=== PATIENT | male | born 1960 ===

== ENCOUNTER 2020-02-20 18:53 | Inpatient (IN) | payer OTHER, SELFPAY ==
[2020-02-20] MEDS ORDERED: AZITHROMYCIN 500 MG in SODIUM CHLORIDE 0.9% 250ML 250 ML IV ONE (19:04)
[2020-02-20] MEDS ORDERED: SODIUM CHLORIDE 0.9% 1000 ML IV SOLN IV ONE (19:06)
--- NOTE | 2020-02-20 19:07 | Emergency Department Report ---
ED Shortness of Breath HPI - General Chief Complaint: Dyspnea/Respdistress Stated Complaint: MARJORIE/RESP Time Seen by Provider: 02/20/20 19:01 Source: patient, EMS Mode of arrival: Stretcher Limitations: No Limitations - History of Present Illness Initial Comments: Patient is a 59-year-old male presents emergency room with complaints of shortness of breath, cough and difficulty breathing. Patient states he was diagnosed with Covid 4 days ago. Patient states that his symptoms started 1 week ago. Patient states his symptoms are worsening. Patient states he is having fever, chills, fatigue, shortness of breath and cough. Patient states cough is dry. Patient dates shortness of breath better with rest and worse with exertion. Patient brought in by EMS. Report received from EMS. EMS states the patient was 50% on room air and was placed on a nonrebreather and his current oxygen saturation is 88%. MD Complaint: shortness of breath, cough -: Sudden Severity: severe Consistency: constant Improves With: rest Worsens With: exertion Known History Of: other (COVID-19) Context: recent URI Associated Symptoms: fever, cough Treatments Prior to Arrival: oxygen - Related Data Home Oxygen Therapy: No Home Medications Medication Instructions Recorded Confirmed Last Taken No Known Home Medications [No 02/20/20 02/20/20 Unknown Reported Home Medications] Allergies Allergy/AdvReac Type Severity Reaction Status Date / Time No Known Allergies Allergy Unverified 02/20/20 19:38 ED Review of Systems ROS: Stated complaint: MARJORIE/RESP Other details as noted in HPI Constitutional: chills, fever, malaise Eyes: denies: eye pain, eye discharge, vision change ENT: denies: ear pain, throat pain Respiratory: cough, shortness of breath. denies: wheezing Cardiovascular: denies: chest pain, palpitations Endocrine: no symptoms reported Gastrointestinal: denies: abdominal pain, nausea, diarrhea Genitourinary: denies: urgency, dysuria Musculoskeletal: denies: back pain, joint swelling, arthralgia Skin: denies: rash, lesions Neurological: denies: headache, weakness, paresthesias Psychiatric: denies: anxiety, depression Hematological/Lymphatic: denies: easy bleeding, easy bruising ED Past Medical Hx - Past Medical History Previous Medical History?: Yes Hx Hypertension: Yes - Surgical History Past Surgical History?: No - Family History Family history: no significant - Social History Smoking Status: Never Smoker Substance Use Type: None - Medications Home Medications: Home Medications Medication Instructions Recorded Confirmed Last Taken Type No Known Home Medications [No 02/20/20 02/20/20 Unknown History Reported Home Medications] ED Physical Exam - General General appearance: alert, in distress - Head Head exam: Present: atraumatic, normocephalic - Eye Eye exam: Present: normal appearance - ENT ENT exam: Present: mucous membranes moist - Neck Neck exam: Present: normal inspection - Respiratory Respiratory exam: Present: respiratory distress, decreased breath sounds - Cardiovascular Cardiovascular Exam: Present: regular rate, normal rhythm. Absent: systolic murmur, diastolic murmur, rubs, gallop - GI/Abdominal GI/Abdominal exam: Present: soft, normal bowel sounds - Rectal Rectal exam: Present: deferred - Extremities Exam Extremities exam: Present: normal inspection - Back Exam Back exam: Present: normal inspection - Neurological Exam Neurological exam: Present: alert, oriented X3 - Psychiatric Psychiatric exam: Present: normal affect, normal mood - Skin Skin exam: Present: warm, dry, intact, normal color. Absent: rash ED Course Vital Signs 02/20/20 02/20/20 02/20/20 19:15 19:20 19:30 Temperature 97.6 F Pulse Rate 107 H Respiratory 28 H Rate Blood Pressure 124/78 122/74 Blood Pressure [Right] O2 Sat by Pulse 72 L 90 78 L Oximetry 02/20/20 02/20/20 02/20/20 19:45 20:00 20:30 Temperature Pulse Rate 107 H Respiratory 36 H Rate Blood Pressure 122/74 126/84 122/81 Blood Pressure [Right] O2 Sat by Pulse 93 93 94 Oximetry 02/20/20 02/20/20 02/20/20 21:00 21:30 22:00 Temperature Pulse Rate Respiratory Rate Blood Pressure 120/91 129/92 129/87 Blood Pressure [Right] O2 Sat by Pulse 96 95 80 L Oximetry 02/20/20 02/20/20 02/20/20 22:11 22:30 22:45 Temperature Pulse Rate 108 H 112 H Respiratory 33 H 21 Rate Blood Pressure 129/87 Blood Pressure 109/82 149/116 [Right] O2 Sat by Pulse 87 86 91 Oximetry 02/20/20 02/20/20 02/20/20 23:00 23:15 23:30 Temperature Pulse Rate 124 H 133 H 147 H Respiratory 25 H 32 H 26 H Rate Blood Pressure Blood Pressure 161/113 179/116 192/111 [Right] O2 Sat by Pulse 95 90 66 L Oximetry 02/20/20 02/21/20 02/21/20 23:45 00:34 00:35 Temperature Pulse Rate 145 H 120 H 117 H Respiratory 34 H 40 H 37 H Rate Blood Pressure 112/76 Blood Pressure 212/124 [Right] O2 Sat by Pulse 79 L 77 L 77 L Oximetry 02/21/20 02/21/20 02/21/20 00:40 00:45 00:50 Temperature Pulse Rate 110 H 111 H 105 H Respiratory 39 H 26 H 41 H Rate Blood Pressure 77/49 73/55 76/47 Blood Pressure [Right] O2 Sat by Pulse 80 L 79 L 77 L Oximetry 02/21/20 02/21/20 02/21/20 00:55 01:00 01:05 Temperature Pulse Rate 106 H 106 H 108 H Respiratory 42 H 41 H 41 H Rate Blood Pressure 75/48 65/41 79/46 Blood Pressure [Right] O2 Sat by Pulse 72 L 78 L 80 L Oximetry 02/21/20 02/21/20 02/21/20 01:10 01:16 01:20 Temperature Pulse Rate 107 H 116 H 116 H Respiratory 42 H 38 H 33 H Rate Blood Pressure 79/46 69/45 139/71 Blood Pressure [Right] O2 Sat by Pulse 82 L 71 L 70 L Oximetry 02/21/20 02/21/20 02/21/20 01:26 01:30 01:36 Temperature Pulse Rate 110 H 107 H 114 H Respiratory 44 H 41 H 19 Rate Blood Pressure 98/77 87/58 118/85 Blood Pressure [Right] O2 Sat by Pulse 75 L 80 L 72 L Oximetry - Reevaluation(s) Reevaluation #1: Initial evaluation done. Patient will have a Covid protocol and sepsis protocol. Patient will be placed on BiPAP. 02/20/20 19:07 Reevaluation #2: Patient states she is feeling better. Patient's oxygen is better. Patient's heart rate is better. Patient is currently on BiPAP. 02/20/20 20:10 Reevaluation #3: I discussed all results with patient. I discussed plan of care with patient. Patient agrees with plan of care and admission. Patient to be admitted to the hospitalist service. 02/20/20 20:47 Reevaluation #4: As the hospitalist went to see the patient, the patient desatted and the hospitalist asked the patient to be admitted. The patient agrees to intubation. Patient will be moved to room 1 and we will move to intubate the patient. See procedure note. 02/20/20 21:58 Reevaluation #5: Patient intubated without difficulty. Hospitalist updated with status. Patient will have a second chest x-ray to confirm ET tube placement. 02/20/20 22:30 Patient had a repeat chest x-ray and a repeat chest x-ray shows the ET tube was in the right mainstem. Patient is to have been repositioned 5 cm back and we will do a repeat chest x-ray. A pressure and the patient will require a central line. A central line will be placed. 02/21/20 01:12 Her chest x-ray shows good position of the ET tube. Patient will have a central line placed now. 02/21/20 01:34 Central line placed without difficulty. See procedure note. 02/21/20 02:15 - Consultations Consultation #1: Hospitalist consulted for admission. Hospitalist to admit patient. 02/20/20 20:47 Hospitalist updated with intubation status. 02/20/20 22:46 Hospitalist updated with underlying status. 02/21/20 02:26 - Central Line Placement Right Femoral Consent Obtained: emergent situation Time Out Performed: Yes Patient Placed on Monitor/Pulse Ox: Yes MD Prep: mask, gown, gloves Central Line Prep: Chlorhexidine scrub, sterile drapes applied Local Anesthesia Used: Lidocaine 1% Amount of Anesthesia Used (mls): 5 Ultrasound Used for Placement: Yes Central Line Lumen Inserted: triple Bloods Obtained for Lab: Yes Central Line Position: good blood return, all ports aspirated, flus, sutured in place with 2-0 Dressing Applied: Tegaderm Patient Tolerated Procedure: well, no complications Complications: none Additional Comments: Right femoral central line placed without complications. Seldinger technique used. Minimal blood loss noted. - Intubation Time Out Performed: Yes Sedative: Etomidate Paralytic: Rocuronium Laryngoscope: fiberoptic video scope Size: 3 Assist Device Used: fiberoptic device ET Tube Size: 7.5 Tube Secured Depth (cm): 24 Tube Secured Location: teeth Tube Placement Confirmation: visualized tube passing t, equal breath sounds bilat, no breath sounds over epi, confirmation by capnometr Patient Tolerated Procedure: well, no complications Intubation Complications: none ED Medical Decision Making - Lab Data Result diagrams: 02/20/20 19:21 02/20/20 19:21 - EKG Data -: EKG Interpreted by Me EKG shows normal: sinus rhythm, axis, intervals, QRS complexes, ST-T waves Rate: tachycardia - Radiology Data Radiology results: report reviewed, image reviewed interpreted by me: First chest x-ray: Bilateral pneumonia, no pneumothorax, no foreign body, no osseous findings. Second chest x-ray: No change in acute findings except the ET tube is in the right mainstem. Third chest x-ray after the tube was repositioned: ET tube in satisfactory pos ition. CHEST 1 VIEW INDICATION / CLINICAL INFORMATION: Dyspnea. COMPARISON: None available. FINDINGS: SUPPORT DEVICES: None. HEART / MEDIASTINUM: No significant abnormality. LUNGS / PLEURA: Diffuse bilateral airspace disease No pneumothorax. ADDITIONAL FINDINGS: No significant additional findings. IMPRESSION: Diffuse bilateral airspace disease ABDOMEN 1 VIEW INDICATION / CLINICAL INFORMATION: OG tube placement confirmation. COMPARISON: Chest radiograph one day prior FINDINGS: TUBES / LINES: Interval placement of an enteric tube with tip terminating in the gastric body and side hole distal to the gastroesophageal junction. BOWEL GAS PATTERN: No significant abnormality. FREE AIR / EXTRALUMINAL GAS: None seen. ADDITIONAL FINDINGS: Refer to separately dictated chest radiograph. IMPRESSION: 1. Appropriately positioned enteric tube. - Medical Decision Making Patient is a 59-year-old male that presents emergency room with complaints of shortness of breath and cough. Patient was diagnosed with Covid. Patient dates his symptoms been going on for a week. Patient states his symptoms worsening. Patient brought in by EMS. EMS states that the patient was 50% on room air and was placed on a nonrebreather and went up to 88%. Patient was placed on BiPAP after initial evaluation. Patient had labs done which were consistent with elevated Covid markers and hyponatremia. Patient's WBCs were also elevated.. Patient's chest x-ray shows bilateral pneumonia. After initial evaluation, the patient was given IV fluids and broad-spectrum antibiotics. Patient also given Decadron. Patient did well on BiPAP for the duration of his ER stay however after the patient was admitted to the hospitalist service, the patient became hypoxic and increased work to breathe. Patient was then intubated. See procedure note for intubation. Patient's oxygen saturation and work to breathe improved with intubation. Patient admitted to the hospitalist service for further evaluation treatment. Patient initially admitted to [facility] however the admission was changed to the ICU because of the intubation and respiratory failure. After patient was admitted and intubation, the patient became hypotensive. Patient was placed on Levophed and given fluids. Patient then required a central line. A central line was placed. Hospitalist updated with status. - Differential Diagnosis Covid, pneumonia, hypoxia, respiratory failure, shortness of breath Critical Care Time: Yes Critical care time in (mins) excluding proc time.: 80 Critical care attestation.: If time is entered above; I have spent that time in minutes in the direct care o f this critically ill patient, excluding procedure time. Critical Care Time: 80 MINUTES ED Disposition Clinical Impression: COVID-19, Hyponatremia, Septic shock Respiratory failure Qualifiers: Chronicity: acute Respiratory failure complication: hypoxia Qualified Code(s): J96.01 - Acute respiratory failure with hypoxia Pneumonia Qualifiers: Pneumonia type: due to unspecified organism Laterality: bilateral Lung location: unspecified part of lung Qualified Code(s): J18.9 - Pneumonia, unspecified organism Sepsis Qualifiers: Sepsis type: sepsis due to unspecified organism Sepsis acute organ dysfunction status: with acute organ dysfunction Severe sepsis acute organ dysfunction type: acute respiratory failure Acute respiratory failure type: with hypoxia Severe sepsis shock status: with septic shock Qualified Code(s): A41.9 - Sepsis, unspecified organism Hypotension Qualifiers: Hypotension type: unspecified hypotension type Qualified Code(s): I95.9 - Hypotension, unspecified Disposition: -09 OP ADMIT IP TO THIS HOSP Is pt being admited?: Yes Does the pt Need Aspirin: No Condition: Critical Time of Disposition: 22:39
[2020-02-20] MEDS ORDERED: cefTRIAXone/NS 2 GM/100 ML 2 GM/100 ML BAG IV ONE ×2 (19:40→19:41)
[2020-02-20 19:50] LABS: Hematocrit 44.2 % (35.5-45.6); Hemoglobin 15.1 gm/dl (11.8-15.2); Mean Corpuscular HGB Conc 34 % (32-34); Mean Corpuscular Volume 95 fl (84-94); Platelet Count 338 K/mm3 (140-440); Red Blood Count 4.67 M/mm3 (3.65-5.03); Red Cell Distribution Width 13.9 % (13.2-15.2)
[2020-02-20 20:07] LABS: Alanine Aminotransferase 148 units/L (7-56); Albumin 2.8 g/dL (3.9-5); BUN/Creatinine Ratio 26; Blood Urea Nitrogen 21 mg/dL (9-20); C-Reactive Protein 32.4 mg/dL (0.00-1.30); Calcium 8.9 mg/dL (8.4-10.2); Hemolysis Index 9
--- NOTE | 2020-02-20 20:21 | XRay Report ---
CHEST 1 VIEW INDICATION / CLINICAL INFORMATION: Dyspnea. COMPARISON: None available. FINDINGS: SUPPORT DEVICES: None. HEART / MEDIASTINUM: No significant abnormality. LUNGS / PLEURA: Diffuse bilateral airspace disease No pneumothorax. ADDITIONAL FINDINGS: No significant additional findings. IMPRESSION: Diffuse bilateral airspace disease Signer Name: Elver Luna MD FACR Signed: 02/20/2020 8:16 PM Workstation Name: [id number]
[2020-02-20 21:34] LABS: Total Cells Counted 100
[2020-02-20 21:35] LABS: Basophils % (Manual) 0 % (0.0-1.8)
[2020-02-20 21:37] LABS: Band Neutrophils # (Manual) 0.7 K/mm3; Eosinophils % (Manual) 0 % (0.0-4.3)
[2020-02-20 21:38] LABS: Platelet Estimate Consistent w Auto
[2020-02-20] MEDS ORDERED: MINERAL OIL/PETROLATUM, WHITE OPHTH OINT 3.5 GM OU PRN (22:04)
[2020-02-20] MEDS ORDERED: fentaNYL 100 MCG/2 ML INJ IV PRN (22:04)
[2020-02-20] MEDS: ETOMIDATE 20 MG/10 ML INJ IV ONE ×2 (22:14→22:25)
[2020-02-20] MEDS: ROCURONIUM 50 MG/5 ML INJ IV ONE ×2 (22:17→22:26)
[2020-02-20] MEDS: fentaNYL DRIP Premix 2,000 MCG/100 ML BAG IV SCH (22:33)
[2020-02-20] MEDS: PROPOFOL 500 MG/50 ML VIAL IV SCH (23:44)
[2020-02-21 00:09] LABS: Bilirubin,Urine NEG (Negative); Blood,Urine NEG (Negative); Color,Urine Amber (Yellow); Mucus,Urine 3+ /HPF; Urobilinogen,Urine < 2.0 mg/dL (<2.0)
[2020-02-21 00:11] LABS: Protein,Urine >500 mg/dL (Negative)
[2020-02-21] MEDS ORDERED: ONDANSETRON 4 MG/2 ML INJ IV PRN (00:28)
[2020-02-21] MEDS ORDERED: MORPHINE 2 MG/1 ML INJ IV PRN (00:28)
--- NOTE | 2020-02-21 00:37 | History and Physical Report ---
History of Present Illness Date of examination: 02/20/20 Date of admission: 02/20/20 21:32 Chief complaint: Shortness of Breath Fever Cough History of present illness: 59-year-old male with known history of hypertension presenting to the emergency room via EMS today complaining of cough, shortness of breath and difficulty breathing. Symptoms have been ongoing for about a week. He was diagnosed with COVID-19 about 4 days ago. He has been having a fever, chills generalized fatigue and dry cough over the past few days. Symptoms seems to be getting worse. He gets more short of breath on minimal exertion. Patient is initial oxygen saturation on room air was about 50% when seen by EMS and he was placed on nonrebreather with improvement of oxygen saturation to about 88%. Patient was subsequently placed on BiPAP upon arrival in the emergency room. Work-up in the emergency room today reveals bilateral pneumonia. During the course of his stay in the emergency room patient's condition continued to deteriorate and was subsequently intubated in the ER. Patient admitted with pneumonia possibly secondary to COVID-19 and will be admitted into the intensive care unit. Past History Past Medical History: hypertension Past Surgical History: No surgical history Social history: no significant social history Family history: no significant family history Medications and Allergies Allergies Allergy/AdvReac Type Severity Reaction Status Date / Time No Known Allergies Allergy Unverified 02/20/20 19:38 Home Medications Medication Instructions Recorded Confirmed Last Taken Type No Known Home Medications [No 02/20/20 02/20/20 Unknown History Reported Home Medications] Active Meds: Active Medications Acetaminophen (Tylenol) 650 mg PO Q4H PRN PRN Reason: Pain MILD(1-3)/Fever >100.5/HERNANDEZ Fentanyl (Sublimaze) 50 mcg IV Q10MIN PRN PRN Reason: ANALGESIA Hydrophilic Ointment (Vaseline Lip Therapy) 1 applic TP Q2HR PRN PRN Reason: Dry Lips Fentanyl Citrate (Fentanyl Drip Premix) 2,000 mcg in 100 mls @ 3.856 mls/hr IV TITR DILIP; Protocol Last Titration: 02/20/20 23:44 Dose: 0 mcg/kg/hr, 0 mls/hr Documented by: Propofol (Propofol) 500 mg in 50 mls @ 2.313 mls/hr IV TITR DILIP; Protocol Last Titration: 12/10/20 00:10 Dose: 30 mcg/kg/min, 13.88 mls/hr Documented by: Ceftriaxone Sodium (Rocephin/Ns 2 Gm/100 Ml) 2 gm in 100 mls @ 200 mls/hr IV Q24HR DILIP; Protocol Azithromycin 500 mg/ Sodium (Chloride) 250 mls @ 250 mls/hr IV Q24HR DILIP; Protocol Morphine Sulfate (Morphine) 2 mg IV Q4H PRN PRN Reason: Pain, Moderate (4-6) Multi-Ingred Cream/Lotion/Oil/Oint (Artificial Tears Ophth Oint) 1 applic OU Q4HR PRN PRN Reason: Dry Eye(s) Ondansetron HCl (Zofran) 4 mg IV Q8H PRN PRN Reason: Nausea And Vomiting Sodium Chloride (Sodium Chloride Flush Syringe 10 Ml) 10 ml IV BID DILIP Sodium Chloride (Sodium Chloride Flush Syringe 10 Ml) 10 ml IV PRN PRN PRN Reason: LINE FLUSH Review of Systems Constitutional: fever, chills Ears, nose, mouth and throat: no nasal congestion, no sore throat Cardiovascular: no chest pain, no palpitations Respiratory: cough, shortness of breath Gastrointestinal: no abdominal pain, no nausea, no vomiting, no diarrhea Genitourinary Male: no dysuria, no hematuria, no nocturia Musculoskeletal: no neck pain, no low back pain Integumentary: no rash, no pruritis Neurological: no headaches, no confusion Psychiatric: no anxiety, no depression Exam - Constitutional Vitals: Temp Pulse Resp BP Pulse Ox 97.6 F 145 H 34 H 212/124 79 L 02/20/20 19:20 02/20/20 23:45 02/20/20 23:45 02/20/20 23:45 02/20/20 23:45 General appearance: Present: mild distress, well-nourished - EENT Eyes: Present: PERRL, EOM intact. Absent: scleral icterus ENT: hearing intact, clear oral mucosa, dentition normal - Neck Neck: Present: supple, normal ROM - Respiratory Respiratory effort: labored, accessory muscle use Respiratory: bilateral: rales - Cardiovascular Rhythm: regular Heart Sounds: Present: S1 & S2. Absent: gallop, systolic murmur, diastolic murmur, rub - Extremities Extremities: no ischemia, pulses intact, pulses symmetrical, No edema, Full ROM Peripheral Pulses: within normal limits - Abdominal General gastrointestinal: Present: soft, non-tender, non-distended, normal bowel sounds. Absent: mass - Integumentary Integumentary: Present: clear, warm, dry. Absent: rash - Musculoskeletal Musculoskeletal: strength equal bilaterally - Psychiatric Psychiatric: appropriate mood/affect, intact judgment & insight, memory intact, cooperative - Neurologic Neurologic: CNII-XII intact, no focal deficits, moves all extremities Results - Labs CBC & Chem 7: 02/20/20 19:21 02/20/20 19:21 Labs: Abnormal lab results 02/20/20 02/20/20 02/20/20 Range/Units 19:21 19:21 19:21 WBC 14.7 H (4.5-11.0) K/mm3 MCV 95 H (84-94) fl Seg Neuts % (Manual) 86.0 H (40.0-70.0) % Lymphocytes % (Manual) 5.0 L (13.4-35.0) % Nucleated RBC % 1.0 H (0.0-0.9) % Seg Neutrophils # Man 12.6 H (1.8-7.7) K/mm3 Lymphocytes # (Manual) 0.7 L (1.2-5.4) K/mm3 D-Dimer > 72084 H (0-234) ng/mlDDU ABG pH (7.320-7.450) POC ABG pCO2 (32.0-48.0) mmHg POC ABG pO2 (83-108) mmHg ABG Sodium (136.0-145.0) mmol/L ABG Glucose (65-95) mg/dL Sodium 129 L (137-145) mmol/L Chloride 95.8 L (98-107) mmol/L Carbon Dioxide 21 L (22-30) mmol/L BUN 21 H (9-20) mg/dL Glucose 167 H (75-100) mg/dL Ferritin (30.0-300.0) ng/mL AST 93 H (5-40) units/L ALT 148 H (7-56) units/L Alkaline Phosphatase 138 H (35-129) units/L Lactate Dehydrogenase (91-180) units/L C-Reactive Protein (0.00-1.30) mg/dL Albumin 2.8 L (3.9-5) g/dL Arterial Blood Glucose (65-95) mg/dL Urine WBC (Auto) (0.0-6.0) /HPF 02/20/20 02/20/20 02/20/20 Range/Units 19:21 19:21 23:00 WBC (4.5-11.0) K/mm3 MCV (84-94) fl Seg Neuts % (Manual) (40.0-70.0) % Lymphocytes % (Manual) (13.4-35.0) % Nucleated RBC % (0.0-0.9) % Seg Neutrophils # Man (1.8-7.7) K/mm3 Lymphocytes # (Manual) (1.2-5.4) K/mm3 D-Dimer (0-234) ng/mlDDU ABG pH (7.320-7.450) POC ABG pCO2 (32.0-48.0) mmHg POC ABG pO2 (83-108) mmHg ABG Sodium (136.0-145.0) mmol/L ABG Glucose (65-95) mg/dL Sodium (137-145) mmol/L Chloride (98-107) mmol/L Carbon Dioxide (22-30) mmol/L BUN (9-20) mg/dL Glucose 165 H (75-100) mg/dL Ferritin 1263.0 H (30.0-300.0) ng/mL AST (5-40) units/L ALT (7-56) units/L Alkaline Phosphatase (35-129) units/L Lactate Dehydrogenase 858 H (91-180) units/L C-Reactive Protein 32.40 H (0.00-1.30) mg/dL Albumin (3.9-5) g/dL Arterial Blood Glucose (65-95) mg/dL Urine WBC (Auto) 9.0 H (0.0-6.0) /HPF 02/20/20 Range/Units 23:37 WBC (4.5-11.0) K/mm3 MCV (84-94) fl Seg Neuts % (Manual) (40.0-70.0) % Lymphocytes % (Manual) (13.4-35.0) % Nucleated RBC % (0.0-0.9) % Seg Neutrophils # Man (1.8-7.7) K/mm3 Lymphocytes # (Manual) (1.2-5.4) K/mm3 D-Dimer (0-234) ng/mlDDU ABG pH 7.192 L (7.320-7.450) POC ABG pCO2 51.3 H (32.0-48.0) mmHg POC ABG pO2 61.1 L (83-108) mmHg ABG Sodium 133.6 L (136.0-145.0) mmol/L ABG Glucose 166 H (65-95) mg/dL Sodium (137-145) mmol/L Chloride (98-107) mmol/L Carbon Dioxide (22-30) mmol/L BUN (9-20) mg/dL Glucose (75-100) mg/dL Ferritin (30.0-300.0) ng/mL AST (5-40) units/L ALT (7-56) units/L Alkaline Phosphatase (35-129) units/L Lactate Dehydrogenase (91-180) units/L C-Reactive Protein (0.00-1.30) mg/dL Albumin (3.9-5) g/dL Arterial Blood Glucose 166 H (65-95) mg/dL Urine WBC (Auto) (0.0-6.0) /HPF Assessment and Plan - Patient Problems (1) Pneumonia Current Visit: Yes Status: Acute Qualifiers: Pneumonia type: due to unspecified organism Laterality: bilateral Lung location: unspecified part of lung Qualified Code(s): J18.9 - Pneumonia, unspecified organism Plan to address problem: Patient placed on empiric IV antibiotics. Will await culture results. (2) COVID-19 Current Visit: Yes Status: Acute Plan to address problem: Patient placed on isolation precautions. We will place consult to infectious disease for evaluation and recommendation. (3) Hyponatremia Current Visit: Yes Status: Acute Plan to address problem: We will monitor chemistry. Patient has received some IV fluid in the emergency room. (4) Respiratory failure Current Visit: Yes Status: Acute Qualifiers: Chronicity: acute Respiratory failure complication: hypoxia Qualified C ode(s): J96.01 - Acute respiratory failure with hypoxia Plan to address problem: Possibly secondary to the pneumonia with COVID-19. Patient has been intubated and sedated. We will place consult to equine intern for evaluation and recommendation. (5) DVT prophylaxis Current Visit: Yes Status: Acute Plan to address problem: Patient placed on subcutaneous heparin. (6) Full code status Current Visit: Yes Status: Acute
[2020-02-21] MEDS ORDERED: NORepinephrine/NS 4 MG-250 ML 4 MG/250 ML BAG IV ONE (00:59)
[2020-02-21] MEDS: NORepinephrine/NS 4 MG-250 ML 4 MG/250 ML BAG IV SCH ×8 (01:00→17:51)
--- NOTE | 2020-02-21 01:08 | XRay Report ---
ABDOMEN 1 VIEW INDICATION / CLINICAL INFORMATION: OG tube placement confirmation. COMPARISON: Chest radiograph one day prior FINDINGS: TUBES / LINES: Interval placement of an enteric tube with tip terminating in the gastric body and madie e hole distal to the gastroesophageal junction. BOWEL GAS PATTERN: No significant abnormality. FREE AIR / EXTRALUMINAL GAS: None seen. ADDITIONAL FINDINGS: Refer to separately dictated chest radiograph. IMPRESSION: 1. Appropriately positioned enteric tube. Signer Name: Adrianne Espinoza MD Signed: 02/21/2020 1:04 AM Workstation Name: [id number]
--- NOTE | 2020-02-21 01:12 | XRay Report ---
CHEST 1 VIEW INDICATION / CLINICAL INFORMATION: ETT placement. COMPARISON: Chest radiograph one day prior FINDINGS: SUPPORT DEVICES: Interval placement of an endotracheal tube with tip terminating in the right mainste m bronchus. Interval placement of enteric tube coursing beneath the diaphragm with the tip not visual ized. HEART / MEDIASTINUM: Stable. LUNGS / PLEURA: Redemonstration of extensive bilateral airspace opacities which appear slightly worse andra compared with prior examination. No pneumothorax. ADDITIONAL FINDINGS: No significant additional findings. IMPRESSION: 1. Interval placement of an endotracheal tube with tip terminating in the right mainstem bronchus, re commend retraction by approximately 5 to 6 cm. The above finding was discussed with Dr. Davison at 12:07 AM central time on 02/21/2020. Signer Name: Adrianne Espinoza MD Signed: 02/21/2020 1:07 AM Workstation Name: [id number]
[2020-02-21] MEDS: PROPOFOL 500 MG/50 ML VIAL IV SCH ×5 (01:30→19:52)
[2020-02-21] MEDS ORDERED: NORepinephrine/NS 4 MG-250 ML 4 MG/250 ML BAG IV SCH (02:00)
--- NOTE | 2020-02-21 02:03 | XRay Report ---
CHEST 1 VIEW INDICATION / CLINICAL INFORMATION: ETT placement. COMPARISON: Chest radiograph earlier same day FINDINGS: SUPPORT DEVICES: The endotracheal tube is now appropriately positioned, with tip terminating approxim ately 4.5 cm above the level of the serena. Stable position of enteric tube. HEART / MEDIASTINUM: Stable. LUNGS / PLEURA: Extensive bilateral airspace opacities are not significantly changed. No pneumothorax . ADDITIONAL FINDINGS: No significant additional findings. IMPRESSION: 1. The endotracheal tube is now appropriately positioned. Otherwise no significant change. Signer Name: Adrianne Espinoza MD Signed: 02/21/2020 1:58 AM Workstation Name: [id number]
[2020-02-21] MEDS ORDERED: SODIUM CHLORIDE 0.9% 1000 ML 1,000 ML ONE (02:10)
[2020-02-21] MEDS ORDERED: SODIUM CHLORIDE 0.9% 1000 ML 1,000 ML IV ONE (02:27)
--- NOTE | 2020-02-21 07:34 | Consultation ---
History of Present Illness - Reason for Consult Consult date: 02/21/20 COVID intubated Requesting physician: PAKO WELLER - History of Present Illness 59 years old male with history of hypertension admitted on 02/20/2020 due to a week history of dry cough, fever, generalized malaise, shortness of breath. Patient was diagnosed with COVID-19 4 days before admission. EMS found O2 sats down to 50% on room air. Patient was placed on nonrebreather. On arrival, initial temperature 97.6, HR 107, RR 28, O2 sat 72%, BP 124/78. Initial WBC 14.7. D-dimer 10,000. Ferritin 1263. AST 93. ALT 148. CRP 32. Urinalysis negative. Blood cultures 02/20/2020 pending. Chest x-ray shows diffuse bilateral airspace disease. Patient was intubated in the emergency room. Review of Systems: Deferred to ED with transmission of COVID-19 Past History Past Medical History: hypertension Past Surgical History: No surgical history Social history: no significant social history Family history: no significant family history Medications and Allergies Allergies Allergy/AdvReac Type Severity Reaction Status Date / Time No Known Allergies Allergy Unverified 02/20/20 19:38 Home Medications Medication Instructions Recorded Confirmed Last Taken Type No Known Home Medications [No 02/20/20 02/20/20 Unknown History Reported Home Medications] Active Meds: Active Medications Acetaminophen (Tylenol) 650 mg PO Q4H PRN PRN Reason: Pain MILD(1-3)/Fever >100.5/HERNANDEZ Dexamethasone (Dexamethasone 4 Mg/Ml Vial) 6 mg IV Q12HR DILIP Stop: 02/26/20 09:59 Fentanyl (Sublimaze) 50 mcg IV Q10MIN PRN PRN Reason: ANALGESIA Hydrophilic Ointment (Vaseline Lip Therapy) 1 applic TP Q2HR PRN PRN Reason: Dry Lips Fentanyl Citrate (Fentanyl Drip Premix) 2,000 mcg in 100 mls @ 3.856 mls/hr IV TITR DILIP; Protocol Last Titration: 02/20/20 23:44 Dose: 0 mcg/kg/hr, 0 mls/hr Documented by: Propofol (Propofol) 500 mg in 50 mls @ 2.313 mls/hr IV TITR DILIP; Protocol Last Admin: 02/21/20 07:05 Dose: 30 mcg/kg/min, 13.88 mls/hr Documented by: Ceftriaxone Sodium (Rocephin/Ns 2 Gm/100 Ml) 2 gm in 100 mls @ 200 mls/hr IV Q24HR DILIP; Protocol Azithromycin 500 mg/ Sodium (Chloride) 250 mls @ 250 mls/hr IV Q24HR DILIP; Protocol Norepinephrine (Levophed Drip 4 Mg/Ns 250 Ml) 4 mg in 250 mls @ 7.5 mls/hr IV TITR DILIP; Protocol Last Admin: 02/21/20 07:11 Dose: 14 mcg/min, 52.5 mls/hr Documented by: REMDESIVIR 200 mg/ Sodium (Chloride) 250 mls @ 500 mls/hr IV ONCE ONE Stop: 02/21/20 08:02 REMDESIVIR 100 mg/ Sodium (Chloride) 250 mls @ 500 mls/hr IV Q24HR@2100 DILIP Stop: 02/25/20 21:29 Morphine Sulfate (Morphine) 2 mg IV Q4H PRN PRN Reason: Pain, Moderate (4-6) Multi-Ingred Cream/Lotion/Oil/Oint (Artificial Tears Ophth Oint) 1 applic OU Q4HR PRN PRN Reason: Dry Eye(s) Ondansetron HCl (Zofran) 4 mg IV Q8H PRN PRN Reason: Nausea And Vomiting Sodium Chloride (Sodium Chloride Flush Syringe 10 Ml) 10 ml IV BID DILIP Sodium Chloride (Sodium Chloride Flush Syringe 10 Ml) 10 ml IV PRN PRN PRN Reason: LINE FLUSH Sodium Chloride (Sodium Chloride 0.9% 50 Ml Ivpb) 50 ml IV Q24HR@2100 DILIP Stop: 02/25/20 21:01 Physical Examination - Physical Exam Narrative exam: Physical Exam: reviewed ED and hospitalist notes, deferred to limit transmission of COVID-19 - Constitutional Vitals: Vital Signs Temp Pulse Resp BP Pulse Ox 97.6 F 99 H 46 H 121/71 95 02/20/20 19:20 02/21/20 07:16 02/21/20 07:16 02/21/20 07:16 02/21/20 07:16 Temperature -Last 24 Hours Temperature 97.6 F Results - Labs CBC & Chem 7: 02/20/20 19:21 02/20/20 19:21 Labs: Abnormal lab results 12/12/0102/20/20 02/20/20 Range/Units 19:21 19:21 19:21 WBC 14.7 H (4.5-11.0) K/mm3 MCV 95 H (84-94) fl Seg Neuts % (Manual) 86.0 H (40.0-70.0) % Lymphocytes % (Manual) 5.0 L (13.4-35.0) % Nucleated RBC % 1.0 H (0.0-0.9) % Seg Neutrophils # Man 12.6 H (1.8-7.7) K/mm3 Lymphocytes # (Manual) 0.7 L (1.2-5.4) K/mm3 D-Dimer > 08177 H (0-234) ng/mlDDU ABG pH (7.320-7.450) POC ABG pCO2 (32.0-48.0) mmHg POC ABG pO2 (83-108) mmHg ABG Sodium (136.0-145.0) mmol/L ABG Glucose (65-95) mg/dL Sodium 129 L (137-145) mmol/L Chloride 95.8 L (98-107) mmol/L Carbon Dioxide 21 L (22-30) mmol/L BUN 21 H (9-20) mg/dL Glucose 167 H (75-100) mg/dL Ferritin (30.0-300.0) ng/mL AST 93 H (5-40) units/L ALT 148 H (7-56) units/L Alkaline Phosphatase 138 H (35-129) units/L Lactate Dehydrogenase (91-180) units/L C-Reactive Protein (0.00-1.30) mg/dL Albumin 2.8 L (3.9-5) g/dL Arterial Blood Glucose (65-95) mg/dL Urine WBC (Auto) (0.0-6.0) /HPF 02/20/20 02/20/20 02/20/20 Range/Units 19:21 19:21 23:00 WBC (4.5-11.0) K/mm3 MCV (84-94) fl Seg Neuts % (Manual) (40.0-70.0) % Lymphocytes % (Manual) (13.4-35.0) % Nucleated RBC % (0.0-0.9) % Seg Neutrophils # Man (1.8-7.7) K/mm3 Lymphocytes # (Manual) (1.2-5.4) K/mm3 D-Dimer (0-234) ng/mlDDU ABG pH (7.320-7.450) POC ABG pCO2 (32.0-48.0) mmHg POC ABG pO2 (83-108) mmHg ABG Sodium (136.0-145.0) mmol/L ABG Glucose (65-95) mg/dL Sodium (137-145) mmol/L Chloride (98-107) mmol/L Carbon Dioxide (22-30) mmol/L BUN (9-20) mg/dL Glucose 165 H (75-100) mg/dL Ferritin 1263.0 H (30.0-300.0) ng/mL AST (5-40) units/L ALT (7-56) units/L Alkaline Phosphatase (35-129) units/L Lactate Dehydrogenase 858 H (91-180) units/L C-Reactive Protein 32.40 H (0.00-1.30) mg/dL Albumin (3.9-5) g/dL Arterial Blood Glucose (65-95) mg/dL Urine WBC (Auto) 9.0 H (0.0-6.0) /HPF 02/20/20 Range/Units 23:37 WBC (4.5-11.0) K/mm3 MCV (84-94) fl Seg Neuts % (Manual) (40.0-70.0) % Lymphocytes % (Manual) (13.4-35.0) % Nucleated RBC % (0.0-0.9) % Seg Neutrophils # Man (1.8-7.7) K/mm3 Lymphocytes # (Manual) (1.2-5.4) K/mm3 D-Dimer (0-234) ng/mlDDU ABG pH 7.192 L (7.320-7.450) POC ABG pCO2 51.3 H (32.0-48.0) mmHg POC ABG pO2 61.1 L (83-108) mmHg ABG Sodium 133.6 L (136.0-145.0) mmol/L ABG Glucose 166 H (65-95) mg/dL Sodium (137-145) mmol/L Chloride (98-107) mmol/L Carbon Dioxide (22-30) mmol/L BUN (9-20) mg/dL Glucose (75-100) mg/dL Ferritin (30.0-300.0) ng/mL AST (5-40) units/L ALT (7-56) units/L Alkaline Phosphatase (35-129) units/L Lactate Dehydrogenase (91-180) units/L C-Reactive Protein (0.00-1.30) mg/dL Albumin (3.9-5) g/dL Arterial Blood Glucose 166 H (65-95) mg/dL Urine WBC (Auto) (0.0-6.0) /HPF Assessment and Plan Cultures: Blood culture 02/20/2020 pending SARS CoV2 PCR positive as an outpatient Assessment: #Severe sepsis with septic shock: Present on admission with severe hypoxia, leukocytosis, elevated LFTs likely due to bilateral pneumonia. #Critical COVID pneumonia: Patient intubated. Very elevated inflammatory markers, ferritin 1263, CRP 32, D-dimer> 10,000. Suspect pulmonary embolism. #Acute hypoxemic respiratory failure: Patient intubated currently failure to 100%, PEEP 16. #Elevated LFTs: from COVID #Very elevated D-dimer: She rule out DVT/PE Recommendations: -Start Dexamethasone 6 mg IV/PO BID for 10 days -Start Remdesivir total 5 days -Monitor inflammatory markers - ferritin, Ddimer, CRP, LDH -Monitor liver function test on Remdesivir -Continue anticoagulation per System Protocol -consider full dose anticoagulation -Prone positioning as possible -Obtain SARS CoV-2 IgG to determine if patient is a candidate for COVID convalescent plasma -Follow-up blood cultures -Obtain respiratory culture -Obtain procalcitonin -Start cefepime and vancomycin for now -Obtain MRSA culture High risk mortality All laboratory, cultures and imaging were reviewed. Will follow Venita Tran MD Infectious Diseases [employer] [facility] M [phone] O [phone]
[2020-02-21] MEDS: CEFEPIME/NS 2 GM/100 ML 2 GM/100 ML BAG IV SCH ×3 (08:20→22:45)
--- NOTE | 2020-02-21 08:46 | Progress Note ---
Assessment and Plan Assessment and plan: 59-year-old male with known history of hypertension presenting to the emergency room via EMS today complaining of cough, shortness of breath and difficulty breathing. Symptoms have been ongoing for about a week. He was diagnosed with COVID-19 about 4 days ago. He has been having a fever, chills generalized fatigue and dry cough over the past few days. Symptoms seems to be getting worse. He gets more short of breath on minimal exertion. Patient is initial oxygen saturation on room air was about 50% when seen by EMS and he was placed on nonrebreather with improvement of oxygen saturation to about 88%. Patient was subsequently placed on BiPAP upon arrival in the emergency room. Work-up in the emergency room today reveals bilateral pneumonia. During the course of his stay in the emergency room patient's condition continued to deteriorate and was subsequently intubated in the ER. Patient admitted with pneumonia possibly secondary to COVID-19 and will be admitted into the intensive care unit. Severe sepsis, Acute Hypoxic Respiratory failure secondary to covid 19 pneumonia Pneumonia secondary to COVID19 Hyponatremia Transaminitis with elevated LFT, likely due to COVID 19 Plan Patient placed on empiric IV antibiotics. Will await culture results. Started on Dexamethasone and Remdesivir Continue isolation precautions. We will place consult to infectious disease for evaluation and recommendation. We will monitor chemistry. Patient has received some IV fluid in the emergency room. Possibly secondary to the pneumonia with COVID-19. Patient has been intubated and sedated. We will place consult to cra officer for evaluation and recommendation. Prognosis is Guarded DVT/GI PROPHY History Interval history: Patient seen and examined, agitated as propofol had ran out, and was desturating, new med placed and patient stabilized, saturation back up to 95% b ut still on full ventilatory support. Hospitalist Physical - Physical exam Narrative exam: General appearance: Present: mild distress, well-nourished, SLIGHT agitated earlier but now stablized. - EENT Eyes: Present: PERRL, EOM intact. Absent: scleral icterus ENT: hearing intact, clear oral mucosa, dentition normal - Neck Neck: Present: supple, normal ROM - Respiratory Respiratory effort: On full ventilatory support. labored, accessory muscle use Respiratory: bilateral: rales - Cardiovascular Rhythm: regular Heart Sounds: Present: S1 & S2. Absent: gallop, systolic murmur, diastolic murmur, rub - Extremities Extremities: no ischemia, pulses intact, pulses symmetrical, No edema, Full ROM Peripheral Pulses: within normal limits - Abdominal General gastrointestinal: Present: soft, non-tender, non-distended, normal bowel sounds. Absent: mass - Integumentary Integumentary: Present: clear, warm, dry. Absent: rash - Musculoskeletal Musculoskeletal: strength equal bilaterally - Psychiatric Psychiatric: appropriate mood/affect, intact judgment & insight, memory intact, cooperative - Neurologic Neurologic: CNII-XII intact, no focal deficits, moves all extremities - Constitutional Vitals: Temp Pulse Resp BP Pulse Ox 97.6 F 96 H 46 H 117/74 98 02/20/20 19:20 02/21/20 08:15 02/21/20 08:15 02/21/20 08:15 02/21/20 08:15 General appearance: Present: mild distress, well-nourished Results - Labs CBC & Chem 7: 02/20/20 19:21 02/20/20 19:21 Labs: Laboratory Last Values WBC 14.7 K/mm3 (4.5-11.0) H 02/20/20 19: RBC 4.67 M/mm3 (3.65-5.03) 02/20/20 19:21 Hgb 15.1 gm/dl (11.8-15.2) 02/20/20 19:21 Hct 44.2 % (35.5-45.6) 02/20/20 19:21 MCV 95 fl (84-94) H 02/20/20 19:21 MCH 32 pg (28-32) 02/20/20 19: MCHC 34 % (32-34) 02/20/20 19:21 RDW 13.9 % (13.2-15.2) 02/20/20 19: Plt Count 338 K/mm3 (140-440) 02/20/20 19: Add Manual Diff Complete 02/20/20 19: Total Counted 100 02/20/20 19: Seg Neutrophils % Banking Services Clerk 02/20/20 19:21 Seg Neuts % (Manual) 86.0 % (40.0-70.0) H 02/20/20 19: Band Neutrophils % 5.0 % 02/20/20 19:21 Lymphocytes % (Manual) 5.0 % (13.4-35.0) L 02/20/20 19:21 Reactive Lymphs % (Man) 0 % 02/20/20 19:21 Monocytes % (Manual) 2.0 % (0.0-7.3) 02/20/20 19:21 Eosinophils % (Manual) 0 % (0.0-4.3) 02/20/20 19:21 Basophils % (Manual) 0 % (0.0-1.8) 02/20/20 19:21 Metamyelocytes % 2.0 % 02/20/20 19:21 Myelocytes % 0 % 02/20/20 19:21 Promyelocytes % 0 % 02/20/20 19:21 Blast Cells % 0 % 02/20/20 19:21 Nucleated RBC % 1.0 % (0.0-0.9) H 02/20/20 19:21 Seg Neutrophils # Man 12.6 K/mm3 (1.8-7.7) H 02/20/20 19:21 Band Neutrophils # 0.7 K/mm3 02/20/20 19:21 Lymphocytes # (Manual) 0.7 K/mm3 (1.2-5.4) L 02/20/20 19:21 Abs React Lymphs (Man) 0.0 K/mm3 02/20/20 19:21 Monocytes # (Manual) 0.3 K/mm3 (0.0-0.8) 02/20/20 19:21 Eosinophils # (Manual) 0.0 K/mm3 (0.0-0.4) 02/20/20 19:21 Basophils # (Manual) 0.0 K/mm3 (0.0-0.1) 02/20/20 19:21 Metamyelocytes # 0.3 K/mm3 02/20/20 19:21 Myelocytes # 0.0 K/mm3 02/20/20 19:21 Promyelocytes # 0.0 K/mm3 02/20/20 19:21 Blast Cells # 0.0 K/mm3 02/20/20 19:21 WBC Morphology Not Reportable 02/20/20 19:21 Hypersegmented Neuts Not Reportable 02/20/20 19:21 Hyposegmented Neuts Not Reportable 02/20/20 19:21 Hypogranular Neuts Not Reportable 02/20/20 19:21 Smudge Cells Not Reportable 02/20/20 19:21 Toxic Granulation Not Reportable 02/20/20 19:21 Toxic Vacuolation Not Reportable 02/20/20 19:21 Dohle Bodies Not Reportable 02/20/20 19:21 Pelger-Huet Anomaly Not Reportable 02/20/20 19:21 Noah Rods Not Reportable 02/20/20 19:21 Platelet Estimate Consistent w auto 02/20/20 19:21 Clumped Platelets Not Reportable 02/20/20 19:21 Plt Clumps, EDTA Not Reportable 02/20/20 19:21 Large Platelets Not Reportable 02/20/20 19:21 Giant Platelets Not Reportable 02/20/20 19:21 Platelet Satelliting Not Reportable 02/20/20 19:21 Plt Morphology Comment Not Reportable 02/20/20 19:21 RBC Morphology Not Reportable 02/20/20 19:21 Dimorphic RBCs Not Reportable 02/20/20 19:21 Polychromasia Rare 02/20/20 19:21 Hypochromasia Not Reportable 02/20/20 19:21 Poikilocytosis Not Reportable 02/20/20 19:21 Anisocytosis Not Reportable 02/20/20 19:21 Microcytosis Not Reportable 02/20/20 19:21 Macrocytosis Not Reportable 02/20/20 19:21 Spherocytes Not Reportable 02/20/20 19:21 Pappenheimer Bodies Not Reportable 02/20/20 19:21 Sickle Cells Not Reportable 02/20/20 19:21 Target Cells Not Reportable 02/20/20 19:21 Tear Drop Cells Not Reportable 02/20/20 19:21 Ovalocytes Not Reportable 02/20/20 19:21 Helmet Cells Not Reportable 02/20/20 19:21 [place] Bodies Not Reportable 02/20/20 19:21 [place] Rings Not Reportable 02/20/20 19:21 [place] Cells Not Reportable 02/20/20 19:21 Bite Cells Not Reportable 02/20/20 19:21 Crenated Cell Not Reportable 02/20/20 19:21 Elliptocytes Not Reportable 02/20/20 19:21 Acanthocytes (Spur) Not Reportable 02/20/20 19:21 Rouleaux Not Reportable 02/20/20 19:21 Hemoglobin C Crystals Not Reportable 02/20/20 19:21 Schistocytes Not Reportable 02/20/20 19:21 Malaria parasites Not Reportable 02/20/20 19:21 Allan Bodies Not Reportable 02/20/20 19:21 Hem Pathologist Commnt No 02/20/20 19:21 D-Dimer > 23249 ng/mlDDU (0-234) H 02/20/20 19:21 ABG pH 7.192 (7.320-7.450) L 02/20/20 23:37 POC ABG pCO2 51.3 mmHg (32.0-48.0) H 02/20/20 23:37 POC ABG pO2 61.1 mmHg (83-108) L 02/20/20 23:37 POC ABG HCO3 19.2 02/20/20 23:37 POC ABG Base Excess -9.2 02/20/20 23:37 ABG Hemoglobin 15 (12.0-17.5) 02/20/20 23:37 ABG Sodium 133.6 mmol/L (136.0-145.0) L 02/20/20 23:37 ABG Potassium 3.8 mmol/L (3.40-4.50) 02/20/20 23:37 ABG Chloride 104.0 mmol/L (98-107) 02/20/20 23:37 ABG Glucose 166 mg/dL (65-95) H 02/20/20 23:37 FiO2 100 02/20/20 23:37 Sodium 129 mmol/L (137-145) L 02/20/20 19:21 Potassium 3.7 mmol/L (3.6-5.0) 02/20/20 19:21 Chloride 95.8 mmol/L (98-107) L 02/20/20 19:21 Carbon Dioxide 21 mmol/L (22-30) L 02/20/20 19:21 Anion Gap 16 mmol/L 02/20/20 19:21 BUN 21 mg/dL (9-20) H 02/20/20 19:21 Creatinine 0.8 mg/dL (0.8-1.3) 02/20/20 19:21 Estimated GFR > 60 ml/min 02/20/20 19:21 BUN/Creatinine Ratio 26 % 02/20/20 19:21 Glucose 165 mg/dL (75-100) H 02/20/20 19:21 Glucose 167 mg/dL (75-100) H 02/20/20 19:21 Lactic Acid 1.90 mmol/L (0.7-2.0) 02/20/20 20:39 Calcium 8.9 mg/dL (8.4-10.2) 02/20/20 19:21 Ferritin 1263.0 ng/mL (30.0-300.0) H 02/20/20 19:21 Total Bilirubin 0.50 mg/dL (0.1-1.2) 02/20/20 19:21 AST 93 units/L (5-40) H 02/20/20 19:21 ALT 148 units/L (7-56) H 02/20/20 19:21 Alkaline Phosphatase 138 units/L (35-129) H 02/20/20 19:21 Lactate Dehydrogenase 858 units/L (91-180) H 02/20/20 19:21 C-Reactive Protein 32.40 mg/dL (0.00-1.30) H 02/20/20 19:21 Total Protein 7.1 g/dL (6.3-8.2) 02/20/20 19:21 Albumin 2.8 g/dL (3.9-5) L 02/20/20 19:21 Albumin/Globulin Ratio 0.7 % 02/20/20 19:21 Arterial Blood Glucose 166 mg/dL (65-95) H 02/20/20 23:37 Arterial Blood Ionized Calcium 4.6 mg/dL (4.6-5.3) 02/20/20 23:37 Urine Color [place] (Yellow) 02/20/20 23:00 Urine Turbidity Clear (Clear) 02/20/20 23:00 Urine pH 5.0 (5.0-7.0) 02/20/20 23:00 Ur Specific [place] 1.030 (1.003-1.030) 02/20/20 23:00 Urine Protein >500 mg/dL (Negative) 02/20/20 23:00 Urine Glucose (UA) Neg mg/dL (Negative) 02/20/20 23:00 Urine Ketones 20 mg/dL (Negative) 02/20/20 23:00 Urine Blood Neg (Negative) 02/20/20 23:00 Urine Nitrite Neg (Negative) 02/20/20 23:00 Urine Bilirubin Neg (Negative) 02/20/20 23:00 Urine Urobilinogen < 2.0 mg/dL (<2.0) 02/20/20 23:00 Ur Leukocyte Esterase Neg (Negative) 02/20/20 23:00 Urine WBC (Auto) 9.0 /HPF (0.0-6.0) H 02/20/20 23:00 Urine RBC (Auto) 7.0 /HPF (0.0-6.0) 02/20/20 23:00 U Epithel Cells (Auto) < 1.0 /HPF (0-13.0) 02/20/20 23:00 Urine Mucus 3+ /HPF 02/20/20 23:00 Microbiology: Microbiology 02/20/20 19:34 Peripheral/Venous Blood Culture - Preliminary Culture in Progress 02/20/20 19:21 Peripheral/Venous Blood Culture - Preliminary Culture in Progress [place]borne/IV: IV Catheter Type [Right CVL Femoral] IV Catheter Type [Left INT / Saline Lock Antecubital] Active Medications - Current Medications Current Medications: Generic Name Dose Route Start Last Admin Trade Name Freq PRN Reason Stop Dose Admin Acetaminophen 650 mg 02/21/20 00:28 Tylenol PO Q4H PRN Pain MILD(1-3)/Fever >100.5/HERNANDEZ Dexamethasone 6 mg 02/21/20 10:00 Dexamethasone 4 Mg/Ml Vial IV 02/26/20 09:59 Q12HR IDLIP Fentanyl 50 mcg 02/20/20 22:04 Sublimaze IV Q10MIN PRN ANALGESIA Hydrophilic Ointment 1 applic 02/20/20 22:04 Vaseline Lip Therapy TP Q2HR PRN Dry Lips Fentanyl Citrate 2,000 mcg in 100 mls @ 3.856 mls/hr 02/20/20 23:00 02/20/20 23:44 Fentanyl Drip Premix IV 0 mcg/kg/hr TITR DILIP 0 mls/hr Titration Protocol 1 MCG/KG/HR Propofol 500 mg in 50 mls @ 2.313 mls/hr 02/20/20 23:45 02/21/20 07:05 Propofol IV 30 mcg/kg/min TITR DILIP 13.88 mls/hr Administration Protocol 5 MCG/KG/MIN Norepinephrine 4 mg in 250 mls @ 7.5 mls/hr 02/21/20 01:29 02/21/20 07:11 Levophed Drip 4 Mg/Ns 250 Ml IV 14 mcg/min TITR DILIP 52.5 mls/hr Administration Protocol 2 MCG/MIN REMDESIVIR 200 mg/ Sodium 250 mls @ 500 mls/hr 02/21/20 09:00 Chloride IV 02/21/20 09:29 ONCE ONE REMDESIVIR 100 mg/ Sodium 250 mls @ 500 mls/hr 02/22/20 21:00 Chloride IV 02/25/20 21:29 Q24HR@2100 [facility] Cefepime HCl 2 gm in 100 mls @ 200 mls/hr 02/21/20 08:00 02/21/20 08:20 Cefepime/Ns 2 Gm/100 Ml IV 200 mls/hr Q8HR [facility] Administration Protocol Vancomycin HCl 1,500 mg/ 530 mls @ 333.333 mls/hr 02/21/20 09:00 Sodium Chloride IV 02/21/20 10:35 ONCE ONE Vancomycin HCl 1,250 mg/ 275 mls @ 166.667 mls/hr 02/21/20 22:00 Sodium Chloride IV Q12HR [facility] Morphine Sulfate 2 mg 02/21/20 00:28 Morphine IV Q4H PRN Pain, Moderate (4-6) Multi-Ingred Cream/Lotion/Oil/Oint 1 applic 02/20/20 22:04 Artificial Tears Ophth Oint OU Q4HR PRN Dry Eye(s) Ondansetron HCl 4 mg 02/21/20 00:28 Zofran IV Q8H PRN Nausea And Vomiting Sodium Chloride 10 ml 02/21/20 10:00 Sodium Chloride Flush Syringe 10 Ml IV BID DILIP Sodium Chloride 10 ml 02/21/20 00:28 Sodium Chloride Flush Syringe 10 Ml IV PRN PRN LINE FLUSH Sodium Chloride 50 ml 02/21/20 09:00 Sodium Chloride 0.9% 50 Ml Ivpb IV 02/25/20 21:59 Q24HR@2100 [facility]
[2020-02-21] MEDS ORDERED: REMDESIVIR 100 MG VIAL IV ONE (09:00)
[2020-02-21] MEDS ORDERED: REMDESIVIR 200 MG in SODIUM CHLORIDE 0.9% 250ML 250 ML IV ONE (09:00)
[2020-02-21] MEDS ORDERED: VANCOMYCIN 1,500 MG in SODIUM CHLORIDE 0.9% 500 ML 500 ML IV ONE (09:00)
[2020-02-21] MEDS ORDERED: VANCOMYCIN PHARMACY TO DOSE IV SCH (09:00)
[2020-02-21 09:41] LABS: ABG Base Excess -9.6 mmol/L (-2.0-3.0); ABG HCO3 16.5 mmol/L (20.0-26.0); ABG Methemoglobin 0.3 % (0.0-1.5); ABG Oxygen Saturation 87.8 % (95.0-99.0); ABG PCO2 36.9 mm Hg; ABG PH 7.268 pH Units (7.350-7.450)
[2020-02-21] MEDS: SODIUM CHLORIDE 0.9% 50 ML IVPB IV SCH (09:55)
[2020-02-21] MEDS: dexAMETHasone 4 MG/ML VIAL IV SCH ×2 (09:56→22:44)
[2020-02-21] MEDS ORDERED: cefTRIAXone/NS 2 GM/100 ML 2 GM/100 ML BAG IV SCH (10:00)
[2020-02-21] MEDS ORDERED: AZITHROMYCIN 500 MG in SODIUM CHLORIDE 0.9% 250ML 250 ML IV SCH (10:00)
[2020-02-21] MEDS: LIP THERAPY VASELINE TP PRN ×2 (12:00→16:00)
[2020-02-21] MEDS: fentaNYL DRIP Premix 2,000 MCG/100 ML BAG IV SCH ×4 (12:12→16:37)
[2020-02-21 13:06] LABS: ABG Base Excess -11.2 mmol/L (-2.0-3.0); ABG HCO3 14.9 mmol/L (20.0-26.0); ABG Methemoglobin 0.5 % (0.0-1.5); ABG Oxygen Saturation 96.7 % (95.0-99.0); ABG PCO2 34.6 mm Hg; ABG PH 7.252 pH Units (7.350-7.450); ABG PO2 97.7 mm Hg (80.0-90.0)
--- NOTE | 2020-02-21 17:20 | Consultation ---
History of Present Illness Consult date: 02/21/20 Requesting physician: JACOB CHUNG History of present illness: HISTORY per ED physician documentation- patient was orally intubated and sedated at the time of my evaluation Patient is a 59-year-old male presents emergency room with complaints of shortness of breath, cough and difficulty breathing. Patient states he was diagnosed with Covid 4 days ago. Patient states that his symptoms started 1 week ago. Patient states his symptoms are worsening. Patient states he is having fever, chills, fatigue, shortness of breath and cough. Patient states cough is dry. Patient dates shortness of breath better with rest and worse with exertion. Patient brought in by EMS. Report received from EMS. EMS states the patient was 50% on room air and was placed on a nonrebreather and his current oxygen saturation is 88%. MD Complaint: shortness of breath, cough -: Sudden Severity: severe Consistency: constant Improves With: rest Worsens With: exertion Known History Of: other (COVID-19) Context: recent URI Associated Symptoms: fever, cough Treatments Prior to Arrival: oxygen Patient was orally intubated and sedated- PEEP of 16, FIO2 100% I have been consulted for critical care management. Patient seen and examined. Vitals, labs, medications, chart and imaging reviewed. On arrival, initial temperature 97.6, HR 107, RR 28, O2 sat 72%, BP 124/78. Initial WBC 14.7. D-dimer 10,000. Ferritin 1263. AST 93. ALT 148. CRP 32. Urinalysis negative. Blood cultures 02/20/2020 pending. Chest x-ray shows diffuse bilateral airspace disease. Sedated. Past History Past Medical History: hypertension Past Surgical History: No surgical history Social history: no significant social history Family history: no significant family history Medications and Allergies Allergies Allergy/AdvReac Type Severity Reaction Status Date / Time No Known Allergies Allergy Unverified 02/21/20 12:35 Home Medications Medication Instructions Recorded Confirmed Last Taken Type No Known Home Medications [No 02/20/20 02/20/20 Unknown History Reported Home Medications] Active Meds: Active Medications Acetaminophen (Tylenol) 650 mg PO Q4H PRN PRN Reason: Pain MILD(1-3)/Fever >100.5/HERNANDEZ Dexamethasone (Dexamethasone 4 Mg/Ml Vial) 6 mg IV Q12HR DILIP Stop: 03/01/20 22:01 Last Admin: 02/21/20 09:56 Dose: 6 mg Documented by: Fentanyl (Sublimaze) 50 mcg IV Q10MIN PRN PRN Reason: ANALGESIA Hydrophilic Ointment (Vaseline Lip Therapy) 1 applic TP Q2HR PRN PRN Reason: Dry Lips Last Admin: 02/21/20 16:00 Dose: 1 applic Documented by: Fentanyl Citrate (Fentanyl Drip Premix) 2,000 mcg in 100 mls @ 3.856 mls/hr IV TITR DILIP; Protocol Last Admin: 02/21/20 16:37 Dose: 3 mcg/kg/hr, 11.567 mls/hr Documented by: Propofol (Propofol) 500 mg in 50 mls @ 2.313 mls/hr IV TITR DILIP; Protocol Last Admin: 02/21/20 11:04 Dose: 30 mcg/kg/min, 13.88 mls/hr Documented by: Norepinephrine (Levophed Drip 4 Mg/Ns 250 Ml) 4 mg in 250 mls @ 7.5 mls/hr IV TITR DILIP; Protocol Last Admin: 02/21/20 17:08 Dose: 10 mcg/min, 37.5 mls/hr Documented by: REMDESIVIR 100 mg/ Sodium (Chloride) 250 mls @ 500 mls/hr IV Q24HR@2100 DILIP Stop: 02/25/20 21:29 Cefepime HCl (Cefepime/Ns 2 Gm/100 Ml) 2 gm in 100 mls @ 200 mls/hr IV Q8HR DILIP; Protocol Last Admin: 02/21/20 14:13 Dose: 200 mls/hr Documented by: Vancomycin HCl 1,250 mg/ (Sodium Chloride) 275 mls @ 166.667 mls/hr IV Q12HR DILIP Morphine Sulfate (Morphine) 2 mg IV Q4H PRN PRN Reason: Pain, Moderate (4-6) Multi-Ingred Cream/Lotion/Oil/Oint (Artificial Tears Ophth Oint) 1 applic OU Q4HR PRN PRN Reason: Dry Eye(s) Ondansetron HCl (Zofran) 4 mg IV Q8H PRN PRN Reason: Nausea And Vomiting Sodium Chloride (Sodium Chloride Flush Syringe 10 Ml) 10 ml IV BID [facility] Last Admin: 02/21/20 09:56 Dose: 10 ml Documented by: Sodium Chloride (Sodium Chloride Flush Syringe 10 Ml) 10 ml IV PRN PRN PRN Reason: LINE FLUSH Sodium Chloride (Sodium Chloride 0.9% 50 Ml Ivpb) 50 ml IV Q24HR@2100 DIILP Stop: 02/25/20 21:59 Last Admin: 02/21/20 09:55 Dose: 50 ml Documented by: Review of Systems ROS unobtainable: due to endotracheal tube, due to mental status Physical Examination Vital signs: Vital Signs Pulse Ox 90 02/20/20 19:15 General appearance: appears uncomfortable, other (mild respiraotry distress, orally intubated to MVS) Eyes: non-icteric ENT: oropharynx moist, other (ETT at 23cm at the lip) Neck: supple, no lymphadenopathy, no JVD Effort: mildly labored Ascultation: Bilateral: diminished breath sounds, rhonchi Cardiovascular: regular rate and rhythm, other (S1,S2) Gastrointestinal: normoactive bowel sounds, soft, non-tender, non-distended Integumentary: normal Extremities: no cyanosis, no edema, pink and warm, no ischemia or petechiae unable to assess (sedated) other (unable to assess) Results - Laboratory Findings CBC and BMP: 02/22/20 07:40 02/22/20 11:23 ABG ABG pH 7.252 pH Units (7.350-7.450) L 02/21/20 12:54 POC ABG pCO2 51.3 mmHg (32.0-48.0) H 02/20/20 23:37 ABG pCO2 34.6 mm Hg 02/21/20 12:54 POC ABG pO2 61.1 mmHg (83-108) L 02/20/20 23:37 ABG pO2 97.7 mm Hg (80.0-90.0) H 02/21/20 12:54 POC ABG HCO3 19.2 02/20/20 23:37 ABG O2 Saturation 96.7 % (95.0-99.0) 02/21/20 12:54 PT/INR, D-dimer D-Dimer > 25119 ng/mlDDU (0-234) H 02/20/20 19:21 Abnormal lab findings: Abnormal Labs 02/20/20 02/20/20 02/20/20 19:21 19:21 19:21 WBC 14.7 H MCV 95 H Seg Neuts % (Manual) 86.0 H Lymphocytes % (Manual) 5.0 L Nucleated RBC % 1.0 H Seg Neutrophils # Man 12.6 H Lymphocytes # (Manual) 0.7 L D-Dimer > 87158 H ABG pH POC ABG pCO2 POC ABG pO2 ABG pO2 ABG HCO3 ABG O2 Saturation ABG Base Excess ABG Hemoglobin ABG Sodium ABG Glucose Oxyhemoglobin Sodium 129 L Chloride 95.8 L Carbon Dioxide 21 L BUN 21 H Glucose 167 H Ferritin AST 93 H ALT 148 H Alkaline Phosphatase 138 H Lactate Dehydrogenase C-Reactive Protein Albumin 2.8 L Arterial Blood Glucose Urine WBC (Auto) Coronavirus (PCR) 02/20/20 02/20/20 02/20/20 19:21 19:21 23:00 WBC MCV Seg Neuts % (Manual) Lymphocytes % (Manual) Nucleated RBC % Seg Neutrophils # Man Lymphocytes # (Manual) D-Dimer ABG pH POC ABG pCO2 POC ABG pO2 ABG pO2 ABG HCO3 ABG O2 Saturation ABG Base Excess ABG Hemoglobin ABG Sodium ABG Glucose Oxyhemoglobin Sodium Chloride Carbon Dioxide BUN Glucose 165 H Ferritin 1263.0 H AST ALT Alkaline Phosphatase Lactate Dehydrogenase 858 H C-Reactive Protein 32.40 H Albumin Arterial Blood Glucose Urine WBC (Auto) 9.0 H Coronavirus (PCR) 02/20/20 02/21/20 02/21/20 23:37 04:09 08:59 WBC MCV Seg Neuts % (Manual) Lymphocytes % (Manual) Nucleated RBC % Seg Neutrophils # Man Lymphocytes # (Manual) D-Dimer ABG pH 7.192 L 7.268 L POC ABG pCO2 51.3 H POC ABG pO2 61.1 L ABG pO2 62.0 L ABG HCO3 16.5 L ABG O2 Saturation 87.8 L ABG Base Excess -9.6 L ABG Hemoglobin 13.7 L ABG Sodium 133.6 L ABG Glucose 166 H Oxyhemoglobin 86.7 L Sodium Chloride Carbon Dioxide BUN Glucose Ferritin AST ALT Alkaline Phosphatase Lactate Dehydrogenase C-Reactive Protein Albumin Arterial Blood Glucose 166 H Urine WBC (Auto) Coronavirus (PCR) Positive A 02/21/20 12:54 WBC MCV Seg Neuts % (Manual) Lymphocytes % (Manual) Nucleated RBC % Seg Neutrophils # Man Lymphocytes # (Manual) D-Dimer ABG pH 7.252 L POC ABG pCO2 POC ABG pO2 ABG pO2 97.7 H ABG HCO3 14.9 L ABG O2 Saturation ABG Base Excess -11.2 L ABG Hemoglobin ABG Sodium ABG Glucose Oxyhemoglobin Sodium Chloride Carbon Dioxide BUN Glucose Ferritin AST ALT Alkaline Phosphatase Lactate Dehydrogenase C-Reactive Protein Albumin Arterial Blood Glucose Urine WBC (Auto) Coronavirus (PCR) - Diagnostic Findings Chest x-ray: image reviewed (Bilateral alveolar infiltrates) Assessment and Plan Acute hypoxemic respiratory failure due to COVID-19 Severe COVID infection-Critical COVID Severe Sepsis Bilateral pneumonia Elevated Transaminases - VAP bundle addressed, aspiration precautions HOB >40 -Wean supplemental oxygen for O2 sats>90% - Continue lung protective strategies, permissive hypercapnic acceptable. -Pa/FIO2 ratio acceptable at this time - continue bronchodilators with pulmonary hygiene per RT -Daily assessment for readiness to wean - accuchecks with glycemic control per SSI (While critically ill target blood glucose of 140-180 mg/dL; avoid hypoglycemia) - sedation prn for target RASS -1 to -2 -Enteral nutritional support, RD consult for tube feeding - Prone positioning as tolerated and indicated - Monitor liver function test , avoid hepatotoxic agents - Avoid nephrotoxins, renally dose all medications, conservative fluid management - Avoid benzodiazepines, reduce the possibility of delirium - prn analgesia per CPOT score - Maintenance of sleep-wake cycle, avoid delirium - aspiration precautions -Stress ulcer prophylaxis - PT/OT/ROM exercises - continue mobility protocols for pressure ulcer prevention -CXR, ABG as clinically indicated -CBC, BMP as clinically indicated -Supportive transfusions to keep HgB >7g/dL - Monitor hemodynamics closely - continue other care per attending / other consultants COVID SPECIFIC INTERVENTIONS -Remdesivir -Dexamethasone -Monitor inflammatory markers per facility protocol - ferritin, Ddimer, CRP, LDH Inflammatory markers, ferritin 1263, CRP 32, D-dimer> 10,000 -VTE prophylaxis-therapeutic anticoagulation per System Protocol based on d- dimer -Continue contact and airborne isolation CONDITION: CRITICAL PROGNOSIS: GUARDED CODE STATUS: FULL CODE The high probability of a clinically significant, sudden or life-threatening deterioration of the [respiratory, cardiovascular & neurologic] system(s) required my full and direct attention, intervention and personal management. The aggregate critical care time was [35] minutes without overlap. Time includes spent on; [x] Data Review and interpretation [x] Patient assessment and monitoring of vital signs [x] Documentation [x] Medication orders and management
[2020-02-21] MEDS ORDERED: VANCOMYCIN 1,250 MG in SODIUM CHLORIDE 0.9% 250ML 250 ML IV SCH (22:00)
[2020-02-22] MEDS: PROPOFOL 500 MG/50 ML VIAL IV SCH ×5 (00:07→22:13)
[2020-02-22] MEDS: fentaNYL DRIP Premix 2,000 MCG/100 ML BAG IV SCH ×2 (05:17→16:34)
[2020-02-22] MEDS: CEFEPIME/NS 2 GM/100 ML 2 GM/100 ML BAG IV SCH ×3 (05:31→22:08)
--- NOTE | 2020-02-22 06:58 | XRay Report ---
CHEST 1 VIEW INDICATION / CLINICAL INFORMATION: follow up respiratory failure. COMPARISON: Chest radiograph one day prior FINDINGS: SUPPORT DEVICES: Stable position of endotracheal and enteric tubes. HEART / MEDIASTINUM: Stable. LUNGS / PLEURA: Mild to moderate bilateral airspace opacities, improved from prior examination. No pl eural effusion. No pneumothorax. ADDITIONAL FINDINGS: No significant additional findings. IMPRESSION: 1. Improving bilateral airspace opacities. Signer Name: Adrianne Espinoza MD Signed: 02/22/2020 6:54 AM Workstation Name: [id number]
[2020-02-22 07:56] LABS: Hematocrit 38.2 % (35.5-45.6); Hemoglobin 12.5 gm/dl (11.8-15.2); Mean Corpuscular HGB Conc 33 % (32-34); Mean Corpuscular Volume 96 fl (84-94); Platelet Count 174 K/mm3 (140-440); Red Blood Count 3.99 M/mm3 (3.65-5.03); Red Cell Distribution Width 14.7 % (13.2-15.2)
[2020-02-22 08:06] LABS: INR 1.59 (0.87-1.13)
[2020-02-22 08:09] LABS: Albumin 2.4 g/dL (3.9-5); Bilirubin,Direct 0.3 mg/dL (0-0.2); Calcium 7.9 mg/dL (8.4-10.2)
[2020-02-22 08:52] LABS: Band Neutrophils # (Manual) 0.6 K/mm3; Total Cells Counted 100
[2020-02-22 08:53] LABS: Anisocytosis 1+; Platelet Estimate Consistent w Auto; Toxic Granulation 2+
--- NOTE | 2020-02-22 09:17 | Progress Note ---
Assessment and Plan Assessment and plan: 59-year-old male with known history of hypertension presenting to the emergency room via EMS today complaining of cough, shortness of breath and difficulty breathing. Symptoms have been ongoing for about a week. He was diagnosed with COVID-19 about 4 days ago. He has been having a fever, chills generalized fatigue and dry cough over the past few days. Symptoms seems to be getting worse. He gets more short of breath on minimal exertion. Patient is initial oxygen saturation on room air was about 50% when seen by EMS and he was placed on nonrebreather with improvement of oxygen saturation to about 88%. Patient was subsequently placed on BiPAP upon arrival in the emergency room. Work-up in the emergency room today reveals bilateral pneumonia. During the course of his stay in the emergency room patient's condition continued to deteriorate and was subsequently intubated in the ER. Patient admitted with pneumonia possibly secondary to COVID-19 and will be admitted into the intensive care unit. Severe sepsis, Acute Hypoxic Respiratory failure secondary to covid 19 pneumonia Pneumonia secondary to COVID19 Hyponatremia DVT per venous Doppler Metabolic acidosis Transaminitis with elevated LFT, likely due to COVID 19 Plan Patient placed on empiric IV antibiotics. Will await culture results. Started on Dexamethasone and Remdesivir Started on full dose anticoagulation Continue isolation precautions. We will place consult to infectious disease for evaluation and recommendation. We will monitor chemistry. Patient has received some IV fluid in the emergency room. Possibly secondary to the pneumonia with COVID-19. Patient has been intubated and sedated. We will place consult to lathe machinist for evaluation and recommendation. Prognosis is Guarded DVT/GI PROPHY The high probability of a clinically significant, sudden or life threatening deterioration of the [pulmonary] system(s) required my full and direct attention, intervention and personal management. The aggregate critical care time was [35 minutes] minutes. This time is in addition to time spent performing reported procedures but includes the following: [x] Data Review and interpretation [x] Patient assessment and monitoring of vital signs [x] Documentation [x] Medication orders and management History Interval history: Patient seen and examined, remains on full ventilatory support Hospitalist Physical - Physical exam Narrative exam: General appearance: Present: No distress on full ventilatory support - EENT Eyes: Present: PERRL, EOM intact. Absent: scleral icterus ENT: hearing intact, clear oral mucosa, dentition normal - Neck Neck: Present: supple, normal ROM - Respiratory Respiratory effort: On full ventilatory support. labored, accessory muscle use Respiratory: bilateral: rales - Cardiovascular Rhythm: regular Heart Sounds: Present: S1 & S2. Absent: gallop, systolic murmur, diastolic murmur, rub - Extremities Extremities: no ischemia, pulses intact, pulses symmetrical, No edema, Full ROM Peripheral Pulses: within normal limits - Abdominal General gastrointestinal: Present: soft, non-tender, non-distended, normal bowel sounds. Absent: mass - Integumentary Integumentary: Present: clear, warm, dry. Absent: rash - Musculoskeletal Musculoskeletal: strength equal bilaterally - Psychiatric Psychiatric: appropriate mood/affect, intact judgment & insight, memory intact, cooperative - Neurologic Neurologic: CNII-XII intact, no focal deficits, moves all extremities - Constitutional Vitals: Temp Pulse Resp BP Pulse Ox 99.8 F H 89 31 H 110/80 95 02/22/20 03:53 02/22/20 07:15 02/22/20 07:15 02/22/20 07:15 02/22/20 07:15 General appearance: Present: mild distress, well-nourished Results - Labs CBC & Chem 7: 02/22/20 07:40 02/22/20 11:23 Labs: Laboratory Last Values WBC 15.5 K/mm3 (4.5-11.0) H 02/22/20 07:40 RBC 3.99 M/mm3 (3.65-5.03) 02/22/20 07:40 Hgb 12.5 gm/dl (11.8-15.2) 02/22/20 07:40 Hct 38.2 % (35.5-45.6) D 02/22/20 07:40 MCV 96 fl (84-94) H 02/22/20 07:40 MCH 31 pg (28-32) 02/22/20 07:40 MCHC 33 % (32-34) 02/22/20 07:40 RDW 14.7 % (13.2-15.2) 02/22/20 07:40 Plt Count 174 K/mm3 (140-440) 02/22/20 07:40 Add Manual Diff Complete 02/22/20 07:40 Total Counted 100 02/22/20 07:40 Seg Neutrophils % Call Center Receptionist 02/22/20 07:40 Seg Neuts % (Manual) 94.0 % (40.0-70.0) H 02/22/20 07:40 Band Neutrophils % 4.0 % 02/22/20 07:40 Lymphocytes % (Manual) 5.0 % (13.4-35.0) L 02/20/20 19:21 Reactive Lymphs % (Man) 0 % 02/20/20 19:21 Monocytes % (Manual) 1.0 % (0.0-7.3) 02/22/20 07:40 Eosinophils % (Manual) 0 % (0.0-4.3) 02/20/20 19:21 Basophils % (Manual) 0 % (0.0-1.8) 02/20/20 19:21 Metamyelocytes % 1.0 % 02/22/20 07:40 Myelocytes % 0 % 02/20/20 19:21 Promyelocytes % 0 % 02/20/20 19:21 Blast Cells % 0 % 02/20/20 19:21 Nucleated RBC % Not Reportable 02/22/20 07:40 Seg Neutrophils # Man 14.6 K/mm3 (1.8-7.7) H 02/22/20 07:40 Band Neutrophils # 0.6 K/mm3 02/22/20 07:40 Lymphocytes # (Manual) 0.0 K/mm3 (1.2-5.4) L 02/22/20 07:40 Abs React Lymphs (Man) 0.0 K/mm3 02/22/20 07:40 Monocytes # (Manual) 0.2 K/mm3 (0.0-0.8) 02/22/20 07:40 Eosinophils # (Manual) 0.0 K/mm3 (0.0-0.4) 02/22/20 07:40 Basophils # (Manual) 0.0 K/mm3 (0.0-0.1) 02/22/20 07:40 Metamyelocytes # 0.2 K/mm3 02/22/20 07:40 Myelocytes # 0.0 K/mm3 02/22/20 07:40 Promyelocytes # 0.0 K/mm3 02/22/20 07:40 Blast Cells # 0.0 K/mm3 02/22/20 07:40 WBC Morphology Not Reportable 02/22/20 07:40 Hypersegmented Neuts Not Reportable 02/22/20 07:40 Hyposegmented Neuts Not Reportable 02/22/20 07:40 Hypogranular Neuts Not Reportable 02/22/20 07:40 Smudge Cells Not Reportable 02/22/20 07:40 Toxic Granulation 2+ 02/22/20 07:40 Toxic Vacuolation Not Reportable 02/22/20 07:40 Dohle Bodies Not Reportable 02/22/20 07:40 Pelger-Huet Anomaly Not Reportable 02/22/20 07:40 Noah Rods Not Reportable 02/22/20 07:40 Platelet Estimate Consistent w auto 02/22/20 07:40 Clumped Platelets Not Reportable 02/22/20 07:40 Plt Clumps, EDTA Not Reportable 02/22/20 07:40 Large Platelets Not Reportable 02/22/20 07:40 Giant Platelets Not Reportable 02/22/20 07:40 Platelet Satelliting Not Reportable 02/22/20 07:40 Plt Morphology Comment Not Reportable 02/22/20 07:40 RBC Morphology Not Reportable 02/22/20 07:40 Dimorphic RBCs Not Reportable 02/22/20 07:40 Polychromasia Not Reportable 02/22/20 07:40 Hypochromasia Not Reportable 02/22/20 07:40 Poikilocytosis Not Reportable 02/22/20 07:40 Anisocytosis 1+ 02/22/20 07:40 Microcytosis Not Reportable 02/22/20 07:40 Macrocytosis Not Reportable 02/22/20 07:40 Spherocytes Not Reportable 02/22/20 07:40 Pappenheimer Bodies Not Reportable 02/22/20 07:40 Sickle Cells Not Reportable 02/22/20 07:40 Target Cells Not Reportable 02/22/20 07:40 Tear Drop Cells Not Reportable 02/22/20 07:40 Ovalocytes Not Reportable 02/22/20 07:40 Helmet Cells Not Reportable 02/22/20 07:40 [place] Bodies Not Reportable 02/22/20 07:40 [place] Rings Not Reportable 02/22/20 07:40 [place] Cells Not Reportable 02/22/20 07:40 Bite Cells Not Reportable 02/22/20 07:40 Crenated Cell Not Reportable 02/22/20 07:40 Elliptocytes Not Reportable 02/22/20 07:40 Acanthocytes (Spur) Not Reportable 02/22/20 07:40 Rouleaux Not Reportable 02/22/20 07:40 Hemoglobin C Crystals Not Reportable 02/22/20 07:40 Schistocytes Not Reportable 02/22/20 07:40 Malaria parasites Not Reportable 02/22/20 07:40 [place] Bodies Not Reportable 02/22/20 07:40 Hem Pathologist Commnt No 02/22/20 07:40 PT 18.8 Sec. (12.2-14.9) H 02/22/20 07:40 INR 1.59 (0.87-1.13) H 02/22/20 07:40 D-Dimer > 92779 ng/mlDDU (0-234) H 02/20/20 19:21 ABG pH 7.280 (7.320-7.450) L 02/22/20 03:09 POC ABG pCO2 37.5 mmHg (32.0-48.0) 02/22/20 03:09 ABG pCO2 34.6 mm Hg 02/21/20 12:54 POC ABG pO2 81.3 mmHg (83-108) L 02/22/20 03:09 ABG pO2 97.7 mm Hg (80.0-90.0) H 02/21/20 12:54 POC ABG HCO3 17.2 02/22/20 03:09 ABG HCO3 14.9 mmol/L (20.0-26.0) L 02/21/20 12:54 ABG O2 Saturation 96.7 % (95.0-99.0) 02/21/20 12:54 ABG O2 Content 19.2 (0.0-44) 02/21/20 12:54 POC ABG Base Excess -8.8 02/22/20 03:09 ABG Base Excess -11.2 mmol/L (-2.0-3.0) L 02/21/20 12:54 ABG Hemoglobin 14.0 (12.0-17.5) 02/22/20 03:09 ABG Carboxyhemoglobin 1.0 % (0.0-5.0) 02/21/20 12:54 ABG Methemoglobin 0.5 % (0.0-1.5) 02/21/20 12:54 ABG Sodium 139.1 mmol/L (136.0-145.0) 02/22/20 03:09 ABG Potassium 4.8 mmol/L (3.40-4.50) H 02/22/20 03:09 ABG Chloride 113.0 mmol/L (98-107) H 02/22/20 03:09 ABG Glucose 209 mg/dL (65-95) H 02/22/20 03:09 Oxyhemoglobin 95.2 % (95.0-99.0) 02/21/20 12:54 FiO2 85 02/22/20 03:09 Sodium 141 mmol/L (137-145) D 02/22/20 07:40 Potassium 5.2 mmol/L (3.6-5.0) H D 02/22/20 07:40 Chloride 111.4 mmol/L (98-107) H 02/22/20 07:40 Carbon Dioxide 22 mmol/L (22-30) 02/22/20 07:40 Anion Gap 13 mmol/L 02/22/20 07:40 BUN 35 mg/dL (9-20) H 02/22/20 07:40 Creatinine 1.3 mg/dL (0.8-1.3) D 02/22/20 07:40 Estimated GFR 57 ml/min 02/22/20 07:40 BUN/Creatinine Ratio 27 % 02/22/20 07:40 Glucose 234 mg/dL (75-100) H 02/22/20 07:40 Lactic Acid 1.90 mmol/L (0.7-2.0) 02/20/20 20:39 Calcium 7.9 mg/dL (8.4-10.2) L 02/22/20 07:40 Ferritin 1263.0 ng/mL (30.0-300.0) H 02/20/20 19:21 Total Bilirubin 0.50 mg/dL (0.1-1.2) 02/22/20 07:40 Direct Bilirubin 0.3 mg/dL (0-0.2) H 02/22/20 07:40 Indirect Bilirubin 0.2 mg/dL 02/22/20 07:40 AST 127 units/L (5-40) H 02/22/20 07:40 ALT 261 units/L (7-56) H 02/22/20 07:40 Alkaline Phosphatase 211 units/L (35-129) H 02/22/20 07:40 Lactate Dehydrogenase 858 units/L (91-180) H 02/20/20 19:21 C-Reactive Protein 32.40 mg/dL (0.00-1.30) H 02/20/20 19:21 Total Protein 6.3 g/dL (6.3-8.2) 02/22/20 07:40 Albumin 2.4 g/dL (3.9-5) L 02/22/20 07:40 Albumin/Globulin Ratio 0.6 % 02/22/20 07:40 Procalcitonin 0.71 ng/mL (<0.15) 02/20/20 19:21 Arterial Blood Glucose 209 mg/dL (65-95) H 02/22/20 03:09 Arterial Blood Ionized Calcium 4.7 mg/dL (4.6-5.3) 02/22/20 03:09 Urine Color [place] (Yellow) 02/20/20 23:00 Urine Turbidity Clear (Clear) 02/20/20 23:00 Urine pH 5.0 (5.0-7.0) 02/20/20 23:00 Ur Specific [place] 1.030 (1.003-1.030) 02/20/20 23:00 Urine Protein >500 mg/dL (Negative) 02/20/20 23:00 Urine Glucose (UA) Neg mg/dL (Negative) 02/20/20 23:00 Urine Ketones 20 mg/dL (Negative) 02/20/20 23:00 Urine Blood Neg (Negative) 02/20/20 23:00 Urine Nitrite Neg (Negative) 02/20/20 23:00 Urine Bilirubin Neg (Negative) 02/20/20 23:00 Urine Urobilinogen < 2.0 mg/dL (<2.0) 02/20/20 23:00 Ur Leukocyte Esterase Neg (Negative) 02/20/20 23:00 Urine WBC (Auto) 9.0 /HPF (0.0-6.0) H 02/20/20 23:00 Urine RBC (Auto) 7.0 /HPF (0.0-6.0) 02/20/20 23:00 U Epithel Cells (Auto) < 1.0 /HPF (0-13.0) 02/20/20 23:00 Urine Mucus 3+ /HPF 02/20/20 23:00 Coronavirus (PCR) Positive (Negative) A 02/21/20 08:59 Microbiology: Microbiology 02/20/20 19:34 Peripheral/Venous Blood Culture - Preliminary NO GROWTH AFTER 24 HOURS 02/20/20 19:21 Peripheral/Venous Blood Culture - Preliminary NO GROWTH AFTER 24 HOURS 02/21/20 Unknown Tracheal Aspirate Sputum Culture - Preliminary [place]/IV: Voiding Method Indwelling Catheter IV Catheter Type [Right CVL Femoral] IV Catheter Type [Left Peripheral IV Antecubital] Active Medications - Current Medications Current Medications: Generic Name Dose Route Start Last Admin Trade Name Freq PRN Reason Stop Dose Admin Acetaminophen 650 mg 02/21/20 00:28 Tylenol PO Q4H PRN Pain MILD(1-3)/Fever >100.5/HERNANDEZ Dexamethasone 6 mg 02/21/20 10:00 02/21/20 22:44 Dexamethasone 4 Mg/Ml Vial IV 03/01/20 22:01 6 mg Q12HR DILIP Administration Enoxaparin Sodium 80 mg 02/22/20 10:00 Enoxaparin 80 Mg/0.8 Ml Inj SUB-Q Q12HR DILIP Famotidine 20 mg 02/22/20 10:00 Famotidine 20 Mg/2 Ml Inj IV BID [facility] Fentanyl 50 mcg 02/20/20 22:04 Sublimaze IV Q10MIN PRN ANALGESIA Hydrophilic Ointment 1 applic 02/20/20 22:04 02/21/20 16:00 Vaseline Lip Therapy TP 1 applic Q2HR PRN Administration Dry Lips Fentanyl Citrate 2,000 mcg in 100 mls @ 3.856 mls/hr 02/20/20 23:00 02/22/20 05:17 Fentanyl Drip Premix IV 2 mcg/kg/hr TITR DILIP 7.711 mls/hr Administration Protocol 1 MCG/KG/HR Propofol 500 mg in 50 mls @ 2.313 mls/hr 02/20/20 23:45 02/22/20 05:17 Propofol IV 20 mcg/kg/min TITR DILIP 9.253 mls/hr Administration Protocol 5 MCG/KG/MIN Norepinephrine 4 mg in 250 mls @ 7.5 mls/hr 02/21/20 01:29 02/22/20 05:39 Levophed Drip 4 Mg/Ns 250 Ml IV 2 mcg/min TITR DILIP 7.5 mls/hr Titration Protocol 2 MCG/MIN REMDESIVIR 100 mg/ Sodium 250 mls @ 500 mls/hr 02/22/20 21:00 Chloride IV 02/25/20 21:29 Q24HR@2100 DILIP Cefepime HCl 2 gm in 100 mls @ 200 mls/hr 02/21/20 08:00 02/22/20 05:31 Cefepime/Ns 2 Gm/100 Ml IV 200 mls/hr Q8HR DILIP Administration Protocol Vancomycin HCl 1,250 mg/ 275 mls @ 166.667 mls/hr 02/22/20 00:00 02/22/20 00:16 Sodium Chloride IV Not Given Q12H DILIP Morphine Sulfate 2 mg 02/21/20 00:28 Morphine IV Q4H PRN Pain, Moderate (4-6) Multi-Ingred Cream/Lotion/Oil/Oint 1 applic 02/20/20 22:04 Artificial Tears Ophth Oint OU Q4HR PRN Dry Eye(s) Ondansetron HCl 4 mg 02/21/20 00:28 Zofran IV Q8H PRN Nausea And Vomiting Sodium Chloride 10 ml 02/21/20 10:00 02/21/20 23:29 Sodium Chloride Flush Syringe 10 Ml IV 10 ml BID DILIP Administration Sodium Chloride 10 ml 02/21/20 00:28 Sodium Chloride Flush Syringe 10 Ml IV PRN PRN LINE FLUSH Sodium Chloride 50 ml 02/21/20 09:00 02/21/20 09:55 Sodium Chloride 0.9% 50 Ml Ivpb IV 02/25/20 21:59 50 ml Q24HR@2100 DILIP Administration
[2020-02-22] MEDS: dexAMETHasone 4 MG/ML VIAL IV SCH ×2 (09:34→22:05)
[2020-02-22] MEDS: FAMOTIDINE 20 MG/2 ML INJ IV SCH ×2 (09:35→22:06)
[2020-02-22] MEDS: ENOXAPARIN 80 MG/0.8 ML INJ SUB-Q SCH ×2 (09:35→22:06)
[2020-02-22] MEDS ORDERED: LACTATED RINGERS 1,000 ML IV SCH (11:00)
--- NOTE | 2020-02-22 11:47 | Progress Note ---
Assessment and Plan Cultures: Blood culture 02/20/2020 pending SARS CoV2 PCR positive as an outpatient SARS-CoV-2 PCR positive Urine culture negative Tracheal aspirate pending Assessment: 59 years old male with history of hypertension admitted on 02/20/2020 due to a week history of dry cough, fever, generalized malaise, shortness of breath. Patient was diagnosed with COVID-19 4 days before admission: #Severe sepsis with septic shock: Present on admission with severe hypoxia, leukocytosis, elevated LFTs likely due to bilateral pneumonia. Procalcitonin 0.7. #Critical COVID pneumonia: Patient intubated. Very elevated inflammatory markers, ferritin 1263, CRP 32, D-dimer> 10,000. Suspect pulmonary embolism. Elevated procalcitonin likely 8 bacterial component. #Acute hypoxemic respiratory failure: Remains intubated FiO2 75, PEEP 18 #Elevated LFTs: from COVID #Very elevated D-dimer: She rule out DVT/PE Recommendations: -Needs to rule out PE and DVT, please order CTA when is stable, I am ordering venous ultrasound today -Continue dexamethasone 6 mg IV/PO BID for 5 days then 6 mg daily for 5 days - day 2 of 10 -Continue remdesivir total 5 days -day 2 of 5 -Monitor inflammatory markers - ferritin, Ddimer, CRP, LDH -Monitor liver function test on Remdesivir -Continue anticoagulation per System Protocol -consider full dose anticoagulation -Prone positioning as possible -Obtain SARS CoV-2 IgG to determine if patient is a candidate for COVID convalescent plasma -Follow-up blood cultures and respiratory culture -Continue cefepime day 2 of 5 -Stop vancomycin -creatinine going up -Obtain MRSA culture -pending Dr. Cisse covering the weekend High risk mortality All laboratory, cultures and imaging were reviewed. Will follow Venita Tran MD Infectious Diseases [place] [facility] ([facility] M [phone] O [phone] Subjective Date of service: 02/22/20 Principal diagnosis: COVID-19 Interval history: Remains intubated, sedated, no fever, no pressors Objective - Exam Narrative Exam: Physical Exam: reviewed ED and hospitalist notes, deferred to limit transmission of COVID-19 - Constitutional Vitals: Vital Signs Temp Pulse Resp BP Pulse Ox 99.8 F H 122 H 31 H 89/72 94 02/22/20 03:53 02/22/20 09:20 02/22/20 07:15 02/22/20 09:20 02/22/20 09:20 Temperature -Last 24 Hours Temperature 99.8 F Temperature 99.2 F Temperature 98.1 F Temperature 98.2 F - Labs CBC & Chem 7: 02/22/20 07:40 02/22/20 07:40 Labs: Abnormal lab results 02/21/20 02/21/20 02/22/20 Range/Units 08:59 12:54 03:09 WBC (4.5-11.0) K/mm3 MCV (84-94) fl Seg Neuts % (Manual) (40.0-70.0) % Seg Neutrophils # Man (1.8-7.7) K/mm3 Lymphocytes # (Manual) (1.2-5.4) K/mm3 PT (12.2-14.9) Sec. INR (0.87-1.13) ABG pH 7.252 L 7.280 L (7.350-7.450) pH Units POC ABG pO2 81.3 L (83-108) mmHg ABG pO2 97.7 H (80.0-90.0) mm Hg ABG HCO3 14.9 L (20.0-26.0) mmol/L ABG Base Excess -11.2 L (-2.0-3.0) mmol/L ABG Potassium 4.8 H (3.40-4.50) mmol/L ABG Chloride 113.0 H (98-107) mmol/L ABG Glucose 209 H (65-95) mg/dL Potassium (3.6-5.0) mmol/L Chloride (98-107) mmol/L BUN (9-20) mg/dL Glucose (75-100) mg/dL Calcium (8.4-10.2) mg/dL Direct Bilirubin (0-0.2) mg/dL AST (5-40) units/L ALT (7-56) units/L Alkaline Phosphatase (35-129) units/L Albumin (3.9-5) g/dL Arterial Blood Glucose 209 H (65-95) mg/dL Coronavirus (PCR) Positive A (Negative) 02/22/20 02/22/20 02/22/20 Range/Units 07:40 07:40 07:40 WBC 15.5 H (4.5-11.0) K/mm3 MCV 96 H (84-94) fl Seg Neuts % (Manual) 94.0 H (40.0-70.0) % Seg Neutrophils # Man 14.6 H (1.8-7.7) K/mm3 Lymphocytes # (Manual) 0.0 L (1.2-5.4) K/mm3 PT 18.8 H (12.2-14.9) Sec. INR 1.59 H (0.87-1.13) ABG pH (7.350-7.450) pH Units POC ABG pO2 (83-108) mmHg ABG pO2 (80.0-90.0) mm Hg ABG HCO3 (20.0-26.0) mmol/L ABG Base Excess (-2.0-3.0) mmol/L ABG Potassium (3.40-4.50) mmol/L ABG Chloride (98-107) mmol/L ABG Glucose (65-95) mg/dL Potassium 5.2 H D (3.6-5.0) mmol/L Chloride 111.4 H (98-107) mmol/L BUN 35 H (9-20) mg/dL Glucose 234 H (75-100) mg/dL Calcium 7.9 L (8.4-10.2) mg/dL Direct Bilirubin 0.3 H (0-0.2) mg/dL AST 127 H (5-40) units/L ALT 261 H (7-56) units/L Alkaline Phosphatase 211 H (35-129) units/L Albumin 2.4 L (3.9-5) g/dL Arterial Blood Glucose (65-95) mg/dL Coronavirus (PCR) (Negative)
[2020-02-22 12:07] LABS: BUN/Creatinine Ratio 33; Blood Urea Nitrogen 36 mg/dL (9-20); Hemolysis Index 25
--- NOTE | 2020-02-22 13:02 | Progress Note ---
Assessment and Plan Acute hypoxemic respiratory failure due to COVID-19 Severe COVID infection-Critical COVID Severe Sepsis Bilateral pneumonia Elevated Transaminases Lower extremity DVT Elevated creatinine and patient remains on Norepinephrine at 2mcg Give 1L bolus of LR, chcekc BMP at 6pm Wean vasopressors for MAP>65 Wean supplemental oxygen for O2 sats>90% Daily ABG Accuchecks with glycemic control per SSI (While critically ill target blood glucose of 140-180 mg/dL; avoid hypoglycemia)-adjust insulin therapy - VAP bundle addressed, aspiration precautions HOB >40 - Continue lung protective strategies, permissive hypercapnic acceptable. -Pa/FIO2 ratio acceptable at this time - continue bronchodilators with pulmonary hygiene per RT -Daily assessment for readiness to wean - sedation prn for target RASS -1 to -2 -Enteral nutritional support, RD consult for tube feeding - Prone positioning as tolerated and indicated - Monitor liver function test , avoid hepatotoxic agents - Avoid nephrotoxins, renally dose all medications, conservative fluid management - Avoid benzodiazepines, reduce the possibility of delirium - prn analgesia per CPOT score - Maintenance of sleep-wake cycle, avoid delirium -Stress ulcer prophylaxis - PT/OT/ROM exercises - continue mobility protocols for pressure ulcer prevention -CXR, ABG daily for 3 days -CBC, BMP in am -Supportive transfusions to keep HgB >7g/dL -Monitor hemodynamics closely -Broad sectrum antibtioics, Vanc and Cefepime per ID -continue other care per attending / other consultants COVID SPECIFIC INTERVENTIONS -Remdesivir 2/5 -Dexamethasone 6mg -Monitor inflammatory markers per facility protocol - ferritin, Ddimer, CRP, Inflammatory markers, ferritin 1263, CRP 32, D-dimer> 10,000 -VTE prophylaxis-therapeutic anticoagulation per system Protocol based on d- dimer and positive lower extremity DVT -Continue contact and airborne isolation CONDITION: CRITICAL PROGNOSIS: GUARDED CODE STATUS: FULL CODE The high probability of a clinically significant, sudden or life-threatening deterioration of the [respiratory, cardiovascular & neurologic] system(s) required my full and direct attention, intervention and personal management. The aggregate critical care time was [35] minutes without overlap. Time includes spent on; [x] Data Review and interpretation [x] Patient assessment and monitoring of vital signs [x] Documentation [x] Medication orders and management Subjective Date of service: 02/22/20 Principal diagnosis: COVID-19 Interval history: Follow up for :Acute hypoxemic respiratory failure due to COVID-19; Severe COVID infection-Critical COVID; Severe Sepsis; Bilateral pneumonia Elevated Transaminases Seen and examined. Vitals, labs, medications, chart reviewed. remains on full vent support. Nursing and respiratory staff consulted -PRVC 30/500/+18/75% 7.28/38/81/17 Remains sedated. Afebrile, on Propofol and Fentanyl, Norepinephrine at 2mcg Objective - Exam Narrative Exam: General appearance: Present: No distress on full ventilatory support ETT at 23cm at the lip, No asynchrony - EENT Eyes: Present: PERRL, EOM intact. Absent: scleral icterus ENT: hearing intact, clear oral mucosa, dentition normal - Neck Neck: Present: supple, normal ROM - Respiratory Respiratory effort: On full ventilatory support. labored, accessory muscle use Respiratory: bilateral:rhonchi - Cardiovascular Rhythm: regular Heart Sounds: Present: S1 & S2. Absent: gallop, systolic murmur, diastolic murmur, rub - Extremities Extremities: no ischemia, pulses intact, pulses symmetrical, No edema, Full ROM Peripheral Pulses: within normal limits - Abdominal General gastrointestinal: Present: soft, non-tender, non-distended, normal bowel sounds. Absent: mass - Integumentary Integumentary: Present: clear, warm, dry. Absent: rash - Musculoskeletal Musculoskeletal: sedated unable to evaluate - Psychiatric Psychiatric: Sedated unable to evaluate - Neurologic Neurologic: Sedated Vital Signs - 12hr 02/22/20 02/22/20 02/22/20 01:10 01:20 01:30 Temperature Pulse Rate 91 H 91 H 89 Respiratory 30 H 30 H 30 H Rate Blood Pressure 122/74 118/80 111/78 O2 Sat by Pulse 95 92 96 Oximetry 02/22/20 02/22/20 02/22/20 01:41 01:51 02:00 Temperature Pulse Rate 89 88 90 Respiratory 30 H 30 H 30 H Rate Blood Pressure 118/80 117/77 113/82 O2 Sat by Pulse 95 96 96 Oximetry 02/22/20 02/22/20 02/22/20 02:11 02:21 02:30 Temperature Pulse Rate 92 H 89 90 Respiratory 30 H 30 H 30 H Rate Blood Pressure 113/82 122/79 119/78 O2 Sat by Pulse 96 95 97 Oximetry 02/22/20 02/22/2002/21/20 02:41 02:51 03:00 Temperature Pulse Rate 88 89 88 Respiratory 30 H 28 H 30 H Rate Blood Pressure 119/78 122/84 116/79 O2 Sat by Pulse 97 96 96 Oximetry 02/22/20 02/22/20 02/22/20 03:09 03:11 03:21 Temperature Pulse Rate 88 89 88 Respiratory 30 H 30 H Rate Blood Pressure 111/78 116/79 121/79 O2 Sat by Pulse 96 95 95 Oximetry 02/22/20 02/22/20 02/22/20 03:30 03:41 03:51 Temperature Pulse Rate 89 88 85 Respiratory 30 H 30 H 30 H Rate Blood Pressure 116/76 116/76 117/80 O2 Sat by Pulse 94 95 95 Oximetry 02/22/20 02/22/20 02/22/20 03:53 03:55 04:00 Temperature 99.8 F H Pulse Rate 85 Respiratory 30 H 30 H Rate Blood Pressure 117/82 O2 Sat by Pulse 95 94 Oximetry 02/22/20 02/22/20 02/22/20 04:11 04:21 04:30 Temperature Pulse Rate 87 83 84 Respiratory 30 H 30 H 28 H Rate Blood Pressure 117/82 128/77 121/83 O2 Sat by Pulse 95 94 95 Oximetry 02/22/20 02/22/20 02/22/20 04:41 04:51 05:00 Temperature Pulse Rate 85 86 83 Respiratory 34 H 30 H 29 H Rate Blood Pressure 121/83 127/77 126/85 O2 Sat by Pulse 95 95 94 Oximetry 02/22/20 02/22/20 02/22/20 05:11 05:21 05:30 Temperature Pulse Rate 117 H 94 H 95 H Respiratory 35 H 30 H 28 H Rate Blood Pressure 126/85 122/83 117/78 O2 Sat by Pulse 87 92 93 Oximetry 02/22/20 02/22/20 02/22/20 05:41 05:51 06:00 Temperature Pulse Rate 93 H 95 H 92 H Respiratory 30 H 30 H 29 H Rate Blood Pressure 117/78 112/75 111/78 O2 Sat by Pulse 94 93 94 Oximetry 02/22/20 02/22/20 02/22/20 06:11 06:30 06:45 Temperature Pulse Rate 95 H 96 H 89 Respiratory 30 H 30 H 29 H Rate Blood Pressure 111/78 113/79 114/77 O2 Sat by Pulse 94 93 94 Oximetry 02/22/20 02/22/20 02/22/20 07:00 07:15 09:20 Temperature Pulse Rate 89 89 122 H Respiratory 26 H 31 H Rate Blood Pressure 117/80 110/80 89/72 O2 Sat by Pulse 94 95 94 Oximetry 02/22/20 11:55 Temperature Pulse Rate 89 Respiratory Rate Blood Pressure 138/87 O2 Sat by Pulse 93 Oximetry CBC and BMP: 02/22/20 07:40 02/22/20 11:23 ABG, PT/INR, D-dimer: ABG ABG pH 7.280 (7.320-7.450) L 02/22/20 03:09 POC ABG pCO2 37.5 mmHg (32.0-48.0) 02/22/20 03:09 ABG pCO2 34.6 mm Hg 02/21/20 12:54 POC ABG pO2 81.3 mmHg (83-108) L 02/22/20 03:09 ABG pO2 97.7 mm Hg (80.0-90.0) H 02/21/20 12:54 POC ABG HCO3 17.2 02/22/20 03:09 ABG O2 Saturation 96.7 % (95.0-99.0) 02/21/20 12:54 PT/INR, D-dimer PT 18.8 Sec. (12.2-14.9) H 02/22/20 07:40 INR 1.59 (0.87-1.13) H 02/22/20 07:40 D-Dimer > 51344 ng/mlDDU (0-234) H 02/20/20 19:21 Abnormal lab findings: Abnormal Labs 02/20/20 02/20/20 02/20/20 19:21 19:21 19:21 WBC 14.7 H MCV 95 H Seg Neuts % (Manual) 86.0 H Lymphocytes % (Manual) 5.0 L Nucleated RBC % 1.0 H Seg Neutrophils # Man 12.6 H Lymphocytes # (Manual) 0.7 L PT INR D-Dimer > 49804 H ABG pH POC ABG pCO2 POC ABG pO2 ABG pO2 ABG HCO3 ABG O2 Saturation ABG Base Excess ABG Hemoglobin ABG Sodium ABG Potassium ABG Chloride ABG Glucose Oxyhemoglobin Sodium 129 L Potassium Chloride 95.8 L Carbon Dioxide 21 L BUN 21 H Glucose 167 H POC Glucose Calcium Ferritin Direct Bilirubin AST 93 H ALT 148 H Alkaline Phosphatase 138 H Lactate Dehydrogenase C-Reactive Protein Albumin 2.8 L Arterial Blood Glucose Urine WBC (Auto) Coronavirus (PCR) 02/20/20 02/20/20 02/20/20 19:21 19:21 23:00 WBC MCV Seg Neuts % (Manual) Lymphocytes % (Manual) Nucleated RBC % Seg Neutrophils # Man Lymphocytes # (Manual) PT INR D-Dimer ABG pH POC ABG pCO2 POC ABG pO2 ABG pO2 ABG HCO3 ABG O2 Saturation ABG Base Excess ABG Hemoglobin ABG Sodium ABG Potassium ABG Chloride ABG Glucose Oxyhemoglobin Sodium Potassium Chloride Carbon Dioxide BUN Glucose 165 H POC Glucose Calcium Ferritin 1263.0 H Direct Bilirubin AST ALT Alkaline Phosphatase Lactate Dehydrogenase 858 H C-Reactive Protein 32.40 H Albumin Arterial Blood Glucose Urine WBC (Auto) 9.0 H Coronavirus (PCR) 02/20/20 02/21/20 02/21/20 23:37 04:09 08:59 WBC MCV Seg Neuts % (Manual) Lymphocytes % (Manual) Nucleated RBC % Seg Neutrophils # Man Lymphocytes # (Manual) PT INR D-Dimer ABG pH 7.192 L 7.268 L POC ABG pCO2 51.3 H POC ABG pO2 61.1 L ABG pO2 62.0 L ABG HCO3 16.5 L ABG O2 Saturation 87.8 L ABG Base Excess -9.6 L ABG Hemoglobin 13.7 L ABG Sodium 133.6 L ABG Potassium ABG Chloride ABG Glucose 166 H Oxyhemoglobin 86.7 L Sodium Potassium Chloride Carbon Dioxide BUN Glucose POC Glucose Calcium Ferritin Direct Bilirubin AST ALT Alkaline Phosphatase Lactate Dehydrogenase C-Reactive Protein Albumin Arterial Blood Glucose 166 H Urine WBC (Auto) Coronavirus (PCR) Positive A 02/21/20 02/22/20 02/22/20 12:54 03:09 07:40 WBC 15.5 H MCV 96 H Seg Neuts % (Manual) 94.0 H Lymphocytes % (Manual) Nucleated RBC % Seg Neutrophils # Man 14.6 H Lymphocytes # (Manual) 0.0 L PT INR D-Dimer ABG pH 7.252 L 7.280 L POC ABG pCO2 POC ABG pO2 81.3 L ABG pO2 97.7 H ABG HCO3 14.9 L ABG O2 Saturation ABG Base Excess -11.2 L ABG Hemoglobin ABG Sodium ABG Potassium 4.8 H ABG Chloride 113.0 H ABG Glucose 209 H Oxyhemoglobin Sodium Potassium Chloride Carbon Dioxide BUN Glucose POC Glucose Calcium Ferritin Direct Bilirubin AST ALT Alkaline Phosphatase Lactate Dehydrogenase C-Reactive Protein Albumin Arterial Blood Glucose 209 H Urine WBC (Auto) Coronavirus (PCR) 02/22/20 02/22/20 02/22/20 07:40 07:40 11:23 WBC MCV Seg Neuts % (Manual) Lymphocytes % (Manual) Nucleated RBC % Seg Neutrophils # Man Lymphocytes # (Manual) PT 18.8 H INR 1.59 H D-Dimer ABG pH POC ABG pCO2 POC ABG pO2 ABG pO2 ABG HCO3 ABG O2 Saturation ABG Base Excess ABG Hemoglobin ABG Sodium ABG Potassium ABG Chloride ABG Glucose Oxyhemoglobin Sodium Potassium 5.2 H D Chloride 111.4 H 113.7 H Carbon Dioxide 18 L BUN 35 H 36 H Glucose 234 H 240 H POC Glucose Calcium 7.9 L 8.0 L Ferritin Direct Bilirubin 0.3 H AST 127 H ALT 261 H Alkaline Phosphatase 211 H Lactate Dehydrogenase C-Reactive Protein Albumin 2.4 L Arterial Blood Glucose Urine WBC (Auto) Coronavirus (PCR) 02/22/20 12:53 WBC MCV Seg Neuts % (Manual) Lymphocytes % (Manual) Nucleated RBC % Seg Neutrophils # Man Lymphocytes # (Manual) PT INR D-Dimer ABG pH POC ABG pCO2 POC ABG pO2 ABG pO2 ABG HCO3 ABG O2 Saturation ABG Base Excess ABG Hemoglobin ABG Sodium ABG Potassium ABG Chloride ABG Glucose Oxyhemoglobin Sodium Potassium Chloride Carbon Dioxide BUN Glucose POC Glucose 220 H Calcium Ferritin Direct Bilirubin AST ALT Alkaline Phosphatase Lactate Dehydrogenase C-Reactive Protein Albumin Arterial Blood Glucose Urine WBC (Auto) Coronavirus (PCR)
[2020-02-22] MEDS ORDERED: SODIUM BICARBONATE 325 MG TAB FEEDTUBE PRN (16:08)
[2020-02-22] MEDS ORDERED: SIMPLE SYRUP 15 ML FEEDTUBE PRN ×2 (16:08)
[2020-02-22] MEDS ORDERED: LIPASE 10,500/PROTEASE 25,000/AMYLASE 43,750 (UNITS) DR CAP FEEDTUBE PRN (16:08)
[2020-02-22 18:47] LABS: ABG Base Excess -5.3 mmol/L (-2.0-3.0); ABG HCO3 20.6 mmol/L (20.0-26.0); ABG Methemoglobin 0.6 % (0.0-1.5); ABG Oxygen Saturation 93.7 % (95.0-99.0); ABG PCO2 41.8 mm Hg; ABG PH 7.311 pH Units (7.350-7.450); ABG PO2 70.7 mm Hg (80.0-90.0)
--- NOTE | 2020-02-22 19:14 | Vascular Lab Report ---
VL venous duplex LE BILAT INDICATION / CLINICAL INFORMATION: Rule out DVT. COMPARISON: None available. FINDINGS: Occlusive deep vein thrombosis is demonstrated in the posterior tibial vein of the left calf. Left de ep venous system above the knee is normal. No evidence of deep vein thrombosis in the right leg. IMPRESSION: 1. Deep vein thrombosis involving the left popliteal vein. Signer Name: Steven Raya MD Signed: 02/22/2020 7:09 PM Workstation Name: [id number]
[2020-02-22] MEDS ORDERED: VANCOMYCIN 1,250 MG in SODIUM CHLORIDE 0.9% 250ML 250 ML IV SCH ×2 (22:00)
[2020-02-22] MEDS: REMDESIVIR 100 MG in SODIUM CHLORIDE 0.9% 250ML 250 ML IV SCH (22:07)
[2020-02-23] MEDS: fentaNYL DRIP Premix 2,000 MCG/100 ML BAG IV SCH ×2 (04:58→18:25)
[2020-02-23] MEDS: PROPOFOL 500 MG/50 ML VIAL IV SCH ×3 (04:58→17:05)
[2020-02-23] MEDS: CEFEPIME/NS 2 GM/100 ML 2 GM/100 ML BAG IV SCH ×3 (05:02→22:15)
[2020-02-23] MEDS: SODIUM CHLORIDE 0.9% 50 ML IVPB IV SCH ×2 (07:54→23:38)
[2020-02-23] MEDS ORDERED: DEXTROSE 50% IN WATER (25GM) 50 ML SYRINGE IV PRN (08:41)
--- NOTE | 2020-02-23 08:44 | Progress Note ---
Assessment and Plan Assessment and plan: 59-year-old male with known history of hypertension presenting to the emergency room via EMS today complaining of cough, shortness of breath and difficulty breathing. Symptoms have been ongoing for about a week. He was diagnosed with COVID-19 about 4 days ago. He has been having a fever, chills generalized fatigue and dry cough over the past few days. Symptoms seems to be getting worse. He gets more short of breath on minimal exertion. Patient is initial oxygen saturation on room air was about 50% when seen by EMS and he was placed on nonrebreather with improvement of oxygen saturation to about 88%. Patient was subsequently placed on BiPAP upon arrival in the emergency room. Work-up in the emergency room today reveals bilateral pneumonia. During the course of his stay in the emergency room patient's condition continued to deteriorate and was subsequently intubated in the ER. Patient admitted with pneumonia possibly secondary to COVID-19 and will be admitted into the intensive care unit. 02/22: Remains on full ventilatory support, Start Insulin secondary to elevated Blood glucose, Check Hgb A1c. Wean pressors as tolerated. Will attempt to reach family. Rule out PE when stable although note patient is already on full dose Lovenox due to noted lower ext DVT. Continue dexamethasone and Remdesivir, Prone if possible. Good urine output noted, Monitor LFTs Severe sepsis with septic shock Acute Hypoxic Respiratory failure secondary to covid 19 pneumonia Pneumonia secondary to COVID19 Hyponatremia Steroid Induced Hyperglycemia Lower DVT per venous Doppler Metabolic acidosis Transaminitis with elevated LFT, likely due to COVID 19 Plan Patient placed on empiric IV antibiotics. Will await culture results. Started on Dexamethasone and Remdesivir Started on full dose anticoagulation Continue isolation precautions. We will place consult to infectious disease for evaluation and recommendation. We will monitor chemistry. Patient has received some IV fluid in the emergency room. Possibly secondary to the pneumonia with COVID-19. Patient has been intubated and sedated. We will place consult to cellophane bath mixer for evaluation and recommendation. Prognosis is Guarded DVT/GI PROPHY The high probability of a clinically significant, sudden or life threatening deterioration of the [pulmonary] system(s) required my full and direct attention, intervention and personal management. The aggregate critical care time was [35] minutes. This time is in addition to time spent performing reported procedures but includes the following: [x] Data Review and interpretation [x] Patient assessment and monitoring of vital signs [x] Documentation [x] Medication orders and management History Interval history: Patient seen and examined, remains on full ventilatory support, Awakes and follows some commands, Hospitalist Physical - Physical exam Narrative exam: General appearance: Present: No distress on full ventilatory support - EENT Eyes: Present: PERRL, EOM intact. Absent: scleral icterus ENT: hearing intact, clear oral mucosa, dentition normal - Neck Neck: Present: supple, normal ROM - Respiratory Respiratory effort: On full ventilatory support. Respiratory: bilateral: rales - Cardiovascular Rhythm: regular Heart Sounds: Present: S1 & S2. Absent: gallop, systolic murmur, diastolic murmur, rub - Extremities Extremities: no ischemia, pulses intact, pulses symmetrical, No edema, Full ROM Peripheral Pulses: within normal limits - Abdominal General gastrointestinal: Present: soft, non-tender, non-distended, normal bowel sounds. Absent: mass - Integumentary Integumentary: Present: clear, warm, dry. Absent: rash - Musculoskeletal Musculoskeletal: strength equal bilaterally - Psychiatric Psychiatric: appropriate mood/affect, intact judgment & insight, memory intact, cooperative - Neurologic Neurologic: CNII-XII intact, no focal deficits, moves all extremities - Constitutional Vitals: Temp Pulse Resp BP Pulse Ox 97.8 F 68 30 H 103/66 100 02/23/20 03:38 02/23/20 08:33 02/23/20 07:45 02/23/20 08:33 02/23/20 08:33 General appearance: Present: mild distress, well-nourished Results - Labs CBC & Chem 7: 02/22/20 07:40 02/22/20 11:23 Labs: Laboratory Last Values WBC 15.5 K/mm3 (4.5-11.0) H 02/22/20 07:40 RBC 3.99 M/mm3 (3.65-5.03) 02/22/20 07:40 Hgb 12.5 gm/dl (11.8-15.2) 02/22/20 07:40 Hct 38.2 % (35.5-45.6) D 02/22/20 07:40 MCV 96 fl (84-94) H 02/22/20 07:40 MCH 31 pg (28-32) 02/22/20 07:40 MCHC 33 % (32-34) 02/22/20 07:40 RDW 14.7 % (13.2-15.2) 02/22/20 07:40 Plt Count 174 K/mm3 (140-440) 02/22/20 07:40 Add Manual Diff Complete 02/22/20 07:40 Total Counted 100 02/22/20 07:40 Seg Neutrophils % Information Systems Audit Manager 02/22/20 07:40 Seg Neuts % (Manual) 94.0 % (40.0-70.0) H 02/22/20 07:40 Band Neutrophils % 4.0 % 02/22/20 07:40 Lymphocytes % (Manual) 5.0 % (13.4-35.0) L 02/20/20 19:21 Reactive Lymphs % (Man) 0 % 02/20/20 19:21 Monocytes % (Manual) 1.0 % (0.0-7.3) 02/22/20 07:40 Eosinophils % (Manual) 0 % (0.0-4.3) 02/20/20 19:21 Basophils % (Manual) 0 % (0.0-1.8) 02/20/20 19:21 Metamyelocytes % 1.0 % 02/22/20 07:40 Myelocytes % 0 % 02/20/20 19:21 Promyelocytes % 0 % 02/20/20 19:21 Blast Cells % 0 % 02/20/20 19:21 Nucleated RBC % Not Reportable 02/22/20 07:40 Seg Neutrophils # Man 14.6 K/mm3 (1.8-7.7) H 02/22/20 07:40 Band Neutrophils # 0.6 K/mm3 02/22/20 07:40 Lymphocytes # (Manual) 0.0 K/mm3 (1.2-5.4) L 02/22/20 07:40 Abs React Lymphs (Man) 0.0 K/mm3 02/22/20 07:40 Monocytes # (Manual) 0.2 K/mm3 (0.0-0.8) 02/22/20 07:40 Eosinophils # (Manual) 0.0 K/mm3 (0.0-0.4) 02/22/20 07:40 Basophils # (Manual) 0.0 K/mm3 (0.0-0.1) 02/22/20 07:40 Metamyelocytes # 0.2 K/mm3 02/22/20 07:40 Myelocytes # 0.0 K/mm3 02/22/20 07:40 Promyelocytes # 0.0 K/mm3 02/22/20 07:40 Blast Cells # 0.0 K/mm3 02/22/20 07:40 WBC Morphology Not Reportable 02/22/20 07:40 Hypersegmented Neuts Not Reportable 02/22/20 07:40 Hyposegmented Neuts Not Reportable 02/22/20 07:40 Hypogranular Neuts Not Reportable 02/22/20 07:40 Smudge Cells Not Reportable 02/22/20 07:40 Toxic Granulation 2+ 02/22/20 07:40 Toxic Vacuolation Not Reportable 02/22/20 07:40 Dohle Bodies Not Reportable 02/22/20 07:40 Pelger-Huet Anomaly Not Reportable 02/22/20 07:40 Noah Rods Not Reportable 02/22/20 07:40 Platelet Estimate Consistent w auto 02/22/20 07:40 Clumped Platelets Not Reportable 02/22/20 07:40 Plt Clumps, EDTA Not Reportable 02/22/20 07:40 Large Platelets Not Reportable 02/22/20 07:40 Giant Platelets Not Reportable 02/22/20 07:40 Platelet Satelliting Not Reportable 02/22/20 07:40 Plt Morphology Comment Not Reportable 02/22/20 07:40 RBC Morphology Not Reportable 02/22/20 07:40 Dimorphic RBCs Not Reportable 02/22/20 07:40 Polychromasia Not Reportable 02/22/20 07:40 Hypochromasia Not Reportable 02/22/20 07:40 Poikilocytosis Not Reportable 02/22/20 07:40 Anisocytosis 1+ 02/22/20 07:40 Microcytosis Not Reportable 02/22/20 07:40 Macrocytosis Not Reportable 02/22/20 07:40 Spherocytes Not Reportable 02/22/20 07:40 Pappenheimer Bodies Not Reportable 02/22/20 07:40 Sickle Cells Not Reportable 02/22/20 07:40 Target Cells Not Reportable 02/22/20 07:40 Tear Drop Cells Not Reportable 02/22/20 07:40 Ovalocytes Not Reportable 02/22/20 07:40 Helmet Cells Not Reportable 02/22/20 07:40 [place] Bodies Not Reportable 02/22/20 07:40 [place] Rings Not Reportable 02/22/20 07:40 Maryam Cells Not Reportable 02/22/20 07:40 Bite Cells Not Reportable 02/22/20 07:40 Crenated Cell Not Reportable 02/22/20 07:40 Elliptocytes Not Reportable 02/22/20 07:40 Acanthocytes (Spur) Not Reportable 02/22/20 07:40 Rouleaux Not Reportable 02/22/20 07:40 Hemoglobin C Crystals Not Reportable 02/22/20 07:40 Schistocytes Not Reportable 02/22/20 07:40 Malaria parasites Not Reportable 02/22/20 07:40 Allan Bodies Not Reportable 02/22/20 07:40 Hem Pathologist Commnt No 02/22/20 07:40 PT 18.8 Sec. (12.2-14.9) H 02/22/20 07:40 INR 1.59 (0.87-1.13) H 02/22/20 07:40 D-Dimer > 55400 ng/mlDDU (0-234) H 02/20/20 19:21 ABG pH 7.318 (7.320-7.450) L 02/23/20 05:29 POC ABG pCO2 40.8 mmHg (32.0-48.0) 02/23/20 05:29 ABG pCO2 41.8 mm Hg 02/22/20 18:25 POC ABG pO2 86.8 mmHg (83-108) 02/23/20 05:29 ABG pO2 70.7 mm Hg (80.0-90.0) L 02/22/20 18:25 POC ABG HCO3 20.5 02/23/20 05:29 ABG HCO3 20.6 mmol/L (20.0-26.0) 02/22/20 18:25 ABG O2 Saturation 93.7 % (95.0-99.0) L 02/22/20 18:25 ABG O2 Content 17.8 (0.0-44) 02/22/20 18:25 POC ABG Base Excess -5.3 02/23/20 05:29 ABG Base Excess -5.3 mmol/L (-2.0-3.0) L 02/22/20 18:25 ABG Hemoglobin 12.9 (12.0-17.5) 02/23/20 05:29 ABG Carboxyhemoglobin 0.9 % (0.0-5.0) 02/22/20 18:25 ABG Methemoglobin 0.6 % (0.0-1.5) 02/22/20 18:25 ABG Sodium 142.4 mmol/L (136.0-145.0) 02/23/20 05:29 ABG Potassium 5.1 mmol/L (3.40-4.50) H 02/23/20 05:29 ABG Chloride 114.0 mmol/L (98-107) H 02/23/20 05:29 ABG Glucose 306 mg/dL (65-95) H 02/23/20 05:29 Oxyhemoglobin 92.3 % (95.0-99.0) L 02/22/20 18:25 FiO2 75 02/23/20 05:29 Sodium 142 mmol/L (137-145) 02/22/20 11:23 Potassium 5.0 mmol/L (3.6-5.0) 02/22/20 11:23 Chloride 113.7 mmol/L (98-107) H 02/22/20 11:23 Carbon Dioxide 18 mmol/L (22-30) L 02/22/20 11:23 Anion Gap 15 mmol/L 02/22/20 11:23 BUN 36 mg/dL (9-20) H 02/22/20 11:23 Creatinine 1.1 mg/dL (0.8-1.3) 02/22/20 11:23 Estimated GFR > 60 ml/min 02/22/20 11:23 BUN/Creatinine Ratio 33 % 02/22/20 11:23 Glucose 240 mg/dL (75-100) H 02/22/20 11:23 POC Glucose 264 mg/dL (70-105) H 02/23/20 05:32 Lactic Acid 1.90 mmol/L (0.7-2.0) 02/20/20 20:39 Calcium 8.0 mg/dL (8.4-10.2) L 02/22/20 11:23 Ferritin 1263.0 ng/mL (30.0-300.0) H 02/20/20 19:21 Total Bilirubin 0.50 mg/dL (0.1-1.2) 02/22/20 07:40 Direct Bilirubin 0.3 mg/dL (0-0.2) H 02/22/20 07:40 Indirect Bilirubin 0.2 mg/dL 02/22/20 07:40 AST 127 units/L (5-40) H 02/22/20 07:40 ALT 261 units/L (7-56) H 02/22/20 07:40 Alkaline Phosphatase 211 units/L (35-129) H 02/22/20 07:40 Lactate Dehydrogenase 858 units/L (91-180) H 02/20/20 19:21 C-Reactive Protein 32.40 mg/dL (0.00-1.30) H 02/20/20 19:21 Total Protein 6.3 g/dL (6.3-8.2) 02/22/20 07:40 Albumin 2.4 g/dL (3.9-5) L 02/22/20 07:40 Albumin/Globulin Ratio 0.6 % 02/22/20 07:40 Procalcitonin 0.71 ng/mL (<0.15) 02/20/20 19:21 Arterial Blood Glucose 306 mg/dL (65-95) H 02/23/20 05:29 Arterial Blood Ionized Calcium 4.8 mg/dL (4.6-5.3) 02/23/20 05:29 Urine Color [place]isha (Yellow) 02/20/20 23:00 Urine Turbidity Clear (Clear) 02/20/20 23:00 Urine pH 5.0 (5.0-7.0) 02/20/20 23:00 Ur Specific Bells 1.030 (1.003-1.030) 02/20/20 23:00 Urine Protein >500 mg/dL (Negative) 02/20/20 23:00 Urine Glucose (UA) Neg mg/dL (Negative) 02/20/20 23:00 Urine Ketones 20 mg/dL (Negative) 02/20/20 23:00 Urine Blood Neg (Negative) 02/20/20 23:00 Urine Nitrite Neg (Negative) 02/20/20 23:00 Urine Bilirubin Neg (Negative) 02/20/20 23:00 Urine Urobilinogen < 2.0 mg/dL (<2.0) 02/20/20 23:00 Ur Leukocyte Esterase Neg (Negative) 02/20/20 23:00 Urine WBC (Auto) 9.0 /HPF (0.0-6.0) H 02/20/20 23:00 Urine RBC (Auto) 7.0 /HPF (0.0-6.0) 02/20/20 23:00 U Epithel Cells (Auto) < 1.0 /HPF (0-13.0) 02/20/20 23:00 Urine Mucus 3+ /HPF 02/20/20 23:00 Coronavirus (PCR) Positive (Negative) A 02/21/20 08:59 Microbiology: Microbiology 02/20/20 19:34 Peripheral/Venous Blood Culture - Preliminary NO GROWTH AFTER 48 HOURS 02/20/20 19:21 Peripheral/Venous Blood Culture - Preliminary NO GROWTH AFTER 48 HOURS 02/21/20 17:21 Nares - Left MRSA Culture - Preliminary 02/21/20 Unknown Tracheal Aspirate Sputum Culture - Preliminary 02/20/20 23:00 Urine,Clean Catch Urine Culture - Preliminary NO GROWTH AFTER 24 HOURS Osborne/IV: Voiding Method Indwelling Catheter IV Catheter Type [Right Triple Lumen Cath Femoral] IV Catheter Type [Left Peripheral IV Antecubital] Active Medications - Current Medications Current Medications: Generic Name Dose Route Start Last Admin Trade Name Freq PRN Reason Stop Dose Admin Acetaminophen 650 mg 02/21/20 00:28 Tylenol PO Q4H PRN Pain MILD(1-3)/Fever >100.5/HERNANDEZ Lipase/Protease/Amylase 1 each 02/22/20 16:08 Lipase 10,500/Protease 25,000/Amylase 43,750 (Units) Dr [place] FEEDTUBE PRN PRN For Clogged Feeding Tube Dexamethasone 6 mg 02/21/20 10:00 02/22/20 22:05 Dexamethasone 4 Mg/Ml Vial IV 03/01/20 22:01 6 mg Q12HR DILIP Administration Dextrose 50 ml 02/23/20 08:41 Dextrose 50% In Water (25gm) 50 Ml Syringe IV Q30MIN PRN Hypoglycemia Protocol Enoxaparin Sodium 80 mg 02/22/20 10:00 02/22/20 22:06 Enoxaparin 80 Mg/0.8 Ml Inj SUB-Q 80 mg Q12HR DILIP Administration Famotidine 20 mg 02/22/20 10:00 02/22/20 22:06 Famotidine 20 Mg/2 Ml Inj IV 20 mg BID DILIP Administration Fentanyl 50 mcg 02/20/20 22:04 Sublimaze IV Q10MIN PRN ANALGESIA Hydrophilic Ointment 1 applic 02/20/20 22:04 02/21/20 16:00 Vaseline Lip Therapy TP 1 applic Q2HR PRN Administration Dry Lips Fentanyl Citrate 2,000 mcg in 100 mls @ 3.856 mls/hr 02/20/20 23:00 02/23/20 04:58 Fentanyl Drip Premix IV 2 mcg/kg/hr TITR DILIP 7.711 mls/hr Administration Protocol 1 MCG/KG/HR Propofol 500 mg in 50 mls @ 2.313 mls/hr 02/20/20 23:45 02/23/20 04:58 Propofol IV 15 mcg/kg/min TITR DILIP 6.94 mls/hr Administration Protocol 5 MCG/KG/MIN Norepinephrine 4 mg in 250 mls @ 7.5 mls/hr 02/21/20 01:29 02/22/20 11:30 Levophed Drip 4 Mg/Ns 250 Ml IV Infused TITR DILIP Titration Protocol 2 MCG/MIN REMDESIVIR 100 mg/ Sodium 250 mls @ 500 mls/hr 02/22/20 21:00 02/22/20 22:07 Chloride IV 02/25/20 21:29 500 mls/hr Q24HR@2100 DILIP Administration Cefepime HCl 2 gm in 100 mls @ 200 mls/hr 02/21/20 08:00 02/23/20 05:02 Cefepime/Ns 2 Gm/100 Ml IV 02/25/20 22:29 200 mls/hr Q8HR DILIP Administration Protocol Insulin Human Lispro 0 unit 02/23/20 09:00 Insulin Lispro 100 Unit/Ml Vial 3 Ml SUB-Q Q6H [facility] Protocol Morphine Sulfate 2 mg 02/21/20 00:28 Morphine IV Q4H PRN Pain, Moderate (4-6) Multi-Ingred Cream/Lotion/Oil/Oint 1 applic 02/20/20 22:04 Artificial Tears Ophth Oint OU Q4HR PRN Dry Eye(s) Ondansetron HCl 4 mg 02/21/20 00:28 Zofran IV Q8H PRN Nausea And Vomiting Simple Syrup 15 ml 02/22/20 16:08 Simple Syrup 15 Ml FEEDTUBE PRN PRN Hypoglycemia Simple Syrup 30 ml 02/22/20 16:08 Simple Syrup 15 Ml FEEDTUBE PRN PRN Hypoglycemia Sodium Bicarbonate 325 mg 02/22/20 16:08 Sodium Bicarbonate 325 Mg Tab FEEDTUBE PRN PRN For Clogged Feeding Tube Sodium Chloride 10 ml 02/21/20 10:00 02/22/20 22:07 Sodium Chloride Flush Syringe 10 Ml IV 10 ml BID DILIP Administration Sodium Chloride 10 ml 02/21/20 00:28 Sodium Chloride Flush Syringe 10 Ml IV PRN PRN LINE FLUSH Sodium Chloride 50 ml 02/21/20 09:00 02/23/20 07:54 Sodium Chloride 0.9% 50 Ml Ivpb IV 02/25/20 21:59 Not Given Q24HR@2100 [facility] Nutrition/Malnutrition Assess - Dietary Evaluation Nutrition/Malnutrition Findings: Nutrition Notes Start: 02/22/20 15:59 Freq: Status: Active Protocol: Document 02/22/20 15:59 (Rec: 02/22/20 16:08 [id number]) Nutrition Notes Need for Assessment generated from: MD Order Initial or Follow up Assessment Current Diagnosis Sepsis,Hypertension Other Pertinent Diagnosis COVID(+), Pneumonia, Acute Respiratory Failure Current Diet NPO Labs/Tests K 5.0 (5.2 this AM) BUN 36 BG 240 Pertinent Medications Levophed Decadron Propofol at 9.253 ml/hr (244 kcal) Height 5 ft 4 in Weight 77.11 kg [place] Body Weight (kg) 59.09 BMI 29.2 Weight Status Overweight Subjective/Other Information MD consult for TF. Pt on vent. Due to high K, will give Nepro - follow for renal function. Burn Absent Trauma Absent Current % PO Negligible Minimum of two criteria No physical signs of malnutrition #1 Nutrition Diagnosis Inadequate oral intake Etiology acute respiratory failure As Evidenced by Signs and Symptoms pt on vent and unable to consume PO Is patient on ventilator? Yes Is Patient Ambulatory and/or Out of Bed No [facility] 4561.260 Calculation Used for Recommendations [facility] Additional Notes Pro: 92-154 g (1.2-2 g/kg) Fluid: 1 ml/kcal Nutrition Intervention Change Diet Order: TF Nutrition Support: Nepro 1.8 at 45 ml/hr Flush 200 ml q4h Kcal 1,944 Protein (gm) 87 Fluid (mL) 785 Goal #1 Start/tolerate TF Goal #2 Meet at least 80% of protein and energy needs via TF Anticipated Discharge Needs: Unable to determine at this time Follow-Up By: 02/26/20 Additional Comments FU for TF start/tolerance, renal labs
[2020-02-23 09:06] LABS: Hematocrit 36.5 % (35.5-45.6); Hemoglobin 12.2 gm/dl (11.8-15.2); Mean Corpuscular HGB Conc 34 % (32-34); Mean Corpuscular Volume 97 fl (84-94); Platelet Count 165 K/mm3 (140-440); Red Blood Count 3.76 M/mm3 (3.65-5.03); Red Cell Distribution Width 15.1 % (13.2-15.2)
--- NOTE | 2020-02-23 09:16 | XRay Report ---
CHEST 1 VIEW 02/23/2020 8:08 AM INDICATION / CLINICAL INFORMATION: follow up respiratory failure. COMPARISON: 02/22/20 FINDINGS: SUPPORT DEVICES: Unchanged. HEART / MEDIASTINUM: Stable. LUNGS / PLEURA: Bilateral pulmonary opacities appear stable. No pneumothorax. ADDITIONAL FINDINGS: No significant additional findings. IMPRESSION: 1. No significant change. Signer Name: Dimas Gorman MD Signed: 02/23/2020 9:11 AM Workstation Name: [id number]
[2020-02-23 09:23] LABS: Alanine Aminotransferase 197 units/L (7-56); Albumin 2.3 g/dL (3.9-5); BUN/Creatinine Ratio 36; Blood Urea Nitrogen 47 mg/dL (9-20); Calcium 8.1 mg/dL (8.4-10.2); Hemolysis Index 24
[2020-02-23 09:26] LABS: Bilirubin,Direct < 0.2 mg/dL (0-0.2)
--- NOTE | 2020-02-23 10:19 | Progress Note ---
Assessment and Plan Acute hypoxemic respiratory failure due to COVID-19 Severe COVID infection-Critical COVID Severe Sepsis Bilateral pneumonia Elevated Transaminases Lower extremity DVT - continue full MVS and hyperventilate in short term while allowing permissive hypercapnia - wean vasopressor support for MAP>65 - daily SAT and SBT assessment as tolerated - Prone positioning as tolerated and indicated - permissive hypercapnia - continue to wean supplemental oxygen for target O2 sat's > 90% acutely - VAP bundle addressed - continue lung protective strategies - continue bronchodilators with pulmonary hygiene per RT - wean per pulmonary driven protocols otherwise - continue accuchecks with glycemic control per SSI (While critically ill target blood glucose of 140-180 mg/dL; avoid hypoglycemia) - sedation prn for target RASS 0 to -1 - avoid nephrotoxins, renally dose all medications - continue to avoid benzodiazepine's, reduce the possibility of delirium - Broad spectrum antibiotics (Cefepime); de-escalate per ID recommendations - prn analgesia per CPOT score - Maintenance of sleep-wake cycle, avoid delirium - continue enteral nutritional support at goal rate as tolerated - G.I. & VTE prophylaxis - PT/OT/ROM exercises - continue mobility protocols for pressure ulcer prophylaxis - Monitor hemodynamics closely - continue other care per attending / other consultants COVID SPECIFIC INTERVENTIONS - Remdesivir 3/5 - Dexamethasone 6mg IV daily - Monitor inflammatory markers per facility protocol - ferritin, Ddimer, CRP, Inflammatory markers, ferritin 1263, CRP 32, D-dimer> 10,000 - VTE prophylaxis-therapeutic anticoagulation per system Protocol based on d- dimer and positive lower extremity DVT - Continue contact and airborne isolation - discharge planning ongoing concurrently .... Re-evaluate in am & prn CONDITION: CRITICAL PROGNOSIS: GUARDED CODE STATUS: FULL CODE The high probability of a clinically significant, sudden or life-threatening deterioration of the [respiratory, cardiovascular & neurologic] system(s) required my full and direct attention, intervention and personal management. The aggregate critical care time was [36] minutes without overlap. Time includes spent on; [x] Data Review and interpretation [x] Patient assessment and monitoring of vital signs [x] Documentation [x] Medication orders and management Subjective Date of service: 02/23/20 Principal diagnosis: COVID-19 Interval history: Patient is seen today for: Seen and examined at bedside; 24hour events reviewed; nursing and respiratory care staff consulted; no adverse overnight events reported to me; resting peacefully in bed; Objective Vital Signs - 12hr 02/22/20 02/22/20 02/22/20 22:30 22:45 22:55 Temperature Pulse Rate 76 74 75 Pulse Rate [ Right Posterior Tibial] Respiratory 30 H 30 H 30 H Rate Blood Pressure 104/71 99/67 99/67 O2 Sat by Pulse Oximetry 02/22/20 02/22/20 02/22/20 23:00 23:15 23:30 Temperature Pulse Rate 76 73 74 Pulse Rate [ Right Posterior Tibial] Respiratory 30 H 30 H 30 H Rate Blood Pressure 101/69 99/66 105/72 O2 Sat by Pulse Oximetry 02/22/20 02/23/20 02/23/20 23:45 00:00 00:15 Temperature 98.8 F Pulse Rate 69 72 73 Pulse Rate [ 73 Right Posterior Tibial] Respiratory 28 H 30 H 30 H Rate Blood Pressure 101/62 101/66 101/69 O2 Sat by Pulse 100 Oximetry 02/23/20 02/23/20 02/23/20 00:19 00:30 00:45 Temperature Pulse Rate 74 73 73 Pulse Rate [ Right Posterior Tibial] Respiratory 30 H 30 H Rate Blood Pressure 101/69 105/68 101/69 O2 Sat by Pulse 92 98 Oximetry 02/23/20 02/23/20 02/23/20 01:00 01:15 01:30 Temperature Pulse Rate 72 72 71 Pulse Rate [ Right Posterior Tibial] Respiratory 30 H 30 H 30 H Rate Blood Pressure 101/68 98/65 99/68 O2 Sat by Pulse 99 99 99 Oximetry 02/23/20 02/23/20 02/23/20 01:45 02:00 02:15 Temperature Pulse Rate 72 72 70 Pulse Rate [ Right Posterior Tibial] Respiratory 30 H 30 H 30 H Rate Blood Pressure 102/70 102/67 103/68 O2 Sat by Pulse 100 99 99 Oximetry 02/23/20 02/23/20 02/23/20 02:30 02:45 03:02 Temperature Pulse Rate 71 74 73 Pulse Rate [ Right Posterior Tibial] Respiratory 30 H 30 H 30 H Rate Blood Pressure 100/66 100/65 O2 Sat by Pulse 99 99 99 Oximetry 02/23/20 02/23/20 02/23/20 03:15 03:30 03:38 Temperature 97.8 F Pulse Rate 70 72 Pulse Rate [ Right Posterior Tibial] Respiratory 30 H 30 H Rate Blood Pressure 100/67 102/67 O2 Sat by Pulse 99 100 Oximetry 02/23/20 02/23/20 02/23/20 03:45 04:00 04:15 Temperature Pulse Rate 72 74 71 Pulse Rate [ 74 Right Posterior Tibial] Respiratory 30 H 30 H 30 H Rate Blood Pressure 105/71 98/68 102/65 O2 Sat by Pulse 99 100 99 Oximetry 02/23/20 02/23/20 02/23/20 04:30 04:45 05:00 Temperature Pulse Rate 70 71 72 Pulse Rate [ Right Posterior Tibial] Respiratory 30 H 30 H 30 H Rate Blood Pressure 97/66 100/71 106/70 O2 Sat by Pulse 100 100 100 Oximetry 02/23/20 02/23/20 02/23/20 05:13 05:15 05:30 Temperature Pulse Rate 70 70 68 Pulse Rate [ Right Posterior Tibial] Respiratory 30 H 30 H Rate Blood Pressure 100/69 100/69 99/65 O2 Sat by Pulse 100 100 100 Oximetry 02/23/20 02/23/20 02/23/20 05:45 06:00 06:15 Temperature Pulse Rate 70 70 73 Pulse Rate [ Right Posterior Tibial] Respiratory 30 H 30 H 30 H Rate Blood Pressure 103/66 100/67 106/70 O2 Sat by Pulse 100 100 100 Oximetry 02/23/20 02/23/20 02/23/20 06:30 06:45 07:00 Temperature Pulse Rate 73 70 70 Pulse Rate [ Right Posterior Tibial] Respiratory 30 H 30 H 30 H Rate Blood Pressure 101/64 103/67 107/71 O2 Sat by Pulse 100 100 99 Oximetry 02/23/20 02/23/20 02/23/20 07:15 07:30 07:45 Temperature Pulse Rate 69 69 69 Pulse Rate [ Right Posterior Tibial] Respiratory 30 H 30 H 30 H Rate Blood Pressure 109/74 105/71 103/71 O2 Sat by Pulse 100 100 100 Oximetry 02/23/20 08:33 Temperature Pulse Rate 68 Pulse Rate [ Right Posterior Tibial] Respiratory Rate Blood Pressure 103/66 O2 Sat by Pulse 100 Oximetry Constitutional: appears uncomfortable, other (mild respiraotry distress, orally intubated to MVS) Eyes: non-icteric ENT: oropharynx moist, other (ETT at 23cm at the lip) Neck: supple, no lymphadenopathy, no JVD Effort: mildly labored Ascultation: Bilateral: diminished breath sounds, rhonchi Cardiovascular: regular rate and rhythm, other (S1,S2) Gastrointestinal: normoactive bowel sounds, soft, non-tender, non-distended Integumentary: normal Extremities: no cyanosis, no edema, pink and warm, no ischemia or petechiae Neurologic: unable to assess (sedated) Psychiatric: other (unable to assess) CBC and BMP: 02/23/20 04:00 02/23/20 05:00 ABG, PT/INR, D-dimer: ABG ABG pH 7.318 (7.320-7.450) L 02/23/20 05:29 POC ABG pCO2 40.8 mmHg (32.0-48.0) 02/23/20 05:29 ABG pCO2 41.8 mm Hg 02/22/20 18:25 POC ABG pO2 86.8 mmHg (83-108) 02/23/20 05:29 ABG pO2 70.7 mm Hg (80.0-90.0) L 02/22/20 18:25 POC ABG HCO3 20.5 02/23/20 05:29 ABG O2 Saturation 93.7 % (95.0-99.0) L 02/22/20 18:25 PT/INR, D-dimer PT 18.8 Sec. (12.2-14.9) H 02/22/20 07:40 INR 1.59 (0.87-1.13) H 02/22/20 07:40 D-Dimer > 34371 ng/mlDDU (0-234) H 02/20/20 19:21 Abnormal lab findings: Abnormal Labs 02/20/20 02/20/20 02/20/20 19:21 19:21 19:21 WBC 14.7 H MCV 95 H MCH Seg Neuts % (Manual) 86.0 H Lymphocytes % (Manual) 5.0 L Nucleated RBC % 1.0 H Seg Neutrophils # Man 12.6 H Lymphocytes # (Manual) 0.7 L PT INR D-Dimer > 82449 H ABG pH POC ABG pCO2 POC ABG pO2 ABG pO2 ABG HCO3 ABG O2 Saturation ABG Base Excess ABG Hemoglobin ABG Sodium ABG Potassium ABG Chloride ABG Glucose Oxyhemoglobin Sodium 129 L Potassium Chloride 95.8 L Carbon Dioxide 21 L BUN 21 H Glucose 167 H POC Glucose Calcium Ferritin Direct Bilirubin AST 93 H ALT 148 H Alkaline Phosphatase 138 H Lactate Dehydrogenase C-Reactive Protein Total Protein Albumin 2.8 L Arterial Blood Glucose Urine WBC (Auto) Coronavirus (PCR) 02/20/20 02/20/20 02/20/20 19:21 19:21 23:00 WBC MCV MCH Seg Neuts % (Manual) Lymphocytes % (Manual) Nucleated RBC % Seg Neutrophils # Man Lymphocytes # (Manual) PT INR D-Dimer ABG pH POC ABG pCO2 POC ABG pO2 ABG pO2 ABG HCO3 ABG O2 Saturation ABG Base Excess ABG Hemoglobin ABG Sodium ABG Potassium ABG Chloride ABG Glucose Oxyhemoglobin Sodium Potassium Chloride Carbon Dioxide BUN Glucose 165 H POC Glucose Calcium Ferritin 1263.0 H Direct Bilirubin AST ALT Alkaline Phosphatase Lactate Dehydrogenase 858 H C-Reactive Protein 32.40 H Total Protein Albumin Arterial Blood Glucose Urine WBC (Auto) 9.0 H Coronavirus (PCR) 02/20/20 02/21/20 02/21/20 23:37 04:09 08:59 WBC MCV MCH Seg Neuts % (Manual) Lymphocytes % (Manual) Nucleated RBC % Seg Neutrophils # Man Lymphocytes # (Manual) PT INR D-Dimer ABG pH 7.192 L 7.268 L POC ABG pCO2 51.3 H POC ABG pO2 61.1 L ABG pO2 62.0 L ABG HCO3 16.5 L ABG O2 Saturation 87.8 L ABG Base Excess -9.6 L ABG Hemoglobin 13.7 L ABG Sodium 133.6 L ABG Potassium ABG Chloride ABG Glucose 166 H Oxyhemoglobin 86.7 L Sodium Potassium Chloride Carbon Dioxide BUN Glucose POC Glucose Calcium Ferritin Direct Bilirubin AST ALT Alkaline Phosphatase Lactate Dehydrogenase C-Reactive Protein Total Protein Albumin Arterial Blood Glucose 166 H Urine WBC (Auto) Coronavirus (PCR) Positive A 02/21/20 02/22/20 02/22/20 12:54 03:09 07:40 WBC 15.5 H MCV 96 H MCH Seg Neuts % (Manual) 94.0 H Lymphocytes % (Manual) Nucleated RBC % Seg Neutrophils # Man 14.6 H Lymphocytes # (Manual) 0.0 L PT INR D-Dimer ABG pH 7.252 L 7.280 L POC ABG pCO2 POC ABG pO2 81.3 L ABG pO2 97.7 H ABG HCO3 14.9 L ABG O2 Saturation ABG Base Excess -11.2 L ABG Hemoglobin ABG Sodium ABG Potassium 4.8 H ABG Chloride 113.0 H ABG Glucose 209 H Oxyhemoglobin Sodium Potassium Chloride Carbon Dioxide BUN Glucose POC Glucose Calcium Ferritin Direct Bilirubin AST ALT Alkaline Phosphatase Lactate Dehydrogenase C-Reactive Protein Total Protein Albumin Arterial Blood Glucose 209 H Urine WBC (Auto) Coronavirus (PCR) 02/22/20 02/22/20 02/22/20 07:40 07:40 11:23 WBC MCV MCH Seg Neuts % (Manual) Lymphocytes % (Manual) Nucleated RBC % Seg Neutrophils # Man Lymphocytes # (Manual) PT 18.8 H INR 1.59 H D-Dimer ABG pH POC ABG pCO2 POC ABG pO2 ABG pO2 ABG HCO3 ABG O2 Saturation ABG Base Excess ABG Hemoglobin ABG Sodium ABG Potassium ABG Chloride ABG Glucose Oxyhemoglobin Sodium Potassium 5.2 H D Chloride 111.4 H 113.7 H Carbon Dioxide 18 L BUN 35 H 36 H Glucose 234 H 240 H POC Glucose Calcium 7.9 L 8.0 L Ferritin Direct Bilirubin 0.3 H AST 127 H ALT 261 H Alkaline Phosphatase 211 H Lactate Dehydrogenase C-Reactive Protein Total Protein Albumin 2.4 L Arterial Blood Glucose Urine WBC (Auto) Coronavirus (PCR) 02/22/20 02/22/20 02/22/20 12:53 18:25 23:14 WBC MCV MCH Seg Neuts % (Manual) Lymphocytes % (Manual) Nucleated RBC % Seg Neutrophils # Man Lymphocytes # (Manual) PT INR D-Dimer ABG pH 7.311 L POC ABG pCO2 POC ABG pO2 ABG pO2 70.7 L ABG HCO3 ABG O2 Saturation 93.7 L ABG Base Excess -5.3 L ABG Hemoglobin 13.7 L ABG Sodium ABG Potassium ABG Chloride ABG Glucose Oxyhemoglobin 92.3 L Sodium Potassium Chloride Carbon Dioxide BUN Glucose POC Glucose 220 H 229 H Calcium Ferritin Direct Bilirubin AST ALT Alkaline Phosphatase Lactate Dehydrogenase C-Reactive Protein Total Protein Albumin Arterial Blood Glucose Urine WBC (Auto) Coronavirus (PCR) 02/23/20 02/23/20 02/23/20 04:00 05:00 05:29 WBC 15.3 H MCV 97 H MCH 33 H Seg Neuts % (Manual) Lymphocytes % (Manual) Nucleated RBC % Seg Neutrophils # Man Lymphocytes # (Manual) PT INR D-Dimer ABG pH 7.318 L POC ABG pCO2 POC ABG pO2 ABG pO2 ABG HCO3 ABG O2 Saturation ABG Base Excess ABG Hemoglobin ABG Sodium ABG Potassium 5.1 H ABG Chloride 114.0 H ABG Glucose 306 H Oxyhemoglobin Sodium Potassium 5.4 H Chloride 114.3 H Carbon Dioxide BUN 47 H Glucose 323 H POC Glucose Calcium 8.1 L Ferritin Direct Bilirubin AST 61 H ALT 197 H Alkaline Phosphatase Lactate Dehydrogenase C-Reactive Protein Total Protein 6.0 L Albumin 2.3 L Arterial Blood Glucose 306 H Urine WBC (Auto) Coronavirus (PCR) 02/23/20 05:32 WBC MCV MCH Seg Neuts % (Manual) Lymphocytes % (Manual) Nucleated RBC % Seg Neutrophils # Man Lymphocytes # (Manual) PT INR D-Dimer ABG pH POC ABG pCO2 POC ABG pO2 ABG pO2 ABG HCO3 ABG O2 Saturation ABG Base Excess ABG Hemoglobin ABG Sodium ABG Potassium ABG Chloride ABG Glucose Oxyhemoglobin Sodium Potassium Chloride Carbon Dioxide BUN Glucose POC Glucose 264 H Calcium Ferritin Direct Bilirubin AST ALT Alkaline Phosphatase Lactate Dehydrogenase C-Reactive Protein Total Protein Albumin Arterial Blood Glucose Urine WBC (Auto) Coronavirus (PCR)
[2020-02-23] MEDS: dexAMETHasone 4 MG/ML VIAL IV SCH ×2 (10:37→22:13)
[2020-02-23] MEDS: ENOXAPARIN 80 MG/0.8 ML INJ SUB-Q SCH ×2 (10:37→22:13)
[2020-02-23] MEDS: FAMOTIDINE 20 MG TAB PO SCH ×2 (10:37→22:16)
[2020-02-23] MEDS: INSULIN LISPRO 100 UNIT/ML VIAL 3 mL SUB-Q SCH ×3 (12:10→18:26)
[2020-02-23] MEDS: REMDESIVIR 100 MG in SODIUM CHLORIDE 0.9% 250ML 250 ML IV SCH (22:14)
--- NOTE | 2020-02-24 03:54 | XRay Report ---
CHEST 1 VIEW, 02/24/2020 2:20 AM CLINICAL INFORMATION/INDICATION: Respiratory failure COMPARISON: Chest radiograph, 02/23/2020 at 8:14 AM FINDINGS: SUPPORT DEVICES: Endotracheal tube and esophagogastric tube remain in stable position. HEART: The cardiac silhouette is normal in size. LUNGS/PLEURA: Faint bilateral pulmonary opacities have not significantly changed. No pneumothorax is identified. ADDITIONAL FINDINGS: No additional acute findings. IMPRESSION: 1. Stable bilateral pulmonary opacities. Signer Name: Yeni Tomlinson MD Signed: 02/24/2020 3:49 AM Workstation Name: [id number]
[2020-02-24 04:08] LABS: ABG Base Excess -1.5 mmol/L (-2.0-3.0); ABG HCO3 23.9 mmol/L (20.0-26.0); ABG Methemoglobin 0.7 % (0.0-1.5); ABG Oxygen Saturation 96.7 % (95.0-99.0); ABG PH 7.362 pH Units (7.350-7.450); ABG PO2 90.6 mm Hg (80.0-90.0)
[2020-02-24] MEDS: PROPOFOL 500 MG/50 ML VIAL IV SCH ×2 (04:54→21:50)
[2020-02-24] MEDS: INSULIN LISPRO 100 UNIT/ML VIAL 3 mL SUB-Q SCH ×4 (04:56→18:06)
[2020-02-24] MEDS: CEFEPIME/NS 2 GM/100 ML 2 GM/100 ML BAG IV SCH ×3 (06:35→21:47)
[2020-02-24] MEDS: fentaNYL DRIP Premix 2,000 MCG/100 ML BAG IV SCH ×2 (06:44→21:50)
[2020-02-24 07:31] LABS: BUN/Creatinine Ratio TNR; Blood Urea Nitrogen TNR mg/dL (9-20)
[2020-02-24 07:32] LABS: Alanine Aminotransferase TNR units/L (7-56); Bilirubin,Direct TNR mg/dL (0-0.2); Calcium TNR mg/dL (8.4-10.2)
[2020-02-24 07:33] LABS: Albumin TNR g/dL (3.9-5); Hemolysis Index TNR
[2020-02-24] MEDS: ACETAMINOPHEN 325 MG TAB PO PRN ×2 (08:24→21:48)
[2020-02-24] MEDS: FAMOTIDINE 20 MG TAB PO SCH ×2 (09:43→21:48)
[2020-02-24] MEDS: ENOXAPARIN 80 MG/0.8 ML INJ SUB-Q SCH ×2 (09:43→21:47)
[2020-02-24] MEDS: dexAMETHasone 4 MG/ML VIAL IV SCH ×2 (09:43→21:47)
--- NOTE | 2020-02-24 10:26 | Progress Note ---
Assessment and Plan Assessment and plan: 59-year-old male with known history of hypertension presenting to the emergency room via EMS today complaining of cough, shortness of breath and difficulty breathing. Symptoms have been ongoing for about a week. He was diagnosed with COVID-19 about 4 days ago. He has been having a fever, chills generalized fatigue and dry cough over the past few days. Symptoms seems to be getting worse. He gets more short of breath on minimal exertion. Patient is initial oxygen saturation on room air was about 50% when seen by EMS and he was placed on nonrebreather with improvement of oxygen saturation to about 88%. Patient was subsequently placed on BiPAP upon arrival in the emergency room. Work-up in the emergency room today reveals bilateral pneumonia. During the course of his stay in the emergency room patient's condition continued to deteriorate and was subsequently intubated in the ER. Patient admitted with pneumonia possibly secondary to COVID-19 and will be admitted into the intensive care unit. 02/22: Remains on full ventilatory support, Start Insulin secondary to elevated Blood glucose, Check Hgb A1c. Wean pressors as tolerated. Will attempt to reach family. Rule out PE when stable although note patient is already on full dose Lovenox due to noted lower ext DVT. Continue dexamethasone and Remdesivir, Prone if possible. Good urine output noted, Monitor LFTs 02/23: Repeat chest x-ray. Unsure why patient is still running fevers this could be secondary to viral pneumonia versus superimposed bacterial pneumonia. Will check cultures check lactic acid antibiotics per ID. Wean from vent as tolerated. Prone if possible. Monitor electrolytes and H&H. Severe sepsis with septic shock Acute Hypoxic Respiratory failure secondary to covid 19 pneumonia Pneumonia secondary to COVID19 Hyponatremia Steroid Induced Hyperglycemia Lower DVT per venous Doppler Metabolic acidosis Transaminitis with elevated LFT, likely due to COVID 19 Plan Patient placed on empiric IV antibiotics. Will await culture results. Started on Dexamethasone and Remdesivir Started on full dose anticoagulation Continue isolation precautions. We will place consult to infectious disease for evaluation and recommendation. We will monitor chemistry. Patient has received some IV fluid in the emergency room. Possibly secondary to the pneumonia with COVID-19. Patient has been intubated and sedated. We will place consult to swing frame grinder operator for evaluation and recommendation. Prognosis is Guarded DVT/GI PROPHY The high probability of a clinically significant, sudden or life threatening deterioration of the [pulmonary] system(s) required my full and direct attention, intervention and personal management. The aggregate critical care time was [35] minutes. This time is in addition to time spent performing reported procedures but includes the following: [x] Data Review and interpretation [x] Patient assessment and monitoring of vital signs [x] Documentation [x] Medication orders and management History Interval history: Patient seen and examined, remains on full ventilatory support, Awakes and follows some commands per nursing staff. Patient also had a T-max of 101 this morning., Hospitalist Physical - Physical exam Narrative exam: General appearance: Present: No distress on full ventilatory support - EENT Eyes: Present: PERRL, EOM intact. Absent: scleral icterus ENT: hearing intact, clear oral mucosa, dentition normal - Neck Neck: Present: supple, normal ROM - Respiratory Respiratory effort: On full ventilatory support. Respiratory: bilateral: rales - Cardiovascular Rhythm: regular Heart Sounds: Present: S1 & S2. Absent: gallop, systolic murmur, diastolic murmur, rub - Extremities Extremities: no ischemia, pulses intact, pulses symmetrical, No edema, Full ROM Peripheral Pulses: within normal limits - Abdominal General gastrointestinal: Present: soft, non-tender, non-distended, normal bowel sounds. Absent: mass - Integumentary Integumentary: Present: clear, warm, dry. Absent: rash - Musculoskeletal Musculoskeletal: strength equal bilaterally - Psychiatric Psychiatric: appropriate mood/affect, intact judgment & insight, memory intact, cooperative - Neurologic Neurologic: CNII-XII intact, no focal deficits, moves all extremities - Constitutional Vitals: Temp Pulse Resp BP Pulse Ox 101.3 F H 104 H 30 H 141/91 100 02/24/20 08:00 02/24/20 08:55 02/24/20 08:45 02/24/20 08:55 02/24/20 08:55 General appearance: Present: mild distress, well-nourished Results - Labs CBC & Chem 7: 02/23/20 04:00 02/24/20 05:00 Labs: Laboratory Last Values WBC 15.3 K/mm3 (4.5-11.0) H 02/23/20 04:00 RBC 3.76 M/mm3 (3.65-5.03) 02/23/20 04:00 Hgb 12.2 gm/dl (11.8-15.2) 02/23/20 04:00 Hct 36.5 % (35.5-45.6) 02/23/20 04:00 MCV 97 fl (84-94) H 02/23/20 04:00 MCH 33 pg (28-32) H 02/23/20 04:00 MCHC 34 % (32-34) 02/23/20 04:00 RDW 15.1 % (13.2-15.2) 02/23/20 04:00 Plt Count 165 K/mm3 (140-440) 02/23/20 04:00 Add Manual Diff Complete 02/22/20 07:40 Total Counted 100 02/22/20 07:40 Seg Neutrophils % Medical Claims Manager 02/22/20 07:40 Seg Neuts % (Manual) 94.0 % (40.0-70.0) H 02/22/20 07:40 Band Neutrophils % 4.0 % 02/22/20 07:40 Lymphocytes % (Manual) 5.0 % (13.4-35.0) L 02/20/20 19:21 Reactive Lymphs % (Man) 0 % 02/20/20 19:21 Monocytes % (Manual) 1.0 % (0.0-7.3) 02/22/20 07:40 Eosinophils % (Manual) 0 % (0.0-4.3) 02/20/20 19:21 Basophils % (Manual) 0 % (0.0-1.8) 02/20/20 19:21 Metamyelocytes % 1.0 % 02/22/20 07:40 Myelocytes % 0 % 02/20/20 19:21 Promyelocytes % 0 % 02/20/20 19:21 Blast Cells % 0 % 02/20/20 19:21 Nucleated RBC % Not Reportable 02/22/20 07:40 Seg Neutrophils # Man 14.6 K/mm3 (1.8-7.7) H 02/22/20 07:40 Band Neutrophils # 0.6 K/mm3 02/22/20 07:40 Lymphocytes # (Manual) 0.0 K/mm3 (1.2-5.4) L 02/22/20 07:40 Abs React Lymphs (Man) 0.0 K/mm3 02/22/20 07:40 Monocytes # (Manual) 0.2 K/mm3 (0.0-0.8) 02/22/20 07:40 Eosinophils # (Manual) 0.0 K/mm3 (0.0-0.4) 02/22/20 07:40 Basophils # (Manual) 0.0 K/mm3 (0.0-0.1) 02/22/20 07:40 Metamyelocytes # 0.2 K/mm3 02/22/20 07:40 Myelocytes # 0.0 K/mm3 02/22/20 07:40 Promyelocytes # 0.0 K/mm3 02/22/20 07:40 Blast Cells # 0.0 K/mm3 02/22/20 07:40 WBC Morphology Not Reportable 02/22/20 07:40 Hypersegmented Neuts Not Reportable 02/22/20 07:40 Hyposegmented Neuts Not Reportable 02/22/20 07:40 Hypogranular Neuts Not Reportable 02/22/20 07:40 Smudge Cells Not Reportable 02/22/20 07:40 Toxic Granulation 2+ 02/22/20 07:40 Toxic Vacuolation Not Reportable 02/22/20 07:40 Dohle Bodies Not Reportable 02/22/20 07:40 Pelger-Huet Anomaly Not Reportable 02/22/20 07:40 Noah Rods Not Reportable 02/22/20 07:40 Platelet Estimate Consistent w auto 02/22/20 07:40 Clumped Platelets Not Reportable 02/22/20 07:40 Plt Clumps, EDTA Not Reportable 02/22/20 07:40 Large Platelets Not Reportable 02/22/20 07:40 Giant Platelets Not Reportable 02/22/20 07:40 Platelet Satelliting Not Reportable 02/22/20 07:40 Plt Morphology Comment Not Reportable 02/22/20 07:40 RBC Morphology Not Reportable 02/22/20 07:40 Dimorphic RBCs Not Reportable 02/22/20 07:40 Polychromasia Not Reportable 02/22/20 07:40 Hypochromasia Not Reportable 02/22/20 07:40 Poikilocytosis Not Reportable 02/22/20 07:40 Anisocytosis 1+ 02/22/20 07:40 Microcytosis Not Reportable 02/22/20 07:40 Macrocytosis Not Reportable 02/22/20 07:40 Spherocytes Not Reportable 02/22/20 07:40 Pappenheimer Bodies Not Reportable 02/22/20 07:40 Sickle Cells Not Reportable 02/22/20 07:40 Target Cells Not Reportable 02/22/20 07:40 Tear Drop Cells Not Reportable 02/22/20 07:40 Ovalocytes Not Reportable 02/22/20 07:40 Helmet Cells Not Reportable 02/22/20 07:40 [place] Bodies Not Reportable 02/22/20 07:40 [place] Rings Not Reportable 02/22/20 07:40 [place] Cells Not Reportable 02/22/20 07:40 Bite Cells Not Reportable 02/22/20 07:40 Crenated Cell Not Reportable 02/22/20 07:40 Elliptocytes Not Reportable 02/22/20 07:40 Acanthocytes (Spur) Not Reportable 02/22/20 07:40 Rouleaux Not Reportable 02/22/20 07:40 Hemoglobin C Crystals Not Reportable 02/22/20 07:40 Schistocytes Not Reportable 02/22/20 07:40 Malaria parasites Not Reportable 02/22/20 07:40 Allan Bodies Not Reportable 02/22/20 07:40 Hem Pathologist Commnt No 02/22/20 07:40 PT 18.8 Sec. (12.2-14.9) H 02/22/20 07:40 INR 1.59 (0.87-1.13) H 02/22/20 07:40 D-Dimer > 79527 ng/mlDDU (0-234) H 02/20/20 19:21 ABG pH 7.362 pH Units (7.350-7.450) 02/24/20 03:50 POC ABG pCO2 40.8 mmHg (32.0-48.0) 02/23/20 05:29 ABG pCO2 43.0 mm Hg 02/24/20 03:50 POC ABG pO2 86.8 mmHg (83-108) 02/23/20 05:29 ABG pO2 90.6 mm Hg (80.0-90.0) H 02/24/20 03:50 POC ABG HCO3 20.5 02/23/20 05:29 ABG HCO3 23.9 mmol/L (20.0-26.0) 02/24/20 03:50 ABG O2 Saturation 96.7 % (95.0-99.0) 02/24/20 03:50 ABG O2 Content 17.1 (0.0-44) 02/24/20 03:50 POC ABG Base Excess -5.3 02/23/20 05:29 ABG Base Excess -1.5 mmol/L (-2.0-3.0) 02/24/20 03:50 ABG Hemoglobin 12.7 gm/dl (14.0-18.0) L 02/24/20 03:50 ABG Carboxyhemoglobin 0.8 % (0.0-5.0) 02/24/20 03:50 ABG Methemoglobin 0.7 % (0.0-1.5) 02/24/20 03:50 ABG Sodium 142.4 mmol/L (136.0-145.0) 02/23/20 05:29 ABG Potassium 5.1 mmol/L (3.40-4.50) H 02/23/20 05:29 ABG Chloride 114.0 mmol/L (98-107) H 02/23/20 05:29 ABG Glucose 306 mg/dL (65-95) H 02/23/20 05:29 Oxyhemoglobin 95.3 % (95.0-99.0) 02/24/20 03:50 FiO2 70 % 02/24/20 03:50 Sodium TNR 02/24/20 05:00 Potassium TNR 02/24/20 05:00 Chloride TNR 02/24/20 05:00 Carbon Dioxide TNR 02/24/20 05:00 Anion Gap TNR 02/24/20 05:00 BUN TNR 02/24/20 05:00 Creatinine TNR 02/24/20 05:00 Estimated GFR TNR 02/24/20 05:00 BUN/Creatinine Ratio TNR 02/24/20 05:00 Glucose TNR 02/24/20 05:00 POC Glucose 313 mg/dL (70-105) H 02/24/20 06:10 Lactic Acid 1.90 mmol/L (0.7-2.0) 02/20/20 20:39 Calcium TNR 02/24/20 05:00 Ferritin 1263.0 ng/mL (30.0-300.0) H 02/20/20 19:21 Total Bilirubin TNR 02/24/20 05:00 Direct Bilirubin TNR 02/24/20 05:00 Indirect Bilirubin TNR 02/24/20 05:00 AST TNR 02/24/20 05:00 ALT TNR 02/24/20 05:00 Alkaline Phosphatase TNR 02/24/20 05:00 Lactate Dehydrogenase 858 units/L (91-180) H 02/20/20 19:21 C-Reactive Protein 32.40 mg/dL (0.00-1.30) H 02/20/20 19:21 Total Protein TNR 02/24/20 05:00 Albumin TNR 02/24/20 05:00 Albumin/Globulin Ratio TNR 02/24/20 05:00 Procalcitonin 0.71 ng/mL (<0.15) 02/20/20 19:21 Arterial Blood Glucose 306 mg/dL (65-95) H 02/23/20 05:29 Arterial Blood Ionized Calcium 4.8 mg/dL (4.6-5.3) 02/23/20 05:29 Urine Color [place] (Yellow) 02/20/20 23:00 Urine Turbidity Clear (Clear) 02/20/20 23:00 Urine pH 5.0 (5.0-7.0) 02/20/20 23:00 Ur Specific [place] 1.030 (1.003-1.030) 02/20/20 23:00 Urine Protein >500 mg/dL (Negative) 02/20/20 23:00 Urine Glucose (UA) Neg mg/dL (Negative) 02/20/20 23:00 Urine Ketones 20 mg/dL (Negative) 02/20/20 23:00 Urine Blood Neg (Negative) 02/20/20 23:00 Urine Nitrite Neg (Negative) 02/20/20 23:00 Urine Bilirubin Neg (Negative) 02/20/20 23:00 Urine Urobilinogen < 2.0 mg/dL (<2.0) 02/20/20 23:00 Ur Leukocyte Esterase Neg (Negative) 02/20/20 23:00 Urine WBC (Auto) 9.0 /HPF (0.0-6.0) H 02/20/20 23:00 Urine RBC (Auto) 7.0 /HPF (0.0-6.0) 12/09/20 23:00 U Epithel Cells (Auto) < 1.0 /HPF (0-13.0) 02/20/20 23:00 Urine Mucus 3+ /HPF 02/20/20 23:00 Coronavirus (PCR) Positive (Negative) A 02/21/20 08:59 Microbiology: Microbiology 02/20/20 19:34 Peripheral/Venous Blood Culture - Preliminary NO GROWTH AFTER 72 HOURS 02/20/20 19:21 Peripheral/Venous Blood Culture - Preliminary NO GROWTH AFTER 72 HOURS 02/22/20 18:39 Tracheal Aspirate Sputum Culture - Preliminary 02/21/20 Unknown Tracheal Aspirate Sputum Culture - Final 02/21/20 17:21 Nares - Left MRSA Culture - Final 02/20/20 23:00 Urine,Clean Catch Urine Culture - Final NO GROWTH AFTER 48 HOURS [place]/IV: Voiding Method Indwelling Catheter IV Catheter Type [Right INT / Saline Lock Forearm] IV Catheter Type [Left Forearm INT / Saline Lock ] IV Catheter Type [Right Triple Lumen Cath Femoral] IV Catheter Type [Left Peripheral IV Antecubital] Active Medications - Current Medications Current Medications: Generic Name Dose Route Start Last Admin Trade Name Freq PRN Reason Stop Dose Admin Acetaminophen 650 mg 02/21/20 00:28 02/24/20 08:24 Tylenol PO 650 mg Q4H PRN Administration Pain MILD(1-3)/Fever >100.5/HERNANDEZ Lipase/Protease/Amylase 1 each 02/22/20 16:08 Lipase 10,500/Protease 25,000/Amylase 43,750 (Units) Cap FEEDTUBE PRN PRN For Clogged Feeding Tube Dexamethasone 6 mg 02/21/20 10:00 02/24/20 09:43 Dexamethasone 4 Mg/Ml Vial IV 03/01/20 22:01 6 mg Q12HR DILIP Administration Dextrose 50 ml 02/23/20 08:41 Dextrose 50% In Water (25gm) 50 Ml Syringe IV Q30MIN PRN Hypoglycemia Protocol Enoxaparin Sodium 80 mg 02/22/20 10:00 02/24/20 09:43 Enoxaparin 80 Mg/0.8 Ml Inj SUB-Q 80 mg Q12HR DILIP Administration Famotidine 20 mg 02/23/20 10:00 02/24/20 09:43 Famotidine 20 Mg Tab PO 20 mg BID DILIP Administration Fentanyl 50 mcg 02/20/20 22:04 Sublimaze IV Q10MIN PRN ANALGESIA Hydrophilic Ointment 1 applic 02/20/20 22:04 02/21/20 16:00 Vaseline Lip Therapy TP 1 applic Q2HR PRN Administration Dry Lips Fentanyl Citrate 2,000 mcg in 100 mls @ 3.856 mls/hr 02/20/20 23:00 02/24/20 06:44 Fentanyl Drip Premix IV 2 mcg/kg/hr TITR DILIP 7.711 mls/hr Administration Protocol 1 MCG/KG/HR Propofol 500 mg in 50 mls @ 2.313 mls/hr 02/20/20 23:45 02/24/20 08:36 Propofol IV 0 mcg/kg/min TITR DILIP 0 mls/hr Titration Protocol 5 MCG/KG/MIN Norepinephrine 4 mg in 250 mls @ 7.5 mls/hr 02/21/20 01:29 02/22/20 11:30 Levophed Drip 4 Mg/Ns 250 Ml IV Infused TITR DILIP Titration Protocol 2 MCG/MIN REMDESIVIR 100 mg/ Sodium 250 mls @ 500 mls/hr 02/22/20 21:00 02/23/20 22:14 Chloride IV 02/25/20 21:29 500 mls/hr Q24HR@2100 DILIP Administration Cefepime HCl 2 gm in 100 mls @ 200 mls/hr 02/21/20 08:00 02/24/20 06:35 Cefepime/Ns 2 Gm/100 Ml IV 02/25/20 22:29 200 mls/hr Q8HR [facility] Administration Protocol Insulin Glargine 20 units 02/24/20 22:00 Insulin Glargine 100 Units/Ml SUB-Q QHS [facility] Insulin Human Lispro 0 unit 02/23/20 09:00 02/24/20 06:40 Insulin Lispro 100 Unit/Ml Vial 3 Ml SUB-Q 8 unit Q6HR [facility] Administration Protocol Insulin Human Regular 15 unit 02/24/20 11:00 Insulin Regular, Human 100 Unit/Ml 3ml Vial SUB-Q 02/24/20 11:01 ONCE ONE Morphine Sulfate 2 mg 02/21/20 00:28 Morphine IV Q4H PRN Pain, Moderate (4-6) Multi-Ingred Cream/Lotion/Oil/Oint 1 applic 02/20/20 22:04 Artificial Tears Ophth Oint OU Q4HR PRN Dry Eye(s) Ondansetron HCl 4 mg 02/21/20 00:28 Zofran IV Q8H PRN Nausea And Vomiting Simple Syrup 15 ml 02/22/20 16:08 Simple Syrup 15 Ml FEEDTUBE PRN PRN Hypoglycemia Simple Syrup 30 ml 02/22/20 16:08 Simple Syrup 15 Ml FEEDTUBE PRN PRN Hypoglycemia Sodium Bicarbonate 325 mg 02/22/20 16:08 Sodium Bicarbonate 325 Mg Tab FEEDTUBE PRN PRN For Clogged Feeding Tube Sodium Chloride 10 ml 02/21/20 10:00 02/24/20 09:44 Sodium Chloride Flush Syringe 10 Ml IV 10 ml BID DILIP Administration Sodium Chloride 10 ml 02/21/20 00:28 Sodium Chloride Flush Syringe 10 Ml IV PRN PRN LINE FLUSH Sodium Chloride 50 ml 02/21/20 09:00 02/23/20 23:38 Sodium Chloride 0.9% 50 Ml Ivpb IV 02/25/20 21:59 50 ml Q24HR@2100 DILIP Administration Nutrition/Malnutrition Assess - Dietary Evaluation Nutrition/Malnutrition Findings: Nutrition Notes Start: 02/22/20 15:59 Freq: Status: Active Protocol: Document 02/22/20 15:59 (Rec: 02/22/20 16:08 [id number]) Nutrition Notes Need for Assessment generated from: MD Order Initial or Follow up Assessment Current Diagnosis Sepsis,Hypertension Other Pertinent Diagnosis COVID(+), Pneumonia, Acute Respiratory Failure Current Diet NPO Labs/Tests K 5.0 (5.2 this AM) BUN 36 BG 240 Pertinent Medications Levophed Decadron Propofol at 9.253 ml/hr (244 kcal) Height 5 ft 4 in Weight 77.11 kg Jones Body Weight (kg) 59.09 BMI 29.2 Weight Status Overweight Subjective/Other Information MD consult for TF. Pt on vent. Due to high K, will give Nepro - follow for renal function. Burn Absent Trauma Absent Current % PO Negligible Minimum of two criteria No physical signs of malnutrition #1 Nutrition Diagnosis Inadequate oral intake Etiology acute respiratory failure As Evidenced by Signs and Symptoms pt on vent and unable to consume PO Is patient on ventilator? Yes Is Patient Ambulatory and/or Out of Bed No REE-([facility]-confined to bed) [phone] Calculation Used for Recommendations Ken Masters Additional Notes Pro: 92-154 g (1.2-2 g/kg) Fluid: 1 ml/kcal Nutrition Intervention Change Diet Order: TF Nutrition Support: Nepro 1.8 at 45 ml/hr Flush 200 ml q4h Kcal 1,944 Protein (gm) 87 Fluid (mL) 785 Goal #1 Start/tolerate TF Goal #2 Meet at least 80% of protein and energy needs via TF Anticipated Discharge Needs: Unable to determine at this time Follow-Up By: 02/26/20 Additional Comments FU for TF start/tolerance, renal labs
[2020-02-24] MEDS ORDERED: INSULIN REGULAR, HUMAN 100 UNIT/ML 3ML VIAL SUB-Q ONE (11:00)
--- NOTE | 2020-02-24 13:15 | Progress Note ---
Assessment and Plan Acute hypoxemic respiratory failure due to COVID-19 Severe COVID infection-Critical COVID Severe Sepsis Bilateral pneumonia Elevated Transaminases Lower extremity DVT - kayexalate for hyperkalemia - no new issues otherwise, continue care as below; - continue full MVS and hyperventilate in short term while allowing permissive hypercapnia - wean vasopressor support for MAP>65 - daily SAT and SBT assessment as tolerated - Prone positioning as tolerated and indicated - permissive hypercapnia - continue to wean supplemental oxygen for target O2 sat's > 90% acutely - VAP bundle addressed - continue lung protective strategies - continue bronchodilators with pulmonary hygiene per RT - wean per pulmonary driven protocols otherwise - continue accuchecks with glycemic control per SSI (While critically ill target blood glucose of 140-180 mg/dL; avoid hypoglycemia) - sedation prn for target RASS 0 to -1 - avoid nephrotoxins, renally dose all medications - continue to avoid benzodiazepine's, reduce the possibility of delirium - Broad spectrum antibiotics (Cefepime); de-escalate per ID recommendations - prn analgesia per CPOT score - Maintenance of sleep-wake cycle, avoid delirium - continue enteral nutritional support at goal rate as tolerated - G.I. & VTE prophylaxis - PT/OT/ROM exercises - continue mobility protocols for pressure ulcer prophylaxis - Monitor hemodynamics closely - continue other care per attending / other consultants COVID SPECIFIC INTERVENTIONS - Remdesivir 3/5 - Dexamethasone 6mg IV daily - Monitor inflammatory markers per facility protocol - ferritin, Ddimer, CRP, Inflammatory markers, ferritin 1263, CRP 32, D-dimer> 10,000 - VTE prophylaxis-therapeutic anticoagulation per system Protocol based on d- dimer and positive lower extremity DVT - Continue contact and airborne isolation - discharge planning ongoing concurrently .... Re-evaluate in am & prn CONDITION: CRITICAL PROGNOSIS: GUARDED CODE STATUS: FULL CODE The high probability of a clinically significant, sudden or life-threatening deterioration of the [respiratory, cardiovascular & neurologic] system(s) required my full and direct attention, intervention and personal management. The aggregate critical care time was [32] minutes without overlap. Time includes spent on; [x] Data Review and interpretation [x] Patient assessment and monitoring of vital signs [x] Documentation [x] Medication orders and management Subjective Date of service: 02/24/20 Principal diagnosis: Ac hypoxemic resp failure; Severe COVID infection; Severe Sepsis; PNA; DVT Interval history: Patient is seen today for: Acute hypoxemic respiratory failure; Severe COVID infection; Severe Sepsis; Bilateral pneumonia; Elevated Transaminases; Lower extremity DVT Seen and examined at bedside; 24hour events reviewed; nursing and respiratory care staff consulted; no adverse overnight events reported to me; resting peacefully in bed; remains on MVS; AMS is persistent; oxygenation slowly improving; no new issues otherwise Objective Vital Signs - 12hr 02/24/20 02/24/20 02/24/20 01:15 01:30 01:45 Temperature Pulse Rate 89 91 H 91 H Pulse Rate [ From Monitor] Respiratory 30 H 29 H 28 H Rate Blood Pressure 130/76 130/80 140/80 O2 Sat by Pulse 100 100 100 Oximetry 02/24/20 02/24/20 02/24/20 02:00 02:15 02:30 Temperature Pulse Rate 93 H 93 H 94 H Pulse Rate [ From Monitor] Respiratory 30 H 30 H 30 H Rate Blood Pressure 139/78 134/76 131/80 O2 Sat by Pulse 100 100 100 Oximetry 02/24/20 02/24/20 02/24/20 02:45 03:00 03:15 Temperature Pulse Rate 96 H 98 H 94 H Pulse Rate [ From Monitor] Respiratory 30 H 30 H 30 H Rate Blood Pressure 136/79 139/78 137/82 O2 Sat by Pulse 100 100 100 Oximetry 02/24/20 02/24/20 02/24/20 03:30 03:45 04:00 Temperature 99.1 F Pulse Rate 96 H 94 H 94 H Pulse Rate [ 95 H From Monitor] Respiratory 23 30 H 30 H Rate Blood Pressure 137/78 138/83 133/79 O2 Sat by Pulse 100 100 100 Oximetry 02/24/20 02/24/20 02/24/20 04:08 04:15 04:30 Temperature Pulse Rate 94 H 98 H 95 H Pulse Rate [ From Monitor] Respiratory 30 H 30 H Rate Blood Pressure 133/76 141/84 140/81 O2 Sat by Pulse 100 100 100 Oximetry 02/24/20 02/24/20 02/24/20 04:45 05:00 05:15 Temperature Pulse Rate 95 H 96 H 96 H Pulse Rate [ From Monitor] Respiratory 30 H 30 H 30 H Rate Blood Pressure 128/79 135/78 142/82 O2 Sat by Pulse 100 100 100 Oximetry 02/24/20 02/24/2020 05:30 05:45 06:00 Temperature Pulse Rate 98 H 100 H 99 H Pulse Rate [ From Monitor] Respiratory 30 H 30 H 30 H Rate Blood Pressure 142/80 137/80 137/82 O2 Sat by Pulse 100 100 100 Oximetry 02/24/20 02/24/20 02/24/20 06:15 06:30 06:45 Temperature Pulse Rate 99 H 97 H 98 H Pulse Rate [ From Monitor] Respiratory 30 H 30 H 30 H Rate Blood Pressure 135/83 138/79 135/82 O2 Sat by Pulse 100 100 100 Oximetry 02/24/20 02/24/20 02/24/20 07:00 07:15 07:30 Temperature Pulse Rate 96 H 100 H 96 H Pulse Rate [ From Monitor] Respiratory 30 H 30 H 30 H Rate Blood Pressure 146/87 145/82 145/83 O2 Sat by Pulse 100 100 100 Oximetry 02/24/20 02/24/20 02/24/20 07:45 08:00 08:15 Temperature 101.3 F H Pulse Rate 98 H 99 H 104 H Pulse Rate [ 101 H From Monitor] Respiratory 30 H 30 H 28 H Rate Blood Pressure 141/85 149/86 152/85 O2 Sat by Pulse 100 100 100 Oximetry 02/24/20 02/24/20 02/24/20 08:30 08:45 08:55 Temperature Pulse Rate 102 H 103 H 104 H Pulse Rate [ From Monitor] Respiratory 28 H 30 H Rate Blood Pressure 135/82 146/84 141/91 O2 Sat by Pulse 100 100 100 Oximetry 02/24/20 02/24/20 02/24/20 09:00 09:16 09:30 Temperature Pulse Rate 105 H 125 H 116 H Pulse Rate [ From Monitor] Respiratory 29 H 24 22 Rate Blood Pressure 141/91 177/110 148/91 O2 Sat by Pulse 100 100 99 Oximetry 02/24/20 02/24/20 02/24/20 09:45 10:00 10:15 Temperature Pulse Rate 110 H 110 H 110 H Pulse Rate [ From Monitor] Respiratory 27 H 29 H 29 H Rate Blood Pressure 149/88 130/77 138/81 O2 Sat by Pulse 99 99 100 Oximetry 02/24/20 02/24/20 02/24/20 10:30 10:45 11:00 Temperature Pulse Rate 106 H 107 H 107 H Pulse Rate [ From Monitor] Respiratory 30 H 30 H 30 H Rate Blood Pressure 136/81 144/85 138/87 O2 Sat by Pulse 100 100 100 Oximetry 02/24/20 02/24/20 02/24/20 11:15 11:30 11:46 Temperature Pulse Rate 100 H 102 H 107 H Pulse Rate [ From Monitor] Respiratory 31 H 30 H 29 H Rate Blood Pressure 129/78 137/80 164/92 O2 Sat by Pulse 99 99 100 Oximetry 02/24/20 02/24/20 02/24/20 11:50 12:00 12:15 Temperature 100.5 F H Pulse Rate 100 H 139 H 108 H Pulse Rate [ 139 H From Monitor] Respiratory 21 24 Rate Blood Pressure 164/92 164/93 183/93 O2 Sat by Pulse 100 100 100 Oximetry 02/24/20 02/24/20 02/24/20 12:30 12:45 13:00 Temperature Pulse Rate 104 H 104 H 103 H Pulse Rate [ From Monitor] Respiratory 30 H 30 H 30 H Rate Blood Pressure 142/91 145/90 141/91 O2 Sat by Pulse 100 100 100 Oximetry Constitutional: appears uncomfortable, other (mild respiraotry distress, orally intubated to MVS) Eyes: non-icteric ENT: oropharynx moist, other (ETT at 23cm at the lip) Neck: supple, no lymphadenopathy, no JVD Effort: mildly labored Ascultation: Bilateral: diminished breath sounds, rhonchi Cardiovascular: regular rate and rhythm, other (S1,S2) Gastrointestinal: normoactive bowel sounds, soft, non-tender, non-distended Integumentary: normal Extremities: no cyanosis, no edema, pink and warm, no ischemia or petechiae Neurologic: unable to assess (sedated) Psychiatric: other (unable to assess) CBC and BMP: 02/23/20 04:00 02/25/20 04:42 ABG, PT/INR, D-dimer: ABG ABG pH 7.362 pH Units (7.350-7.450) 02/24/20 03:50 POC ABG pCO2 40.8 mmHg (32.0-48.0) 02/23/20 05:29 ABG pCO2 43.0 mm Hg 02/24/20 03:50 POC ABG pO2 86.8 mmHg (83-108) 02/23/20 05:29 ABG pO2 90.6 mm Hg (80.0-90.0) H 02/24/20 03:50 POC ABG HCO3 20.5 02/23/20 05:29 ABG O2 Saturation 96.7 % (95.0-99.0) 02/24/20 03:50 PT/INR, D-dimer PT 18.8 Sec. (12.2-14.9) H 02/22/20 07:40 INR 1.59 (0.87-1.13) H 02/22/20 07:40 D-Dimer > 28170 ng/mlDDU (0-234) H 02/20/20 19:21 Abnormal lab findings: Abnormal Labs 02/20/20 02/20/20 02/20/20 19:21 19:21 19:21 WBC 14.7 H MCV 95 H MCH Seg Neuts % (Manual) 86.0 H Lymphocytes % (Manual) 5.0 L Nucleated RBC % 1.0 H Seg Neutrophils # Man 12.6 H Lymphocytes # (Manual) 0.7 L PT INR D-Dimer > 47083 H ABG pH POC ABG pCO2 POC ABG pO2 ABG pO2 ABG HCO3 ABG O2 Saturation ABG Base Excess ABG Hemoglobin ABG Sodium ABG Potassium ABG Chloride ABG Glucose Oxyhemoglobin Sodium 129 L Potassium Chloride 95.8 L Carbon Dioxide 21 L BUN 21 H Glucose 167 H POC Glucose Calcium Ferritin Direct Bilirubin AST 93 H ALT 148 H Alkaline Phosphatase 138 H Lactate Dehydrogenase C-Reactive Protein Total Protein Albumin 2.8 L Arterial Blood Glucose Urine WBC (Auto) Coronavirus (PCR) 02/20/20 02/20/20 02/20/20 19:21 19:21 23:00 WBC MCV MCH Seg Neuts % (Manual) Lymphocytes % (Manual) Nucleated RBC % Seg Neutrophils # Man Lymphocytes # (Manual) PT INR D-Dimer ABG pH POC ABG pCO2 POC ABG pO2 ABG pO2 ABG HCO3 ABG O2 Saturation ABG Base Excess ABG Hemoglobin ABG Sodium ABG Potassium ABG Chloride ABG Glucose Oxyhemoglobin Sodium Potassium Chloride Carbon Dioxide BUN Glucose 165 H POC Glucose Calcium Ferritin 1263.0 H Direct Bilirubin AST ALT Alkaline Phosphatase Lactate Dehydrogenase 858 H C-Reactive Protein 32.40 H Total Protein Albumin Arterial Blood Glucose Urine WBC (Auto) 9.0 H Coronavirus (PCR) 02/20/20 02/21/20 02/21/20 23:37 04:09 08:59 WBC MCV MCH Seg Neuts % (Manual) Lymphocytes % (Manual) Nucleated RBC % Seg Neutrophils # Man Lymphocytes # (Manual) PT INR D-Dimer ABG pH 7.192 L 7.268 L POC ABG pCO2 51.3 H POC ABG pO2 61.1 L ABG pO2 62.0 L ABG HCO3 16.5 L ABG O2 Saturation 87.8 L ABG Base Excess -9.6 L ABG Hemoglobin 13.7 L ABG Sodium 133.6 L ABG Potassium ABG Chloride ABG Glucose 166 H Oxyhemoglobin 86.7 L Sodium Potassium Chloride Carbon Dioxide BUN Glucose POC Glucose Calcium Ferritin Direct Bilirubin AST ALT Alkaline Phosphatase Lactate Dehydrogenase C-Reactive Protein Total Protein Albumin Arterial Blood Glucose 166 H Urine WBC (Auto) Coronavirus (PCR) Positive A 02/21/20 02/22/20 02/22/20 12:54 03:09 07:40 WBC 15.5 H MCV 96 H MCH Seg Neuts % (Manual) 94.0 H Lymphocytes % (Manual) Nucleated RBC % Seg Neutrophils # Man 14.6 H Lymphocytes # (Manual) 0.0 L PT INR D-Dimer ABG pH 7.252 L 7.280 L POC ABG pCO2 POC ABG pO2 81.3 L ABG pO2 97.7 H ABG HCO3 14.9 L ABG O2 Saturation ABG Base Excess -11.2 L ABG Hemoglobin ABG Sodium ABG Potassium 4.8 H ABG Chloride 113.0 H ABG Glucose 209 H Oxyhemoglobin Sodium Potassium Chloride Carbon Dioxide BUN Glucose POC Glucose Calcium Ferritin Direct Bilirubin AST ALT Alkaline Phosphatase Lactate Dehydrogenase C-Reactive Protein Total Protein Albumin Arterial Blood Glucose 209 H Urine WBC (Auto) Coronavirus (PCR) 02/22/20 02/22/20 02/22/20 07:40 07:40 11:23 WBC MCV MCH Seg Neuts % (Manual) Lymphocytes % (Manual) Nucleated RBC % Seg Neutrophils # Man Lymphocytes # (Manual) PT 18.8 H INR 1.59 H D-Dimer ABG pH POC ABG pCO2 POC ABG pO2 ABG pO2 ABG HCO3 ABG O2 Saturation ABG Base Excess ABG Hemoglobin ABG Sodium ABG Potassium ABG Chloride ABG Glucose Oxyhemoglobin Sodium Potassium 5.2 H D Chloride 111.4 H 113.7 H Carbon Dioxide 18 L BUN 35 H 36 H Glucose 234 H 240 H POC Glucose Calcium 7.9 L 8.0 L Ferritin Direct Bilirubin 0.3 H AST 127 H ALT 261 H Alkaline Phosphatase 211 H Lactate Dehydrogenase C-Reactive Protein Total Protein Albumin 2.4 L Arterial Blood Glucose Urine WBC (Auto) Coronavirus (PCR) 02/22/20 02/22/20 02/22/20 12:53 18:25 23:14 WBC MCV MCH Seg Neuts % (Manual) Lymphocytes % (Manual) Nucleated RBC % Seg Neutrophils # Man Lymphocytes # (Manual) PT INR D-Dimer ABG pH 7.311 L POC ABG pCO2 POC ABG pO2 ABG pO2 70.7 L ABG HCO3 ABG O2 Saturation 93.7 L ABG Base Excess -5.3 L ABG Hemoglobin 13.7 L ABG Sodium ABG Potassium ABG Chloride ABG Glucose Oxyhemoglobin 92.3 L Sodium Potassium Chloride Carbon Dioxide BUN Glucose POC Glucose 220 H 229 H Calcium Ferritin Direct Bilirubin AST ALT Alkaline Phosphatase Lactate Dehydrogenase C-Reactive Protein Total Protein Albumin Arterial Blood Glucose Urine WBC (Auto) Coronavirus (PCR) 02/23/20 02/23/20 02/23/20 04:00 05:00 05:29 WBC 15.3 H MCV 97 H MCH 33 H Seg Neuts % (Manual) Lymphocytes % (Manual) Nucleated RBC % Seg Neutrophils # Man Lymphocytes # (Manual) PT INR D-Dimer ABG pH 7.318 L POC ABG pCO2 POC ABG pO2 ABG pO2 ABG HCO3 ABG O2 Saturation ABG Base Excess ABG Hemoglobin ABG Sodium ABG Potassium 5.1 H ABG Chloride 114.0 H ABG Glucose 306 H Oxyhemoglobin Sodium Potassium 5.4 H Chloride 114.3 H Carbon Dioxide BUN 47 H Glucose 323 H POC Glucose Calcium 8.1 L Ferritin Direct Bilirubin AST 61 H ALT 197 H Alkaline Phosphatase Lactate Dehydrogenase C-Reactive Protein Total Protein 6.0 L Albumin 2.3 L Arterial Blood Glucose 306 H Urine WBC (Auto) Coronavirus (PCR) 02/23/20 02/23/20 02/23/20 05:32 11:57 18:09 WBC MCV MCH Seg Neuts % (Manual) Lymphocytes % (Manual) Nucleated RBC % Seg Neutrophils # Man Lymphocytes # (Manual) PT INR D-Dimer ABG pH POC ABG pCO2 POC ABG pO2 ABG pO2 ABG HCO3 ABG O2 Saturation ABG Base Excess ABG Hemoglobin ABG Sodium ABG Potassium ABG Chloride ABG Glucose Oxyhemoglobin Sodium Potassium Chloride Carbon Dioxide BUN Glucose POC Glucose 264 H 283 H 338 H Calcium Ferritin Direct Bilirubin AST ALT Alkaline Phosphatase Lactate Dehydrogenase C-Reactive Protein Total Protein Albumin Arterial Blood Glucose Urine WBC (Auto) Coronavirus (PCR) 02/23/20 02/24/20 02/24/20 23:13 03:50 06:10 WBC MCV MCH Seg Neuts % (Manual) Lymphocytes % (Manual) Nucleated RBC % Seg Neutrophils # Man Lymphocytes # (Manual) PT INR D-Dimer ABG pH POC ABG pCO2 POC ABG pO2 ABG pO2 90.6 H ABG HCO3 ABG O2 Saturation ABG Base Excess ABG Hemoglobin 12.7 L ABG Sodium ABG Potassium ABG Chloride ABG Glucose Oxyhemoglobin Sodium Potassium Chloride Carbon Dioxide BUN Glucose POC Glucose 300 H 313 H Calcium Ferritin Direct Bilirubin AST ALT Alkaline Phosphatase Lactate Dehydrogenase C-Reactive Protein Total Protein Albumin Arterial Blood Glucose Urine WBC (Auto) Coronavirus (PCR) 02/24/20 11:52 WBC MCV MCH Seg Neuts % (Manual) Lymphocytes % (Manual) Nucleated RBC % Seg Neutrophils # Man Lymphocytes # (Manual) PT INR D-Dimer ABG pH POC ABG pCO2 POC ABG pO2 ABG pO2 ABG HCO3 ABG O2 Saturation ABG Base Excess ABG Hemoglobin ABG Sodium ABG Potassium ABG Chloride ABG Glucose Oxyhemoglobin Sodium Potassium Chloride Carbon Dioxide BUN Glucose POC Glucose 290 H Calcium Ferritin Direct Bilirubin AST ALT Alkaline Phosphatase Lactate Dehydrogenase C-Reactive Protein Total Protein Albumin Arterial Blood Glucose Urine WBC (Auto) Coronavirus (PCR) Chest x-ray: image reviewed (stabl;e faint bilateral infiltrates) Allied health notes reviewed: nursing
[2020-02-24 14:35] LABS: BUN/Creatinine Ratio 45; Blood Urea Nitrogen 50 mg/dL (9-20); Calcium 8.8 mg/dL (8.4-10.2); Hemolysis Index 131
[2020-02-24 14:36] LABS: Albumin 2.4 g/dL (3.9-5)
[2020-02-24 14:38] LABS: Bilirubin,Direct < 0.2 mg/dL (0-0.2)
[2020-02-24 14:47] LABS: Alanine Aminotransferase 205 units/L (7-56)
[2020-02-24] MEDS ORDERED: SODIUM POLYSTYRENE 15 GM/60 ML ORAL LIQD PR ONE (15:45)
--- NOTE | 2020-02-24 16:58 | Progress Note ---
Assessment and Plan Cultures: Blood culture 02/20/2020 pending SARS CoV2 PCR positive as an outpatient SARS-CoV-2 PCR positive Urine culture negative Tracheal aspirate pending MRSA culture negative. Assessment: 59 years old male with history of hypertension admitted on 02/20/2020 due to a week history of dry cough, fever, generalized malaise, shortness of breath. Patient was diagnosed with COVID-19 4 days before admission: #Severe sepsis with septic shock: Present on admission with severe hypoxia, leukocytosis, elevated LFTs likely due to bilateral pneumonia. Procalcitonin 0.7. #Critical COVID pneumonia: Patient intubated. Very elevated inflammatory markers, ferritin 1263, CRP 32, D-dimer> 10,000. Suspect pulmonary embolism. Elevated procalcitonin likely 8 bacterial component. #Acute hypoxemic respiratory failure: Remains intubated FiO2 75, PEEP 18 #Elevated LFTs: from COVID #DVT: L popliteal veins #RASHEED: stable. Recommendations: -Needs to rule out PE please order CTA when is stable -Continue dexamethasone 6 mg IV/PO BID for 5 days then 6 mg daily for 5 days - day 4 of 10 -Continue remdesivir total 5 days -day 4 of 5 -Monitor inflammatory markers - ferritin, Ddimer, CRP, LDH -Monitor liver function test on Remdesivir -Continue anticoagulation per System Protocol -consider full dose anticoagulation -Prone positioning as possible -Obtain SARS CoV-2 IgG to determine if patient is a candidate for COVID convalescent plasma - pending -Follow-up blood cultures and respiratory culture -Continue cefepime day 4 of 5 -Anticoagulation for DVT per primary. Dr. Lay returning tomorrow. High risk mortality All laboratory, cultures and imaging were reviewed. Will follow Basia Cisse MD Infectious Diseases [facility] O [phone] Subjective Date of service: 02/24/20 Principal diagnosis: Ac hypoxemic resp failure; Severe COVID infection; Severe Sepsis; PNA; DVT Interval history: Febrile to 101.3, remains intubated and ventilated. Objective - Exam Narrative Exam: Deferred due to PPE conservation strategy and to limit risk of exposure. - Constitutional Vitals: Vital Signs Temp Pulse Resp BP Pulse Ox 100.5 F H 107 H 22 143/93 97 02/24/20 12:00 02/24/20 15:45 02/24/20 15:45 02/24/20 15:45 02/24/20 15:45 Temperature -Last 24 Hours Temperature 100.5 F Temperature 101.3 F Temperature 99.1 F Temperature 98.9 F Temperature 98.8 F - Labs CBC & Chem 7: 02/23/20 04:00 02/24/20 13:11 Labs: Abnormal lab results 02/23/20 02/23/20 02/24/20 Range/Units 18:09 23:13 03:50 ABG pO2 90.6 H (80.0-90.0) mm Hg ABG Hemoglobin 12.7 L (14.0-18.0) gm/dl Sodium (137-145) mmol/L Potassium (3.6-5.0) mmol/L Chloride (98-107) mmol/L BUN (9-20) mg/dL Glucose (75-100) mg/dL POC Glucose 338 H 300 H (70-105) mg/dL Lactic Acid (0.7-2.0) mmol/L AST (5-40) units/L ALT (7-56) units/L Albumin (3.9-5) g/dL 02/24/20 02/24/20 02/24/20 Range/Units 06:10 11:52 13:11 ABG pO2 (80.0-90.0) mm Hg ABG Hemoglobin (14.0-18.0) gm/dl Sodium 147 H (137-145) mmol/L Potassium 5.6 H (3.6-5.0) mmol/L Chloride 113.2 H (98-107) mmol/L BUN 50 H (9-20) mg/dL Glucose 342 H (75-100) mg/dL POC Glucose 313 H 290 H (70-105) mg/dL Lactic Acid (0.7-2.0) mmol/L AST (5-40) units/L ALT (7-56) units/L Albumin (3.9-5) g/dL 02/24/20 02/24/20 Range/Units 13:11 13:11 ABG pO2 (80.0-90.0) mm Hg ABG Hemoglobin (14.0-18.0) gm/dl Sodium (137-145) mmol/L Potassium (3.6-5.0) mmol/L Chloride (98-107) mmol/L BUN (9-20) mg/dL Glucose (75-100) mg/dL POC Glucose (70-105) mg/dL Lactic Acid 2.40 H* (0.7-2.0) mmol/L AST 150 H (5-40) units/L ALT 205 H (7-56) units/L Albumin 2.4 L (3.9-5) g/dL
[2020-02-24] MEDS: REMDESIVIR 100 MG in SODIUM CHLORIDE 0.9% 250ML 250 ML IV SCH (21:46)
[2020-02-24] MEDS: SODIUM CHLORIDE 0.9% 50 ML IVPB IV SCH (21:47)
[2020-02-24] MEDS ORDERED: INSULIN GLARGINE 100 UNITS/ML SUB-Q SCH (22:00)
[2020-02-25] MEDS: INSULIN LISPRO 100 UNIT/ML VIAL 3 mL SUB-Q SCH ×4 (00:10→18:40)
[2020-02-25] MEDS: PROPOFOL 500 MG/50 ML VIAL IV SCH ×3 (03:30→23:04)
[2020-02-25 04:54] LABS: ABG Base Excess 2.3 mmol/L (-2.0-3.0); ABG HCO3 26.7 mmol/L (20.0-26.0); ABG Methemoglobin 0.5 % (0.0-1.5); ABG Oxygen Saturation 95.9 % (95.0-99.0); ABG PCO2 40.4 mm Hg; ABG PH 7.437 pH Units (7.350-7.450); ABG PO2 77.9 mm Hg (80.0-90.0)
--- NOTE | 2020-02-25 05:05 | XRay Report ---
CHEST 1 VIEW, 02/25/2020 2:32 AM CLINICAL INFORMATION/INDICATION: Respiratory failure COMPARISON: Chest radiograph, 02/24/2020 at 2:52 AM FINDINGS: SUPPORT DEVICES: The endotracheal tube and esophagogastric tube project in stable position. HEART: The cardiac silhouette is normal in size. LUNGS/PLEURA: Faint bilateral pulmonary opacities are stable. No pneumothorax is identified. ADDITIONAL FINDINGS: No additional acute findings. IMPRESSION: 1. Stable faint bilateral pulmonary opacities. Signer Name: Yeni Tomlinson MD Signed: 02/25/2020 5:00 AM Workstation Name: [id number]
[2020-02-25] MEDS: CEFEPIME/NS 2 GM/100 ML 2 GM/100 ML BAG IV SCH ×3 (05:30→21:50)
[2020-02-25 06:16] LABS: Alanine Aminotransferase 174 units/L (7-56); Albumin 2.2 g/dL (3.9-5); BUN/Creatinine Ratio 45; Bilirubin,Direct 0.3 mg/dL (0-0.2); Blood Urea Nitrogen 45 mg/dL (9-20); Calcium 8.6 mg/dL (8.4-10.2); Hemolysis Index 18
--- NOTE | 2020-02-25 07:14 | Progress Note ---
Assessment and Plan Cultures: Blood culture 02/20/2020 pending SARS CoV2 PCR positive as an outpatient SARS-CoV-2 PCR positive Urine culture negative Tracheal aspirate pending Assessment: 59 years old male with history of hypertension admitted on 02/20/2020 due to a week history of dry cough, fever, generalized malaise, shortness of breath. Patient was diagnosed with COVID-19 4 days before admission: #Severe sepsis with septic shock: new fever -worsening leukocytosis/elevated lactate today. likely due to bilateral pneumonia. Procalcitonin 0.7. #Critical COVID pneumonia: Patient intubated. Very elevated inflammatory markers, ferritin 1263, CRP 32, D-dimer> 10,000. Suspect pulmonary embolism. Elevated procalcitonin likely 8 bacterial component. #Acute hypoxemic respiratory failure: Remains intubated FiO2 75, PEEP 18 #Elevated LFTs: from COVID #Very elevated D-dimer: left leg DVT Recommendations: -Repeat blood cx, resp cx, procal, covid markers today -Continue full dose steroids - on lovenox for DVT -Continue dexamethasone 6 mg IV/PO BID for 5 days then 6 mg daily for 5 days - day 5 of 10 -Continue remdesivir total 5 days -day 5 of 5 -Monitor inflammatory markers - ferritin, Ddimer, CRP, LDH-ordered today -Monitor liver function test on Remdesivir -Continue anticoagulation per System Protocol -consider full dose anticoagulation -Prone positioning as possible -Obtain SARS CoV-2 IgG to determine if patient is a candidate for COVID con valescent plasma-pending/reordered -Continue cefepime day 5 of 5 -Obtain MRSA culture -pending High risk mortality D/w nursing staff All laboratory, cultures and imaging were reviewed. Will follow Venita Tran MD Infectious Diseases Guest Services Representative [facility] M [phone] O [phone] Subjective Date of service: 02/25/20 Principal diagnosis: Ac hypoxemic resp failure; Severe COVID infection; Severe Sepsis; PNA; DVT Interval history: Remains intubated, new fever 101, no pressors Objective - Exam Narrative Exam: Physical Exam: reviewed ED and hospitalist notes, deferred to limit transmission of COVID-19 - Constitutional Vitals: Vital Signs Temp Pulse Resp BP Pulse Ox 99.9 F H 78 28 H 118/78 100 02/25/20 03:59 02/25/20 06:00 02/25/20 06:00 02/25/20 06:00 02/25/20 06:00 Temperature -Last 24 Hours Temperature 99.9 F Temperature 100.3 F Temperature 100.3 F Temperature 100.7 F Temperature 99.8 F Temperature 100.5 F Temperature 101.3 F - Labs CBC & Chem 7: 02/23/20 04:00 02/25/20 04:42 Labs: Abnormal lab results 02/24/20 02/24/20 02/24/20 Range/Units 11:52 13:11 13:11 ABG pO2 (80.0-90.0) mm Hg ABG HCO3 (20.0-26.0) mmol/L ABG Hemoglobin (14.0-18.0) gm/dl Oxyhemoglobin (95.0-99.0) % Sodium 147 H (137-145) mmol/L Potassium 5.6 H (3.6-5.0) mmol/L Chloride 113.2 H (98-107) mmol/L BUN 50 H (9-20) mg/dL Glucose 342 H (75-100) mg/dL POC Glucose 290 H (70-105) mg/dL Lactic Acid (0.7-2.0) mmol/L Direct Bilirubin (0-0.2) mg/dL AST 150 H (5-40) units/L ALT 205 H (7-56) units/L Total Protein (6.3-8.2) g/dL Albumin 2.4 L (3.9-5) g/dL 02/24/20 02/24/20 02/25/20 Range/Units 13:11 17:46 00:25 ABG pO2 (80.0-90.0) mm Hg ABG HCO3 (20.0-26.0) mmol/L ABG Hemoglobin (14.0-18.0) gm/dl Oxyhemoglobin (95.0-99.0) % Sodium (137-145) mmol/L Potassium (3.6-5.0) mmol/L Chloride (98-107) mmol/L BUN (9-20) mg/dL Glucose (75-100) mg/dL POC Glucose 310 H 300 H (70-105) mg/dL Lactic Acid 2.40 H* (0.7-2.0) mmol/L Direct Bilirubin (0-0.2) mg/dL AST (5-40) units/L ALT (7-56) units/L Total Protein (6.3-8.2) g/dL Albumin (3.9-5) g/dL 02/25/20 02/25/20 02/25/20 Range/Units 04:00 04:42 04:42 ABG pO2 77.9 L (80.0-90.0) mm Hg ABG HCO3 26.7 H (20.0-26.0) mmol/L ABG Hemoglobin 12.4 L (14.0-18.0) gm/dl Oxyhemoglobin 94.5 L (95.0-99.0) % Sodium 149 H (137-145) mmol/L Potassium (3.6-5.0) mmol/L Chloride 113.2 H (98-107) mmol/L BUN 45 H (9-20) mg/dL Glucose 416 H (75-100) mg/dL POC Glucose (70-105) mg/dL Lactic Acid 2.20 H* (0.7-2.0) mmol/L Direct Bilirubin 0.3 H (0-0.2) mg/dL AST 60 H (5-40) units/L ALT 174 H (7-56) units/L Total Protein 5.7 L (6.3-8.2) g/dL Albumin 2.2 L (3.9-5) g/dL 02/25/20 Range/Units 05:24 ABG pO2 (80.0-90.0) mm Hg ABG HCO3 (20.0-26.0) mmol/L ABG Hemoglobin (14.0-18.0) gm/dl Oxyhemoglobin (95.0-99.0) % Sodium (137-145) mmol/L Potassium (3.6-5.0) mmol/L Chloride (98-107) mmol/L BUN (9-20) mg/dL Glucose (75-100) mg/dL POC Glucose 378 H (70-105) mg/dL Lactic Acid (0.7-2.0) mmol/L Direct Bilirubin (0-0.2) mg/dL AST (5-40) units/L ALT (7-56) units/L Total Protein (6.3-8.2) g/dL Albumin (3.9-5) g/dL
--- NOTE | 2020-02-25 08:05 | Progress Note ---
Assessment and Plan Assessment and plan: 59-year-old male with known history of hypertension presenting to the emergency room via EMS today complaining of cough, shortness of breath and difficulty breathing. Symptoms have been ongoing for about a week. He was diagnosed with COVID-19 about 4 days ago. He has been having a fever, chills generalized fatigue and dry cough over the past few days. Symptoms seems to be getting worse. He gets more short of breath on minimal exertion. Patient is initial oxygen saturation on room air was about 50% when seen by EMS and he was placed on nonrebreather with improvement of oxygen saturation to about 88%. Patient was subsequently placed on BiPAP upon arrival in the emergency room. Work-up in the emergency room today reveals bilateral pneumonia. During the course of his stay in the emergency room patient's condition continued to deteriorate and was subsequently intubated in the ER. Patient admitted with pneumonia possibly secondary to COVID-19 and will be admitted into the intensive care unit. 02/22: Remains on full ventilatory support, Start Insulin secondary to elevated Blood glucose, Check Hgb A1c. Wean pressors as tolerated. Will attempt to reach family. Rule out PE when stable although note patient is already on full dose Lovenox due to noted lower ext DVT. Continue dexamethasone and Remdesivir, Prone if possible. Good urine output noted, Monitor LFTs 02/23: Repeat chest x-ray. Unsure why patient is still running fevers this could be secondary to viral pneumonia versus superimposed bacterial pneumonia. Will check cultures check lactic acid antibiotics per ID. Wean from vent as tolerated. Prone if possible. Monitor electrolytes and H&H. 02/24: Patient clinically improving although reamins on full ventilatory support. No new fever today. Continue to wean from vent as tolerated Severe sepsis with septic shock Acute Hypoxic Respiratory failure secondary to covid 19 pneumonia Pneumonia secondary to COVID19 Hyponatremia Steroid Induced Hyperglycemia Lower DVT per venous Doppler Metabolic acidosis Transaminitis with elevated LFT, likely due to COVID 19 Plan Patient placed on empiric IV antibiotics. Will await culture results. Started on Dexamethasone and Remdesivir Started on full dose anticoagulation Continue isolation precautions. We will place consult to infectious disease for evaluation and recommendation. We will monitor chemistry. Patient has received some IV fluid in the emergency room. Possibly secondary to the pneumonia with COVID-19. Patient has been intubated and sedated. We will place consult to enamel cracker for evaluation and recommendation. Prognosis is Guarded DVT/GI PROPHY The high probability of a clinically significant, sudden or life threatening deterioration of the [pulmonary] system(s) required my full and direct a ttention, intervention and personal management. The aggregate critical care time was [35] minutes. This time is in addition to time spent performing reported procedures but includes the following: [x] Data Review and interpretation [x] Patient assessment and monitoring of vital signs [x] Documentation [x] Medication orders and management History Interval history: Patient seen and examined, remains on full ventilatory support, Awakes and follows some commands per nursing staff. Hospitalist Physical - Physical exam Narrative exam: General appearance: Present: No distress on full ventilatory support - EENT Eyes: Present: PERRL, EOM intact. Absent: scleral icterus ENT: hearing intact, clear oral mucosa, dentition normal - Neck Neck: Present: supple, normal ROM - Respiratory Respiratory effort: On full ventilatory support. Respiratory: bilateral: rales - Cardiovascular Rhythm: regular Heart Sounds: Present: S1 & S2. Absent: gallop, systolic murmur, diastolic murmur, rub - Extremities Extremities: no ischemia, pulses intact, pulses symmetrical, No edema, Full ROM Peripheral Pulses: within normal limits - Abdominal General gastrointestinal: Present: soft, non-tender, non-distended, normal bowel sounds. Absent: mass - Integumentary Integumentary: Present: clear, warm, dry. Absent: rash - Musculoskeletal Musculoskeletal: strength equal bilaterally - Psychiatric Psychiatric: appropriate mood/affect, intact judgment & insight, memory intact, cooperative - Neurologic Neurologic: CNII-XII intact, no focal deficits, moves all extremities - Constitutional Vitals: Temp Pulse Resp BP Pulse Ox 99.9 F H 76 30 H 121/81 100 02/25/20 03:59 02/25/20 08:00 02/25/20 08:00 02/25/20 08:00 02/25/20 08:00 General appearance: Present: mild distress, well-nourished Results - Labs CBC & Chem 7: 02/23/20 04:00 02/25/20 04:42 Labs: Laboratory Last Values WBC 15.3 K/mm3 (4.5-11.0) H 02/23/20 04:00 RBC 3.76 M/mm3 (3.65-5.03) 02/23/20 04:00 Hgb 12.2 gm/dl (11.8-15.2) 02/23/20 04:00 Hct 36.5 % (35.5-45.6) 02/23/20 04:00 MCV 97 fl (84-94) H 02/23/20 04:00 MCH 33 pg (28-32) H 02/23/20 04:00 MCHC 34 % (32-34) 02/23/20 04:00 RDW 15.1 % (13.2-15.2) 02/23/20 04:00 Plt Count 165 K/mm3 (140-440) 02/23/20 04:00 Add Manual Diff Complete 02/22/20 07:40 Total Counted 100 02/22/20 07:40 Seg Neutrophils % Stain Maker 02/22/20 07:40 Seg Neuts % (Manual) 94.0 % (40.0-70.0) H 02/22/20 07:40 Band Neutrophils % 4.0 % 02/22/20 07:40 Lymphocytes % (Manual) 5.0 % (13.4-35.0) L 02/20/20 19:21 Reactive Lymphs % (Man) 0 % 02/20/20 19:21 Monocytes % (Manual) 1.0 % (0.0-7.3) 02/22/20 07:40 Eosinophils % (Manual) 0 % (0.0-4.3) 02/20/20 19:21 Basophils % (Manual) 0 % (0.0-1.8) 02/20/20 19:21 Metamyelocytes % 1.0 % 02/22/20 07:40 Myelocytes % 0 % 02/20/20 19:21 Promyelocytes % 0 % 02/20/20 19:21 Blast Cells % 0 % 02/20/20 19:21 Nucleated RBC % Not Reportable 02/22/20 07:40 Seg Neutrophils # Man 14.6 K/mm3 (1.8-7.7) H 02/22/20 07:40 Band Neutrophils # 0.6 K/mm3 02/22/20 07:40 Lymphocytes # (Manual) 0.0 K/mm3 (1.2-5.4) L 02/22/20 07:40 Abs React Lymphs (Man) 0.0 K/mm3 02/22/20 07:40 Monocytes # (Manual) 0.2 K/mm3 (0.0-0.8) 02/22/20 07:40 Eosinophils # (Manual) 0.0 K/mm3 (0.0-0.4) 02/22/20 07:40 Basophils # (Manual) 0.0 K/mm3 (0.0-0.1) 02/22/20 07:40 Metamyelocytes # 0.2 K/mm3 02/22/20 07:40 Myelocytes # 0.0 K/mm3 02/22/20 07:40 Promyelocytes # 0.0 K/mm3 02/22/20 07:40 Blast Cells # 0.0 K/mm3 02/22/20 07:40 WBC Morphology Not Reportable 02/22/20 07:40 Hypersegmented Neuts Not Reportable 02/22/20 07:40 Hyposegmented Neuts Not Reportable 02/22/20 07:40 Hypogranular Neuts Not Reportable 02/22/20 07:40 Smudge Cells Not Reportable 02/22/20 07:40 Toxic Granulation 2+ 02/22/20 07:40 Toxic Vacuolation Not Reportable 02/22/20 07:40 Dohle Bodies Not Reportable 02/22/20 07:40 Pelger-Huet Anomaly Not Reportable 02/22/20 07:40 Noah Rods Not Reportable 02/22/20 07:40 Platelet Estimate Consistent w auto 02/22/20 07:40 Clumped Platelets Not Reportable 02/22/20 07:40 Plt Clumps, EDTA Not Reportable 02/22/20 07:40 Large Platelets Not Reportable 02/22/20 07:40 Giant Platelets Not Reportable 02/22/20 07:40 Platelet Satelliting Not Reportable 02/22/20 07:40 Plt Morphology Comment Not Reportable 02/22/20 07:40 RBC Morphology Not Reportable 02/22/20 07:40 Dimorphic RBCs Not Reportable 02/22/20 07:40 Polychromasia Not Reportable 02/22/20 07:40 Hypochromasia Not Reportable 02/22/20 07:40 Poikilocytosis Not Reportable 02/22/20 07:40 Anisocytosis 1+ 02/22/20 07:40 Microcytosis Not Reportable 02/22/20 07:40 Macrocytosis Not Reportable 02/22/20 07:40 Spherocytes Not Reportable 02/22/20 07:40 Pappenheimer Bodies Not Reportable 02/22/20 07:40 Sickle Cells Not Reportable 02/22/20 07:40 Target Cells Not Reportable 02/22/20 07:40 Tear Drop Cells Not Reportable 02/22/20 07:40 Ovalocytes Not Reportable 02/22/20 07:40 Helmet Cells Not Reportable 02/22/20 07:40 [place]on-Humphrey Bodies Not Reportable 02/22/20 07:40 [place] Rings Not Reportable 02/22/20 07:40 Maryam Cells Not Reportable 02/22/20 07:40 Bite Cells Not Reportable 02/22/20 07:40 Crenated Cell Not Reportable 02/22/20 07:40 Elliptocytes Not Reportable 02/22/20 07:40 Acanthocytes (Spur) Not Reportable 02/22/20 07:40 Rouleaux Not Reportable 02/22/20 07:40 Hemoglobin C Crystals Not Reportable 02/22/20 07:40 Schistocytes Not Reportable 02/22/20 07:40 Malaria parasites Not Reportable 02/22/20 07:40 Allan Bodies Not Reportable 02/22/20 07:40 Hem Pathologist Commnt No 02/22/20 07:40 PT 18.8 Sec. (12.2-14.9) H 02/22/20 07:40 INR 1.59 (0.87-1.13) H 02/22/20 07:40 D-Dimer > 23528 ng/mlDDU (0-234) H 02/20/20 19:21 ABG pH 7.437 pH Units (7.350-7.450) 02/25/20 04:00 POC ABG pCO2 40.8 mmHg (32.0-48.0) 02/23/20 05:29 ABG pCO2 40.4 mm Hg 02/25/20 04:00 POC ABG pO2 86.8 mmHg (83-108) 02/23/20 05:29 ABG pO2 77.9 mm Hg (80.0-90.0) L 02/25/20 04:00 POC ABG HCO3 20.5 02/23/20 05:29 ABG HCO3 26.7 mmol/L (20.0-26.0) H 02/25/20 04:00 ABG O2 Saturation 95.9 % (95.0-99.0) 02/25/20 04:00 ABG O2 Content 16.6 (0.0-44) 02/25/20 04:00 POC ABG Base Excess -5.3 02/23/20 05:29 ABG Base Excess 2.3 mmol/L (-2.0-3.0) 02/25/20 04:00 ABG Hemoglobin 12.4 gm/dl (14.0-18.0) L 02/25/20 04:00 ABG Carboxyhemoglobin 0.9 % (0.0-5.0) 02/25/20 04:00 ABG Methemoglobin 0.5 % (0.0-1.5) 02/25/20 04:00 ABG Sodium 142.4 mmol/L (136.0-145.0) 02/23/20 05:29 ABG Potassium 5.1 mmol/L (3.40-4.50) H 02/23/20 05:29 ABG Chloride 114.0 mmol/L (98-107) H 02/23/20 05:29 ABG Glucose 306 mg/dL (65-95) H 02/23/20 05:29 Oxyhemoglobin 94.5 % (95.0-99.0) L 02/25/20 04:00 FiO2 50 % 02/25/20 04:00 Sodium 149 mmol/L (137-145) H 02/25/20 04:42 Potassium 4.3 mmol/L (3.6-5.0) D 02/25/20 04:42 Chloride 113.2 mmol/L (98-107) H 02/25/20 04:42 Carbon Dioxide 25 mmol/L (22-30) 02/25/20 04:42 Anion Gap 15 mmol/L 02/25/20 04:42 BUN 45 mg/dL (9-20) H 02/25/20 04:42 Creatinine 1.0 mg/dL (0.8-1.3) 02/25/20 04:42 Estimated GFR > 60 ml/min 02/25/20 04:42 BUN/Creatinine Ratio 45 % 02/25/20 04:42 Glucose 416 mg/dL (75-100) H 02/25/20 04:42 POC Glucose 378 mg/dL (70-105) H 02/25/20 05:24 Lactic Acid 2.20 mmol/L (0.7-2.0) H* 02/25/20 04:42 Calcium 8.6 mg/dL (8.4-10.2) 02/25/20 04:42 Ferritin 1263.0 ng/mL (30.0-300.0) H 02/20/20 19:21 Total Bilirubin 0.50 mg/dL (0.1-1.2) 02/25/20 04:42 Direct Bilirubin 0.3 mg/dL (0-0.2) H 02/25/20 04:42 Indirect Bilirubin 0.2 mg/dL 02/25/20 04:42 AST 60 units/L (5-40) H 02/25/20 04:42 ALT 174 units/L (7-56) H 02/25/20 04:42 Alkaline Phosphatase 107 units/L (35-129) 02/25/20 04:42 Lactate Dehydrogenase 858 units/L (91-180) H 02/20/20 19:21 C-Reactive Protein 32.40 mg/dL (0.00-1.30) H 02/20/20 19:21 Total Protein 5.7 g/dL (6.3-8.2) L 02/25/20 04:42 Albumin 2.2 g/dL (3.9-5) L 02/25/20 04:42 Albumin/Globulin Ratio 0.6 % 02/25/20 04:42 Procalcitonin 0.71 ng/mL (<0.15) 02/20/20 19:21 Arterial Blood Glucose 306 mg/dL (65-95) H 02/23/20 05:29 Arterial Blood Ionized Calcium 4.8 mg/dL (4.6-5.3) 02/23/20 05:29 Urine Color [place] (Yellow) 02/20/20 23:00 Urine Turbidity Clear (Clear) 02/20/20 23:00 Urine pH 5.0 (5.0-7.0) 02/20/20 23:00 Ur Specific [place] 1.030 (1.003-1.030) 02/20/20 23:00 Urine Protein >500 mg/dL (Negative) 02/20/20 23:00 Urine Glucose (UA) Neg mg/dL (Negative) 02/20/20 23:00 Urine Ketones 20 mg/dL (Negative) 02/20/20 23:00 Urine Blood Neg (Negative) 02/20/20 23:00 Urine Nitrite Neg (Negative) 02/20/20 23:00 Urine Bilirubin Neg (Negative) 02/20/20 23:00 Urine Urobilinogen < 2.0 mg/dL (<2.0) 02/20/20 23:00 Ur Leukocyte Esterase Neg (Negative) 02/20/20 23:00 Urine WBC (Auto) 9.0 /HPF (0.0-6.0) H 02/20/20 23:00 Urine RBC (Auto) 7.0 /HPF (0.0-6.0) 02/20/20 23:00 U Epithel Cells (Auto) < 1.0 /HPF (0-13.0) 02/20/20 23:00 Urine Mucus 3+ /HPF 02/20/20 23:00 Coronavirus (PCR) Positive (Negative) A 02/21/20 08:59 Microbiology: Microbiology 02/20/20 19:34 Peripheral/Venous Blood Culture - Preliminary NO GROWTH AFTER 4 DAYS 02/20/20 19:21 Peripheral/Venous Blood Culture - Preliminary NO GROWTH AFTER 4 DAYS 02/24/20 13:11 Peripheral/Venous Blood Culture - Preliminary Culture in Progress 02/24/20 13:11 Peripheral/Venous Blood Culture - Preliminary Culture in Progress 02/22/20 18:39 Tracheal Aspirate Sputum Culture - Preliminary [place]/IV: Voiding Method Indwelling Catheter IV Catheter Type [Right INT / Saline Lock Forearm] IV Catheter Type [Left Forearm INT / Saline Lock ] IV Catheter Type [Right Triple Lumen Cath Femoral] IV Catheter Type [Left Peripheral IV Antecubital] Active Medications - Current Medications Current Medications: Generic Name Dose Route Start Last Admin Trade Name Freq PRN Reason Stop Dose Admin Acetaminophen 650 mg 02/21/20 00:28 02/24/20 21:48 Tylenol PO 650 mg Q4H PRN Administration Pain MILD(1-3)/Fever >100.5/HERNANDEZ Lipase/Protease/Amylase 1 each 02/22/20 16:08 Lipase 10,500/Protease 25,000/Amylase 43,750 (Units) Dr Cap FEEDTUBE PRN PRN For Clogged Feeding Tube Dexamethasone 6 mg 02/21/20 10:00 02/24/20 21:47 Dexamethasone 4 Mg/Ml Vial IV 03/01/20 22:01 6 mg Q12HR DILIP Administration Dextrose 50 ml 02/23/20 08:41 Dextrose 50% In Water (25gm) 50 Ml Syringe IV Q30MIN PRN Hypoglycemia Protocol Enoxaparin Sodium 80 mg 02/22/20 10:00 02/24/20 21:47 Enoxaparin 80 Mg/0.8 Ml Inj SUB-Q 80 mg Q12HR DILIP Administration Famotidine 20 mg 02/23/20 10:00 02/24/20 21:48 Famotidine 20 Mg Tab PO 20 mg BID DILIP Administration Fentanyl 50 mcg 02/20/20 22:04 Sublimaze IV Q10MIN PRN ANALGESIA Hydrophilic Ointment 1 applic 02/20/20 22:04 02/21/20 16:00 Vaseline Lip Therapy TP 1 applic Q2HR PRN Administration Dry Lips Fentanyl Citrate 2,000 mcg in 100 mls @ 3.856 mls/hr 02/20/20 23:00 02/24/20 21:50 Fentanyl Drip Premix IV 2 mcg/kg/hr TITR DILIP 7.711 mls/hr Administration Protocol 1 MCG/KG/HR Propofol 500 mg in 50 mls @ 2.313 mls/hr 02/20/20 23:45 02/25/20 03:30 Propofol IV 10 mcg/kg/min TITR DILIP 4.627 mls/hr Administration Protocol 5 MCG/KG/MIN Norepinephrine 4 mg in 250 mls @ 7.5 mls/hr 02/21/20 01:29 02/22/20 11:30 Levophed Drip 4 Mg/Ns 250 Ml IV Infused TITR DILIP Titration Protocol 2 MCG/MIN REMDESIVIR 100 mg/ Sodium 250 mls @ 500 mls/hr 02/22/20 21:00 02/24/20 21:46 Chloride IV 02/25/20 21:29 500 mls/hr Q24HR@2100 DILIP Administration Cefepime HCl 2 gm in 100 mls @ 200 mls/hr 02/21/20 08:00 02/25/20 05:30 Cefepime/Ns 2 Gm/100 Ml IV 02/25/20 22:29 200 mls/hr Q8HR DILIP Administration Protocol Insulin Glargine 20 units 02/24/20 22:00 02/24/20 21:48 Insulin Glargine 100 Units/Ml SUB-Q 20 units QHS DILIP Administration Insulin Human Lispro 0 unit 02/23/20 09:00 02/25/20 05:30 Insulin Lispro 100 Unit/Ml Vial 3 Ml SUB-Q 10 unit Q6HR DILIP Administration Protocol Morphine Sulfate 2 mg 02/21/20 00:28 Morphine IV Q4H PRN Pain, Moderate (4-6) Multi-Ingred Cream/Lotion/Oil/Oint 1 applic 02/20/20 22:04 Artificial Tears Ophth Oint OU Q4HR PRN Dry Eye(s) Ondansetron HCl 4 mg 02/21/20 00:28 Zofran IV Q8H PRN Nausea And Vomiting Simple Syrup 15 ml 02/22/20 16:08 Simple Syrup 15 Ml FEEDTUBE PRN PRN Hypoglycemia Simple Syrup 30 ml 02/22/20 16:08 Simple Syrup 15 Ml FEEDTUBE PRN PRN Hypoglycemia Sodium Bicarbonate 325 mg 02/22/20 16:08 Sodium Bicarbonate 325 Mg Tab FEEDTUBE PRN PRN For Clogged Feeding Tube Sodium Chloride 10 ml 02/21/20 10:00 02/24/20 21:49 Sodium Chloride Flush Syringe 10 Ml IV 10 ml BID DILIP Administration Sodium Chloride 10 ml 02/21/20 00:28 Sodium Chloride Flush Syringe 10 Ml IV PRN PRN LINE FLUSH Sodium Chloride 50 ml 02/21/20 09:00 02/24/20 21:47 Sodium Chloride 0.9% 50 Ml Ivpb IV 02/25/20 21:59 50 ml Q24HR@2100 DILIP Administration Nutrition/Malnutrition Assess - Dietary Evaluation Nutrition/Malnutrition Findings: Nutrition Notes Start: 02/22/20 15:59 Freq: Status: Active Protocol: Document 02/22/20 15:59 KAUR (Rec: 02/22/20 16:08 KAUR [id number]) Nutrition Notes Need for Assessment generated from: MD Order Initial or Follow up Assessment Current Diagnosis Sepsis,Hypertension Other Pertinent Diagnosis COVID(+), Pneumonia, Acute Respiratory Failure Current Diet NPO Labs/Tests K 5.0 (5.2 this AM) BUN 36 BG 240 Pertinent Medications Levophed Decadron Propofol at 9.253 ml/hr (244 kcal) Height 5 ft 4 in Weight 77.11 kg [place] Body Weight (kg) 59.09 BMI 29.2 Weight Status Overweight Subjective/Other Information MD consult for TF. Pt on vent. Due to high K, will give Nepro - follow for renal function. Burn Absent Trauma Absent Current % PO Negligible Minimum of two criteria No physical signs of malnutrition #1 Nutrition Diagnosis Inadequate oral intake Etiology acute respiratory failure As Evidenced by Signs and Symptoms pt on vent and unable to consume PO Is patient on ventilator? Yes Is Patient Ambulatory and/or Out of Bed No REE-(Vance-St. Jeor-confined to bed) 2794.260 [facility]culation [facility] Additional Notes Pro: 92-154 g (1.2-2 g/kg) Fluid: 1 ml/kcal Nutrition Intervention Change Diet Order: TF Nutrition Support: Nepro 1.8 at 45 ml/hr Flush 200 ml q4h Kcal 1,944 Protein (gm) 87 Fluid (mL) 785 Goal #1 Start/tolerate TF Goal #2 Meet at least 80% of protein and energy needs via TF Anticipated Discharge Needs: Unable to determine at this time Follow-Up By: 02/26/20 Additional Comments FU for TF start/tolerance, renal labs
[2020-02-25] MEDS ORDERED: INSULIN GLARGINE 100 UNITS/ML SUB-Q ONE (10:00)
[2020-02-25] MEDS: fentaNYL DRIP Premix 2,000 MCG/100 ML BAG IV SCH ×2 (10:50→22:55)
[2020-02-25] MEDS: dexAMETHasone 4 MG/ML VIAL IV SCH ×2 (11:48→21:49)
[2020-02-25] MEDS: FAMOTIDINE 20 MG TAB PO SCH ×2 (11:49→21:49)
[2020-02-25] MEDS: ENOXAPARIN 80 MG/0.8 ML INJ SUB-Q SCH ×2 (11:49→21:49)
--- NOTE | 2020-02-25 13:49 | Progress Note ---
Assessment and Plan Acute hypoxemic respiratory failure due to COVID-19 Severe COVID infection-Critical COVID Severe Sepsis Bilateral pneumonia Elevated Transaminases Lower extremity DVT - no new issues todfay but remains critical - continue to wean supplemental oxygen for target O2 sat's > 92% acutely (60% FiO2) - keep peep at 18 for now - no new issues otherwise, continue care as below; - continue full MVS and hyperventilate in short term while allowing permissive hypercapnia - wean vasopressor support for MAP>65 - daily SAT and SBT assessment as tolerated - Prone positioning as tolerated and indicated - permissive hypercapnia - VAP bundle addressed - continue lung protective strategies - continue bronchodilators with pulmonary hygiene per RT - wean per pulmonary driven protocols otherwise - continue accuchecks with glycemic control per SSI (While critically ill target blood glucose of 140-180 mg/dL; avoid hypoglycemia) - sedation prn for target RASS 0 to -1 - avoid nephrotoxins, renally dose all medications - continue to avoid benzodiazepine's, reduce the possibility of delirium - Broad spectrum antibiotics (Cefepime); de-escalate per ID recommendations - prn analgesia per CPOT score - Maintenance of sleep-wake cycle, avoid delirium - continue enteral nutritional support at goal rate as tolerated - G.I. & VTE prophylaxis - PT/OT/ROM exercises - continue mobility protocols for pressure ulcer prophylaxis - Monitor hemodynamics closely - continue other care per attending / other consultants COVID SPECIFIC INTERVENTIONS - Remdesivir 3/5 - Dexamethasone 6mg IV daily - Monitor inflammatory markers per facility protocol - ferritin, Ddimer, CRP, Inflammatory markers, ferritin 1263, CRP 32, D-dimer> 10,000 - VTE prophylaxis-therapeutic anticoagulation per system Protocol based on d- dimer and positive lower extremity DVT - Continue contact and airborne isolation - discharge planning ongoing concurrently .... Re-evaluate in am & prn CONDITION: CRITICAL PROGNOSIS: GUARDED CODE STATUS: FULL CODE The high probability of a clinically significant, sudden or life-threatening deterioration of the [respiratory, cardiovascular & neurologic] system(s) required my full and direct attention, intervention and personal management. The aggregate critical care time was [36] minutes without overlap. Time includes spent on; [x] Data Review and interpretation [x] Patient assessment and monitoring of vital signs [x] Documentation [x] Medication orders and management Subjective Date of service: 02/25/20 Principal diagnosis: Ac hypoxemic resp failure; Severe COVID infection; Severe Sepsis; PNA; DVT Interval history: Patient is seen today for: Acute hypoxemic respiratory failure; Severe COVID infection; Severe Sepsis; Bilateral pneumonia; Elevated Transaminases; Lower extremity DVT Seen and examined at bedside; 24hour events reviewed; nursing and respiratory care staff consulted; no adverse overnight events reported to me; resting peacefully in bed; remains on MVS; oxygenation slowly improving but peep still at 18 cm H2O Objective Vital Signs - 12hr 02/25/20 02/25/20 02/25/20 02:00 02:15 02:30 Temperature Pulse Rate 82 84 86 Pulse Rate [ From Monitor] Respiratory 30 H 30 H 30 H Rate Blood Pressure 121/76 115/75 129/82 O2 Sat by Pulse 100 100 100 Oximetry 02/25/20 02/25/20 02/25/20 02:45 03:00 03:15 Temperature Pulse Rate 86 86 86 Pulse Rate [ From Monitor] Respiratory 30 H 30 H 30 H Rate Blood Pressure 122/81 120/79 122/81 O2 Sat by Pulse 100 100 100 Oximetry 02/25/20 02/25/20 02/25/20 03:30 03:45 03:59 Temperature 99.9 F H Pulse Rate 83 84 Pulse Rate [ From Monitor] Respiratory 30 H 30 H Rate Blood Pressure 123/81 125/81 O2 Sat by Pulse 100 100 Oximetry 02/25/20 02/25/20 02/25/20 04:00 04:05 04:15 Temperature Pulse Rate 84 85 83 Pulse Rate [ 84 From Monitor] Respiratory 30 H 30 H Rate Blood Pressure 120/79 120/79 120/78 O2 Sat by Pulse 100 100 100 Oximetry 02/25/20 02/25/20 02/25/20 04:30 04:46 05:00 Temperature Pulse Rate 81 80 80 Pulse Rate [ From Monitor] Respiratory 30 H 30 H 30 H Rate Blood Pressure 106/68 119/81 112/76 O2 Sat by Pulse 100 100 100 Oximetry 02/25/20 02/25/20 02/25/20 05:15 05:30 05:45 Temperature Pulse Rate 78 78 78 Pulse Rate [ From Monitor] Respiratory 30 H 30 H 30 H Rate Blood Pressure 113/79 118/75 121/76 O2 Sat by Pulse 100 99 100 Oximetry 02/25/20 02/25/20 02/25/20 06:00 06:15 06:30 Temperature Pulse Rate 78 76 77 Pulse Rate [ From Monitor] Respiratory 28 H 30 H 30 H Rate Blood Pressure 118/78 119/81 117/77 O2 Sat by Pulse 100 100 100 Oximetry 02/25/20 02/25/20 02/25/20 06:45 07:00 07:15 Temperature Pulse Rate 75 77 75 Pulse Rate [ From Monitor] Respiratory 30 H 30 H 30 H Rate Blood Pressure 117/77 114/76 115/78 O2 Sat by Pulse 100 100 100 Oximetry 02/25/20 02/25/20 02/25/20 07:30 07:45 08:00 Temperature Pulse Rate 78 78 87 Pulse Rate [ From Monitor] Respiratory 25 H 30 H 30 H Rate Blood Pressure 118/81 114/78 156/95 O2 Sat by Pulse 100 100 100 Oximetry 02/25/20 02/25/20 02/25/20 08:15 08:30 08:45 Temperature Pulse Rate 75 75 76 Pulse Rate [ From Monitor] Respiratory 30 H 30 H 30 H Rate Blood Pressure 116/77 115/77 118/77 O2 Sat by Pulse 100 100 100 Oximetry 02/25/20 02/25/20 02/25/20 09:00 09:15 09:30 Temperature Pulse Rate 77 77 77 Pulse Rate [ From Monitor] Respiratory 31 H 30 H 30 H Rate Blood Pressure 114/76 119/77 112/80 O2 Sat by Pulse 100 100 100 Oximetry 02/25/20 02/25/20 02/25/20 09:46 10:00 10:15 Temperature Pulse Rate 79 87 86 Pulse Rate [ From Monitor] Respiratory 30 H 30 H 30 H Rate Blood Pressure 138/80 137/83 122/79 O2 Sat by Pulse 100 100 100 Oximetry 02/25/20 02/25/20 02/25/20 10:30 10:45 11:00 Temperature Pulse Rate 97 H 106 H 99 H Pulse Rate [ From Monitor] Respiratory 30 H 30 H 30 H Rate Blood Pressure 156/95 167/104 143/96 O2 Sat by Pulse 100 100 100 Oximetry 02/25/20 02/25/20 02/25/20 11:15 11:30 11:45 Temperature Pulse Rate 95 H 105 H 99 H Pulse Rate [ From Monitor] Respiratory 30 H 30 H 30 H Rate Blood Pressure 134/86 161/97 152/94 O2 Sat by Pulse 100 100 100 Oximetry 02/25/20 02/25/20 02/25/20 12:00 12:15 12:17 Temperature Pulse Rate 95 H 109 H 93 H Pulse Rate [ From Monitor] Respiratory 30 H 27 H Rate Blood Pressure 147/86 165/108 145/95 O2 Sat by Pulse 100 100 100 Oximetry 02/25/20 02/25/20 12:30 12:45 Temperature Pulse Rate 88 82 Pulse Rate [ From Monitor] Respiratory 30 H 31 H Rate Blood Pressure 131/86 121/80 O2 Sat by Pulse 100 100 Oximetry Constitutional: no acute distress, other (mild respiraotry distress, orally intubated to MVS) Eyes: non-icteric ENT: oropharynx moist, other (ETT at 23cm at the lip) Neck: supple, no lymphadenopathy, no JVD Effort: mildly labored Ascultation: Bilateral: diminished breath sounds, rhonchi Cardiovascular: regular rate and rhythm, other (S1,S2) Gastrointestinal: normoactive bowel sounds, soft, non-tender, non-distended Integumentary: normal Extremities: no cyanosis, no edema, pink and warm, no ischemia or petechiae Neurologic: unable to assess (sedated) Psychiatric: other (unable to assess) CBC and BMP: 02/23/20 04:00 02/25/20 04:42 ABG, PT/INR, D-dimer: ABG ABG pH 7.437 pH Units (7.350-7.450) 02/25/20 04:00 POC ABG pCO2 40.8 mmHg (32.0-48.0) 02/23/20 05:29 ABG pCO2 40.4 mm Hg 02/25/20 04:00 POC ABG pO2 86.8 mmHg (83-108) 02/23/20 05:29 ABG pO2 77.9 mm Hg (80.0-90.0) L 02/25/20 04:00 POC ABG HCO3 20.5 02/23/20 05:29 ABG O2 Saturation 95.9 % (95.0-99.0) 02/25/20 04:00 PT/INR, D-dimer PT 18.8 Sec. (12.2-14.9) H 02/22/20 07:40 INR 1.59 (0.87-1.13) H 02/22/20 07:40 D-Dimer > 43300 ng/mlDDU (0-234) H 02/20/20 19:21 Abnormal lab findings: Abnormal Labs 02/20/20 02/20/20 02/20/20 19:21 19:21 19:21 WBC 14.7 H MCV 95 H MCH Seg Neuts % (Manual) 86.0 H Lymphocytes % (Manual) 5.0 L Nucleated RBC % 1.0 H Seg Neutrophils # Man 12.6 H Lymphocytes # (Manual) 0.7 L PT INR D-Dimer > 20596 H ABG pH POC ABG pCO2 POC ABG pO2 ABG pO2 ABG HCO3 ABG O2 Saturation ABG Base Excess ABG Hemoglobin ABG Sodium ABG Potassium ABG Chloride ABG Glucose Oxyhemoglobin Sodium 129 L Potassium Chloride 95.8 L Carbon Dioxide 21 L BUN 21 H Glucose 167 H POC Glucose Lactic Acid Calcium Ferritin Direct Bilirubin AST 93 H ALT 148 H Alkaline Phosphatase 138 H Lactate Dehydrogenase C-Reactive Protein Total Protein Albumin 2.8 L Arterial Blood Glucose Urine WBC (Auto) Coronavirus (PCR) 02/20/20 02/20/20 02/20/20 19:21 19:21 23:00 WBC MCV MCH Seg Neuts % (Manual) Lymphocytes % (Manual) Nucleated RBC % Seg Neutrophils # Man Lymphocytes # (Manual) PT INR D-Dimer ABG pH POC ABG pCO2 POC ABG pO2 ABG pO2 ABG HCO3 ABG O2 Saturation ABG Base Excess ABG Hemoglobin ABG Sodium ABG Potassium ABG Chloride ABG Glucose Oxyhemoglobin Sodium Potassium Chloride Carbon Dioxide BUN Glucose 165 H POC Glucose Lactic Acid Calcium Ferritin 1263.0 H Direct Bilirubin AST ALT Alkaline Phosphatase Lactate Dehydrogenase 858 H C-Reactive Protein 32.40 H Total Protein Albumin Arterial Blood Glucose Urine WBC (Auto) 9.0 H Coronavirus (PCR) 02/20/20 02/21/20 02/21/20 23:37 04:09 08:59 WBC MCV MCH Seg Neuts % (Manual) Lymphocytes % (Manual) Nucleated RBC % Seg Neutrophils # Man Lymphocytes # (Manual) PT INR D-Dimer ABG pH 7.192 L 7.268 L POC ABG pCO2 51.3 H POC ABG pO2 61.1 L ABG pO2 62.0 L ABG HCO3 16.5 L ABG O2 Saturation 87.8 L ABG Base Excess -9.6 L ABG Hemoglobin 13.7 L ABG Sodium 133.6 L ABG Potassium ABG Chloride ABG Glucose 166 H Oxyhemoglobin 86.7 L Sodium Potassium Chloride Carbon Dioxide BUN Glucose POC Glucose Lactic Acid Calcium Ferritin Direct Bilirubin AST ALT Alkaline Phosphatase Lactate Dehydrogenase C-Reactive Protein Total Protein Albumin Arterial Blood Glucose 166 H Urine WBC (Auto) Coronavirus (PCR) Positive A 02/21/20 02/22/20 02/22/20 12:54 03:09 07:40 WBC 15.5 H MCV 96 H MCH Seg Neuts % (Manual) 94.0 H Lymphocytes % (Manual) Nucleated RBC % Seg Neutrophils # Man 14.6 H Lymphocytes # (Manual) 0.0 L PT INR D-Dimer ABG pH 7.252 L 7.280 L POC ABG pCO2 POC ABG pO2 81.3 L ABG pO2 97.7 H ABG HCO3 14.9 L ABG O2 Saturation ABG Base Excess -11.2 L ABG Hemoglobin ABG Sodium ABG Potassium 4.8 H ABG Chloride 113.0 H ABG Glucose 209 H Oxyhemoglobin Sodium Potassium Chloride Carbon Dioxide BUN Glucose POC Glucose Lactic Acid Calcium Ferritin Direct Bilirubin AST ALT Alkaline Phosphatase Lactate Dehydrogenase C-Reactive Protein Total Protein Albumin Arterial Blood Glucose 209 H Urine WBC (Auto) Coronavirus (PCR) 02/22/20 02/22/20 02/22/20 07:40 07:40 11:23 WBC MCV MCH Seg Neuts % (Manual) Lymphocytes % (Manual) Nucleated RBC % Seg Neutrophils # Man Lymphocytes # (Manual) PT 18.8 H INR 1.59 H D-Dimer ABG pH POC ABG pCO2 POC ABG pO2 ABG pO2 ABG HCO3 ABG O2 Saturation ABG Base Excess ABG Hemoglobin ABG Sodium ABG Potassium ABG Chloride ABG Glucose Oxyhemoglobin Sodium Potassium 5.2 H D Chloride 111.4 H 113.7 H Carbon Dioxide 18 L BUN 35 H 36 H Glucose 234 H 240 H POC Glucose Lactic Acid Calcium 7.9 L 8.0 L Ferritin Direct Bilirubin 0.3 H AST 127 H ALT 261 H Alkaline Phosphatase 211 H Lactate Dehydrogenase C-Reactive Protein Total Protein Albumin 2.4 L Arterial Blood Glucose Urine WBC (Auto) Coronavirus (PCR) 02/22/20 02/22/20 02/22/20 12:53 18:25 23:14 WBC MCV MCH Seg Neuts % (Manual) Lymphocytes % (Manual) Nucleated RBC % Seg Neutrophils # Man Lymphocytes # (Manual) PT INR D-Dimer ABG pH 7.311 L POC ABG pCO2 POC ABG pO2 ABG pO2 70.7 L ABG HCO3 ABG O2 Saturation 93.7 L ABG Base Excess -5.3 L ABG Hemoglobin 13.7 L ABG Sodium ABG Potassium ABG Chloride ABG Glucose Oxyhemoglobin 92.3 L Sodium Potassium Chloride Carbon Dioxide BUN Glucose POC Glucose 220 H 229 H Lactic Acid Calcium Ferritin Direct Bilirubin AST ALT Alkaline Phosphatase Lactate Dehydrogenase C-Reactive Protein Total Protein Albumin Arterial Blood Glucose Urine WBC (Auto) Coronavirus (PCR) 02/23/20 02/23/20 02/23/20 04:00 05:00 05:29 WBC 15.3 H MCV 97 H MCH 33 H Seg Neuts % (Manual) Lymphocytes % (Manual) Nucleated RBC % Seg Neutrophils # Man Lymphocytes # (Manual) PT INR D-Dimer ABG pH 7.318 L POC ABG pCO2 POC ABG pO2 ABG pO2 ABG HCO3 ABG O2 Saturation ABG Base Excess ABG Hemoglobin ABG Sodium ABG Potassium 5.1 H ABG Chloride 114.0 H ABG Glucose 306 H Oxyhemoglobin Sodium Potassium 5.4 H Chloride 114.3 H Carbon Dioxide BUN 47 H Glucose 323 H POC Glucose Lactic Acid Calcium 8.1 L Ferritin Direct Bilirubin AST 61 H ALT 197 H Alkaline Phosphatase Lactate Dehydrogenase C-Reactive Protein Total Protein 6.0 L Albumin 2.3 L Arterial Blood Glucose 306 H Urine WBC (Auto) Coronavirus (PCR) 02/23/20 02/23/20 02/23/20 05:32 11:57 18:09 WBC MCV MCH Seg Neuts % (Manual) Lymphocytes % (Manual) Nucleated RBC % Seg Neutrophils # Man Lymphocytes # (Manual) PT INR D-Dimer ABG pH POC ABG pCO2 POC ABG pO2 ABG pO2 ABG HCO3 ABG O2 Saturation ABG Base Excess ABG Hemoglobin ABG Sodium ABG Potassium ABG Chloride ABG Glucose Oxyhemoglobin Sodium Potassium Chloride Carbon Dioxide BUN Glucose POC Glucose 264 H 283 H 338 H Lactic Acid Calcium Ferritin Direct Bilirubin AST ALT Alkaline Phosphatase Lactate Dehydrogenase C-Reactive Protein Total Protein Albumin Arterial Blood Glucose Urine WBC (Auto) Coronavirus (PCR) 02/23/20 02/24/20 02/24/20 23:13 03:50 06:10 WBC MCV MCH Seg Neuts % (Manual) Lymphocytes % (Manual) Nucleated RBC % Seg Neutrophils # Man Lymphocytes # (Manual) PT INR D-Dimer ABG pH POC ABG pCO2 POC ABG pO2 ABG pO2 90.6 H ABG HCO3 ABG O2 Saturation ABG Base Excess ABG Hemoglobin 12.7 L ABG Sodium ABG Potassium ABG Chloride ABG Glucose Oxyhemoglobin Sodium Potassium Chloride Carbon Dioxide BUN Glucose POC Glucose 300 H 313 H Lactic Acid Calcium Ferritin Direct Bilirubin AST ALT Alkaline Phosphatase Lactate Dehydrogenase C-Reactive Protein Total Protein Albumin Arterial Blood Glucose Urine WBC (Auto) Coronavirus (PCR) 02/24/20 02/24/20 02/24/20 11:52 13:11 13:11 WBC MCV MCH Seg Neuts % (Manual) Lymphocytes % (Manual) Nucleated RBC % Seg Neutrophils # Man Lymphocytes # (Manual) PT INR D-Dimer ABG pH POC ABG pCO2 POC ABG pO2 ABG pO2 ABG HCO3 ABG O2 Saturation ABG Base Excess ABG Hemoglobin ABG Sodium ABG Potassium ABG Chloride ABG Glucose Oxyhemoglobin Sodium 147 H Potassium 5.6 H Chloride 113.2 H Carbon Dioxide BUN 50 H Glucose 342 H POC Glucose 290 H Lactic Acid Calcium Ferritin Direct Bilirubin AST 150 H ALT 205 H Alkaline Phosphatase Lactate Dehydrogenase C-Reactive Protein Total Protein Albumin 2.4 L Arterial Blood Glucose Urine WBC (Auto) Coronavirus (PCR) 02/24/20 02/24/20 02/25/20 13:11 17:46 00:25 WBC MCV MCH Seg Neuts % (Manual) Lymphocytes % (Manual) Nucleated RBC % Seg Neutrophils # Man Lymphocytes # (Manual) PT INR D-Dimer ABG pH POC ABG pCO2 POC ABG pO2 ABG pO2 ABG HCO3 ABG O2 Saturation ABG Base Excess ABG Hemoglobin ABG Sodium ABG Potassium ABG Chloride ABG Glucose Oxyhemoglobin Sodium Potassium Chloride Carbon Dioxide BUN Glucose POC Glucose 310 H 300 H Lactic Acid 2.40 H* Calcium Ferritin Direct Bilirubin AST ALT Alkaline Phosphatase Lactate Dehydrogenase C-Reactive Protein Total Protein Albumin Arterial Blood Glucose Urine WBC (Auto) Coronavirus (PCR) 02/25/20 02/25/20 02/25/20 04:00 04:42 04:42 WBC MCV MCH Seg Neuts % (Manual) Lymphocytes % (Manual) Nucleated RBC % Seg Neutrophils # Man Lymphocytes # (Manual) PT INR D-Dimer ABG pH POC ABG pCO2 POC ABG pO2 ABG pO2 77.9 L ABG HCO3 26.7 H ABG O2 Saturation ABG Base Excess ABG Hemoglobin 12.4 L ABG Sodium ABG Potassium ABG Chloride ABG Glucose Oxyhemoglobin 94.5 L Sodium 149 H Potassium Chloride 113.2 H Carbon Dioxide BUN 45 H Glucose 416 H POC Glucose Lactic Acid 2.20 H* Calcium Ferritin Direct Bilirubin 0.3 H AST 60 H ALT 174 H Alkaline Phosphatase Lactate Dehydrogenase C-Reactive Protein Total Protein 5.7 L Albumin 2.2 L Arterial Blood Glucose Urine WBC (Auto) Coronavirus (PCR) 02/25/20 02/25/20 05:24 11:32 WBC MCV MCH Seg Neuts % (Manual) Lymphocytes % (Manual) Nucleated RBC % Seg Neutrophils # Man Lymphocytes # (Manual) PT INR D-Dimer ABG pH POC ABG pCO2 POC ABG pO2 ABG pO2 ABG HCO3 ABG O2 Saturation ABG Base Excess ABG Hemoglobin ABG Sodium ABG Potassium ABG Chloride ABG Glucose Oxyhemoglobin Sodium Potassium Chloride Carbon Dioxide BUN Glucose POC Glucose 378 H 361 H Lactic Acid Calcium Ferritin Direct Bilirubin AST ALT Alkaline Phosphatase Lactate Dehydrogenase C-Reactive Protein Total Protein Albumin Arterial Blood Glucose Urine WBC (Auto) Coronavirus (PCR) Chest x-ray: image reviewed Allied health notes reviewed: nursing
[2020-02-25] MEDS: REMDESIVIR 100 MG in SODIUM CHLORIDE 0.9% 250ML 250 ML IV SCH (21:46)
[2020-02-25] MEDS: SODIUM CHLORIDE 0.9% 50 ML IVPB IV SCH (21:46)
[2020-02-25] MEDS: INSULIN GLARGINE 100 UNITS/ML SUB-Q SCH (21:49)
[2020-02-26] MEDS: INSULIN LISPRO 100 UNIT/ML VIAL 3 mL SUB-Q SCH ×5 (00:06→23:44)
--- NOTE | 2020-02-26 03:19 | XRay Report ---
CHEST 1 VIEW, 02/26/2020 2:34 AM CLINICAL INFORMATION/INDICATION: Respiratory failure COMPARISON: Chest radiograph, 02/25/2020 at 2:32 AM FINDINGS: SUPPORT DEVICES: The endotracheal tube and esophagogastric tube remain in stable position. There has been HEART: The cardiac silhouette is normal in size. LUNGS/PLEURA: Minimal scattered bilateral pulmonary opacities have not significantly changed. No pneu mothorax is visualized. ADDITIONAL FINDINGS: There has been interval development of subcutaneous edema within the neck soft t issues. IMPRESSION: 1. Minimal stable bilateral pulmonary opacities. 2. Subcutaneous emphysema within the neck. Please correlate with patient's clinical circumstances. Signer Name: Yeni Tomlinson MD Signed: 02/26/2020 3:15 AM Workstation Name: [id number]
[2020-02-26] MEDS: PROPOFOL 500 MG/50 ML VIAL IV SCH ×3 (04:22→18:32)
[2020-02-26 04:47] LABS: ABG Base Excess 2.4 mmol/L (-2.0-3.0); ABG HCO3 26.3 mmol/L (20.0-26.0); ABG Methemoglobin 0.3 % (0.0-1.5); ABG PCO2 37.2 mm Hg; ABG PH 7.466 pH Units (7.350-7.450); ABG PO2 68.3 mm Hg (80.0-90.0)
[2020-02-26 05:13] LABS: C-Reactive Protein 10.4 mg/dL (0.00-1.30)
[2020-02-26] MEDS: dexAMETHasone 4 MG/ML VIAL IV SCH (09:18)
[2020-02-26] MEDS: ENOXAPARIN 80 MG/0.8 ML INJ SUB-Q SCH ×2 (09:21→21:20)
[2020-02-26] MEDS: FAMOTIDINE 20 MG TAB PO SCH ×2 (09:24→21:20)
[2020-02-26] MEDS: fentaNYL DRIP Premix 2,000 MCG/100 ML BAG IV SCH ×2 (09:49→19:59)
[2020-02-26] MEDS ORDERED: INSULIN GLARGINE 100 UNITS/ML SUB-Q ONE (10:00)
--- NOTE | 2020-02-26 10:38 | Progress Note ---
Assessment and Plan Cultures: Blood culture 02/20/2020 no growth SARS CoV2 PCR positive as an outpatient SARS-CoV-2 PCR positive Urine culture negative Tracheal aspirate no growth today Blood culture 02/23/2020 no growth today SARS IgG positive Assessment: 59 years old male with history of hypertension admitted on 02/20/2020 due to a week history of dry cough, fever, generalized malaise, shortness of b reath. Patient was diagnosed with COVID-19 4 days before admission: #Severe sepsis with septic shock: No fever for 24 hours, off pressors. likely due to bilateral pneumonia. Procalcitonin 0.7. #Critical COVID pneumonia: Patient intubated. Very elevated inflammatory markers, ferritin 1263, CRP 32, D-dimer> 10,000. Suspect pulmonary embolism. Elevated procalcitonin. D-dimer improving, ferritin worsening. #Acute hypoxemic respiratory failure: Remains intubated FiO2 75, PEEP 18 #Elevated LFTs: from COVID #Very elevated D-dimer: left leg DVT Recommendations: -Follow-up repeat blood cx, resp cx -SARS-CoV-2 IgG positive, patient is not a candidate for Covid convalescent plasma -Follow-up procalcitonin -Continue full dose steroids - on lovenox for DVT -Continue dexamethasone 6 mg IV/PO BID for 5 days then 6 mg daily for 5 days - day 6 of 10 -Completed remdesivir -Monitor inflammatory markers - ferritin, Ddimer, CRP, LDH -Prone positioning as possible -Continue cefepime day 5 of 5 -Obtain MRSA culture -pending High risk mortality Will follow Venita Tran MD Infectious Diseases [employer] Project [employer] [facility] M [phone] O [phone] Subjective Principal diagnosis: Ac hypoxemic resp failure; Severe COVID infection; Severe Sepsis; PNA; DVT Objective - Constitutional Vitals: Vital Signs Temp Pulse Resp BP Pulse Ox 98.3 F 77 30 H 110/82 100 02/26/20 08:40 02/26/20 09:30 02/26/20 09:30 02/26/20 09:30 02/26/20 09:30 Temperature -Last 24 Hours Temperature 98.3 F Temperature 98.3 F Temperature 99.8 F Temperature 99.4 F Temperature 99.2 F Temperature 99.1 F Temperature 98.3 F - Labs CBC & Chem 7: 02/23/20 04:00 02/25/20 04:42 Labs: Abnormal lab results 02/25/20 02/25/20 02/25/20 Range/Units 11:32 18:23 23:11 D-Dimer (0-234) ng/mlDDU ABG pH (7.350-7.450) pH Units ABG pO2 (80.0-90.0) mm Hg ABG HCO3 (20.0-26.0) mmol/L ABG Hemoglobin (14.0-18.0) gm/dl Oxyhemoglobin (95.0-99.0) % POC Glucose 361 H 383 H 356 H (70-105) mg/dL Lactic Acid (0.7-2.0) mmol/L Ferritin (30.0-300.0) ng/mL Lactate Dehydrogenase (91-180) units/L C-Reactive Protein (0.00-1.30) mg/dL SARS-CoV-2 IgG Ab (NonReactive) 02/26/20 02/26/20 02/26/20 Range/Units 01:59 01:59 01:59 D-Dimer 2743.07 H (0-234) ng/mlDDU ABG pH (7.350-7.450) pH Units ABG pO2 (80.0-90.0) mm Hg ABG HCO3 (20.0-26.0) mmol/L ABG Hemoglobin (14.0-18.0) gm/dl Oxyhemoglobin (95.0-99.0) % POC Glucose (70-105) mg/dL Lactic Acid 2.20 H* (0.7-2.0) mmol/L Ferritin 1823.0 H (30.0-300.0) ng/mL Lactate Dehydrogenase (91-180) units/L C-Reactive Protein (0.00-1.30) mg/dL SARS-CoV-2 IgG Ab (NonReactive) 02/26/20 02/26/20 02/26/20 Range/Units 01:59 01:59 04:07 D-Dimer (0-234) ng/mlDDU ABG pH 7.466 H (7.350-7.450) pH Units ABG pO2 68.3 L (80.0-90.0) mm Hg ABG HCO3 26.3 H (20.0-26.0) mmol/L ABG Hemoglobin 8.6 L (14.0-18.0) gm/dl Oxyhemoglobin 93.7 L (95.0-99.0) % POC Glucose (70-105) mg/dL Lactic Acid (0.7-2.0) mmol/L Ferritin (30.0-300.0) ng/mL Lactate Dehydrogenase 589 H (91-180) units/L C-Reactive Protein 10.40 H (0.00-1.30) mg/dL SARS-CoV-2 IgG Ab Reactive A (NonReactive) 02/26/20 Range/Units 05:14 D-Dimer (0-234) ng/mlDDU ABG pH (7.350-7.450) pH Units ABG pO2 (80.0-90.0) mm Hg ABG HCO3 (20.0-26.0) mmol/L ABG Hemoglobin (14.0-18.0) gm/dl Oxyhemoglobin (95.0-99.0) % POC Glucose 321 H (70-105) mg/dL Lactic Acid (0.7-2.0) mmol/L Ferritin (30.0-300.0) ng/mL Lactate Dehydrogenase (91-180) units/L C-Reactive Protein (0.00-1.30) mg/dL SARS-CoV-2 IgG Ab (NonReactive)
--- NOTE | 2020-02-26 13:58 | Progress Note ---
Assessment and Plan Acute hypoxemic respiratory failure due to COVID-19 Severe COVID infection-Critical COVID Severe Sepsis Bilateral pneumonia Elevated Transaminases Lower extremity DVT - reduce peep to 16 cm H2O - wean further for target O2 sats > 92% - continue to wean supplemental oxygen for target O2 sat's > 92% acutely (target 40% by morning) - no new issues otherwise, continue care as below; - continue full MVS and hyperventilate in short term while allowing permissive hypercapnia - wean vasopressor support for MAP>65 - daily SAT and SBT assessment as tolerated - Prone positioning as tolerated and indicated - permissive hypercapnia - VAP bundle addressed - continue lung protective strategies - continue bronchodilators with pulmonary hygiene per RT - wean per pulmonary driven protocols otherwise - continue accuchecks with glycemic control per SSI (While critically ill target blood glucose of 140-180 mg/dL; avoid hypoglycemia) - sedation prn for target RASS 0 to -1 - avoid nephrotoxins, renally dose all medications - continue to avoid benzodiazepine's, reduce the possibility of delirium - Broad spectrum antibiotics (Cefepime); de-escalate per ID recommendations - prn analgesia per CPOT score - Maintenance of sleep-wake cycle, avoid delirium - continue enteral nutritional support at goal rate as tolerated - G.I. & VTE prophylaxis - PT/OT/ROM exercises - continue mobility protocols for pressure ulcer prophylaxis - Monitor hemodynamics closely - continue other care per attending / other consultants COVID SPECIFIC INTERVENTIONS - Remdesivir 3/5 - Dexamethasone 6mg IV daily - Monitor inflammatory markers per facility protocol - ferritin, Ddimer, CRP, Inflammatory markers, ferritin 1263, CRP 32, D-dimer> 10,000 - VTE prophylaxis-therapeutic anticoagulation per system Protocol based on d- dimer and positive lower extremity DVT - Continue contact and airborne isolation - discharge planning ongoing concurrently .... Re-evaluate in am & prn CONDITION: CRITICAL PROGNOSIS: GUARDED CODE STATUS: FULL CODE The high probability of a clinically significant, sudden or life-threatening deterioration of the [respiratory, cardiovascular & neurologic] system(s) r equired my full and direct attention, intervention and personal management. The aggregate critical care time was [32] minutes without overlap. Time includes spent on; [x] Data Review and interpretation [x] Patient assessment and monitoring of vital signs [x] Documentation [x] Medication orders and management Subjective Date of service: 02/26/20 Principal diagnosis: Ac hypoxemic resp failure; Severe COVID infection; Severe Sepsis; PNA; DVT Interval history: Patient is seen today for: Acute hypoxemic respiratory failure; Severe COVID infection; Severe Sepsis; Bilateral pneumonia; Elevated Transaminases; Lower extremity DVT Seen and examined at bedside; 24hour events reviewed; nursing and respiratory care staff consulted; no adverse overnight events reported to me; resting peacefully in bed; remains on MVS; FiO2 at 50% with peep still at 18; no emesis or overt aspiration; afebrile Objective Vital Signs - 12hr 02/26/20 02/26/20 02/26/20 02:00 02:16 02:30 Temperature Pulse Rate 89 86 84 Pulse Rate [ From Monitor] Respiratory 29 H 22 26 H Rate Blood Pressure 113/80 113/80 130/87 O2 Sat by Pulse 99 100 Oximetry 02/26/20 02/26/20 02/26/20 02:45 03:00 03:15 Temperature Pulse Rate 74 71 73 Pulse Rate [ From Monitor] Respiratory 30 H 30 H 30 H Rate Blood Pressure 106/76 106/76 104/74 O2 Sat by Pulse 100 100 100 Oximetry 02/26/20 02/26/20 02/26/20 03:30 03:36 03:45 Temperature 99.8 F H Pulse Rate 72 73 Pulse Rate [ From Monitor] Respiratory 30 H 30 H Rate Blood Pressure 102/74 104/76 O2 Sat by Pulse 100 100 Oximetry 02/26/20 02/26/20 02/26/20 03:58 04:00 04:15 Temperature Pulse Rate 75 77 74 Pulse Rate [ 76 From Monitor] Respiratory 30 H 30 H Rate Blood Pressure 104/76 109/83 110/79 O2 Sat by Pulse 100 100 100 Oximetry 02/26/20 02/26/20 02/26/20 04:30 04:45 05:00 Temperature Pulse Rate 72 70 71 Pulse Rate [ From Monitor] Respiratory 30 H 30 H 30 H Rate Blood Pressure 97/66 103/76 103/70 O2 Sat by Pulse 100 100 100 Oximetry 02/26/20 02/26/20 02/26/20 05:15 05:30 05:45 Temperature Pulse Rate 70 73 70 Pulse Rate [ From Monitor] Respiratory 30 H 30 H 30 H Rate Blood Pressure 105/71 98/69 104/70 O2 Sat by Pulse 100 100 100 Oximetry 02/26/20 02/26/2020 06:00 06:16 06:30 Temperature Pulse Rate 72 81 81 Pulse Rate [ From Monitor] Respiratory 30 H 30 H 30 H Rate Blood Pressure 109/73 125/78 109/73 O2 Sat by Pulse 100 100 100 Oximetry 02/26/20 02/26/20 02/26/20 06:45 07:00 07:15 Temperature Pulse Rate 78 76 76 Pulse Rate [ From Monitor] Respiratory 30 H 30 H 30 H Rate Blood Pressure 116/81 123/83 109/77 O2 Sat by Pulse 100 100 100 Oximetry 02/26/20 02/26/20 02/26/20 07:19 07:30 07:45 Temperature Pulse Rate 83 71 78 Pulse Rate [ From Monitor] Respiratory 30 H 30 H Rate Blood Pressure 115/80 115/79 108/75 O2 Sat by Pulse 100 100 100 Oximetry 02/26/20 02/26/20 02/26/20 08:00 08:15 08:30 Temperature 98.3 F Pulse Rate 80 80 80 Pulse Rate [ From Monitor] Respiratory 30 H 30 H 31 H Rate Blood Pressure 106/79 115/80 112/77 O2 Sat by Pulse 100 100 100 Oximetry 02/26/20 02/26/20 02/26/20 08:40 08:46 09:00 Temperature 98.3 F Pulse Rate 85 83 Pulse Rate [ From Monitor] Respiratory 30 H 30 H Rate Blood Pressure 133/94 121/88 O2 Sat by Pulse 100 100 Oximetry 02/26/20 02/26/20 02/26/20 09:15 09:30 12:26 Temperature 97.5 F L Pulse Rate 78 77 Pulse Rate [ From Monitor] Respiratory 30 H 30 H Rate Blood Pressure 125/89 110/82 O2 Sat by Pulse 100 100 Oximetry 02/26/20 12:51 Temperature Pulse Rate 75 Pulse Rate [ From Monitor] Respiratory Rate Blood Pressure 117/75 O2 Sat by Pulse 100 Oximetry Constitutional: no acute distress, other (mild respiratory distress, orally intubated to MVS) Eyes: non-icteric ENT: oropharynx moist, other (ETT at 23cm at the lip) Neck: supple, no lymphadenopathy, no JVD Effort: mildly labored Ascultation: Bilateral: diminished breath sounds, rhonchi Percussion: Bilateral: not dull Cardiovascular: regular rate and rhythm, other (S1,S2) Gastrointestinal: normoactive bowel sounds, soft, non-tender, non-distended Integumentary: normal Extremities: no cyanosis, no edema, pink and warm, no ischemia or petechiae Neurologic: non-focal exam (grossly), pupils equal and round, unable to assess (sedated) Psychiatric: other (unable to assess) CBC and BMP: 02/27/20 07:17 02/27/20 07:17 ABG, PT/INR, D-dimer: ABG ABG pH 7.466 pH Units (7.350-7.450) H 02/26/20 04:07 POC ABG pCO2 40.8 mmHg (32.0-48.0) 02/23/20 05:29 ABG pCO2 37.2 mm Hg 02/26/20 04:07 POC ABG pO2 86.8 mmHg (83-108) 02/23/20 05:29 ABG pO2 68.3 mm Hg (80.0-90.0) L 02/26/20 04:07 POC ABG HCO3 20.5 02/23/20 05:29 ABG O2 Saturation 95.0 % (95.0-99.0) 02/26/20 04:07 PT/INR, D-dimer PT 18.8 Sec. (12.2-14.9) H 02/22/20 07:40 INR 1.59 (0.87-1.13) H 02/22/20 07:40 D-Dimer 2743.07 ng/mlDDU (0-234) H 02/26/20 01:59 Abnormal lab findings: Abnormal Labs 02/20/20 02/20/20 02/20/20 19:21 19:21 19:21 WBC 14.7 H MCV 95 H MCH Seg Neuts % (Manual) 86.0 H Lymphocytes % (Manual) 5.0 L Nucleated RBC % 1.0 H Seg Neutrophils # Man 12.6 H Lymphocytes # (Manual) 0.7 L PT INR D-Dimer > 51797 H ABG pH POC ABG pCO2 POC ABG pO2 ABG pO2 ABG HCO3 ABG O2 Saturation ABG Base Excess ABG Hemoglobin ABG Sodium ABG Potassium ABG Chloride ABG Glucose Oxyhemoglobin Sodium 129 L Potassium Chloride 95.8 L Carbon Dioxide 21 L BUN 21 H Glucose 167 H POC Glucose Lactic Acid Calcium Ferritin Direct Bilirubin AST 93 H ALT 148 H Alkaline Phosphatase 138 H Lactate Dehydrogenase C-Reactive Protein Total Protein Albumin 2.8 L Arterial Blood Glucose Urine WBC (Auto) Coronavirus (PCR) SARS-CoV-2 IgG Ab 02/20/20 02/20/20 02/20/20 19:21 19:21 23:00 WBC MCV MCH Seg Neuts % (Manual) Lymphocytes % (Manual) Nucleated RBC % Seg Neutrophils # Man Lymphocytes # (Manual) PT INR D-Dimer ABG pH POC ABG pCO2 POC ABG pO2 ABG pO2 ABG HCO3 ABG O2 Saturation ABG Base Excess ABG Hemoglobin ABG Sodium ABG Potassium ABG Chloride ABG Glucose Oxyhemoglobin Sodium Potassium Chloride Carbon Dioxide BUN Glucose 165 H POC Glucose Lactic Acid Calcium Ferritin 1263.0 H Direct Bilirubin AST ALT Alkaline Phosphatase Lactate Dehydrogenase 858 H C-Reactive Protein 32.40 H Total Protein Albumin Arterial Blood Glucose Urine WBC (Auto) 9.0 H Coronavirus (PCR) SARS-CoV-2 IgG Ab 02/20/20 02/21/20 02/21/20 23:37 04:09 08:59 WBC MCV MCH Seg Neuts % (Manual) Lymphocytes % (Manual) Nucleated RBC % Seg Neutrophils # Man Lymphocytes # (Manual) PT INR D-Dimer ABG pH 7.192 L 7.268 L POC ABG pCO2 51.3 H POC ABG pO2 61.1 L ABG pO2 62.0 L ABG HCO3 16.5 L ABG O2 Saturation 87.8 L ABG Base Excess -9.6 L ABG Hemoglobin 13.7 L ABG Sodium 133.6 L ABG Potassium ABG Chloride ABG Glucose 166 H Oxyhemoglobin 86.7 L Sodium Potassium Chloride Carbon Dioxide BUN Glucose POC Glucose Lactic Acid Calcium Ferritin Direct Bilirubin AST ALT Alkaline Phosphatase Lactate Dehydrogenase C-Reactive Protein Total Protein Albumin Arterial Blood Glucose 166 H Urine WBC (Auto) Coronavirus (PCR) Positive A SARS-CoV-2 IgG Ab 02/21/20 02/22/20 02/22/20 12:54 03:09 07:40 WBC 15.5 H MCV 96 H MCH Seg Neuts % (Manual) 94.0 H Lymphocytes % (Manual) Nucleated RBC % Seg Neutrophils # Man 14.6 H Lymphocytes # (Manual) 0.0 L PT INR D-Dimer ABG pH 7.252 L 7.280 L POC ABG pCO2 POC ABG pO2 81.3 L ABG pO2 97.7 H ABG HCO3 14.9 L ABG O2 Saturation ABG Base Excess -11.2 L ABG Hemoglobin ABG Sodium ABG Potassium 4.8 H ABG Chloride 113.0 H ABG Glucose 209 H Oxyhemoglobin Sodium Potassium Chloride Carbon Dioxide BUN Glucose POC Glucose Lactic Acid Calcium Ferritin Direct Bilirubin AST ALT Alkaline Phosphatase Lactate Dehydrogenase C-Reactive Protein Total Protein Albumin Arterial Blood Glucose 209 H Urine WBC (Auto) Coronavirus (PCR) SARS-CoV-2 IgG Ab 02/22/20 02/22/20 02/22/20 07:40 07:40 11:23 WBC MCV MCH Seg Neuts % (Manual) Lymphocytes % (Manual) Nucleated RBC % Seg Neutrophils # Man Lymphocytes # (Manual) PT 18.8 H INR 1.59 H D-Dimer ABG pH POC ABG pCO2 POC ABG pO2 ABG pO2 ABG HCO3 ABG O2 Saturation ABG Base Excess ABG Hemoglobin ABG Sodium ABG Potassium ABG Chloride ABG Glucose Oxyhemoglobin Sodium Potassium 5.2 H D Chloride 111.4 H 113.7 H Carbon Dioxide 18 L BUN 35 H 36 H Glucose 234 H 240 H POC Glucose Lactic Acid Calcium 7.9 L 8.0 L Ferritin Direct Bilirubin 0.3 H AST 127 H ALT 261 H Alkaline Phosphatase 211 H Lactate Dehydrogenase C-Reactive Protein Total Protein Albumin 2.4 L Arterial Blood Glucose Urine WBC (Auto) Coronavirus (PCR) SARS-CoV-2 IgG Ab 02/22/20 02/22/20 02/22/20 12:53 18:25 23:14 WBC MCV MCH Seg Neuts % (Manual) Lymphocytes % (Manual) Nucleated RBC % Seg Neutrophils # Man Lymphocytes # (Manual) PT INR D-Dimer ABG pH 7.311 L POC ABG pCO2 POC ABG pO2 ABG pO2 70.7 L ABG HCO3 ABG O2 Saturation 93.7 L ABG Base Excess -5.3 L ABG Hemoglobin 13.7 L ABG Sodium ABG Potassium ABG Chloride ABG Glucose Oxyhemoglobin 92.3 L Sodium Potassium Chloride Carbon Dioxide BUN Glucose POC Glucose 220 H 229 H Lactic Acid Calcium Ferritin Direct Bilirubin AST ALT Alkaline Phosphatase Lactate Dehydrogenase C-Reactive Protein Total Protein Albumin Arterial Blood Glucose Urine WBC (Auto) Coronavirus (PCR) SARS-CoV-2 IgG Ab 12/12/20 12/12/20 12/12/20 04:00 05:00 05:29 WBC 15.3 H MCV 97 H MCH 33 H Seg Neuts % (Manual) Lymphocytes % (Manual) Nucleated RBC % Seg Neutrophils # Man Lymphocytes # (Manual) PT INR D-Dimer ABG pH 7.318 L POC ABG pCO2 POC ABG pO2 ABG pO2 ABG HCO3 ABG O2 Saturation ABG Base Excess ABG Hemoglobin ABG Sodium ABG Potassium 5.1 H ABG Chloride 114.0 H ABG Glucose 306 H Oxyhemoglobin Sodium Potassium 5.4 H Chloride 114.3 H Carbon Dioxide BUN 47 H Glucose 323 H POC Glucose Lactic Acid Calcium 8.1 L Ferritin Direct Bilirubin AST 61 H ALT 197 H Alkaline Phosphatase Lactate Dehydrogenase C-Reactive Protein Total Protein 6.0 L Albumin 2.3 L Arterial Blood Glucose 306 H Urine WBC (Auto) Coronavirus (PCR) SARS-CoV-2 IgG Ab 02/23/20 02/23/20 02/23/20 05:32 11:57 18:09 WBC MCV MCH Seg Neuts % (Manual) Lymphocytes % (Manual) Nucleated RBC % Seg Neutrophils # Man Lymphocytes # (Manual) PT INR D-Dimer ABG pH POC ABG pCO2 POC ABG pO2 ABG pO2 ABG HCO3 ABG O2 Saturation ABG Base Excess ABG Hemoglobin ABG Sodium ABG Potassium ABG Chloride ABG Glucose Oxyhemoglobin Sodium Potassium Chloride Carbon Dioxide BUN Glucose POC Glucose 264 H 283 H 338 H Lactic Acid Calcium Ferritin Direct Bilirubin AST ALT Alkaline Phosphatase Lactate Dehydrogenase C-Reactive Protein Total Protein Albumin Arterial Blood Glucose Urine WBC (Auto) Coronavirus (PCR) SARS-CoV-2 IgG Ab 02/23/20 02/24/20 02/24/20 23:13 03:50 06:10 WBC MCV MCH Seg Neuts % (Manual) Lymphocytes % (Manual) Nucleated RBC % Seg Neutrophils # Man Lymphocytes # (Manual) PT INR D-Dimer ABG pH POC ABG pCO2 POC ABG pO2 ABG pO2 90.6 H ABG HCO3 ABG O2 Saturation ABG Base Excess ABG Hemoglobin 12.7 L ABG Sodium ABG Potassium ABG Chloride ABG Glucose Oxyhemoglobin Sodium Potassium Chloride Carbon Dioxide BUN Glucose POC Glucose 300 H 313 H Lactic Acid Calcium Ferritin Direct Bilirubin AST ALT Alkaline Phosphatase Lactate Dehydrogenase C-Reactive Protein Total Protein Albumin Arterial Blood Glucose Urine WBC (Auto) Coronavirus (PCR) SARS-CoV-2 IgG Ab 02/24/20 02/24/2002/23/20 11:52 13:11 13:11 WBC MCV MCH Seg Neuts % (Manual) Lymphocytes % (Manual) Nucleated RBC % Seg Neutrophils # Man Lymphocytes # (Manual) PT INR D-Dimer ABG pH POC ABG pCO2 POC ABG pO2 ABG pO2 ABG HCO3 ABG O2 Saturation ABG Base Excess ABG Hemoglobin ABG Sodium ABG Potassium ABG Chloride ABG Glucose Oxyhemoglobin Sodium 147 H Potassium 5.6 H Chloride 113.2 H Carbon Dioxide BUN 50 H Glucose 342 H POC Glucose 290 H Lactic Acid Calcium Ferritin Direct Bilirubin AST 150 H ALT 205 H Alkaline Phosphatase Lactate Dehydrogenase C-Reactive Protein Total Protein Albumin 2.4 L Arterial Blood Glucose Urine WBC (Auto) Coronavirus (PCR) SARS-CoV-2 IgG Ab 02/24/20 02/24/20 02/25/20 13:11 17:46 00:25 WBC MCV MCH Seg Neuts % (Manual) Lymphocytes % (Manual) Nucleated RBC % Seg Neutrophils # Man Lymphocytes # (Manual) PT INR D-Dimer ABG pH POC ABG pCO2 POC ABG pO2 ABG pO2 ABG HCO3 ABG O2 Saturation ABG Base Excess ABG Hemoglobin ABG Sodium ABG Potassium ABG Chloride ABG Glucose Oxyhemoglobin Sodium Potassium Chloride Carbon Dioxide BUN Glucose POC Glucose 310 H 300 H Lactic Acid 2.40 H* Calcium Ferritin Direct Bilirubin AST ALT Alkaline Phosphatase Lactate Dehydrogenase C-Reactive Protein Total Protein Albumin Arterial Blood Glucose Urine WBC (Auto) Coronavirus (PCR) SARS-CoV-2 IgG Ab 02/25/20 02/25/20 02/25/20 04:00 04:42 04:42 WBC MCV MCH Seg Neuts % (Manual) Lymphocytes % (Manual) Nucleated RBC % Seg Neutrophils # Man Lymphocytes # (Manual) PT INR D-Dimer ABG pH POC ABG pCO2 POC ABG pO2 ABG pO2 77.9 L ABG HCO3 26.7 H ABG O2 Saturation ABG Base Excess ABG Hemoglobin 12.4 L ABG Sodium ABG Potassium ABG Chloride ABG Glucose Oxyhemoglobin 94.5 L Sodium 149 H Potassium Chloride 113.2 H Carbon Dioxide BUN 45 H Glucose 416 H POC Glucose Lactic Acid 2.20 H* Calcium Ferritin Direct Bilirubin 0.3 H AST 60 H ALT 174 H Alkaline Phosphatase Lactate Dehydrogenase C-Reactive Protein Total Protein 5.7 L Albumin 2.2 L Arterial Blood Glucose Urine WBC (Auto) Coronavirus (PCR) SARS-CoV-2 IgG Ab 02/25/20 02/25/20 02/25/20 05:24 11:32 18:23 WBC MCV MCH Seg Neuts % (Manual) Lymphocytes % (Manual) Nucleated RBC % Seg Neutrophils # Man Lymphocytes # (Manual) PT INR D-Dimer ABG pH POC ABG pCO2 POC ABG pO2 ABG pO2 ABG HCO3 ABG O2 Saturation ABG Base Excess ABG Hemoglobin ABG Sodium ABG Potassium ABG Chloride ABG Glucose Oxyhemoglobin Sodium Potassium Chloride Carbon Dioxide BUN Glucose POC Glucose 378 H 361 H 383 H Lactic Acid Calcium Ferritin Direct Bilirubin AST ALT Alkaline Phosphatase Lactate Dehydrogenase C-Reactive Protein Total Protein Albumin Arterial Blood Glucose Urine WBC (Auto) Coronavirus (PCR) SARS-CoV-2 IgG Ab 02/25/20 02/26/20 02/26/20 23:11 01:59 01:59 WBC MCV MCH Seg Neuts % (Manual) Lymphocytes % (Manual) Nucleated RBC % Seg Neutrophils # Man Lymphocytes # (Manual) PT INR D-Dimer 2743.07 H ABG pH POC ABG pCO2 POC ABG pO2 ABG pO2 ABG HCO3 ABG O2 Saturation ABG Base Excess ABG Hemoglobin ABG Sodium ABG Potassium ABG Chloride ABG Glucose Oxyhemoglobin Sodium Potassium Chloride Carbon Dioxide BUN Glucose POC Glucose 356 H Lactic Acid 2.20 H* Calcium Ferritin Direct Bilirubin AST ALT Alkaline Phosphatase Lactate Dehydrogenase C-Reactive Protein Total Protein Albumin Arterial Blood Glucose Urine WBC (Auto) Coronavirus (PCR) SARS-CoV-2 IgG Ab 02/26/20 02/26/20 02/26/20 01:59 01:59 01:59 WBC MCV MCH Seg Neuts % (Manual) Lymphocytes % (Manual) Nucleated RBC % Seg Neutrophils # Man Lymphocytes # (Manual) PT INR D-Dimer ABG pH POC ABG pCO2 POC ABG pO2 ABG pO2 ABG HCO3 ABG O2 Saturation ABG Base Excess ABG Hemoglobin ABG Sodium ABG Potassium ABG Chloride ABG Glucose Oxyhemoglobin Sodium Potassium Chloride Carbon Dioxide BUN Glucose POC Glucose Lactic Acid Calcium Ferritin 1823.0 H Direct Bilirubin AST ALT Alkaline Phosphatase Lactate Dehydrogenase 589 H C-Reactive Protein 10.40 H Total Protein Albumin Arterial Blood Glucose Urine WBC (Auto) Coronavirus (PCR) SARS-CoV-2 IgG Ab Reactive A 02/26/20 02/26/20 02/26/20 04:07 05:14 12:26 WBC MCV MCH Seg Neuts % (Manual) Lymphocytes % (Manual) Nucleated RBC % Seg Neutrophils # Man Lymphocytes # (Manual) PT INR D-Dimer ABG pH 7.466 H POC ABG pCO2 POC ABG pO2 ABG pO2 68.3 L ABG HCO3 26.3 H ABG O2 Saturation ABG Base Excess ABG Hemoglobin 8.6 L ABG Sodium ABG Potassium ABG Chloride ABG Glucose Oxyhemoglobin 93.7 L Sodium Potassium Chloride Carbon Dioxide BUN Glucose POC Glucose 321 H 398 H Lactic Acid Calcium Ferritin Direct Bilirubin AST ALT Alkaline Phosphatase Lactate Dehydrogenase C-Reactive Protein Total Protein Albumin Arterial Blood Glucose Urine WBC (Auto) Coronavirus (PCR) SARS-CoV-2 IgG Ab Chest x-ray: image reviewed (? developing SQ emphysema to neck) Allied health notes reviewed: nursing
--- NOTE | 2020-02-26 18:08 | Progress Note ---
Subjective Date of service: 02/26/20 Principal diagnosis: Ac hypoxemic resp failure; Severe COVID infection; Severe Sepsis; PNA; DVT Interval history: 59-year-old male with known history of hypertension presenting to the emergency room via EMS today complaining of cough, shortness of breath and difficulty breathing. Symptoms have been ongoing for about a week. He was diagnosed with COVID-19 about 4 days ago. He has been having a fever, chills generalized fatigue and dry cough over the past few days. Symptoms seems to be getting worse. He gets more short of breath on minimal exertion. Patient is initial oxygen saturation on room air was about 50% when seen by EMS and he was placed on nonrebreather with improvement of oxygen saturation to about 88%. Patient was subsequently placed on BiPAP upon arrival in the emergency room. Work-up in the emergency room today reveals bilateral pneumonia. During the course of his stay in the emergency room patient's condition continu ed to deteriorate and was subsequently intubated in the ER. Patient admitted with pneumonia possibly secondary to COVID-19 and will be admitted into the intensive care unit. 02/22: Remains on full ventilatory support, Start Insulin secondary to elevated Blood glucose, Check Hgb A1c. Wean pressors as tolerated. Will attempt to reach family. Rule out PE when stable although note patient is already on full dose Lovenox due to noted lower ext DVT. Continue dexamethasone and Remdesivir, Prone if possible. Good urine output noted, Monitor LFTs 02/23: Repeat chest x-ray. Unsure why patient is still running fevers this could be secondary to viral pneumonia versus superimposed bacterial pneumonia. Will check cultures check lactic acid antibiotics per ID. Wean from vent as tolerated. Prone if possible. Monitor electrolytes and H&H. 02/24: Patient clinically improving although reamins on full ventilatory support. No new fever today. Continue to wean from vent as tolerated 02/25 patient is intubated, has been fever free for 24 hours. Pulmonary and ID notes reviewed. Lab results reviewed. sepsis with septic shock ID note reviewed Continue cefepime day 5 of 5 Procalcitonin results reviewed Acute Hypoxic Respiratory failure secondary to covid 19 pneumonia Patient is vent dependent ABG reviewed Prognosis guarded Continue management per pulmonary recommendations Wean as tolerated Pneumonia secondary to COVID19 ID note reviewed Inflammatory markers reviewed D-dimer severely elevated but is trending down Continue Decadron Completed remdesivir Not a candidate for convalescent plasma Proning as possible Hyponatremia Resolved Patient is now mildly hyponatremic Steroid Induced Hyperglycemia Continue insulin sliding scale coverage Lower DVT per venous Doppler Left leg DVT Continue therapeutic Lovenox subcu every 12 hours # Objective - Constitutional Vitals: Vital Signs - 12hr 02/26/20 02/26/20 02/26/20 06:16 06:30 06:45 Temperature Pulse Rate 81 81 78 Respiratory 30 H 30 H 30 H Rate Blood Pressure 125/78 109/73 116/81 O2 Sat by Pulse 100 100 100 Oximetry 02/26/20 02/26/20 02/26/20 07:00 07:15 07:19 Temperature Pulse Rate 76 76 83 Respiratory 30 H 30 H Rate Blood Pressure 123/83 109/77 115/80 O2 Sat by Pulse 100 100 100 Oximetry 02/26/20 02/26/20 02/26/20 07:30 07:45 08:00 Temperature 98.3 F Pulse Rate 71 78 80 Respiratory 30 H 30 H 30 H Rate Blood Pressure 115/79 108/75 106/79 O2 Sat by Pulse 100 100 100 Oximetry 02/26/20 02/26/20 02/26/20 08:15 08:30 08:40 Temperature 98.3 F Pulse Rate 80 80 Respiratory 30 H 31 H Rate Blood Pressure 115/80 112/77 O2 Sat by Pulse 100 100 Oximetry 02/26/20 02/26/20 02/26/20 08:46 09:00 09:15 Temperature Pulse Rate 85 83 78 Respiratory 30 H 30 H 30 H Rate Blood Pressure 133/94 121/88 125/89 O2 Sat by Pulse 100 100 100 Oximetry 02/26/20 02/26/20 02/26/20 09:30 12:26 12:51 Temperature 97.5 F L Pulse Rate 77 75 Respiratory 30 H Rate Blood Pressure 110/82 117/75 O2 Sat by Pulse 100 100 Oximetry 02/26/20 02/26/20 16:07 17:00 Temperature 97.8 F Pulse Rate 66 Respiratory Rate Blood Pressure 128/83 O2 Sat by Pulse 96 Oximetry General appearance: Present: no acute distress - EENT Eyes: PERRL - Neck Neck: supple, no masses or JVD - Respiratory Respiratory: bilateral: diminished, rales (Scant basal Rales) - Cardiovascular Rhythm: regular Heart Sounds: Present: S1 & S2 Extremities: No edema - Gastrointestinal General gastrointestinal: Present: soft, non-tender - Labs CBC & Chem 7: 02/23/20 04:00 02/25/20 04:42 Labs: Abnormal lab results 02/25/20 02/25/20 02/26/20 Range/Units 18:23 23:11 01:59 D-Dimer (0-234) ng/mlDDU ABG pH (7.350-7.450) pH Units ABG pO2 (80.0-90.0) mm Hg ABG HCO3 (20.0-26.0) mmol/L ABG Hemoglobin (14.0-18.0) gm/dl Oxyhemoglobin (95.0-99.0) % POC Glucose 383 H 356 H (70-105) mg/dL Lactic Acid 2.20 H* (0.7-2.0) mmol/L Ferritin (30.0-300.0) ng/mL Lactate Dehydrogenase (91-180) units/L C-Reactive Protein (0.00-1.30) mg/dL SARS-CoV-2 IgG Ab (NonReactive) 02/26/20 02/26/20 02/26/20 Range/Units 01:59 01:59 01:59 D-Dimer 2743.07 H (0-234) ng/mlDDU ABG pH (7.350-7.450) pH Units ABG pO2 (80.0-90.0) mm Hg ABG HCO3 (20.0-26.0) mmol/L ABG Hemoglobin (14.0-18.0) gm/dl Oxyhemoglobin (95.0-99.0) % POC Glucose (70-105) mg/dL Lactic Acid (0.7-2.0) mmol/L Ferritin 1823.0 H (30.0-300.0) ng/mL Lactate Dehydrogenase 589 H (91-180) units/L C-Reactive Protein 10.40 H (0.00-1.30) mg/dL SARS-CoV-2 IgG Ab (NonReactive) 02/26/20 02/26/20 02/26/20 Range/Units 01:59 04:07 05:14 D-Dimer (0-234) ng/mlDDU ABG pH 7.466 H (7.350-7.450) pH Units ABG pO2 68.3 L (80.0-90.0) mm Hg ABG HCO3 26.3 H (20.0-26.0) mmol/L ABG Hemoglobin 8.6 L (14.0-18.0) gm/dl Oxyhemoglobin 93.7 L (95.0-99.0) % POC Glucose 321 H (70-105) mg/dL Lactic Acid (0.7-2.0) mmol/L Ferritin (30.0-300.0) ng/mL Lactate Dehydrogenase (91-180) units/L C-Reactive Protein (0.00-1.30) mg/dL SARS-CoV-2 IgG Ab Reactive A (NonReactive) 02/26/20 02/26/20 Range/Units 12:26 17:48 D-Dimer (0-234) ng/mlDDU ABG pH (7.350-7.450) pH Units ABG pO2 (80.0-90.0) mm Hg ABG HCO3 (20.0-26.0) mmol/L ABG Hemoglobin (14.0-18.0) gm/dl Oxyhemoglobin (95.0-99.0) % POC Glucose 398 H 335 H (70-105) mg/dL Lactic Acid (0.7-2.0) mmol/L Ferritin (30.0-300.0) ng/mL Lactate Dehydrogenase (91-180) units/L C-Reactive Protein (0.00-1.30) mg/dL SARS-CoV-2 IgG Ab (NonReactive)
[2020-02-26] MEDS: INSULIN GLARGINE 100 UNITS/ML SUB-Q SCH (21:20)
--- NOTE | 2020-02-27 04:10 | XRay Report ---
CHEST 1 VIEW, 02/27/2020 1:46 AM CLINICAL INFORMATION/INDICATION: Respiratory failure COMPARISON: Chest radiograph, 02/26/2020 FINDINGS: SUPPORT DEVICES: The endotracheal tube, esophagogastric tube remain in stable position HEART: The cardiac silhouette is normal in size. LUNGS/PLEURA: Faint bilateral pulmonary opacities have not significantly changed. No evidence of pneu mothorax or pleural effusion. ADDITIONAL FINDINGS: Subcutaneous emphysema has increased overlying the neck and upper chest. IMPRESSION: 1. Stable bilateral pulmonary opacities. 2. Increasing subcutaneous emphysema within the neck. Signer Name: Yeni Tomlinson MD Signed: 02/27/2020 4:06 AM Workstation Name: [id number]
[2020-02-27] MEDS: INSULIN LISPRO 100 UNIT/ML VIAL 3 mL SUB-Q SCH ×4 (05:30→23:55)
[2020-02-27] MEDS: fentaNYL DRIP Premix 2,000 MCG/100 ML BAG IV SCH ×3 (05:30→23:20)
[2020-02-27] MEDS: PROPOFOL 500 MG/50 ML VIAL IV SCH ×3 (05:30→23:19)
--- NOTE | 2020-02-27 07:48 | Progress Note ---
Assessment and Plan Cultures: Blood culture 02/20/2020 no growth SARS CoV2 PCR positive as an outpatient SARS-CoV-2 PCR positive Urine culture negative Tracheal aspirate 02/22/2020 no growth today Blood culture 02/23/2020 no growth today SARS IgG positive Blood culture 02/26/2020 no growth today Assessment: 59 years old male with history of hypertension admitted on 02/20/2020 due to a week history of dry cough, fever, generalized malaise, shortness of breath. Patient was diagnosed with COVID-19 4 days before admission: #Severe sepsis with septic shock: No fever for 48 hours, off pressors. likely due to bilateral pneumonia. Procalcitonin 0.7. #Critical COVID pneumonia: Patient intubated. Very elevated inflammatory markers, ferritin 1263, CRP 32, D-dimer> 10,000. Suspect pulmonary embolism. Elevated procalcitonin. D-dimer improving, ferritin worsening. SARS-CoV-2 IgG positive, patient is not a candidate for Covid convalescent plasma #Acute hypoxemic respiratory failure: Remains intubated, improving FiO2 40, PEEP 16 #Elevated LFTs: from COVID #Very elevated D-dimer: left leg DVT Recommendations: -Follow-up procalcitonin -Continue full dose steroids - on lovenox for DVT -Continue dexamethasone 6 mg IV/PO BID for 5 days then 6 mg daily for 5 days - day 7 of 10 -Completed remdesivir -Completed cefepime 5 days -Monitor inflammatory markers - ferritin, Ddimer, CRP, LDH -Prone positioning as possible -Obtain MRSA culture -pending, reordered High risk mortality Will follow Venita Tran MD Infectious Diseases Senior Paralegal [facility], [place], [facility] [phone] Subjective Date of service: 02/27/20 Principal diagnosis: Ac hypoxemic resp failure; Severe COVID infection; Severe Sepsis; PNA; DVT Interval history: Remains intubated FiO2 40%, PEEP 16, sedated on fentanyl and propofol no fever for 48 hours. Objective - Exam Narrative Exam: Physical Exam: reviewed ED and hospitalist notes, deferred to limit transmission of COVID-19 - Constitutional Vitals: Vital Signs Temp Pulse Resp BP Pulse Ox 98.1 F 92 H 31 H 101/68 98 02/27/20 04:00 02/27/20 06:00 02/27/20 06:00 02/27/20 06:00 02/27/20 06:00 Temperature -Last 24 Hours Temperature 98.1 F Temperature 99.9 F Temperature 98.0 F Temperature 97.8 F Temperature 97.5 F Temperature 98.3 F Temperature 98.3 F - Labs CBC & Chem 7: 02/23/20 04:00 02/25/20 04:42 Labs: Abnormal lab results 02/26/20 02/26/20 02/26/20 Range/Units 01:59 12:26 17:48 ABG pH (7.320-7.450) POC ABG pO2 (83-108) mmHg ABG Sodium (136.0-145.0) mmol/L ABG Chloride (98-107) mmol/L ABG Glucose (65-95) mg/dL POC Glucose 398 H 335 H (70-105) mg/dL Arterial Blood Glucose (65-95) mg/dL SARS-CoV-2 IgG Ab Reactive A (NonReactive) 02/26/20 02/27/20 02/27/20 Range/Units 23:37 03:51 05:28 ABG pH 7.527 H (7.320-7.450) POC ABG pO2 67.3 L (83-108) mmHg ABG Sodium 152.0 H (136.0-145.0) mmol/L ABG Chloride 118.0 H (98-107) mmol/L ABG Glucose 263 H (65-95) mg/dL POC Glucose 308 H 188 H (70-105) mg/dL Arterial Blood Glucose 263 H (65-95) mg/dL SARS-CoV-2 IgG Ab (NonReactive)
[2020-02-27 07:55] LABS: Hematocrit 41.9 % (35.5-45.6); Hemoglobin 13.6 gm/dl (11.8-15.2); Mean Corpuscular HGB Conc 33 % (32-34); Mean Corpuscular Volume 97 fl (84-94); Platelet Count 258 K/mm3 (140-440); Red Blood Count 4.34 M/mm3 (3.65-5.03)
[2020-02-27 08:13] LABS: BUN/Creatinine Ratio 49; Blood Urea Nitrogen 49 mg/dL (9-20); Calcium 9.3 mg/dL (8.4-10.2); Hemolysis Index 31
[2020-02-27] MEDS: dexAMETHasone 4 MG/ML VIAL IV SCH (09:22)
[2020-02-27] MEDS: FAMOTIDINE 20 MG TAB PO SCH ×2 (09:22→23:19)
[2020-02-27] MEDS: ENOXAPARIN 80 MG/0.8 ML INJ SUB-Q SCH ×2 (09:22→23:18)
--- NOTE | 2020-02-27 12:57 | Progress Note ---
Assessment and Plan Acute hypoxemic respiratory failure due to COVID-19 Severe COVID infection-Critical COVID Severe Sepsis Bilateral pneumonia Elevated Transaminases Lower extremity DVT - reduce peep to 12 cm H2O (wean quickly as tolerated) - continue daily CXR's - wean further for target O2 sats > 92% - increased free water to 300 mls q4h - increase Lantus by 5 units re: Hypreglycemia - no new issues otherwise, continue care as below; - continue full MVS and hyperventilate in short term while allowing permissive hypercapnia - wean vasopressor support for MAP>65 - daily SAT and SBT assessment as tolerated - Prone positioning as tolerated and indicated - permissive hypercapnia - VAP bundle addressed - continue lung protective strategies - continue bronchodilators with pulmonary hygiene per RT - wean per pulmonary driven protocols otherwise - continue accuchecks with glycemic control per SSI (While critically ill target blood glucose of 140-180 mg/dL; avoid hypoglycemia) - sedation prn for target RASS 0 to -1 - avoid nephrotoxins, renally dose all medications - continue to avoid benzodiazepine's, reduce the possibility of delirium - Broad spectrum antibiotics (Cefepime); de-escalate per ID recommendations - prn analgesia per CPOT score - Maintenance of sleep-wake cycle, avoid delirium - continue enteral nutritional support at goal rate as tolerated - G.I. & VTE prophylaxis - PT/OT/ROM exercises - continue mobility protocols for pressure ulcer prophylaxis - Monitor hemodynamics closely - continue other care per attending / other consultants COVID SPECIFIC INTERVENTIONS - s/p Remdesivir - Dexamethasone 6mg IV daily - Monitor inflammatory markers per facility protocol - ferritin, Ddimer, CRP, Inflammatory markers, ferritin 1263, CRP 32, D-dimer> 10,000 - VTE prophylaxis-therapeutic anticoagulation per system Protocol based on d- dimer and positive lower extremity DVT - Continue contact and airborne isolation - discharge planning ongoing concurrently .... Re-evaluate in am & prn CONDITION: CRITICAL PROGNOSIS: GUARDED CODE STATUS: FULL CODE The high probability of a clinically significant, sudden or life-threatening deterioration of the [respiratory, cardiovascular & neurologic] system(s) required my full and direct attention, intervention and personal management. The aggregate critical care time was [33] minutes without overlap. Time includes spent on; [x] Data Review and interpretation [x] Patient assessment and monitoring of vital signs [x] Documentation [x] Medication orders and management Subjective Date of service: 02/27/20 Principal diagnosis: Ac hypoxemic resp failure; Severe COVID infection; Severe Sepsis; PNA; DVT Interval history: Patient is seen today for: Acute hypoxemic respiratory failure; Severe COVID infection; Severe Sepsis; Bilateral pneumonia; Elevated Transaminases; Lower extremity DVT Seen and examined at bedside; 24hour events reviewed; nursing and respiratory care staff consulted; no adverse overnight events reported to me; resting peacefully in bed; remains on MVS; CXR with worsening barotrauma (Sub-Q emphysema) but no PTX visible; sedation increased due to increased work of breathing earlier Objective Vital Signs - 12hr 02/27/20 02/27/20 02/27/20 01:00 01:15 01:30 Temperature Pulse Rate 79 79 78 Pulse Rate [ From Monitor] Respiratory 30 H 30 H 30 H Rate Blood Pressure 106/77 106/72 103/74 O2 Sat by Pulse 100 99 100 Oximetry 02/27/20 02/27/20 02/27/20 01:45 02:00 02:15 Temperature Pulse Rate 82 80 81 Pulse Rate [ From Monitor] Respiratory 30 H 30 H 30 H Rate Blood Pressure 112/81 109/76 110/76 O2 Sat by Pulse 99 99 99 Oximetry 02/27/20 02/27/20 02/27/20 02:30 02:45 03:00 Temperature Pulse Rate 83 82 85 Pulse Rate [ From Monitor] Respiratory 30 H 30 H 30 H Rate Blood Pressure 114/79 108/75 111/76 O2 Sat by Pulse 100 100 100 Oximetry 02/27/20 02/27/20 02/27/20 03:15 03:30 03:39 Temperature Pulse Rate 85 85 84 Pulse Rate [ From Monitor] Respiratory 30 H 30 H Rate Blood Pressure 109/76 116/78 116/78 O2 Sat by Pulse 100 100 100 Oximetry 02/27/20 02/27/20 02/27/20 03:45 04:00 04:15 Temperature 98.1 F Pulse Rate 89 89 90 Pulse Rate [ 87 From Monitor] Respiratory 30 H 31 H 30 H Rate Blood Pressure 108/78 108/75 106/75 O2 Sat by Pulse 100 100 100 Oximetry 02/27/20 02/27/20 02/27/20 04:30 04:45 05:00 Temperature Pulse Rate 90 90 90 Pulse Rate [ From Monitor] Respiratory 30 H 30 H 30 H Rate Blood Pressure 107/75 105/73 102/75 O2 Sat by Pulse 100 100 98 Oximetry 02/27/20 02/27/20 02/27/20 05:15 05:30 05:45 Temperature Pulse Rate 92 H 94 H 94 H Pulse Rate [ From Monitor] Respiratory 27 H 30 H 30 H Rate Blood Pressure 113/83 112/76 107/75 O2 Sat by Pulse 100 100 Oximetry 02/27/20 02/27/20 02/27/20 06:00 06:15 06:30 Temperature Pulse Rate 92 H 95 H 97 H Pulse Rate [ From Monitor] Respiratory 31 H 30 H 30 H Rate Blood Pressure 101/68 104/71 100/67 O2 Sat by Pulse 98 100 100 Oximetry 02/27/20 02/27/20 02/27/20 06:45 07:00 07:15 Temperature Pulse Rate 102 H 103 H 110 H Pulse Rate [ From Monitor] Respiratory 30 H 30 H 31 H Rate Blood Pressure 104/67 109/70 105/69 O2 Sat by Pulse 100 100 99 Oximetry 02/27/20 02/27/20 02/27/20 07:30 07:45 08:00 Temperature 98.1 F Pulse Rate 109 H 111 H 115 H Pulse Rate [ 115 H From Monitor] Respiratory 30 H 30 H 30 H Rate Blood Pressure 108/74 111/73 114/76 O2 Sat by Pulse 99 100 100 Oximetry 02/27/20 02/27/20 02/27/20 08:09 08:15 08:30 Temperature Pulse Rate 117 H 120 H 130 H Pulse Rate [ From Monitor] Respiratory 20 19 Rate Blood Pressure 114/76 111/77 124/82 O2 Sat by Pulse 100 100 99 Oximetry 02/27/20 02/27/20 02/27/20 08:45 09:00 09:15 Temperature Pulse Rate 133 H 137 H 135 H Pulse Rate [ From Monitor] Respiratory 18 23 18 Rate Blood Pressure 131/86 134/88 125/85 O2 Sat by Pulse 99 98 99 Oximetry 02/27/20 02/27/20 02/27/20 09:30 09:45 10:00 Temperature Pulse Rate 133 H 128 H 128 H Pulse Rate [ From Monitor] Respiratory 22 20 18 Rate Blood Pressure 122/77 113/84 115/80 O2 Sat by Pulse 98 100 99 Oximetry 02/27/20 02/27/20 02/27/20 10:15 10:30 10:45 Temperature Pulse Rate 123 H 118 H 116 H Pulse Rate [ From Monitor] Respiratory 19 20 19 Rate Blood Pressure 107/76 113/76 107/75 O2 Sat by Pulse 99 100 100 Oximetry 02/27/20 02/27/20 02/27/20 11:00 11:15 11:30 Temperature Pulse Rate 104 H 109 H 106 H Pulse Rate [ From Monitor] Respiratory 18 21 19 Rate Blood Pressure 115/77 113/77 113/78 O2 Sat by Pulse 100 100 100 Oximetry 02/27/20 02/27/20 02/27/20 11:45 12:00 12:15 Temperature 99.4 F Pulse Rate 109 H 105 H 104 H Pulse Rate [ 115 H From Monitor] Respiratory 21 19 20 Rate Blood Pressure 113/76 105/79 114/77 O2 Sat by Pulse 100 100 100 Oximetry 02/27/20 02/27/20 12:22 12:30 Temperature Pulse Rate 107 H 109 H Pulse Rate [ From Monitor] Respiratory 19 Rate Blood Pressure 114/77 115/76 O2 Sat by Pulse 100 100 Oximetry Constitutional: no acute distress, other (mild respiratory distress, orally intubated to MVS) Eyes: non-icteric ENT: oropharynx moist, other (ETT at 23cm at the lip) Neck: supple, no lymphadenopathy, no JVD Effort: mildly labored Ascultation: Bilateral: diminished breath sounds, rhonchi Percussion: Bilateral: not dull Cardiovascular: regular rate and rhythm, other (S1,S2) Gastrointestinal: normoactive bowel sounds, soft, non-tender, non-distended Integumentary: normal Extremities: no cyanosis, no edema, pink and warm, no ischemia or petechiae Neurologic: non-focal exam (grossly), pupils equal and round, unable to assess (sedated) Psychiatric: other (unable to assess) CBC and BMP: 02/27/20 07:17 02/27/20 07:17 ABG, PT/INR, D-dimer: ABG ABG pH 7.527 (7.320-7.450) H 02/27/20 03:51 POC ABG pCO2 34.2 mmHg (32.0-48.0) 02/27/20 03:51 ABG pCO2 37.2 mm Hg 02/26/20 04:07 POC ABG pO2 67.3 mmHg (83-108) L 02/27/20 03:51 ABG pO2 68.3 mm Hg (80.0-90.0) L 02/26/20 04:07 POC ABG HCO3 27.7 02/27/20 03:51 ABG O2 Saturation 95.0 % (95.0-99.0) 02/26/20 04:07 PT/INR, D-dimer PT 18.8 Sec. (12.2-14.9) H 02/22/20 07:40 INR 1.59 (0.87-1.13) H 02/22/20 07:40 D-Dimer 2743.07 ng/mlDDU (0-234) H 02/26/20 01:59 Abnormal lab findings: Abnormal Labs 02/20/20 02/20/20 02/20/20 19:21 19:21 19:21 WBC 14.7 H MCV 95 H MCH Seg Neuts % (Manual) 86.0 H Lymphocytes % (Manual) 5.0 L Nucleated RBC % 1.0 H Seg Neutrophils # Man 12.6 H Lymphocytes # (Manual) 0.7 L PT INR D-Dimer > 46912 H ABG pH POC ABG pCO2 POC ABG pO2 ABG pO2 ABG HCO3 ABG O2 Saturation ABG Base Excess ABG Hemoglobin ABG Sodium ABG Potassium ABG Chloride ABG Glucose Oxyhemoglobin Sodium 129 L Potassium Chloride 95.8 L Carbon Dioxide 21 L BUN 21 H Glucose 167 H POC Glucose Lactic Acid Calcium Ferritin Direct Bilirubin AST 93 H ALT 148 H Alkaline Phosphatase 138 H Lactate Dehydrogenase C-Reactive Protein Total Protein Albumin 2.8 L Arterial Blood Glucose Urine WBC (Auto) Coronavirus (PCR) SARS-CoV-2 IgG Ab 02/20/20 02/20/20 02/20/20 19:21 19:21 23:00 WBC MCV MCH Seg Neuts % (Manual) Lymphocytes % (Manual) Nucleated RBC % Seg Neutrophils # Man Lymphocytes # (Manual) PT INR D-Dimer ABG pH POC ABG pCO2 POC ABG pO2 ABG pO2 ABG HCO3 ABG O2 Saturation ABG Base Excess ABG Hemoglobin ABG Sodium ABG Potassium ABG Chloride ABG Glucose Oxyhemoglobin Sodium Potassium Chloride Carbon Dioxide BUN Glucose 165 H POC Glucose Lactic Acid Calcium Ferritin 1263.0 H Direct Bilirubin AST ALT Alkaline Phosphatase Lactate Dehydrogenase 858 H C-Reactive Protein 32.40 H Total Protein Albumin Arterial Blood Glucose Urine WBC (Auto) 9.0 H Coronavirus (PCR) SARS-CoV-2 IgG Ab 02/20/20 02/21/20 02/21/20 23:37 04:09 08:59 WBC MCV MCH Seg Neuts % (Manual) Lymphocytes % (Manual) Nucleated RBC % Seg Neutrophils # Man Lymphocytes # (Manual) PT INR D-Dimer ABG pH 7.192 L 7.268 L POC ABG pCO2 51.3 H POC ABG pO2 61.1 L ABG pO2 62.0 L ABG HCO3 16.5 L ABG O2 Saturation 87.8 L ABG Base Excess -9.6 L ABG Hemoglobin 13.7 L ABG Sodium 133.6 L ABG Potassium ABG Chloride ABG Glucose 166 H Oxyhemoglobin 86.7 L Sodium Potassium Chloride Carbon Dioxide BUN Glucose POC Glucose Lactic Acid Calcium Ferritin Direct Bilirubin AST ALT Alkaline Phosphatase Lactate Dehydrogenase C-Reactive Protein Total Protein Albumin Arterial Blood Glucose 166 H Urine WBC (Auto) Coronavirus (PCR) Positive A SARS-CoV-2 IgG Ab 02/21/20 02/22/20 02/22/20 12:54 03:09 07:40 WBC 15.5 H MCV 96 H MCH Seg Neuts % (Manual) 94.0 H Lymphocytes % (Manual) Nucleated RBC % Seg Neutrophils # Man 14.6 H Lymphocytes # (Manual) 0.0 L PT INR D-Dimer ABG pH 7.252 L 7.280 L POC ABG pCO2 POC ABG pO2 81.3 L ABG pO2 97.7 H ABG HCO3 14.9 L ABG O2 Saturation ABG Base Excess -11.2 L ABG Hemoglobin ABG Sodium ABG Potassium 4.8 H ABG Chloride 113.0 H ABG Glucose 209 H Oxyhemoglobin Sodium Potassium Chloride Carbon Dioxide BUN Glucose POC Glucose Lactic Acid Calcium Ferritin Direct Bilirubin AST ALT Alkaline Phosphatase Lactate Dehydrogenase C-Reactive Protein Total Protein Albumin Arterial Blood Glucose 209 H Urine WBC (Auto) Coronavirus (PCR) SARS-CoV-2 IgG Ab 02/22/20 02/22/20 02/22/20 07:40 07:40 11:23 WBC MCV MCH Seg Neuts % (Manual) Lymphocytes % (Manual) Nucleated RBC % Seg Neutrophils # Man Lymphocytes # (Manual) PT 18.8 H INR 1.59 H D-Dimer ABG pH POC ABG pCO2 POC ABG pO2 ABG pO2 ABG HCO3 ABG O2 Saturation ABG Base Excess ABG Hemoglobin ABG Sodium ABG Potassium ABG Chloride ABG Glucose Oxyhemoglobin Sodium Potassium 5.2 H D Chloride 111.4 H 113.7 H Carbon Dioxide 18 L BUN 35 H 36 H Glucose 234 H 240 H POC Glucose Lactic Acid Calcium 7.9 L 8.0 L Ferritin Direct Bilirubin 0.3 H AST 127 H ALT 261 H Alkaline Phosphatase 211 H Lactate Dehydrogenase C-Reactive Protein Total Protein Albumin 2.4 L Arterial Blood Glucose Urine WBC (Auto) Coronavirus (PCR) SARS-CoV-2 IgG Ab 02/22/20 02/22/20 02/22/20 12:53 18:25 23:14 WBC MCV MCH Seg Neuts % (Manual) Lymphocytes % (Manual) Nucleated RBC % Seg Neutrophils # Man Lymphocytes # (Manual) PT INR D-Dimer ABG pH 7.311 L POC ABG pCO2 POC ABG pO2 ABG pO2 70.7 L ABG HCO3 ABG O2 Saturation 93.7 L ABG Base Excess -5.3 L ABG Hemoglobin 13.7 L ABG Sodium ABG Potassium ABG Chloride ABG Glucose Oxyhemoglobin 92.3 L Sodium Potassium Chloride Carbon Dioxide BUN Glucose POC Glucose 220 H 229 H Lactic Acid Calcium Ferritin Direct Bilirubin AST ALT Alkaline Phosphatase Lactate Dehydrogenase C-Reactive Protein Total Protein Albumin Arterial Blood Glucose Urine WBC (Auto) Coronavirus (PCR) SARS-CoV-2 IgG Ab 02/23/20 02/23/20 02/23/20 04:00 05:00 05:29 WBC 15.3 H MCV 97 H MCH 33 H Seg Neuts % (Manual) Lymphocytes % (Manual) Nucleated RBC % Seg Neutrophils # Man Lymphocytes # (Manual) PT INR D-Dimer ABG pH 7.318 L POC ABG pCO2 POC ABG pO2 ABG pO2 ABG HCO3 ABG O2 Saturation ABG Base Excess ABG Hemoglobin ABG Sodium ABG Potassium 5.1 H ABG Chloride 114.0 H ABG Glucose 306 H Oxyhemoglobin Sodium Potassium 5.4 H Chloride 114.3 H Carbon Dioxide BUN 47 H Glucose 323 H POC Glucose Lactic Acid Calcium 8.1 L Ferritin Direct Bilirubin AST 61 H ALT 197 H Alkaline Phosphatase Lactate Dehydrogenase C-Reactive Protein Total Protein 6.0 L Albumin 2.3 L Arterial Blood Glucose 306 H Urine WBC (Auto) Coronavirus (PCR) SARS-CoV-2 IgG Ab 02/23/20 02/23/20 02/23/20 05:32 11:57 18:09 WBC MCV MCH Seg Neuts % (Manual) Lymphocytes % (Manual) Nucleated RBC % Seg Neutrophils # Man Lymphocytes # (Manual) PT INR D-Dimer ABG pH POC ABG pCO2 POC ABG pO2 ABG pO2 ABG HCO3 ABG O2 Saturation ABG Base Excess ABG Hemoglobin ABG Sodium ABG Potassium ABG Chloride ABG Glucose Oxyhemoglobin Sodium Potassium Chloride Carbon Dioxide BUN Glucose POC Glucose 264 H 283 H 338 H Lactic Acid Calcium Ferritin Direct Bilirubin AST ALT Alkaline Phosphatase Lactate Dehydrogenase C-Reactive Protein Total Protein Albumin Arterial Blood Glucose Urine WBC (Auto) Coronavirus (PCR) SARS-CoV-2 IgG Ab 02/23/20 02/24/20 02/24/20 23:13 03:50 06:10 WBC MCV MCH Seg Neuts % (Manual) Lymphocytes % (Manual) Nucleated RBC % Seg Neutrophils # Man Lymphocytes # (Manual) PT INR D-Dimer ABG pH POC ABG pCO2 POC ABG pO2 ABG pO2 90.6 H ABG HCO3 ABG O2 Saturation ABG Base Excess ABG Hemoglobin 12.7 L ABG Sodium ABG Potassium ABG Chloride ABG Glucose Oxyhemoglobin Sodium Potassium Chloride Carbon Dioxide BUN Glucose POC Glucose 300 H 313 H Lactic Acid Calcium Ferritin Direct Bilirubin AST ALT Alkaline Phosphatase Lactate Dehydrogenase C-Reactive Protein Total Protein Albumin Arterial Blood Glucose Urine WBC (Auto) Coronavirus (PCR) SARS-CoV-2 IgG Ab 02/24/20 02/24/20 02/24/20 11:52 13:11 13:11 WBC MCV MCH Seg Neuts % (Manual) Lymphocytes % (Manual) Nucleated RBC % Seg Neutrophils # Man Lymphocytes # (Manual) PT INR D-Dimer ABG pH POC ABG pCO2 POC ABG pO2 ABG pO2 ABG HCO3 ABG O2 Saturation ABG Base Excess ABG Hemoglobin ABG Sodium ABG Potassium ABG Chloride ABG Glucose Oxyhemoglobin Sodium 147 H Potassium 5.6 H Chloride 113.2 H Carbon Dioxide BUN 50 H Glucose 342 H POC Glucose 290 H Lactic Acid Calcium Ferritin Direct Bilirubin AST 150 H ALT 205 H Alkaline Phosphatase Lactate Dehydrogenase C-Reactive Protein Total Protein Albumin 2.4 L Arterial Blood Glucose Urine WBC (Auto) Coronavirus (PCR) SARS-CoV-2 IgG Ab 02/24/20 02/24/20 02/25/20 13:11 17:46 00:25 WBC MCV MCH Seg Neuts % (Manual) Lymphocytes % (Manual) Nucleated RBC % Seg Neutrophils # Man Lymphocytes # (Manual) PT INR D-Dimer ABG pH POC ABG pCO2 POC ABG pO2 ABG pO2 ABG HCO3 ABG O2 Saturation ABG Base Excess ABG Hemoglobin ABG Sodium ABG Potassium ABG Chloride ABG Glucose Oxyhemoglobin Sodium Potassium Chloride Carbon Dioxide BUN Glucose POC Glucose 310 H 300 H Lactic Acid 2.40 H* Calcium Ferritin Direct Bilirubin AST ALT Alkaline Phosphatase Lactate Dehydrogenase C-Reactive Protein Total Protein Albumin Arterial Blood Glucose Urine WBC (Auto) Coronavirus (PCR) SARS-CoV-2 IgG Ab 02/25/20 02/25/20 02/25/20 04:00 04:42 04:42 WBC MCV MCH Seg Neuts % (Manual) Lymphocytes % (Manual) Nucleated RBC % Seg Neutrophils # Man Lymphocytes # (Manual) PT INR D-Dimer ABG pH POC ABG pCO2 POC ABG pO2 ABG pO2 77.9 L ABG HCO3 26.7 H ABG O2 Saturation ABG Base Excess ABG Hemoglobin 12.4 L ABG Sodium ABG Potassium ABG Chloride ABG Glucose Oxyhemoglobin 94.5 L Sodium 149 H Potassium Chloride 113.2 H Carbon Dioxide BUN 45 H Glucose 416 H POC Glucose Lactic Acid 2.20 H* Calcium Ferritin Direct Bilirubin 0.3 H AST 60 H ALT 174 H Alkaline Phosphatase Lactate Dehydrogenase C-Reactive Protein Total Protein 5.7 L Albumin 2.2 L Arterial Blood Glucose Urine WBC (Auto) Coronavirus (PCR) SARS-CoV-2 IgG Ab 02/25/20 02/25/20 02/25/20 05:24 11:32 18:23 WBC MCV MCH Seg Neuts % (Manual) Lymphocytes % (Manual) Nucleated RBC % Seg Neutrophils # Man Lymphocytes # (Manual) PT INR D-Dimer ABG pH POC ABG pCO2 POC ABG pO2 ABG pO2 ABG HCO3 ABG O2 Saturation ABG Base Excess ABG Hemoglobin ABG Sodium ABG Potassium ABG Chloride ABG Glucose Oxyhemoglobin Sodium Potassium Chloride Carbon Dioxide BUN Glucose POC Glucose 378 H 361 H 383 H Lactic Acid Calcium Ferritin Direct Bilirubin AST ALT Alkaline Phosphatase Lactate Dehydrogenase C-Reactive Protein Total Protein Albumin Arterial Blood Glucose Urine WBC (Auto) Coronavirus (PCR) SARS-CoV-2 IgG Ab 02/25/20 02/26/20 02/26/20 23:11 01:59 01:59 WBC MCV MCH Seg Neuts % (Manual) Lymphocytes % (Manual) Nucleated RBC % Seg Neutrophils # Man Lymphocytes # (Manual) PT INR D-Dimer 2743.07 H ABG pH POC ABG pCO2 POC ABG pO2 ABG pO2 ABG HCO3 ABG O2 Saturation ABG Base Excess ABG Hemoglobin ABG Sodium ABG Potassium ABG Chloride ABG Glucose Oxyhemoglobin Sodium Potassium Chloride Carbon Dioxide BUN Glucose POC Glucose 356 H Lactic Acid 2.20 H* Calcium Ferritin Direct Bilirubin AST ALT Alkaline Phosphatase Lactate Dehydrogenase C-Reactive Protein Total Protein Albumin Arterial Blood Glucose Urine WBC (Auto) Coronavirus (PCR) SARS-CoV-2 IgG Ab 02/26/20 02/26/20 02/26/20 01:59 01:59 01:59 WBC MCV MCH Seg Neuts % (Manual) Lymphocytes % (Manual) Nucleated RBC % Seg Neutrophils # Man Lymphocytes # (Manual) PT INR D-Dimer ABG pH POC ABG pCO2 POC ABG pO2 ABG pO2 ABG HCO3 ABG O2 Saturation ABG Base Excess ABG Hemoglobin ABG Sodium ABG Potassium ABG Chloride ABG Glucose Oxyhemoglobin Sodium Potassium Chloride Carbon Dioxide BUN Glucose POC Glucose Lactic Acid Calcium Ferritin 1823.0 H Direct Bilirubin AST ALT Alkaline Phosphatase Lactate Dehydrogenase 589 H C-Reactive Protein 10.40 H Total Protein Albumin Arterial Blood Glucose Urine WBC (Auto) Coronavirus (PCR) SARS-CoV-2 IgG Ab Reactive A 02/26/20 02/26/20 02/26/20 04:07 05:14 12:26 WBC MCV MCH Seg Neuts % (Manual) Lymphocytes % (Manual) Nucleated RBC % Seg Neutrophils # Man Lymphocytes # (Manual) PT INR D-Dimer ABG pH 7.466 H POC ABG pCO2 POC ABG pO2 ABG pO2 68.3 L ABG HCO3 26.3 H ABG O2 Saturation ABG Base Excess ABG Hemoglobin 8.6 L ABG Sodium ABG Potassium ABG Chloride ABG Glucose Oxyhemoglobin 93.7 L Sodium Potassium Chloride Carbon Dioxide BUN Glucose POC Glucose 321 H 398 H Lactic Acid Calcium Ferritin Direct Bilirubin AST ALT Alkaline Phosphatase Lactate Dehydrogenase C-Reactive Protein Total Protein Albumin Arterial Blood Glucose Urine WBC (Auto) Coronavirus (PCR) SARS-CoV-2 IgG Ab 02/26/20 02/26/20 02/27/20 17:48 23:37 03:51 WBC MCV MCH Seg Neuts % (Manual) Lymphocytes % (Manual) Nucleated RBC % Seg Neutrophils # Man Lymphocytes # (Manual) PT INR D-Dimer ABG pH 7.527 H POC ABG pCO2 POC ABG pO2 67.3 L ABG pO2 ABG HCO3 ABG O2 Saturation ABG Base Excess ABG Hemoglobin ABG Sodium 152.0 H ABG Potassium ABG Chloride 118.0 H ABG Glucose 263 H Oxyhemoglobin Sodium Potassium Chloride Carbon Dioxide BUN Glucose POC Glucose 335 H 308 H Lactic Acid Calcium Ferritin Direct Bilirubin AST ALT Alkaline Phosphatase Lactate Dehydrogenase C-Reactive Protein Total Protein Albumin Arterial Blood Glucose 263 H Urine WBC (Auto) Coronavirus (PCR) SARS-CoV-2 IgG Ab 02/27/20 02/27/20 02/27/20 05:28 07:17 07:17 WBC 18.5 H MCV 97 H MCH Seg Neuts % (Manual) Lymphocytes % (Manual) Nucleated RBC % Seg Neutrophils # Man Lymphocytes # (Manual) PT INR D-Dimer ABG pH POC ABG pCO2 POC ABG pO2 ABG pO2 ABG HCO3 ABG O2 Saturation ABG Base Excess ABG Hemoglobin ABG Sodium ABG Potassium ABG Chloride ABG Glucose Oxyhemoglobin Sodium 154 H Potassium Chloride 119.9 H Carbon Dioxide BUN 49 H Glucose 227 H POC Glucose 188 H Lactic Acid Calcium Ferritin Direct Bilirubin AST ALT Alkaline Phosphatase Lactate Dehydrogenase C-Reactive Protein Total Protein Albumin Arterial Blood Glucose Urine WBC (Auto) Coronavirus (PCR) SARS-CoV-2 IgG Ab 02/27/20 11:50 WBC MCV MCH Seg Neuts % (Manual) Lymphocytes % (Manual) Nucleated RBC % Seg Neutrophils # Man Lymphocytes # (Manual) PT INR D-Dimer ABG pH POC ABG pCO2 POC ABG pO2 ABG pO2 ABG HCO3 ABG O2 Saturation ABG Base Excess ABG Hemoglobin ABG Sodium ABG Potassium ABG Chloride ABG Glucose Oxyhemoglobin Sodium Potassium Chloride Carbon Dioxide BUN Glucose POC Glucose 202 H Lactic Acid Calcium Ferritin Direct Bilirubin AST ALT Alkaline Phosphatase Lactate Dehydrogenase C-Reactive Protein Total Protein Albumin Arterial Blood Glucose Urine WBC (Auto) Coronavirus (PCR) SARS-CoV-2 IgG Ab Chest x-ray: image reviewed (increased sub-q emphysema; no obvious PTX or pneumo-mediastinum) Allied health notes reviewed: nursing
[2020-02-27] MEDS ORDERED: INSULIN GLARGINE 100 UNITS/ML SUB-Q ONE (14:00)
--- NOTE | 2020-02-27 16:34 | Progress Note ---
Subjective Date of service: 02/27/20 Principal diagnosis: Ac hypoxemic resp failure; Severe COVID infection; Severe Sepsis; PNA; DVT Interval history: 59-year-old male with known history of hypertension presenting to the emergency room via EMS today complaining of cough, shortness of breath and difficulty breathing. Symptoms have been ongoing for about a week. He was diagnosed with COVID-19 about 4 days ago. He has been having a fever, chills generalized fatigue and dry cough over the past few days. Symptoms seems to be getting worse. He gets more short of breath on minimal exertion. Patient is initial oxygen saturation on room air was about 50% when seen by EMS and he was placed on nonrebreather with improvement of oxygen saturation to about 88%. Patient was subsequently placed on BiPAP upon arrival in the emergency room. Work-up in the emergency room today reveals bilateral pneumonia. During the course of his stay in the emergency room patient's condition continu ed to deteriorate and was subsequently intubated in the ER. Patient admitted with pneumonia possibly secondary to COVID-19 and will be admitted into the intensive care unit. 02/22: Remains on full ventilatory support, Start Insulin secondary to elevated Blood glucose, Check Hgb A1c. Wean pressors as tolerated. Will attempt to reach family. Rule out PE when stable although note patient is already on full dose Lovenox due to noted lower ext DVT. Continue dexamethasone and Remdesivir, Prone if possible. Good urine output noted, Monitor LFTs 02/23: Repeat chest x-ray. Unsure why patient is still running fevers this could be secondary to viral pneumonia versus superimposed bacterial pneumonia. Will check cultures check lactic acid antibiotics per ID. Wean from vent as tolerated. Prone if possible. Monitor electrolytes and H&H. 02/24: Patient clinically improving although reamins on full ventilatory support. No new fever today. Continue to wean from vent as tolerated 02/25 patient is intubated, has been fever free for 24 hours. Pulmonary and ID notes reviewed. Lab results reviewed. 02/26 remains inubated on Fio2 40%. ABG results reviewed. lab and inflammatory markers reviewed. pulmonary and ID notes reviewed sepsis with septic shock ID note reviewed completeted IV Abx course Acute Hypoxic Respiratory failure secondary to covid 19 pneumonia Patient is vent dependent/ sedated with propofol and fentanyl ABG reviewed Prognosis guarded Continue management per pulmonary recommendations Wean as tolerated Proning as tolerated Pneumonia secondary to COVID19 ID note reviewed Inflammatory markers reviewed D-dimer severely elevated but is trending down Continue Decadron Completed remdesivir Not a candidate for convalescent plasma Proning as possible Hyponatremia Resolved Patient is now hypernatremic suggestive of volume depletion monitor electrolytes not on diuretic Steroid Induced Hyperglycemia Continue insulin sliding scale coverage Left leg DVT Continue therapeutic Lovenox subcu every 12 hours # Objective - Constitutional Vitals: Vital Signs - 12hr 02/27/20 02/27/20 02/27/20 04:45 05:00 05:15 Temperature Pulse Rate 90 90 92 H Pulse Rate [ From Monitor] Respiratory 30 H 30 H 27 H Rate Blood Pressure 105/73 102/75 113/83 O2 Sat by Pulse 100 98 Oximetry 02/27/20 02/27/20 02/27/20 05:30 05:45 06:00 Temperature Pulse Rate 94 H 94 H 92 H Pulse Rate [ From Monitor] Respiratory 30 H 30 H 31 H Rate Blood Pressure 112/76 107/75 101/68 O2 Sat by Pulse 100 100 98 Oximetry 02/27/20 02/27/20 02/27/20 06:15 06:30 06:45 Temperature Pulse Rate 95 H 97 H 102 H Pulse Rate [ From Monitor] Respiratory 30 H 30 H 30 H Rate Blood Pressure 104/71 100/67 104/67 O2 Sat by Pulse 100 100 100 Oximetry 02/27/20 02/27/20 02/27/20 07:00 07:15 07:30 Temperature Pulse Rate 103 H 110 H 109 H Pulse Rate [ From Monitor] Respiratory 30 H 31 H 30 H Rate Blood Pressure 109/70 105/69 108/74 O2 Sat by Pulse 100 99 99 Oximetry 02/27/20 02/27/20 02/27/20 07:45 08:00 08:09 Temperature 98.1 F Pulse Rate 111 H 115 H 117 H Pulse Rate [ 115 H From Monitor] Respiratory 30 H 30 H Rate Blood Pressure 111/73 114/76 114/76 O2 Sat by Pulse 100 100 100 Oximetry 02/27/20 02/27/20 02/27/20 08:15 08:30 08:45 Temperature Pulse Rate 120 H 130 H 133 H Pulse Rate [ From Monitor] Respiratory 20 19 18 Rate Blood Pressure 111/77 124/82 131/86 O2 Sat by Pulse 100 99 99 Oximetry 1202/27/20 02/27/20 09:00 09:15 09:30 Temperature Pulse Rate 137 H 135 H 133 H Pulse Rate [ From Monitor] Respiratory 23 18 22 Rate Blood Pressure 134/88 125/85 122/77 O2 Sat by Pulse 98 99 98 Oximetry 02/27/20 02/27/20 02/27/20 09:45 10:00 10:15 Temperature Pulse Rate 128 H 128 H 123 H Pulse Rate [ From Monitor] Respiratory 20 18 19 Rate Blood Pressure 113/84 115/80 107/76 O2 Sat by Pulse 100 99 99 Oximetry 02/27/20 02/27/20 02/27/20 10:30 10:45 11:00 Temperature Pulse Rate 118 H 116 H 104 H Pulse Rate [ From Monitor] Respiratory 20 19 18 Rate Blood Pressure 113/76 107/75 115/77 O2 Sat by Pulse 100 100 100 Oximetry 02/27/20 02/27/20 02/27/20 11:15 11:30 11:45 Temperature Pulse Rate 109 H 106 H 109 H Pulse Rate [ From Monitor] Respiratory 21 19 21 Rate Blood Pressure 113/77 113/78 113/76 O2 Sat by Pulse 100 100 100 Oximetry 02/27/20 02/27/20 02/27/20 12:00 12:15 12:22 Temperature 99.4 F Pulse Rate 105 H 104 H 107 H Pulse Rate [ 115 H From Monitor] Respiratory 19 20 Rate Blood Pressure 105/79 114/77 114/77 O2 Sat by Pulse 100 100 100 Oximetry 02/27/20 02/27/20 02/27/20 12:30 12:45 13:00 Temperature Pulse Rate 109 H 104 H 99 H Pulse Rate [ From Monitor] Respiratory 19 20 17 Rate Blood Pressure 115/76 107/73 115/76 O2 Sat by Pulse 100 100 100 Oximetry 02/27/20 02/27/20 02/27/20 13:15 13:20 13:30 Temperature Pulse Rate 100 H 95 H 98 H Pulse Rate [ From Monitor] Respiratory 18 20 Rate Blood Pressure 115/72 115/72 102/72 O2 Sat by Pulse 100 100 100 Oximetry 02/27/20 02/27/20 02/27/20 13:45 14:00 14:15 Temperature Pulse Rate 95 H 101 H 98 H Pulse Rate [ From Monitor] Respiratory 19 21 19 Rate Blood Pressure 116/76 108/71 112/69 O2 Sat by Pulse 100 100 100 Oximetry General appearance: Present: no acute distress - EENT Eyes: PERRL - Neck Neck: supple - Respiratory Respiratory: bilateral: CTA, negative: rhonchi, wheezing - Breasts Breasts: deferred - Cardiovascular Rhythm: regular Heart Sounds: Present: S1 & S2 Extremities: No edema - Gastrointestinal General gastrointestinal: Present: soft, non-tender Rectal Exam: deferred - Genitourinary Male genitourinary: deferred - Integumentary Integumentary: clear - Neurologic Neurologic: other (unable to evaluate) - Labs CBC & Chem 7: 02/27/20 07:17 02/27/20 07:17 Labs: Abnormal lab results 02/26/20 02/26/20 02/27/20 Range/Units 17:48 23:37 03:51 WBC (4.5-11.0) K/mm3 MCV (84-94) fl ABG pH 7.527 H (7.320-7.450) POC ABG pO2 67.3 L (83-108) mmHg ABG Sodium 152.0 H (136.0-145.0) mmol/L ABG Chloride 118.0 H (98-107) mmol/L ABG Glucose 263 H (65-95) mg/dL Sodium (137-145) mmol/L Chloride (98-107) mmol/L BUN (9-20) mg/dL Glucose (75-100) mg/dL POC Glucose 335 H 308 H (70-105) mg/dL Arterial Blood Glucose 263 H (65-95) mg/dL 02/27/20 02/27/20 02/27/20 Range/Units 05:28 07:17 07:17 WBC 18.5 H (4.5-11.0) K/mm3 MCV 97 H (84-94) fl ABG pH (7.320-7.450) POC ABG pO2 (83-108) mmHg ABG Sodium (136.0-145.0) mmol/L ABG Chloride (98-107) mmol/L ABG Glucose (65-95) mg/dL Sodium 154 H (137-145) mmol/L Chloride 119.9 H (98-107) mmol/L BUN 49 H (9-20) mg/dL Glucose 227 H (75-100) mg/dL POC Glucose 188 H (70-105) mg/dL Arterial Blood Glucose (65-95) mg/dL 02/27/20 Range/Units 11:50 WBC (4.5-11.0) K/mm3 MCV (84-94) fl ABG pH (7.320-7.450) POC ABG pO2 (83-108) mmHg ABG Sodium (136.0-145.0) mmol/L ABG Chloride (98-107) mmol/L ABG Glucose (65-95) mg/dL Sodium (137-145) mmol/L Chloride (98-107) mmol/L BUN (9-20) mg/dL Glucose (75-100) mg/dL POC Glucose 202 H (70-105) mg/dL Arterial Blood Glucose (65-95) mg/dL
[2020-02-27] MEDS: INSULIN GLARGINE 100 UNITS/ML SUB-Q SCH (23:17)
[2020-02-28] MEDS: fentaNYL DRIP Premix 2,000 MCG/100 ML BAG IV SCH ×3 (04:57→20:57)
[2020-02-28] MEDS: PROPOFOL 500 MG/50 ML VIAL IV SCH ×4 (04:58→17:05)
--- NOTE | 2020-02-28 07:23 | XRay Report ---
CHEST 1 VIEW, 02/28/2020 5:01 AM CLINICAL INFORMATION/INDICATION: Pneumothorax COMPARISON: Chest radiograph, 02/27/2020 at 2:32 AM FINDINGS: SUPPORT DEVICES: Endotracheal tube and esophagogastric tube remain in stable position HEART: The cardiac silhouette is normal in size. LUNGS/PLEURA: Diffuse bilateral pulmonary opacities have slightly increased since the previous study. No pneumothorax is visualized. ADDITIONAL FINDINGS: Subcutaneous emphysema overlies the neck. IMPRESSION: 1. Slight interval worsening of bilateral pulmonary opacities. Signer Name: Yeni Tomlinson MD Signed: 02/28/2020 7:18 AM Workstation Name: [id number]
[2020-02-28] MEDS: INSULIN LISPRO 100 UNIT/ML VIAL 3 mL SUB-Q SCH ×3 (08:00→18:04)
--- NOTE | 2020-02-28 08:13 | Progress Note ---
Assessment and Plan Assessment and plan: 59-year-old male with known history of hypertension presenting to the emergency room via EMS today complaining of cough, shortness of breath and difficulty breathing. Symptoms have been ongoing for about a week. He was diagnosed with COVID-19 about 4 days ago. He has been having a fever, chills generalized fatigue and dry cough over the past few days. Symptoms seems to be getting worse. He gets more short of breath on minimal exertion. Patient is initial oxygen saturation on room air was about 50% when seen by EMS and he was placed on nonrebreather with improvement of oxygen saturation to about 88%. Patient was subsequently placed on BiPAP upon arrival in the emergency room. Work-up in the emergency room today reveals bilateral pneumonia. During the course of his stay in the emergency room patient's condition continued to deteriorate and was subsequently intubated in the ER. Patient admitted with pneumonia possibly secondary to COVID-19 and will be admitted into the intensive care unit. 02/22: Remains on full ventilatory support, Start Insulin secondary to elevated Blood glucose, Check Hgb A1c. Wean pressors as tolerated. Will attempt to reach family. Rule out PE when stable although note patient is already on full dose Lovenox due to noted lower ext DVT. Continue dexamethasone and Remdesivir, Prone if possible. Good urine output noted, Monitor LFTs 02/23: Repeat chest x-ray. Unsure why patient is still running fevers this could be secondary to viral pneumonia versus superimposed bacterial pneumonia. Will check cultures check lactic acid antibiotics per ID. Wean from vent as tolerated. Prone if possible. Monitor electrolytes and H&H. 02/24: Patient clinically improving although reamins on full ventilatory support. No new fever today. Continue to wean from vent as tolerated 02/25 patient is intubated, has been fever free for 24 hours. Pulmonary and ID notes reviewed. Lab results reviewed. 02/26 remains inubated on Fio2 40%. ABG results reviewed. lab and inflammatory markers reviewed. pulmonary and ID notes reviewed 02/27: Continue current management will defer proning to monkey trainer. I will also call the daughter and explained his current clinical course. Lantus has been added will adjust for tighter control. Patient continues to require restraints. Remains on FiO2 of 60% with saturation of 96. Prognosis remains guarded remains sedated. We will continue to monitor inflammatory markers at this time. Nurse to document on skin exam. Patients Daughter updated. [place]. Severe sepsis with septic shock Acute Hypoxic Respiratory failure secondary to covid 19 pneumonia Pneumonia secondary to COVID19 Hyponatremia/hypernatremia Steroid Induced Hyperglycemia Lower DVT per venous Doppler Metabolic acidosis Transaminitis with elevated LFT, likely due to COVID 19 Plan Patient placed on empiric IV antibiotics. Will await culture results. Started on Dexamethasone and Remdesivir Started on full dose anticoagulation Continue isolation precautions. We will place consult to infectious disease for evaluation and recommendation. We will monitor chemistry. Patient has received some IV fluid in the emergency room. Possibly secondary to the pneumonia with COVID-19. Patient has been intubated and sedated. We will place consult to monkey trainer for evaluation and recommendation. Prognosis is Guarded DVT/GI PROPHY The high probability of a clinically significant, sudden or life threatening deterioration of the [pulmonary] system(s) required my full and direct attention, intervention and personal management. The aggregate critical care time was [35] minutes. This time is in addition to time spent performing reported procedures but includes the following: [x] Data Review and interpretation [x] Patient assessment and monitoring of vital signs [x] Documentation [x] Medication orders and management History Interval history: Patient seen and examined, remains on full ventilatory support, some fever low- grade fever. Discussed with nursing staff patient still requiring restraints due to agitation but no proning has been done. Hospitalist Physical - Physical exam Narrative exam: General appearance: Present: on full ventilatory support, no restraints - EENT Eyes: Present: PERRL, EOM intact. Absent: scleral icterus ENT: hearing intact, clear oral mucosa, dentition normal - Neck Neck: Present: supple, normal ROM - Respiratory Respiratory effort: On full ventilatory support. Respiratory: bilateral: rales - Cardiovascular Rhythm: regular Heart Sounds: Present: S1 & S2. Absent: gallop, systolic murmur, diastolic murmur, rub - Extremities Extremities: no ischemia, pulses intact, pulses symmetrical, No edema, Full ROM Peripheral Pulses: within normal limits - Abdominal General gastrointestinal: Present: soft, non-tender, non-distended, normal bowel sounds. Absent: mass - Integumentary Integumentary: Present: clear, warm, dry. Absent: rash - Musculoskeletal Musculoskeletal: strength equal bilaterally - Psychiatric Psychiatric: appropriate mood/affect, intact judgment & insight, memory intact, cooperative - Neurologic Neurologic: CNII-XII intact, no focal deficits, moves all extremities - Constitutional Vitals: Temp Pulse Resp BP Pulse Ox 100.4 F H 116 H 21 109/72 94 02/28/20 04:00 02/28/20 08:09 02/28/20 06:00 02/28/20 08:09 02/28/20 08:09 General appearance: Present: no acute distress Results - Labs CBC & Chem 7: 02/27/20 07:17 02/27/20 07:17 Labs: Laboratory Last Values WBC 18.5 K/mm3 (4.5-11.0) H 02/27/20 07:17 RBC 4.34 M/mm3 (3.65-5.03) 02/27/20 07:17 Hgb 13.6 gm/dl (11.8-15.2) 02/27/20 07:17 Hct 41.9 % (35.5-45.6) 02/27/20 07:17 MCV 97 fl (84-94) H 02/27/20 07:17 MCH 31 pg (28-32) 02/27/20 07:17 MCHC 33 % (32-34) 02/27/20 07:17 RDW 15.0 % (13.2-15.2) 02/27/20 07:17 Plt Count 258 K/mm3 (140-440) 02/27/20 07:17 Add Manual Diff Complete 02/22/20 07:40 Total Counted 100 02/22/20 07:40 Seg Neutrophils % [employer] 02/22/20 07:40 Seg Neuts % (Manual) 94.0 % (40.0-70.0) H 02/22/20 07:40 Band Neutrophils % 4.0 % 02/22/20 07:40 Lymphocytes % (Manual) 5.0 % (13.4-35.0) L 02/20/20 19:21 Reactive Lymphs % (Man) 0 % 02/20/20 19:21 Monocytes % (Manual) 1.0 % (0.0-7.3) 02/22/20 07:40 Eosinophils % (Manual) 0 % (0.0-4.3) 02/20/20 19:21 Basophils % (Manual) 0 % (0.0-1.8) 02/20/20 19:21 Metamyelocytes % 1.0 % 02/22/20 07:40 Myelocytes % 0 % 02/20/20 19:21 Promyelocytes % 0 % 02/20/20 19:21 Blast Cells % 0 % 02/20/20 19:21 Nucleated RBC % Not Reportable 02/22/20 07:40 Seg Neutrophils # Man 14.6 K/mm3 (1.8-7.7) H 02/22/20 07:40 Band Neutrophils # 0.6 K/mm3 02/22/20 07:40 Lymphocytes # (Manual) 0.0 K/mm3 (1.2-5.4) L 02/22/20 07:40 Abs React Lymphs (Man) 0.0 K/mm3 02/22/20 07:40 Monocytes # (Manual) 0.2 K/mm3 (0.0-0.8) 02/22/20 07:40 Eosinophils # (Manual) 0.0 K/mm3 (0.0-0.4) 02/22/20 07:40 Basophils # (Manual) 0.0 K/mm3 (0.0-0.1) 02/22/20 07:40 Metamyelocytes # 0.2 K/mm3 02/22/20 07:40 Myelocytes # 0.0 K/mm3 02/22/20 07:40 Promyelocytes # 0.0 K/mm3 02/22/20 07:40 Blast Cells # 0.0 K/mm3 02/22/20 07:40 WBC Morphology Not Reportable 02/22/20 07:40 Hypersegmented Neuts Not Reportable 02/22/20 07:40 Hyposegmented Neuts Not Reportable 02/22/20 07:40 Hypogranular Neuts Not Reportable 02/22/20 07:40 Smudge Cells Not Reportable 02/22/20 07:40 Toxic Granulation 2+ 02/22/20 07:40 Toxic Vacuolation Not Reportable 02/22/20 07:40 Dohle Bodies Not Reportable 02/22/20 07:40 Pelger-Huet Anomaly Not Reportable 02/22/20 07:40 Noah Rods Not Reportable 02/22/20 07:40 Platelet Estimate Consistent w auto 02/22/20 07:40 Clumped Platelets Not Reportable 02/22/20 07:40 Plt Clumps, EDTA Not Reportable 02/22/20 07:40 Large Platelets Not Reportable 02/22/20 07:40 Giant Platelets Not Reportable 02/22/20 07:40 Platelet Satelliting Not Reportable 02/22/20 07:40 Plt Morphology Comment Not Reportable 02/22/20 07:40 RBC Morphology Not Reportable 02/22/20 07:40 Dimorphic RBCs Not Reportable 02/22/20 07:40 Polychromasia Not Reportable 02/22/20 07:40 Hypochromasia Not Reportable 02/22/20 07:40 Poikilocytosis Not Reportable 02/22/20 07:40 Anisocytosis 1+ 02/22/20 07:40 Microcytosis Not Reportable 02/22/20 07:40 Macrocytosis Not Reportable 02/22/20 07:40 Spherocytes Not Reportable 02/22/20 07:40 Pappenheimer Bodies Not Reportable 02/22/20 07:40 Sickle Cells Not Reportable 02/22/20 07:40 Target Cells Not Reportable 02/22/20 07:40 Tear Drop Cells Not Reportable 02/22/20 07:40 Ovalocytes Not Reportable 02/22/20 07:40 Helmet Cells Not Reportable 02/22/20 07:40 [place] Bodies Not Reportable 02/22/20 07:40 [place] Rings Not Reportable 02/22/20 07:40 Maryam Cells Not Reportable 02/22/20 07:40 Bite Cells Not Reportable 02/22/20 07:40 Crenated Cell Not Reportable 02/22/20 07:40 Elliptocytes Not Reportable 02/22/20 07:40 Acanthocytes (Spur) Not Reportable 02/22/20 07:40 Rouleaux Not Reportable 02/22/20 07:40 Hemoglobin C Crystals Not Reportable 02/22/20 07:40 Schistocytes Not Reportable 02/22/20 07:40 Malaria parasites Not Reportable 02/22/20 07:40 Allan Bodies Not Reportable 02/22/20 07:40 Hem Pathologist Commnt No 02/22/20 07:40 PT 18.8 Sec. (12.2-14.9) H 02/22/20 07:40 INR 1.59 (0.87-1.13) H 02/22/20 07:40 D-Dimer 2743.07 ng/mlDDU (0-234) H 02/26/20 01:59 ABG pH 7.527 (7.320-7.450) H 02/27/20 03:51 POC ABG pCO2 34.2 mmHg (32.0-48.0) 02/27/20 03:51 ABG pCO2 37.2 mm Hg 02/26/20 04:07 POC ABG pO2 67.3 mmHg (83-108) L 02/27/20 03:51 ABG pO2 68.3 mm Hg (80.0-90.0) L 02/26/20 04:07 POC ABG HCO3 27.7 02/27/20 03:51 ABG HCO3 26.3 mmol/L (20.0-26.0) H 02/26/20 04:07 ABG O2 Saturation 95.0 % (95.0-99.0) 02/26/20 04:07 ABG O2 Content 11.3 (0.0-44) 02/26/20 04:07 POC ABG Base Excess 5.2 02/27/20 03:51 ABG Base Excess 2.4 mmol/L (-2.0-3.0) 02/26/20 04:07 ABG Hemoglobin 13.7 (12.0-17.5) 02/27/20 03:51 ABG Carboxyhemoglobin 1.1 % (0.0-5.0) 02/26/20 04:07 ABG Methemoglobin 0.3 % (0.0-1.5) 02/26/20 04:07 ABG Sodium 152.0 mmol/L (136.0-145.0) H 02/27/20 03:51 ABG Potassium 3.8 mmol/L (3.40-4.50) 02/27/20 03:51 ABG Chloride 118.0 mmol/L (98-107) H 02/27/20 03:51 ABG Glucose 263 mg/dL (65-95) H 02/27/20 03:51 Oxyhemoglobin 93.7 % (95.0-99.0) L 02/26/20 04:07 FiO2 40 02/27/20 03:51 Sodium 154 mmol/L (137-145) H 02/27/20 07:17 Potassium 4.0 mmol/L (3.6-5.0) 02/27/20 07:17 Chloride 119.9 mmol/L (98-107) H 02/27/20 07:17 Carbon Dioxide 26 mmol/L (22-30) 02/27/20 07:17 Anion Gap 12 mmol/L 02/27/20 07:17 BUN 49 mg/dL (9-20) H 02/27/20 07:17 Creatinine 1.0 mg/dL (0.8-1.3) 02/27/20 07:17 Estimated GFR > 60 ml/min 02/27/20 07:17 BUN/Creatinine Ratio 49 % 02/27/20 07:17 Glucose 227 mg/dL (75-100) H 02/27/20 07:17 POC Glucose 200 mg/dL (70-105) H 02/28/20 05:29 Lactic Acid 1.70 mmol/L (0.7-2.0) 02/26/20 06:21 Calcium 9.3 mg/dL (8.4-10.2) 02/27/20 07:17 Ferritin 1823.0 ng/mL (30.0-300.0) H 02/26/20 01:59 Total Bilirubin 0.50 mg/dL (0.1-1.2) 02/25/20 04:42 Direct Bilirubin 0.3 mg/dL (0-0.2) H 02/25/20 04:42 Indirect Bilirubin 0.2 mg/dL 02/25/20 04:42 AST 60 units/L (5-40) H 02/25/20 04:42 ALT 174 units/L (7-56) H 02/25/20 04:42 Alkaline Phosphatase 107 units/L (35-129) 02/25/20 04:42 Lactate Dehydrogenase 589 units/L (91-180) H 02/26/20 01:59 C-Reactive Protein 10.40 mg/dL (0.00-1.30) H 02/26/20 01:59 Total Protein 5.7 g/dL (6.3-8.2) L 02/25/20 04:42 Albumin 2.2 g/dL (3.9-5) L 02/25/20 04:42 Albumin/Globulin Ratio 0.6 % 02/25/20 04:42 Procalcitonin 0.42 ng/mL (<0.15) 02/26/20 01:59 Arterial Blood Glucose 263 mg/dL (65-95) H 02/27/20 03:51 Arterial Blood Ionized Calcium 5.1 mg/dL (4.6-5.3) 02/27/20 03:51 Urine Color [place] (Yellow) 02/20/20 23:00 Urine Turbidity Clear (Clear) 02/20/20 23:00 Urine pH 5.0 (5.0-7.0) 02/20/20 23:00 Ur Specific [place] 1.030 (1.003-1.030) 02/20/20 23:00 Urine Protein >500 mg/dL (Negative) 02/20/20 23:00 Urine Glucose (UA) Neg mg/dL (Negative) 02/20/20 23:00 Urine Ketones 20 mg/dL (Negative) 02/20/20 23:00 Urine Blood Neg (Negative) 02/20/20 23:00 Urine Nitrite Neg (Negative) 02/20/20 23:00 Urine Bilirubin Neg (Negative) 02/20/20 23:00 Urine Urobilinogen < 2.0 mg/dL (<2.0) 02/20/20 23:00 Ur Leukocyte Esterase Neg (Negative) 02/20/20 23:00 Urine WBC (Auto) 9.0 /HPF (0.0-6.0) H 02/20/20 23:00 Urine RBC (Auto) 7.0 /HPF (0.0-6.0) 02/20/20 23:00 U Epithel Cells (Auto) < 1.0 /HPF (0-13.0) 02/20/20 23:00 Urine Mucus 3+ /HPF 02/20/20 23:00 Coronavirus (PCR) Positive (Negative) A 02/21/20 08:59 SARS-CoV-2 IgG Ab Reactive (NonReactive) A 02/26/20 01:59 Microbiology: Microbiology 02/26/20 06:21 Peripheral/Venous Blood Culture - Preliminary NO GROWTH AFTER 48 HOURS 02/26/20 01:59 Peripheral/Venous Blood Culture - Preliminary NO GROWTH AFTER 48 HOURS 02/24/20 13:11 Peripheral/Venous Blood Culture - Preliminary NO GROWTH AFTER 72 HOURS 02/24/20 13:11 Peripheral/Venous Blood Culture - Preliminary NO GROWTH AFTER 72 HOURS [place]borne/IV: Voiding Method Indwelling Catheter IV Catheter Type [Right INT / Saline Lock Forearm] IV Catheter Type [Left Forearm INT / Saline Lock ] IV Catheter Type [Right Triple Lumen Cath Femoral] IV Catheter Type [Left Peripheral IV Antecubital] Active Medications - Current Medications Current Medications: Generic Name Dose Route Start Last Admin Trade Name Freq PRN Reason Stop Dose Admin Acetaminophen 650 mg 02/21/20 00:28 02/24/20 21:48 Tylenol PO 650 mg Q4H PRN Administration Pain MILD(1-3)/Fever >100.5/HERNANDEZ Lipase/Protease/Amylase 1 each 02/22/20 16:08 Lipase 10,500/Protease 25,000/Amylase 43,750 (Units) Dr Cap FEEDTUBE PRN PRN For Clogged Feeding Tube Dexamethasone 6 mg 02/26/20 10:00 02/27/20 09:22 Dexamethasone 4 Mg/Ml Vial IV 03/01/20 10:01 6 mg Q24HR DILIP Administration Dextrose 50 ml 02/23/20 08:41 Dextrose 50% In Water (25gm) 50 Ml Syringe IV Q30MIN PRN Hypoglycemia Protocol Enoxaparin Sodium 80 mg 02/22/20 10:00 02/27/20 23:18 Enoxaparin 80 Mg/0.8 Ml Inj SUB-Q 80 mg Q12HR DILIP Administration Famotidine 20 mg 02/23/20 10:00 02/27/20 23:19 Famotidine 20 Mg Tab PO 20 mg BID DILIP Administration Fentanyl 50 mcg 02/20/20 22:04 Sublimaze IV Q10MIN PRN ANALGESIA Hydrophilic Ointment 1 applic 02/20/20 22:04 02/21/20 16:00 Vaseline Lip Therapy TP 1 applic Q2HR PRN Administration Dry Lips Fentanyl Citrate 2,000 mcg in 100 mls @ 3.856 mls/hr 02/20/20 23:00 02/28/20 04:57 Fentanyl Drip Premix IV 3 mcg/kg/hr TITR DILIP 11.567 mls/hr Administration Protocol 1 MCG/KG/HR Propofol 500 mg in 50 mls @ 2.313 mls/hr 02/20/20 23:45 02/28/20 05:57 Propofol IV 10 mcg/kg/min TITR DILIP 4.627 mls/hr Administration Protocol 5 MCG/KG/MIN Norepinephrine 4 mg in 250 mls @ 7.5 mls/hr 02/21/20 01:29 02/22/20 11:30 Levophed Drip 4 Mg/Ns 250 Ml IV Infused TITR DILIP Titration Protocol 2 MCG/MIN Insulin Glargine 30 units 02/25/20 22:00 02/27/20 23:17 Insulin Glargine 100 Units/Ml SUB-Q 30 units QHS DILIP Administration Insulin Human Lispro 0 unit 02/23/20 09:00 02/27/20 23:55 Insulin Lispro 100 Unit/Ml Vial 3 Ml SUB-Q 4 unit Q6HR DILIP Administration Protocol Morphine Sulfate 2 mg 02/21/20 00:28 Morphine IV Q4H PRN Pain, Moderate (4-6) Multi-Ingred Cream/Lotion/Oil/Oint 1 applic 02/20/20 22:04 Artificial Tears Ophth Oint OU Q4HR PRN Dry Eye(s) Ondansetron HCl 4 mg 02/21/20 00:28 Zofran IV Q8H PRN Nausea And Vomiting Simple Syrup 15 ml 02/22/20 16:08 Simple Syrup 15 Ml FEEDTUBE PRN PRN Hypoglycemia Simple Syrup 30 ml 02/22/20 16:08 Simple Syrup 15 Ml FEEDTUBE PRN PRN Hypoglycemia Sodium Bicarbonate 325 mg 02/22/20 16:08 Sodium Bicarbonate 325 Mg Tab FEEDTUBE PRN PRN For Clogged Feeding Tube Sodium Chloride 10 ml 02/21/20 10:00 02/27/20 23:22 Sodium Chloride Flush Syringe 10 Ml IV 10 ml BID DILIP Administration Sodium Chloride 10 ml 02/21/20 00:28 Sodium Chloride Flush Syringe 10 Ml IV PRN PRN LINE FLUSH Nutrition/Malnutrition Assess - Dietary Evaluation Nutrition/Malnutrition Findings: Nutrition Notes Start: 02/22/20 15:59 Freq: Status: Active Protocol: Document 02/27/20 12:07 AB (Rec: 02/27/20 12:15 AB [id number]) Co-Sign 02/27/20 12:07 LM Nutrition Notes Initial or Follow up Reassessment Current Diagnosis Sepsis,Hypertension Other Pertinent Diagnosis COVID(+), Pneumonia, Acute Respiratory Failure Current Diet Nepro 1.8 at 45 ml/hr (goal rate) Labs/Tests Na 154 BUN 49 BG 227 Pertinent Medications Reviewed Height 5 ft 4 in Weight 85.5 kg [place] Body Weight (kg) 59.09 BMI 32.3 Weight change and time frame Unsure if accurate wt Weight Status Obese Subjective/Other Information F/U for TF rate/tolerance and wt. Communications Project Manager observed TF running at goal rate. Percent of energy/protein needs met: 100%/95% Burn Absent Trauma Absent GI Symptoms None Current % PO Negligible Minimum of two criteria No physical signs of malnutrition #1 Nutrition Diagnosis Inadequate oral intake Diagnosis Progress(for reassessment Continues documentation) Is patient on ventilator? Yes Is Patient Ambulatory and/or Out of Bed No REE-([place]-confined to bed) 1901.844 Kcal/Kg value to use for calculation 21 Approximate Energy Requirements Using 1796 kcal/Kg Calculation Used for Recommendations Kcal/kg Additional Notes Pro: 92-154 g (1.2-2 g/kg) Fluid: 1 ml/kcal Nutrition Intervention Change Diet Order: Continue TF Nutrition Support: Nepro 1.8 at 45 ml/hr Flush 300 ml q4h for hypernatremia. Once hypernatremia resolved, flush 200 ml q4h. Kcal 1,944 Protein (gm) 87 Fluid (mL) 785 Goal #1 TF tolerance Goal #2 Meet at least 80% of protein and energy needs via TF. Anticipated Discharge Needs: Unable to determine at this time Follow-Up By: 02/29/20 Additional Comments F/U for TF tolerance, wt changes
[2020-02-28] MEDS ORDERED: FUROSEMIDE 40 MG/4 ML INJ IV ONE ×2 (09:00→13:00)
[2020-02-28] MEDS ORDERED: INSULIN GLARGINE 100 UNITS/ML SUB-Q ONE (10:00)
[2020-02-28] MEDS: dexAMETHasone 4 MG/ML VIAL IV SCH (11:07)
[2020-02-28] MEDS: ENOXAPARIN 80 MG/0.8 ML INJ SUB-Q SCH ×2 (11:07→20:59)
[2020-02-28] MEDS: FAMOTIDINE 20 MG TAB PO SCH ×2 (11:08→20:59)
--- NOTE | 2020-02-28 11:17 | Progress Note ---
Assessment and Plan Cultures: Blood culture 02/20/2020 no growth SARS CoV2 PCR positive as an outpatient SARS-CoV-2 PCR positive Urine culture negative Tracheal aspirate 02/22/2020 no growth today Blood culture 02/23/2020 no growth today SARS IgG positive Blood culture 02/26/2020 no growth today Assessment: 59 years old male with history of hypertension admitted on 02/20/2020 due to a week history of dry cough, fever, generalized malaise, shortness of breath. Patient was diagnosed with COVID-19 4 days before admission: #Severe sepsis with septic shock: New fever overnight.. likely due to bilateral pneumonia. Procalcitonin 0.7. #Critical COVID pneumonia: Patient intubated. Very elevated inflammatory markers, ferritin 1263, CRP 32, D-dimer> 10,000. Suspect pulmonary embolism. Elevated procalcitonin. D-dimer improving, ferritin worsening. SARS-CoV-2 IgG positive, patient is not a candidate for Covid convalescent plasma #Acute hypoxemic respiratory failure: Remains intubated, improving FiO2 40, PEEP 16 #Elevated LFTs: from COVID #Very elevated D-dimer: left leg DVT Recommendations: -Repeat procalcitonin -If fever continues with repeat blood cultures, tracheal aspirate, and start Zosyn -Continue full dose steroids - on lovenox for DVT -Continue dexamethasone 6 mg IV/PO BID for 5 days then 6 mg daily for 5 days -day 8 of 10 -Completed remdesivir -Completed cefepime 5 days -Monitor inflammatory markers - ferritin, Ddimer, CRP, LDH -Prone positioning as possible -Obtain MRSA culture -pending, reordered High risk mortality Will follow Venita Tran MD Infectious Diseases Finish Photographer [facility] M [phone] O [phone] Subjective Principal diagnosis: Ac hypoxemic resp failure; Severe COVID infection; Severe Sepsis; PNA; DVT Objective - Constitutional Vitals: Vital Signs Temp Pulse Resp BP Pulse Ox 100.4 F H 116 H 21 109/72 94 02/28/20 04:00 02/28/20 08:09 02/28/20 06:00 02/28/20 08:09 02/28/20 08:09 Temperature -Last 24 Hours Temperature 100.4 F Temperature 99.9 F Temperature 100.8 F Temperature 100.2 F Temperature 99.4 F Temperature 99.4 F - Labs CBC & Chem 7: 02/27/20 07:17 02/27/20 07:17 Labs: Abnormal lab results 02/27/20 02/27/20 02/27/20 Range/Units 11:50 17:44 23:40 POC ABG pO2 (83-108) mmHg ABG Oxyhemoglobin (94-98) ABG Sodium (136.0-145.0) mmol/L ABG Chloride (98-107) mmol/L ABG Glucose (65-95) mg/dL POC Glucose 202 H 291 H 247 H (70-105) mg/dL Arterial Blood Glucose (65-95) mg/dL 02/28/20 02/28/20 02/28/20 Range/Units 04:33 04:47 05:29 POC ABG pO2 49.8 L 44.3 L (83-108) mmHg ABG Oxyhemoglobin 85.8 L 80.2 L (94-98) ABG Sodium 149.1 H 148.5 H (136.0-145.0) mmol/L ABG Chloride 114.0 H 114.0 H (98-107) mmol/L ABG Glucose 259 H 258 H (65-95) mg/dL POC Glucose 200 H (70-105) mg/dL Arterial Blood Glucose 259 H 258 H (65-95) mg/dL
[2020-02-28 11:30] LABS: BUN/Creatinine Ratio 42; Blood Urea Nitrogen 50 mg/dL (9-20); Calcium 8.8 mg/dL (8.4-10.2); Hemolysis Index 2
[2020-02-28] MEDS: ACETAMINOPHEN 325 MG TAB PO PRN (12:11)
--- NOTE | 2020-02-28 13:04 | Progress Note ---
Assessment and Plan Acute hypoxemic respiratory failure due to COVID-19 Severe COVID infection-Critical COVID Severe Sepsis Bilateral pneumonia Elevated Transaminases Lower extremity DVT - reduce peep to 12 cm H2O (wean quickly as tolerated) - continue daily CXR's - wean further for target O2 sats > 92% - increased free water to 300 mls q4h - increase Lantus by 5 units re: Hypreglycemia - no new issues otherwise, continue care as below; - continue full MVS and hyperventilate in short term while allowing permissive hypercapnia - wean vasopressor support for MAP>65 - daily SAT and SBT assessment as tolerated - Prone positioning as tolerated and indicated - permissive hypercapnia - VAP bundle addressed - continue lung protective strategies - continue bronchodilators with pulmonary hygiene per RT - wean per pulmonary driven protocols otherwise - continue accuchecks with glycemic control per SSI (While critically ill target blood glucose of 140-180 mg/dL; avoid hypoglycemia) - sedation prn for target RASS 0 to -1 - avoid nephrotoxins, renally dose all medications - continue to avoid benzodiazepine's, reduce the possibility of delirium - Broad spectrum antibiotics (Cefepime); de-escalate per ID recommendations - prn analgesia per CPOT score - Maintenance of sleep-wake cycle, avoid delirium - continue enteral nutritional support at goal rate as tolerated - G.I. & VTE prophylaxis - PT/OT/ROM exercises - continue mobility protocols for pressure ulcer prophylaxis - Monitor hemodynamics closely - continue other care per attending / other consultants COVID SPECIFIC INTERVENTIONS - s/p Remdesivir - Dexamethasone 6mg IV daily - Monitor inflammatory markers per facility protocol - ferritin, Ddimer, CRP, Inflammatory markers, ferritin 1263, CRP 32, D-dimer> 10,000 - VTE prophylaxis-therapeutic anticoagulation per system Protocol based on d- dimer and positive lower extremity DVT - Continue contact and airborne isolation - discharge planning ongoing concurrently .... Re-evaluate in am & prn CONDITION: CRITICAL PROGNOSIS: GUARDED CODE STATUS: FULL CODE The high probability of a clinically significant, sudden or life-threatening deterioration of the [respiratory, cardiovascular & neurologic] system(s) required my full and direct attention, intervention and personal management. The aggregate critical care time was [33] minutes without overlap. Time includes spent on; [x] Data Review and interpretation [x] Patient assessment and monitoring of vital signs [x] Documentation [x] Medication orders and management Subjective Date of service: 02/28/20 Principal diagnosis: Ac hypoxemic resp failure; Severe COVID infection; Severe Sepsis; PNA; DVT Interval history: Patient is seen today for: Acute hypoxemic respiratory failure; Severe COVID infection; Severe Sepsis; Bilateral pneumonia; Elevated Transaminases; Lower extremity DVT Seen and examined at bedside; 24hour events reviewed; nursing and respiratory care staff consulted; no adverse overnight events reported to me; resting peacefully in bed; remains on MVS; Objective Vital Signs - 12hr 02/28/20 02/28/20 02/28/20 01:15 01:30 01:45 Temperature Pulse Rate 106 H 104 H 101 H Pulse Rate [ From Monitor] Respiratory 20 16 18 Rate Blood Pressure 118/71 118/70 111/71 O2 Sat by Pulse 93 93 91 Oximetry 02/28/20 02/28/20 02/28/20 02:00 02:15 02:30 Temperature Pulse Rate 104 H 102 H 103 H Pulse Rate [ From Monitor] Respiratory 22 21 19 Rate Blood Pressure 113/64 104/69 106/67 O2 Sat by Pulse 92 94 94 Oximetry 02/28/20 02/28/20 02/28/20 02:45 03:00 03:15 Temperature Pulse Rate 101 H 102 H 103 H Pulse Rate [ From Monitor] Respiratory 19 19 17 Rate Blood Pressure 105/70 111/68 108/68 O2 Sat by Pulse 91 91 93 Oximetry 02/28/20 02/28/20 02/28/20 03:30 03:44 03:45 Temperature Pulse Rate 102 H 101 H Pulse Rate [ 115 H From Monitor] Respiratory 18 30 H 18 Rate Blood Pressure 116/67 105/69 O2 Sat by Pulse 92 94 Oximetry 02/28/20 02/28/20 02/28/20 03:46 04:00 04:15 Temperature 100.4 F H Pulse Rate 84 105 H 107 H Pulse Rate [ From Monitor] Respiratory 16 22 Rate Blood Pressure 100/68 102/69 O2 Sat by Pulse 92 90 Oximetry 02/28/20 02/28/20 02/28/20 04:30 04:34 04:45 Temperature Pulse Rate 108 H 109 H 109 H Pulse Rate [ From Monitor] Respiratory 20 21 Rate Blood Pressure 104/67 104/67 100/65 O2 Sat by Pulse 92 90 91 Oximetry 02/28/20 02/28/20 02/28/20 05:00 05:16 05:40 Temperature Pulse Rate 110 H 109 H 109 H Pulse Rate [ From Monitor] Respiratory 20 22 19 Rate Blood Pressure 112/73 112/79 O2 Sat by Pulse 91 96 96 Oximetry 02/28/20 02/28/20 02/28/20 05:45 06:00 06:15 Temperature Pulse Rate 109 H 111 H 110 H Pulse Rate [ From Monitor] Respiratory 20 21 20 Rate Blood Pressure 109/69 116/69 115/69 O2 Sat by Pulse 95 96 96 Oximetry 02/28/20 02/28/20 02/28/20 06:30 06:45 07:00 Temperature Pulse Rate 109 H 113 H 111 H Pulse Rate [ From Monitor] Respiratory 20 22 18 Rate Blood Pressure 114/70 110/68 119/70 O2 Sat by Pulse 95 96 95 Oximetry 02/28/20 02/28/20 02/28/20 07:15 07:30 07:45 Temperature Pulse Rate 112 H 111 H 111 H Pulse Rate [ From Monitor] Respiratory 20 20 20 Rate Blood Pressure 117/68 118/64 108/68 O2 Sat by Pulse 96 96 97 Oximetry 02/28/20 02/28/20 02/28/20 08:00 08:09 08:15 Temperature Pulse Rate 109 H 116 H 117 H Pulse Rate [ From Monitor] Respiratory 20 22 Rate Blood Pressure 109/72 109/72 105/69 O2 Sat by Pulse 97 94 93 Oximetry 02/28/20 02/28/20 02/28/20 08:30 08:45 09:00 Temperature Pulse Rate 119 H 114 H 116 H Pulse Rate [ From Monitor] Respiratory 18 18 17 Rate Blood Pressure 100/67 96/69 109/67 O2 Sat by Pulse 94 94 93 Oximetry 02/28/20 02/28/20 02/28/20 09:15 09:30 09:45 Temperature Pulse Rate 118 H 121 H 117 H Pulse Rate [ From Monitor] Respiratory 22 22 17 Rate Blood Pressure 104/71 88/67 108/63 O2 Sat by Pulse 95 93 95 Oximetry 02/28/20 02/28/20 02/28/20 10:00 10:16 10:30 Temperature Pulse Rate 117 H 121 H 120 H Pulse Rate [ From Monitor] Respiratory 22 22 21 Rate Blood Pressure 112/68 101/68 107/67 O2 Sat by Pulse 96 94 96 Oximetry 02/28/20 02/28/2020 10:45 11:00 11:15 Temperature Pulse Rate 122 H 127 H 121 H Pulse Rate [ From Monitor] Respiratory 20 22 19 Rate Blood Pressure 106/69 110/71 115/64 O2 Sat by Pulse 94 94 95 Oximetry 02/28/20 02/28/20 11:30 12:59 Temperature Pulse Rate 119 H 124 H Pulse Rate [ From Monitor] Respiratory 22 Rate Blood Pressure 104/65 109/73 O2 Sat by Pulse 96 95 Oximetry Constitutional: no acute distress, other (mild respiratory distress, orally in tubated to MVS) Eyes: non-icteric ENT: oropharynx moist, other (ETT at 23cm at the lip) Neck: supple, no lymphadenopathy, no JVD Effort: mildly labored Ascultation: Bilateral: diminished breath sounds, rhonchi Percussion: Bilateral: not dull Cardiovascular: regular rate and rhythm, other (S1,S2) Gastrointestinal: normoactive bowel sounds, soft, non-tender, non-distended Integumentary: normal Extremities: no cyanosis, no edema, pink and warm, no ischemia or petechiae Neurologic: non-focal exam (grossly), pupils equal and round, unable to assess (sedated) Psychiatric: other (unable to assess) CBC and BMP: 02/27/20 07:17 02/28/20 10:09 ABG, PT/INR, D-dimer: ABG ABG pH 7.430 (7.320-7.450) 02/28/20 04:47 POC ABG pCO2 45.2 mmHg (32.0-48.0) 02/28/20 04:47 ABG pCO2 37.2 mm Hg 02/26/20 04:07 POC ABG pO2 44.3 mmHg (83-108) L 02/28/20 04:47 ABG pO2 68.3 mm Hg (80.0-90.0) L 02/26/20 04:07 POC ABG HCO3 29.3 02/28/20 04:47 ABG O2 Saturation 95.0 % (95.0-99.0) 02/26/20 04:07 PT/INR, D-dimer PT 18.8 Sec. (12.2-14.9) H 02/22/20 07:40 INR 1.59 (0.87-1.13) H 02/22/20 07:40 D-Dimer 2743.07 ng/mlDDU (0-234) H 02/26/20 01:59 Abnormal lab findings: Abnormal Labs 02/20/20 02/20/20 02/20/20 19:21 19:21 19:21 WBC 14.7 H MCV 95 H MCH Seg Neuts % (Manual) 86.0 H Lymphocytes % (Manual) 5.0 L Nucleated RBC % 1.0 H Seg Neutrophils # Man 12.6 H Lymphocytes # (Manual) 0.7 L PT INR D-Dimer > 20731 H ABG pH POC ABG pCO2 POC ABG pO2 ABG pO2 ABG HCO3 ABG O2 Saturation ABG Base Excess ABG Hemoglobin ABG Oxyhemoglobin ABG Sodium ABG Potassium ABG Chloride ABG Glucose Oxyhemoglobin Sodium 129 L Potassium Chloride 95.8 L Carbon Dioxide 21 L BUN 21 H Glucose 167 H POC Glucose Lactic Acid Calcium Ferritin Direct Bilirubin AST 93 H ALT 148 H Alkaline Phosphatase 138 H Lactate Dehydrogenase C-Reactive Protein Total Protein Albumin 2.8 L Triglycerides Arterial Blood Glucose Urine WBC (Auto) Coronavirus (PCR) SARS-CoV-2 IgG Ab 02/20/20 02/20/20 02/20/20 19:21 19:21 23:00 WBC MCV MCH Seg Neuts % (Manual) Lymphocytes % (Manual) Nucleated RBC % Seg Neutrophils # Man Lymphocytes # (Manual) PT INR D-Dimer ABG pH POC ABG pCO2 POC ABG pO2 ABG pO2 ABG HCO3 ABG O2 Saturation ABG Base Excess ABG Hemoglobin ABG Oxyhemoglobin ABG Sodium ABG Potassium ABG Chloride ABG Glucose Oxyhemoglobin Sodium Potassium Chloride Carbon Dioxide BUN Glucose 165 H POC Glucose Lactic Acid Calcium Ferritin 1263.0 H Direct Bilirubin AST ALT Alkaline Phosphatase Lactate Dehydrogenase 858 H C-Reactive Protein 32.40 H Total Protein Albumin Triglycerides Arterial Blood Glucose Urine WBC (Auto) 9.0 H Coronavirus (PCR) SARS-CoV-2 IgG Ab 02/20/20 02/21/20 02/21/20 23:37 04:09 08:59 WBC MCV MCH Seg Neuts % (Manual) Lymphocytes % (Manual) Nucleated RBC % Seg Neutrophils # Man Lymphocytes # (Manual) PT INR D-Dimer ABG pH 7.192 L 7.268 L POC ABG pCO2 51.3 H POC ABG pO2 61.1 L ABG pO2 62.0 L ABG HCO3 16.5 L ABG O2 Saturation 87.8 L ABG Base Excess -9.6 L ABG Hemoglobin 13.7 L ABG Oxyhemoglobin ABG Sodium 133.6 L ABG Potassium ABG Chloride ABG Glucose 166 H Oxyhemoglobin 86.7 L Sodium Potassium Chloride Carbon Dioxide BUN Glucose POC Glucose Lactic Acid Calcium Ferritin Direct Bilirubin AST ALT Alkaline Phosphatase Lactate Dehydrogenase C-Reactive Protein Total Protein Albumin Triglycerides Arterial Blood Glucose 166 H Urine WBC (Auto) Coronavirus (PCR) Positive A SARS-CoV-2 IgG Ab 02/21/20 02/22/20 02/22/20 12:54 03:09 07:40 WBC 15.5 H MCV 96 H MCH Seg Neuts % (Manual) 94.0 H Lymphocytes % (Manual) Nucleated RBC % Seg Neutrophils # Man 14.6 H Lymphocytes # (Manual) 0.0 L PT INR D-Dimer ABG pH 7.252 L 7.280 L POC ABG pCO2 POC ABG pO2 81.3 L ABG pO2 97.7 H ABG HCO3 14.9 L ABG O2 Saturation ABG Base Excess -11.2 L ABG Hemoglobin ABG Oxyhemoglobin ABG Sodium ABG Potassium 4.8 H ABG Chloride 113.0 H ABG Glucose 209 H Oxyhemoglobin Sodium Potassium Chloride Carbon Dioxide BUN Glucose POC Glucose Lactic Acid Calcium Ferritin Direct Bilirubin AST ALT Alkaline Phosphatase Lactate Dehydrogenase C-Reactive Protein Total Protein Albumin Triglycerides Arterial Blood Glucose 209 H Urine WBC (Auto) Coronavirus (PCR) SARS-CoV-2 IgG Ab 02/22/20 02/22/20 02/22/20 07:40 07:40 11:23 WBC MCV MCH Seg Neuts % (Manual) Lymphocytes % (Manual) Nucleated RBC % Seg Neutrophils # Man Lymphocytes # (Manual) PT 18.8 H INR 1.59 H D-Dimer ABG pH POC ABG pCO2 POC ABG pO2 ABG pO2 ABG HCO3 ABG O2 Saturation ABG Base Excess ABG Hemoglobin ABG Oxyhemoglobin ABG Sodium ABG Potassium ABG Chloride ABG Glucose Oxyhemoglobin Sodium Potassium 5.2 H D Chloride 111.4 H 113.7 H Carbon Dioxide 18 L BUN 35 H 36 H Glucose 234 H 240 H POC Glucose Lactic Acid Calcium 7.9 L 8.0 L Ferritin Direct Bilirubin 0.3 H AST 127 H ALT 261 H Alkaline Phosphatase 211 H Lactate Dehydrogenase C-Reactive Protein Total Protein Albumin 2.4 L Triglycerides Arterial Blood Glucose Urine WBC (Auto) Coronavirus (PCR) SARS-CoV-2 IgG Ab 02/22/20 02/22/20 02/22/20 12:53 18:25 23:14 WBC MCV MCH Seg Neuts % (Manual) Lymphocytes % (Manual) Nucleated RBC % Seg Neutrophils # Man Lymphocytes # (Manual) PT INR D-Dimer ABG pH 7.311 L POC ABG pCO2 POC ABG pO2 ABG pO2 70.7 L ABG HCO3 ABG O2 Saturation 93.7 L ABG Base Excess -5.3 L ABG Hemoglobin 13.7 L ABG Oxyhemoglobin ABG Sodium ABG Potassium ABG Chloride ABG Glucose Oxyhemoglobin 92.3 L Sodium Potassium Chloride Carbon Dioxide BUN Glucose POC Glucose 220 H 229 H Lactic Acid Calcium Ferritin Direct Bilirubin AST ALT Alkaline Phosphatase Lactate Dehydrogenase C-Reactive Protein Total Protein Albumin Triglycerides Arterial Blood Glucose Urine WBC (Auto) Coronavirus (PCR) SARS-CoV-2 IgG Ab 02/23/20 02/23/20 02/23/20 04:00 05:00 05:29 WBC 15.3 H MCV 97 H MCH 33 H Seg Neuts % (Manual) Lymphocytes % (Manual) Nucleated RBC % Seg Neutrophils # Man Lymphocytes # (Manual) PT INR D-Dimer ABG pH 7.318 L POC ABG pCO2 POC ABG pO2 ABG pO2 ABG HCO3 ABG O2 Saturation ABG Base Excess ABG Hemoglobin ABG Oxyhemoglobin ABG Sodium ABG Potassium 5.1 H ABG Chloride 114.0 H ABG Glucose 306 H Oxyhemoglobin Sodium Potassium 5.4 H Chloride 114.3 H Carbon Dioxide BUN 47 H Glucose 323 H POC Glucose Lactic Acid Calcium 8.1 L Ferritin Direct Bilirubin AST 61 H ALT 197 H Alkaline Phosphatase Lactate Dehydrogenase C-Reactive Protein Total Protein 6.0 L Albumin 2.3 L Triglycerides Arterial Blood Glucose 306 H Urine WBC (Auto) Coronavirus (PCR) SARS-CoV-2 IgG Ab 02/23/20 02/23/20 02/23/20 05:32 11:57 18:09 WBC MCV MCH Seg Neuts % (Manual) Lymphocytes % (Manual) Nucleated RBC % Seg Neutrophils # Man Lymphocytes # (Manual) PT INR D-Dimer ABG pH POC ABG pCO2 POC ABG pO2 ABG pO2 ABG HCO3 ABG O2 Saturation ABG Base Excess ABG Hemoglobin ABG Oxyhemoglobin ABG Sodium ABG Potassium ABG Chloride ABG Glucose Oxyhemoglobin Sodium Potassium Chloride Carbon Dioxide BUN Glucose POC Glucose 264 H 283 H 338 H Lactic Acid Calcium Ferritin Direct Bilirubin AST ALT Alkaline Phosphatase Lactate Dehydrogenase C-Reactive Protein Total Protein Albumin Triglycerides Arterial Blood Glucose Urine WBC (Auto) Coronavirus (PCR) SARS-CoV-2 IgG Ab 02/23/20 02/24/20 02/24/20 23:13 03:50 06:10 WBC MCV MCH Seg Neuts % (Manual) Lymphocytes % (Manual) Nucleated RBC % Seg Neutrophils # Man Lymphocytes # (Manual) PT INR D-Dimer ABG pH POC ABG pCO2 POC ABG pO2 ABG pO2 90.6 H ABG HCO3 ABG O2 Saturation ABG Base Excess ABG Hemoglobin 12.7 L ABG Oxyhemoglobin ABG Sodium ABG Potassium ABG Chloride ABG Glucose Oxyhemoglobin Sodium Potassium Chloride Carbon Dioxide BUN Glucose POC Glucose 300 H 313 H Lactic Acid Calcium Ferritin Direct Bilirubin AST ALT Alkaline Phosphatase Lactate Dehydrogenase C-Reactive Protein Total Protein Albumin Triglycerides Arterial Blood Glucose Urine WBC (Auto) Coronavirus (PCR) SARS-CoV-2 IgG Ab 02/24/20 02/24/20 02/24/20 11:52 13:11 13:11 WBC MCV MCH Seg Neuts % (Manual) Lymphocytes % (Manual) Nucleated RBC % Seg Neutrophils # Man Lymphocytes # (Manual) PT INR D-Dimer ABG pH POC ABG pCO2 POC ABG pO2 ABG pO2 ABG HCO3 ABG O2 Saturation ABG Base Excess ABG Hemoglobin ABG Oxyhemoglobin ABG Sodium ABG Potassium ABG Chloride ABG Glucose Oxyhemoglobin Sodium 147 H Potassium 5.6 H Chloride 113.2 H Carbon Dioxide BUN 50 H Glucose 342 H POC Glucose 290 H Lactic Acid Calcium Ferritin Direct Bilirubin AST 150 H ALT 205 H Alkaline Phosphatase Lactate Dehydrogenase C-Reactive Protein Total Protein Albumin 2.4 L Triglycerides Arterial Blood Glucose Urine WBC (Auto) Coronavirus (PCR) SARS-CoV-2 IgG Ab 02/24/20 02/24/20 02/25/20 13:11 17:46 00:25 WBC MCV MCH Seg Neuts % (Manual) Lymphocytes % (Manual) Nucleated RBC % Seg Neutrophils # Man Lymphocytes # (Manual) PT INR D-Dimer ABG pH POC ABG pCO2 POC ABG pO2 ABG pO2 ABG HCO3 ABG O2 Saturation ABG Base Excess ABG Hemoglobin ABG Oxyhemoglobin ABG Sodium ABG Potassium ABG Chloride ABG Glucose Oxyhemoglobin Sodium Potassium Chloride Carbon Dioxide BUN Glucose POC Glucose 310 H 300 H Lactic Acid 2.40 H* Calcium Ferritin Direct Bilirubin AST ALT Alkaline Phosphatase Lactate Dehydrogenase C-Reactive Protein Total Protein Albumin Triglycerides Arterial Blood Glucose Urine WBC (Auto) Coronavirus (PCR) SARS-CoV-2 IgG Ab 02/25/20 02/25/20 02/25/20 04:00 04:42 04:42 WBC MCV MCH Seg Neuts % (Manual) Lymphocytes % (Manual) Nucleated RBC % Seg Neutrophils # Man Lymphocytes # (Manual) PT INR D-Dimer ABG pH POC ABG pCO2 POC ABG pO2 ABG pO2 77.9 L ABG HCO3 26.7 H ABG O2 Saturation ABG Base Excess ABG Hemoglobin 12.4 L ABG Oxyhemoglobin ABG Sodium ABG Potassium ABG Chloride ABG Glucose Oxyhemoglobin 94.5 L Sodium 149 H Potassium Chloride 113.2 H Carbon Dioxide BUN 45 H Glucose 416 H POC Glucose Lactic Acid 2.20 H* Calcium Ferritin Direct Bilirubin 0.3 H AST 60 H ALT 174 H Alkaline Phosphatase Lactate Dehydrogenase C-Reactive Protein Total Protein 5.7 L Albumin 2.2 L Triglycerides Arterial Blood Glucose Urine WBC (Auto) Coronavirus (PCR) SARS-CoV-2 IgG Ab 02/25/20 02/25/20 02/25/20 05:24 11:32 18:23 WBC MCV MCH Seg Neuts % (Manual) Lymphocytes % (Manual) Nucleated RBC % Seg Neutrophils # Man Lymphocytes # (Manual) PT INR D-Dimer ABG pH POC ABG pCO2 POC ABG pO2 ABG pO2 ABG HCO3 ABG O2 Saturation ABG Base Excess ABG Hemoglobin ABG Oxyhemoglobin ABG Sodium ABG Potassium ABG Chloride ABG Glucose Oxyhemoglobin Sodium Potassium Chloride Carbon Dioxide BUN Glucose POC Glucose 378 H 361 H 383 H Lactic Acid Calcium Ferritin Direct Bilirubin AST ALT Alkaline Phosphatase Lactate Dehydrogenase C-Reactive Protein Total Protein Albumin Triglycerides Arterial Blood Glucose Urine WBC (Auto) Coronavirus (PCR) SARS-CoV-2 IgG Ab 02/25/20 02/26/20 02/26/20 23:11 01:59 01:59 WBC MCV MCH Seg Neuts % (Manual) Lymphocytes % (Manual) Nucleated RBC % Seg Neutrophils # Man Lymphocytes # (Manual) PT INR D-Dimer 2743.07 H ABG pH POC ABG pCO2 POC ABG pO2 ABG pO2 ABG HCO3 ABG O2 Saturation ABG Base Excess ABG Hemoglobin ABG Oxyhemoglobin ABG Sodium ABG Potassium ABG Chloride ABG Glucose Oxyhemoglobin Sodium Potassium Chloride Carbon Dioxide BUN Glucose POC Glucose 356 H Lactic Acid 2.20 H* Calcium Ferritin Direct Bilirubin AST ALT Alkaline Phosphatase Lactate Dehydrogenase C-Reactive Protein Total Protein Albumin Triglycerides Arterial Blood Glucose Urine WBC (Auto) Coronavirus (PCR) SARS-CoV-2 IgG Ab 02/26/20 02/26/20 02/26/20 01:59 01:59 01:59 WBC MCV MCH Seg Neuts % (Manual) Lymphocytes % (Manual) Nucleated RBC % Seg Neutrophils # Man Lymphocytes # (Manual) PT INR D-Dimer ABG pH POC ABG pCO2 POC ABG pO2 ABG pO2 ABG HCO3 ABG O2 Saturation ABG Base Excess ABG Hemoglobin ABG Oxyhemoglobin ABG Sodium ABG Potassium ABG Chloride ABG Glucose Oxyhemoglobin Sodium Potassium Chloride Carbon Dioxide BUN Glucose POC Glucose Lactic Acid Calcium Ferritin 1823.0 H Direct Bilirubin AST ALT Alkaline Phosphatase Lactate Dehydrogenase 589 H C-Reactive Protein 10.40 H Total Protein Albumin Triglycerides Arterial Blood Glucose Urine WBC (Auto) Coronavirus (PCR) SARS-CoV-2 IgG Ab Reactive A 02/26/20 02/26/20 02/26/20 04:07 05:14 12:26 WBC MCV MCH Seg Neuts % (Manual) Lymphocytes % (Manual) Nucleated RBC % Seg Neutrophils # Man Lymphocytes # (Manual) PT INR D-Dimer ABG pH 7.466 H POC ABG pCO2 POC ABG pO2 ABG pO2 68.3 L ABG HCO3 26.3 H ABG O2 Saturation ABG Base Excess ABG Hemoglobin 8.6 L ABG Oxyhemoglobin ABG Sodium ABG Potassium ABG Chloride ABG Glucose Oxyhemoglobin 93.7 L Sodium Potassium Chloride Carbon Dioxide BUN Glucose POC Glucose 321 H 398 H Lactic Acid Calcium Ferritin Direct Bilirubin AST ALT Alkaline Phosphatase Lactate Dehydrogenase C-Reactive Protein Total Protein Albumin Triglycerides Arterial Blood Glucose Urine WBC (Auto) Coronavirus (PCR) SARS-CoV-2 IgG Ab 02/26/20 02/26/20 02/27/20 17:48 23:37 03:51 WBC MCV MCH Seg Neuts % (Manual) Lymphocytes % (Manual) Nucleated RBC % Seg Neutrophils # Man Lymphocytes # (Manual) PT INR D-Dimer ABG pH 7.527 H POC ABG pCO2 POC ABG pO2 67.3 L ABG pO2 ABG HCO3 ABG O2 Saturation ABG Base Excess ABG Hemoglobin ABG Oxyhemoglobin ABG Sodium 152.0 H ABG Potassium ABG Chloride 118.0 H ABG Glucose 263 H Oxyhemoglobin Sodium Potassium Chloride Carbon Dioxide BUN Glucose POC Glucose 335 H 308 H Lactic Acid Calcium Ferritin Direct Bilirubin AST ALT Alkaline Phosphatase Lactate Dehydrogenase C-Reactive Protein Total Protein Albumin Triglycerides Arterial Blood Glucose 263 H Urine WBC (Auto) Coronavirus (PCR) SARS-CoV-2 IgG Ab 02/27/20 02/27/20 02/27/20 05:28 07:17 07:17 WBC 18.5 H MCV 97 H MCH Seg Neuts % (Manual) Lymphocytes % (Manual) Nucleated RBC % Seg Neutrophils # Man Lymphocytes # (Manual) PT INR D-Dimer ABG pH POC ABG pCO2 POC ABG pO2 ABG pO2 ABG HCO3 ABG O2 Saturation ABG Base Excess ABG Hemoglobin ABG Oxyhemoglobin ABG Sodium ABG Potassium ABG Chloride ABG Glucose Oxyhemoglobin Sodium 154 H Potassium Chloride 119.9 H Carbon Dioxide BUN 49 H Glucose 227 H POC Glucose 188 H Lactic Acid Calcium Ferritin Direct Bilirubin AST ALT Alkaline Phosphatase Lactate Dehydrogenase C-Reactive Protein Total Protein Albumin Triglycerides Arterial Blood Glucose Urine WBC (Auto) Coronavirus (PCR) SARS-CoV-2 IgG Ab 02/27/20 02/27/20 02/27/20 11:50 17:44 23:40 WBC MCV MCH Seg Neuts % (Manual) Lymphocytes % (Manual) Nucleated RBC % Seg Neutrophils # Man Lymphocytes # (Manual) PT INR D-Dimer ABG pH POC ABG pCO2 POC ABG pO2 ABG pO2 ABG HCO3 ABG O2 Saturation ABG Base Excess ABG Hemoglobin ABG Oxyhemoglobin ABG Sodium ABG Potassium ABG Chloride ABG Glucose Oxyhemoglobin Sodium Potassium Chloride Carbon Dioxide BUN Glucose POC Glucose 202 H 291 H 247 H Lactic Acid Calcium Ferritin Direct Bilirubin AST ALT Alkaline Phosphatase Lactate Dehydrogenase C-Reactive Protein Total Protein Albumin Triglycerides Arterial Blood Glucose Urine WBC (Auto) Coronavirus (PCR) SARS-CoV-2 IgG Ab 02/28/20 02/28/20 02/28/20 04:33 04:47 05:29 WBC MCV MCH Seg Neuts % (Manual) Lymphocytes % (Manual) Nucleated RBC % Seg Neutrophils # Man Lymphocytes # (Manual) PT INR D-Dimer ABG pH POC ABG pCO2 POC ABG pO2 49.8 L 44.3 L ABG pO2 ABG HCO3 ABG O2 Saturation ABG Base Excess ABG Hemoglobin ABG Oxyhemoglobin 85.8 L 80.2 L ABG Sodium 149.1 H 148.5 H ABG Potassium ABG Chloride 114.0 H 114.0 H ABG Glucose 259 H 258 H Oxyhemoglobin Sodium Potassium Chloride Carbon Dioxide BUN Glucose POC Glucose 200 H Lactic Acid Calcium Ferritin Direct Bilirubin AST ALT Alkaline Phosphatase Lactate Dehydrogenase C-Reactive Protein Total Protein Albumin Triglycerides Arterial Blood Glucose 259 H 258 H Urine WBC (Auto) Coronavirus (PCR) SARS-CoV-2 IgG Ab 02/28/20 02/28/20 02/28/20 10:09 10:09 11:58 WBC MCV MCH Seg Neuts % (Manual) Lymphocytes % (Manual) Nucleated RBC % Seg Neutrophils # Man Lymphocytes # (Manual) PT INR D-Dimer ABG pH POC ABG pCO2 POC ABG pO2 ABG pO2 ABG HCO3 ABG O2 Saturation ABG Base Excess ABG Hemoglobin ABG Oxyhemoglobin ABG Sodium ABG Potassium ABG Chloride ABG Glucose Oxyhemoglobin Sodium 150 H Potassium Chloride 112.9 H Carbon Dioxide 33 H D BUN 50 H Glucose 237 H POC Glucose 203 H Lactic Acid Calcium Ferritin Direct Bilirubin AST ALT Alkaline Phosphatase Lactate Dehydrogenase C-Reactive Protein Total Protein Albumin Triglycerides 202 H Arterial Blood Glucose Urine WBC (Auto) Coronavirus (PCR) SARS-CoV-2 IgG Ab Allied health notes reviewed: nursing
[2020-02-28] MEDS ORDERED: INSULIN GLARGINE 100 UNITS/ML SUB-Q SCH (22:00)
[2020-02-29] MEDS: INSULIN LISPRO 100 UNIT/ML VIAL 3 mL SUB-Q SCH ×4 (01:20→18:24)
[2020-02-29] MEDS: PROPOFOL 500 MG/50 ML VIAL IV SCH (04:17)
[2020-02-29 05:20] LABS: Hematocrit 35.1 % (35.5-45.6); Mean Corpuscular HGB Conc 34 % (32-34); Mean Corpuscular Volume 95 fl (84-94); Platelet Count 228 K/mm3 (140-440); Red Cell Distribution Width 14.5 % (13.2-15.2)
[2020-02-29 05:37] LABS: Calcium 9.1 mg/dL (8.4-10.2)
[2020-02-29] MEDS: fentaNYL DRIP Premix 2,000 MCG/100 ML BAG IV SCH ×3 (05:57→22:13)
[2020-02-29] MEDS: ACETAMINOPHEN 325 MG TAB PO PRN (08:03)
[2020-02-29] MEDS: dexAMETHasone 4 MG/ML VIAL IV SCH (09:43)
[2020-02-29] MEDS: ENOXAPARIN 80 MG/0.8 ML INJ SUB-Q SCH ×2 (09:44→22:12)
[2020-02-29] MEDS: PIPERACIL/TAZOBACTA 4.5/NS 100 4.5 GM/100 ML VIAL IV SCH ×3 (09:44→22:18)
[2020-02-29] MEDS: FAMOTIDINE 20 MG TAB PO SCH (09:44)
--- NOTE | 2020-02-29 09:45 | Progress Note ---
Assessment and Plan Assessment and plan: 59-year-old male with known history of hypertension presenting to the emergency room via EMS today complaining of cough, shortness of breath and difficulty breathing. Symptoms have been ongoing for about a week. He was diagnosed with COVID-19 about 4 days ago. He has been having a fever, chills generalized fatigue and dry cough over the past few days. Symptoms seems to be getting worse. He gets more short of breath on minimal exertion. Patient is initial oxygen saturation on room air was about 50% when seen by EMS and he was placed on nonrebreather with improvement of oxygen saturation to about 88%. Patient was subsequently placed on BiPAP upon arrival in the emergency room. Work-up in the emergency room today reveals bilateral pneumonia. During the course of his stay in the emergency room patient's condition continued to deteriorate and was subsequently intubated in the ER. Patient admitted with pneumonia possibly secondary to COVID-19 and will be admitted into the intensive care unit. 02/22: Remains on full ventilatory support, Start Insulin secondary to elevated Blood glucose, Check Hgb A1c. Wean pressors as tolerated. Will attempt to reach family. Rule out PE when stable although note patient is already on full dose Lovenox due to noted lower ext DVT. Continue dexamethasone and Remdesivir, Prone if possible. Good urine output noted, Monitor LFTs 02/23: Repeat chest x-ray. Unsure why patient is still running fevers this could be secondary to viral pneumonia versus superimposed bacterial pneumonia. Will check cultures check lactic acid antibiotics per ID. Wean from vent as tolerated. Prone if possible. Monitor electrolytes and H&H. 02/24: Patient clinically improving although reamins on full ventilatory support. No new fever today. Continue to wean from vent as tolerated 02/25 patient is intubated, has been fever free for 24 hours. Pulmonary and ID notes reviewed. Lab results reviewed. 02/26 remains inubated on Fio2 40%. ABG results reviewed. lab and inflammatory markers reviewed. pulmonary and ID notes reviewed 02/27: Continue current management will defer proning to stenographic court reporter. I will also call the daughter and explained his current clinical course. Lantus has been added will adjust for tighter control. Patient continues to require restraints. Remains on FiO2 of 60% with saturation of 96. Prognosis remains guarded remains sedated. We will continue to monitor inflammatory markers at this time. Nurse to document on skin exam. Patients Daughter updated. Henrietta of [place]. 02/28: Patient seen and examined, remains critically ill and on the ventilator. Continue management, prone if possible, worsening Hypoxia unfortunately. Severe sepsis with septic shock Acute Hypoxic Respiratory failure secondary to covid 19 pneumonia Pneumonia secondary to COVID19 Hyponatremia/hypernatremia Steroid Induced Hyperglycemia Lower DVT per venous Doppler Metabolic acidosis Transaminitis with elevated LFT, likely due to COVID 19 Plan Patient placed on empiric IV antibiotics. Will await culture results. Started on Dexamethasone and Remdesivir Started on full dose anticoagulation Continue isolation precautions. We will place consult to infectious disease for evaluation and recommendation. We will monitor chemistry. Patient has received some IV fluid in the emergency room. Possibly secondary to the pneumonia with COVID-19. Patient has been intubated and sedated. We will place consult to stenographic court reporter for evaluation and recommendation. Prognosis is Guarded DVT/GI PROPHY The high probability of a clinically significant, sudden or life threatening deterioration of the [pulmonary] system(s) required my full and direct attent ion, intervention and personal management. The aggregate critical care time was [35] minutes. This time is in addition to time spent performing reported procedures but includes the following: [x] Data Review and interpretation [x] Patient assessment and monitoring of vital signs [x] Documentation [x] Medication orders and management History Interval history: Patient seen and examined, remains on full ventilatory support, some fever low- grade fever. Discussed with nursing staff patient still requiring restraints due to agitation Hospitalist Physical - Physical exam Narrative exam: General appearance: Present: on full ventilatory support, no restraints - EENT Eyes: Present: PERRL, EOM intact. Absent: scleral icterus ENT: hearing intact, clear oral mucosa, dentition normal - Neck Neck: Present: supple, normal ROM - Respiratory Respiratory effort: On full ventilatory support. Respiratory: bilateral: rales - Cardiovascular Rhythm: regular Heart Sounds: Present: S1 & S2. Absent: gallop, systolic murmur, diastolic murmur, rub - Extremities Extremities: no ischemia, pulses intact, pulses symmetrical, No edema, Full ROM Peripheral Pulses: within normal limits - Abdominal General gastrointestinal: Present: soft, non-tender, non-distended, normal bowel sounds. Absent: mass - Integumentary Integumentary: Present: clear, warm, dry. Absent: rash - Musculoskeletal Musculoskeletal: strength equal bilaterally - Psychiatric Psychiatric: appropriate mood/affect, intact judgment & insight, memory intact, cooperative - Neurologic Neurologic: CNII-XII intact, no focal deficits, moves all extremities - Constitutional Vitals: Temp Pulse Resp BP Pulse Ox 102.7 F H 142 H 27 H 115/58 100 02/29/20 08:00 02/29/20 08:30 02/29/20 08:30 02/29/20 08:30 02/29/20 08:30 General appearance: Present: no acute distress Results - Labs CBC & Chem 7: 02/29/20 04:39 02/29/20 04:39 Labs: Laboratory Last Values WBC 12.5 K/mm3 (4.5-11.0) H 02/29/20 04:39 RBC 3.70 M/mm3 (3.65-5.03) 02/29/20 04:39 Hgb 12.0 gm/dl (11.8-15.2) 02/29/20 04:39 Hct 35.1 % (35.5-45.6) L D 02/29/20 04:39 MCV 95 fl (84-94) H 02/29/20 04:39 MCH 32 pg (28-32) 02/29/20 04:39 MCHC 34 % (32-34) 02/29/20 04:39 RDW 14.5 % (13.2-15.2) 02/29/20 04:39 Plt Count 228 K/mm3 (140-440) 02/29/20 04:39 Add Manual Diff Complete 02/22/20 07:40 Total Counted 100 02/22/20 07:40 Seg Neutrophils % Floor Hand 02/22/20 07:40 Seg Neuts % (Manual) 94.0 % (40.0-70.0) H 02/22/20 07:40 Band Neutrophils % 4.0 % 02/22/20 07:40 Lymphocytes % (Manual) 5.0 % (13.4-35.0) L 02/20/20 19:21 Reactive Lymphs % (Man) 0 % 02/20/20 19:21 Monocytes % (Manual) 1.0 % (0.0-7.3) 02/22/20 07:40 Eosinophils % (Manual) 0 % (0.0-4.3) 02/20/20 19:21 Basophils % (Manual) 0 % (0.0-1.8) 02/20/20 19:21 Metamyelocytes % 1.0 % 02/22/20 07:40 Myelocytes % 0 % 02/20/20 19:21 Promyelocytes % 0 % 02/20/20 19:21 Blast Cells % 0 % 02/20/20 19:21 Nucleated RBC % Not Reportable 02/22/20 07:40 Seg Neutrophils # Man 14.6 K/mm3 (1.8-7.7) H 02/22/20 07:40 Band Neutrophils # 0.6 K/mm3 02/22/20 07:40 Lymphocytes # (Manual) 0.0 K/mm3 (1.2-5.4) L 02/22/20 07:40 Abs React Lymphs (Man) 0.0 K/mm3 02/22/20 07:40 Monocytes # (Manual) 0.2 K/mm3 (0.0-0.8) 02/22/20 07:40 Eosinophils # (Manual) 0.0 K/mm3 (0.0-0.4) 02/22/20 07:40 Basophils # (Manual) 0.0 K/mm3 (0.0-0.1) 02/22/20 07:40 Metamyelocytes # 0.2 K/mm3 02/22/20 07:40 Myelocytes # 0.0 K/mm3 02/22/20 07:40 Promyelocytes # 0.0 K/mm3 02/22/20 07:40 Blast Cells # 0.0 K/mm3 02/22/20 07:40 WBC Morphology Not Reportable 02/22/20 07:40 Hypersegmented Neuts Not Reportable 02/22/20 07:40 Hyposegmented Neuts Not Reportable 02/22/20 07:40 Hypogranular Neuts Not Reportable 02/22/20 07:40 Smudge Cells Not Reportable 02/22/20 07:40 Toxic Granulation 2+ 02/22/20 07:40 Toxic Vacuolation Not Reportable 02/22/20 07:40 Dohle Bodies Not Reportable 02/22/20 07:40 Pelger-Huet Anomaly Not Reportable 02/22/20 07:40 Noah Rods Not Reportable 02/22/20 07:40 Platelet Estimate Consistent w auto 02/22/20 07:40 Clumped Platelets Not Reportable 02/22/20 07:40 Plt Clumps, EDTA Not Reportable 02/22/20 07:40 Large Platelets Not Reportable 02/22/20 07:40 Giant Platelets Not Reportable 02/22/20 07:40 Platelet Satelliting Not Reportable 02/22/20 07:40 Plt Morphology Comment Not Reportable 02/22/20 07:40 RBC Morphology Not Reportable 02/22/20 07:40 Dimorphic RBCs Not Reportable 02/22/20 07:40 Polychromasia Not Reportable 02/22/20 07:40 Hypochromasia Not Reportable 02/22/20 07:40 Poikilocytosis Not Reportable 02/22/20 07:40 Anisocytosis 1+ 02/22/20 07:40 Microcytosis Not Reportable 02/22/20 07:40 Macrocytosis Not Reportable 02/22/20 07:40 Spherocytes Not Reportable 02/22/20 07:40 Pappenheimer Bodies Not Reportable 02/22/20 07:40 Sickle Cells Not Reportable 02/22/20 07:40 Target Cells Not Reportable 02/22/20 07:40 Tear Drop Cells Not Reportable 02/22/20 07:40 Ovalocytes Not Reportable 02/22/20 07:40 Helmet Cells Not Reportable 02/22/20 07:40 Limon-Maize Bodies Not Reportable 02/22/20 07:40 [place] Rings Not Reportable 02/22/20 07:40 Maryam Cells Not Reportable 02/22/20 07:40 Bite Cells Not Reportable 02/22/20 07:40 Crenated Cell Not Reportable 02/22/20 07:40 Elliptocytes Not Reportable 02/22/20 07:40 Acanthocytes (Spur) Not Reportable 02/22/20 07:40 Rouleaux Not Reportable 02/22/20 07:40 Hemoglobin C Crystals Not Reportable 02/22/20 07:40 Schistocytes Not Reportable 02/22/20 07:40 Malaria parasites Not Reportable 02/22/20 07:40 Allan Bodies Not Reportable 02/22/20 07:40 Hem Pathologist Commnt No 02/22/20 07:40 PT 18.8 Sec. (12.2-14.9) H 02/22/20 07:40 INR 1.59 (0.87-1.13) H 02/22/20 07:40 D-Dimer 2743.07 ng/mlDDU (0-234) H 02/26/20 01:59 ABG pH 7.443 (7.320-7.450) 02/29/20 04:34 POC ABG pCO2 48.2 mmHg (32.0-48.0) H 02/29/20 04:34 ABG pCO2 37.2 mm Hg 02/26/20 04:07 POC ABG pO2 54.3 mmHg (83-108) L 02/29/20 04:34 ABG pO2 68.3 mm Hg (80.0-90.0) L 02/26/20 04:07 POC ABG HCO3 32.2 02/29/20 04:34 ABG HCO3 26.3 mmol/L (20.0-26.0) H 02/26/20 04:07 ABG O2 Saturation 95.0 % (95.0-99.0) 02/26/20 04:07 ABG O2 Content 11.3 (0.0-44) 02/26/20 04:07 POC ABG Base Excess 7 02/29/20 04:34 ABG Base Excess 2.4 mmol/L (-2.0-3.0) 02/26/20 04:07 ABG Hemoglobin 12.9 (12.0-17.5) 02/29/20 04:34 ABG Oxyhemoglobin 80.2 (94-98) L 02/28/20 04:47 ABG Carboxyhemoglobin 1.1 % (0.0-5.0) 02/26/20 04:07 ABG Methemoglobin 0.3 (0.0-1.5) 02/28/20 04:47 ABG Sodium 147.8 mmol/L (136.0-145.0) H 02/29/20 04:34 ABG Potassium 4.3 mmol/L (3.40-4.50) 02/29/20 04:34 ABG Chloride 112.0 mmol/L (98-107) H 02/29/20 04:34 ABG Glucose 347 mg/dL (65-95) H 02/29/20 04:34 Oxyhemoglobin 93.7 % (95.0-99.0) L 02/26/20 04:07 Carboxyhemoglobin 1.1 (0.5-1.5) 02/28/20 04:47 FiO2 60 02/29/20 04:34 Sodium 147 mmol/L (137-145) H 02/29/20 04:39 Potassium 4.3 mmol/L (3.6-5.0) 02/29/20 04:39 Chloride 110.0 mmol/L (98-107) H 02/29/20 04:39 Carbon Dioxide 30 mmol/L (22-30) 02/29/20 04:39 Anion Gap 11 mmol/L 02/29/20 04:39 BUN 56 mg/dL (9-20) H 02/29/20 04:39 Creatinine 1.3 mg/dL (0.8-1.3) 02/29/20 04:39 Estimated GFR 57 ml/min 02/29/20 04:39 BUN/Creatinine Ratio 43 % 02/29/20 04:39 Glucose 342 mg/dL (75-100) H 02/29/20 04:39 POC Glucose 284 mg/dL (70-105) H 02/29/20 05:34 Lactic Acid 1.70 mmol/L (0.7-2.0) 02/26/20 06:21 Calcium 9.1 mg/dL (8.4-10.2) 02/29/20 04:39 Ferritin 1823.0 ng/mL (30.0-300.0) H 02/26/20 01:59 Total Bilirubin 0.50 mg/dL (0.1-1.2) 02/25/20 04:42 Direct Bilirubin 0.3 mg/dL (0-0.2) H 02/25/20 04:42 Indirect Bilirubin 0.2 mg/dL 02/25/20 04:42 AST 60 units/L (5-40) H 02/25/20 04:42 ALT 174 units/L (7-56) H 02/25/20 04:42 Alkaline Phosphatase 107 units/L (35-129) 02/25/20 04:42 Lactate Dehydrogenase 589 units/L (91-180) H 02/26/20 01:59 C-Reactive Protein 10.40 mg/dL (0.00-1.30) H 02/26/20 01:59 Total Protein 5.7 g/dL (6.3-8.2) L 02/25/20 04:42 Albumin 2.2 g/dL (3.9-5) L 02/25/20 04:42 Albumin/Globulin Ratio 0.6 % 02/25/20 04:42 Triglycerides 202 mg/dL (2-149) H 02/28/20 10:09 Procalcitonin 0.42 ng/mL (<0.15) 02/26/20 01:59 Arterial Blood Glucose 347 mg/dL (65-95) H 02/29/20 04:34 Arterial Blood Ionized Calcium 5.2 mg/dL (4.6-5.3) 02/29/20 04:34 Urine Color Lakeisha (Yellow) 02/20/20 23:00 Urine Turbidity Clear (Clear) 02/20/20 23:00 Urine pH 5.0 (5.0-7.0) 02/20/20 23:00 Ur Specific [place] 1.030 (1.003-1.030) 02/20/20 23:00 Urine Protein >500 mg/dL (Negative) 02/20/20 23:00 Urine Glucose (UA) Neg mg/dL (Negative) 02/20/20 23:00 Urine Ketones 20 mg/dL (Negative) 02/20/20 23:00 Urine Blood Neg (Negative) 02/20/20 23:00 Urine Nitrite Neg (Negative) 02/20/20 23:00 Urine Bilirubin Neg (Negative) 02/20/20 23:00 Urine Urobilinogen < 2.0 mg/dL (<2.0) 02/20/20 23:00 Ur Leukocyte Esterase Neg (Negative) 02/20/20 23:00 Urine WBC (Auto) 9.0 /HPF (0.0-6.0) H 02/20/20 23:00 Urine RBC (Auto) 7.0 /HPF (0.0-6.0) 02/20/20 23:00 U Epithel Cells (Auto) < 1.0 /HPF (0-13.0) 02/20/20 23:00 Urine Mucus 3+ /HPF 02/20/20 23:00 Coronavirus (PCR) Positive (Negative) A 02/21/20 08:59 SARS-CoV-2 IgG Ab Reactive (NonReactive) A 02/26/20 01:59 Microbiology: Microbiology 02/26/20 06:21 Peripheral/Venous Blood Culture - Preliminary NO GROWTH AFTER 72 HOURS 02/26/20 01:59 Peripheral/Venous Blood Culture - Preliminary NO GROWTH AFTER 72 HOURS 02/24/20 13:11 Peripheral/Venous Blood Culture - Preliminary NO GROWTH AFTER 4 DAYS 02/24/20 13:11 Peripheral/Venous Blood Culture - Preliminary NO GROWTH AFTER 4 DAYS 02/25/20 18:40 Tracheal Aspirate Sputum Culture - Preliminary Osborne/IV: Voiding Method Incontinent IV Catheter Type [Right INT / Saline Lock Forearm] IV Catheter Type [Left Forearm INT / Saline Lock ] IV Catheter Type [Right Triple Lumen Cath Femoral] IV Catheter Type [Left Peripheral IV Antecubital] Active Medications - Current Medications Current Medications: Generic Name Dose Route Start Last Admin Trade Name Freq PRN Reason Stop Dose Admin Acetaminophen 650 mg 02/21/20 00:28 02/29/20 08:03 Tylenol PO 650 mg Q4H PRN Administration Pain MILD(1-3)/Fever >100.5/HERNANDEZ Lipase/Protease/Amylase 1 each 02/22/20 16:08 Lipase 10,500/Protease 25,000/Amylase 43,750 (Units) Dr [place] FEEDTUBE PRN PRN For Clogged Feeding Tube Dexamethasone 6 mg 02/26/20 10:00 02/28/20 11:07 Dexamethasone 4 Mg/Ml Vial IV 03/01/20 10:01 6 mg Q24HR DILIP Administration Dextrose 50 ml 02/23/20 08:41 Dextrose 50% In Water (25gm) 50 Ml Syringe IV Q30MIN PRN Hypoglycemia Protocol Enoxaparin Sodium 80 mg 02/22/20 10:00 02/28/20 20:59 Enoxaparin 80 Mg/0.8 Ml Inj SUB-Q 80 mg Q12HR DILIP Administration Famotidine 20 mg 02/23/20 10:00 02/28/20 20:59 Famotidine 20 Mg Tab PO 20 mg BID DILIP Administration Fentanyl 50 mcg 02/20/20 22:04 Sublimaze IV Q10MIN PRN ANALGESIA Hydrophilic Ointment 1 applic 02/20/20 22:04 02/21/20 16:00 Vaseline Lip Therapy TP 1 applic Q2HR PRN Administration Dry Lips Fentanyl Citrate 2,000 mcg in 100 mls @ 3.856 mls/hr 02/20/20 23:00 02/29/20 05:57 Fentanyl Drip Premix IV 3 mcg/kg/hr TITR DILIP 11.567 mls/hr Administration Protocol 1 MCG/KG/HR Norepinephrine 4 mg in 250 mls @ 7.5 mls/hr 02/21/20 01:29 02/22/20 11:30 Levophed Drip 4 Mg/Ns 250 Ml IV Infused TITR [facility] Titration Protocol 2 MCG/MIN Propofol 1,000 mg in 100 mls @ 2.565 mls/hr 02/28/20 22:00 Diprivan 10 Mg/Ml IV TITR DILIP Protocol 5 MCG/KG/MIN Piperacillin Sod/Tazobactam Sod 4.5 gm in 100 mls @ 200 mls/hr 02/29/20 09:00 Zosyn/Ns 4.5gm/100ml IV 03/05/20 08:59 Q6H [facility] Protocol Insulin Glargine 40 units 02/28/20 22:00 02/29/20 01:21 Insulin Glargine 100 Units/Ml SUB-Q 40 units QHS [facility] Administration Insulin Glargine 10 units 02/29/20 10:00 Insulin Glargine 100 Units/Ml SUB-Q 02/29/20 10:01 ONCE ONE Insulin Human Lispro 0 unit 02/23/20 09:00 02/29/20 06:00 Insulin Lispro 100 Unit/Ml Vial 3 Ml SUB-Q 6 unit Q6HR [facility] Administration Protocol Morphine Sulfate 2 mg 02/21/20 00:28 Morphine IV Q4H PRN Pain, Moderate (4-6) Multi-Ingred Cream/Lotion/Oil/Oint 1 applic 02/20/20 22:04 Artificial Tears Ophth Oint OU Q4HR PRN Dry Eye(s) Ondansetron HCl 4 mg 02/21/20 00:28 Zofran IV Q8H PRN Nausea And Vomiting Simple Syrup 15 ml 02/22/20 16:08 Simple Syrup 15 Ml FEEDTUBE PRN PRN Hypoglycemia Simple Syrup 30 ml 02/22/20 16:08 Simple Syrup 15 Ml FEEDTUBE PRN PRN Hypoglycemia Sodium Bicarbonate 325 mg 02/22/20 16:08 Sodium Bicarbonate 325 Mg Tab FEEDTUBE PRN PRN For Clogged Feeding Tube Sodium Chloride 10 ml 02/21/20 10:00 02/28/20 20:59 Sodium Chloride Flush Syringe 10 Ml IV 10 ml BID DILIP Administration Sodium Chloride 10 ml 02/21/20 00:28 Sodium Chloride Flush Syringe 10 Ml IV PRN PRN LINE FLUSH Nutrition/Malnutrition Assess - Dietary Evaluation Nutrition/Malnutrition Findings: Nutrition Notes Start: 02/22/20 15:59 Freq: Status: Active Protocol: Document 02/27/20 12:07 AB (Rec: 02/27/20 12:15 AB [id number]) Co-Sign 02/27/20 12:07 LM Nutrition Notes Initial or Follow up Reassessment Current Diagnosis Sepsis,Hypertension Other Pertinent Diagnosis COVID(+), Pneumonia, Acute Respiratory Failure Current Diet Nepro 1.8 at 45 ml/hr (goal rate) Labs/Tests Na 154 BUN 49 BG 227 Pertinent Medications Reviewed Height 5 ft 4 in Weight 85.5 kg [place] Body Weight (kg) 59.09 BMI 32.3 Weight change and time frame Unsure if accurate wt Weight Status Obese Subjective/Other Information F/U for TF rate/tolerance and wt. Data Review Specialist observed TF running at goal rate. Percent of energy/protein needs met: 100%/95% Burn Absent Trauma Absent GI Symptoms None Current % PO Negligible Minimum of two criteria No physical signs of malnutrition #1 Nutrition Diagnosis Inadequate oral intake Diagnosis Progress(for reassessment Continues documentation) Is patient on ventilator? Yes Is Patient Ambulatory and/or Out of Bed No REE-([facility]-confined to bed) 1901.844 Kcal/Kg value to use for calculation 21 Approximate Energy Requirements Using 1796 kcal/Kg Calculation Used for Recommendations Kcal/kg Additional Notes Pro: 92-154 g (1.2-2 g/kg) Fluid: 1 ml/kcal Nutrition Intervention Change Diet Order: Continue TF Nutrition Support: Nepro 1.8 at 45 ml/hr Flush 300 ml q4h for hypernatremia. Once hypernatremia resolved, flush 200 ml q4h. Kcal 1,944 Protein (gm) 87 Fluid (mL) 785 Goal #1 TF tolerance Goal #2 Meet at least 80% of protein and energy needs via TF. Anticipated Discharge Needs: Unable to determine at this time Follow-Up By: 02/29/20 Additional Comments F/U for TF tolerance, wt changes
[2020-02-29] MEDS ORDERED: INSULIN GLARGINE 100 UNITS/ML SUB-Q ONE (10:00)
--- NOTE | 2020-02-29 10:22 | Progress Note ---
Assessment and Plan Cultures: Blood culture 02/20/2020 no growth SARS CoV2 PCR positive as an outpatient SARS-CoV-2 PCR positive Urine culture negative Tracheal aspirate 02/22/2020 no growth today Blood culture 02/23/2020 no growth today SARS IgG positive Blood culture 02/26/2020 no growth today Tracheal aspirate date 02/25/2020 usual respiratory antonia Assessment: 59 years old male with history of hypertension admitted on 02/20/2020 due to a week history of dry cough, fever, generalized malaise, shortness of breath. Patient was diagnosed with COVID-19 4 days before admission: #Severe sepsis with septic shock: Fever worsening, remains tachycardic, noted low blood pressure.. likely due to bilateral pneumonia. Procalcitonin 0.7-->0.4. #Critical COVID pneumonia: Patient intubated. Very elevated inflammatory markers, ferritin 1263, CRP 32, D-dimer> 10,000. Suspect pulmonary embolism. Elevated procalcitonin. D-dimer improving, ferritin worsening. SARS-CoV-2 IgG positive, patient is not a candidate for Covid convalescent plasma #Acute hypoxemic respiratory failure: Remains intubated, worsening FiO2 90, PEEP 8 #Elevated LFTs: from COVID #Very elevated D-dimer: left leg DVT Recommendations: -Stat blood cultures, tracheal aspirate, urinalysis and urine culture -Chest x-ray to rule out pneumothorax, noted mild subcutaneous emphysema on the left neck -Start Zosyn IV -Start Zyvox IV -Continue full dose steroids - on lovenox for DVT -Continue dexamethasone 6 mg IV/PO BID for 5 days then 6 mg daily for 5 days - day 9 of 10 -Completed remdesivir -Completed cefepime 5 days -Monitor inflammatory markers - ferritin, Ddimer, CRP, LDH ordered today -Prone positioning as possible -Obtain MRSA culture -pending, reordered High risk mortality Dr. Guevara roundstarla this weekend. Discussed with pharmacy and nursing staff. Will follow Venita Tran MD Infectious Diseases [employer] [facility] M [phone] O [phone] Subjective Date of service: 02/29/20 Principal diagnosis: Ac hypoxemic resp failure; Severe COVID infection; Severe Sepsis; PNA; DVT Interval history: Patient remains spiking high fever 102, tachycardia on monitor, sedated on fentanyl and propofol, FiO2 90%, PEEP of 8 Objective - Exam Narrative Exam: General appearance: Sedated intubated Eyes: anicteric sclerae, moist conjunctivae; no lid-lag; PERRLA HENT: Normocephalic, Atraumatic; normal external ears, nares open, oropharynx limited endotracheal tube in place Neck: + Subcutaneous emphysema left upper chest and neck Lungs: Bilateral rhonchi CV: Tachycardic Abdomen: Soft, non-tender Extremities: no edema, no cyanosis Skin: No rash. Psych: Sedated Neuro: Sedated - Constitutional Vitals: Vital Signs Temp Pulse Resp BP Pulse Ox 102.7 F H 131 H 20 93/52 100 02/29/20 08:00 02/29/20 10:00 02/29/20 10:00 02/29/20 10:00 02/29/20 10:00 Temperature -Last 24 Hours Temperature 102.7 F Temperature 100 F Temperature 101.3 F Temperature 99.1 F Temperature 98.9 F Temperature 101.3 F - Labs CBC & Chem 7: 02/29/20 04:39 02/29/20 04:39 Labs: Abnormal lab results 02/28/20 02/28/20 02/28/20 Range/Units 10:09 10:09 11:58 WBC (4.5-11.0) K/mm3 Hct (35.5-45.6) % MCV (84-94) fl POC ABG pCO2 (32.0-48.0) mmHg POC ABG pO2 (83-108) mmHg ABG Sodium (136.0-145.0) mmol/L ABG Chloride (98-107) mmol/L ABG Glucose (65-95) mg/dL Sodium 150 H (137-145) mmol/L Chloride 112.9 H (98-107) mmol/L Carbon Dioxide 33 H D (22-30) mmol/L BUN 50 H (9-20) mg/dL Glucose 237 H (75-100) mg/dL POC Glucose 203 H (70-105) mg/dL Triglycerides 202 H (2-149) mg/dL Arterial Blood Glucose (65-95) mg/dL 02/28/20 02/28/20 02/29/20 Range/Units 17:10 23:47 04:34 WBC (4.5-11.0) K/mm3 Hct (35.5-45.6) % MCV (84-94) fl POC ABG pCO2 48.2 H (32.0-48.0) mmHg POC ABG pO2 54.3 L (83-108) mmHg ABG Sodium 147.8 H (136.0-145.0) mmol/L ABG Chloride 112.0 H (98-107) mmol/L ABG Glucose 347 H (65-95) mg/dL Sodium (137-145) mmol/L Chloride (98-107) mmol/L Carbon Dioxide (22-30) mmol/L BUN (9-20) mg/dL Glucose (75-100) mg/dL POC Glucose 231 H 279 H (70-105) mg/dL Triglycerides (2-149) mg/dL Arterial Blood Glucose 347 H (65-95) mg/dL 02/29/20 02/29/20 02/29/20 Range/Units 04:39 04:39 05:34 WBC 12.5 H (4.5-11.0) K/mm3 Hct 35.1 L D (35.5-45.6) % MCV 95 H (84-94) fl POC ABG pCO2 (32.0-48.0) mmHg POC ABG pO2 (83-108) mmHg ABG Sodium (136.0-145.0) mmol/L ABG Chloride (98-107) mmol/L ABG Glucose (65-95) mg/dL Sodium 147 H (137-145) mmol/L Chloride 110.0 H (98-107) mmol/L Carbon Dioxide (22-30) mmol/L BUN 56 H (9-20) mg/dL Glucose 342 H (75-100) mg/dL POC Glucose 284 H (70-105) mg/dL Triglycerides (2-149) mg/dL Arterial Blood Glucose (65-95) mg/dL
[2020-02-29] MEDS ORDERED: SODIUM CHLORIDE 0.9% 500 ML 500 ML IV ONE ×2 (11:00→15:00)
--- NOTE | 2020-02-29 11:30 | XRay Report ---
CHEST 1 VIEW 02/29/2020 10:17 AM INDICATION / CLINICAL INFORMATION: left upper chest/neck SQ emphysema. COMPARISON: 02/28/2020 FINDINGS: SUPPORT DEVICES: Stable, satisfactory device positioning. HEART / MEDIASTINUM: No significant abnormality. LUNGS / PLEURA: Patchy and confluent pulmonary opacities overall unchanged in the right lung and mild ly improved in the left lung. No pneumothorax. ADDITIONAL FINDINGS: Minimally decreased upper chest/cervical region subcutaneous emphysema. IMPRESSION: 1. Minimally decreased upper chest/cervical region subcutaneous emphysema. 2. Mildly improved pulmonary airspace disease on the left. Signer Name: Raman Sung MD Signed: 02/29/2020 11:25 AM Workstation Name: [employer] [id number][id number]
--- NOTE | 2020-02-29 13:10 | Progress Note ---
Assessment and Plan Acute hypoxemic respiratory failure due to COVID-19 Severe COVID infection-Critical COVID Severe Sepsis Bilateral pneumonia Elevated Transaminases Lower extremity DVT Hypernatremia Give 1L bolus of NS Wean supplemental oxygen for O2 sats>90% Daily ABG Accuchecks with glycemic control per SSI (While critically ill target blood glucose of 140-180 mg/dL; avoid hypoglycemia)-adjust insulin therapy Hold tube feeding for now, no hemodynamic instability with stable hemoglobin. Stop Famotidine and treat with PPI therapeutic dosing Free water and hypotonic solutions for hypernatremia - VAP bundle addressed, aspiration precautions HOB >40 - Continue lung protective strategies, permissive hypercapnic acceptable. - continue bronchodilators with pulmonary hygiene per RT -Daily assessment for readiness to wean - sedation prn for target RASS -1 to -2 -Enteral nutritional support, RD consult for tube feeding - Prone positioning as tolerated and indicated - Monitor liver function test , avoid hepatotoxic agents - Avoid nephrotoxins, renally dose all medications, conservative fluid management - Avoid benzodiazepines, reduce the possibility of delirium - prn analgesia per CPOT score - Maintenance of sleep-wake cycle, avoid delirium -Stress ulcer prophylaxis - PT/OT/ROM exercises - continue mobility protocols for pressure ulcer prevention -CXR, ABG as clinically indicated -CBC, BMP in am -Supportive transfusions to keep HgB >7g/dL -Monitor hemodynamics closely -Antibiotics per ID ( Zosyn , Linezolid per ID s/p Cefepime for 5 days) -continue other care per attending / other consultants COVID SPECIFIC INTERVENTIONS - s/p Remdesivir -Dexamethasone 6mg -Monitor inflammatory markers per facility protocol - ferritin, Ddimer, CRP, -VTE prophylaxis-therapeutic anticoagulation per system Protocol based on d-dime r and positive lower extremity DVT ( on therapeutic Enoxaparin) -Continue contact and airborne isolation SARS-CoV-2 IgG positive, patient is not a candidate for Covid convalescent plasma CONDITION: CRITICAL PROGNOSIS: GUARDED CODE STATUS: FULL CODE The high probability of a clinically significant, sudden or life-threatening deterioration of the [respiratory, cardiovascular & neurologic] system(s) required my full and direct attention, intervention and personal management. The aggregate critical care time was [33] minutes without overlap. Time includes spent on; [x] Data Review and interpretation [x] Patient assessment and monitoring of vital signs [x] Documentation [x] Medication orders and management Subjective Date of service: 02/29/20 Principal diagnosis: Ac hypoxemic resp failure; Severe COVID infection; Severe Sepsis; PNA; DVT Interval history: Follow up for :Acute hypoxemic respiratory failure due to COVID-19; Severe COVID infection-Critical COVID; Severe Sepsis; Bilateral pneumonia Elevated Transaminases; Lower extremity DVT Seen and examined at bedside; 24hour events reviewed; nursing and respiratory care staff consulted; no adverse overnight events reported to me; resting peacefully in bed; remains on MVS; PEEP +8/FIO2 90% On going fevers, Tmax 102.8. Bloody effluent from OGT, ongoing tachycardia. On Zosyn Objective Vital Signs - 12hr 02/29/20 02/29/20 02/29/20 01:15 01:16 01:30 Temperature Pulse Rate 120 H 124 H 120 H Respiratory 18 23 25 H Rate Blood Pressure 101/68 88/70 O2 Sat by Pulse 95 92 93 Oximetry 02/29/20 02/29/20 02/29/20 01:45 02:00 02:16 Temperature Pulse Rate 122 H 121 H 120 H Respiratory 23 24 24 Rate Blood Pressure 92/71 90/69 106/73 O2 Sat by Pulse 96 94 95 Oximetry 02/29/20 02/29/20 02/29/20 02:30 02:45 03:00 Temperature Pulse Rate 121 H 122 H 127 H Respiratory 22 24 28 H Rate Blood Pressure 115/74 101/71 115/73 O2 Sat by Pulse 94 95 94 Oximetry 02/29/20 02/29/20 02/29/20 03:15 03:28 03:30 Temperature 101.3 F H Pulse Rate 124 H 122 H Respiratory 22 23 Rate Blood Pressure 117/74 112/73 O2 Sat by Pulse 96 95 Oximetry 02/29/20 02/29/20 02/29/20 03:45 04:00 04:15 Temperature Pulse Rate 125 H 126 H 123 H Respiratory 25 H 22 24 Rate Blood Pressure 106/72 113/70 116/73 O2 Sat by Pulse 96 96 97 Oximetry 02/29/20 02/29/20 02/29/20 04:30 04:35 04:45 Temperature 100 F H Pulse Rate 123 H 123 H 123 H Respiratory 27 H 18 24 Rate Blood Pressure 116/73 110/74 O2 Sat by Pulse 97 95 96 Oximetry 02/29/20 02/29/20 02/29/20 04:56 05:00 05:15 Temperature Pulse Rate 126 H 126 H 126 H Respiratory 21 26 H Rate Blood Pressure 110/74 112/72 122/69 O2 Sat by Pulse 96 97 95 Oximetry 02/29/20 02/29/20 02/29/20 05:30 05:45 06:00 Temperature Pulse Rate 127 H 127 H 137 H Respiratory 26 H 28 H 39 H Rate Blood Pressure 120/75 127/79 136/76 O2 Sat by Pulse 96 94 94 Oximetry 02/29/20 02/29/20 02/29/20 06:13 06:15 06:30 Temperature Pulse Rate 137 H 137 H 139 H Respiratory 32 H 33 H Rate Blood Pressure 130/76 131/80 O2 Sat by Pulse 92 92 Oximetry 02/29/20 02/29/20 02/29/20 06:46 07:00 07:15 Temperature Pulse Rate 145 H 140 H 140 H Respiratory 34 H 29 H 29 H Rate Blood Pressure 132/81 119/73 130/73 O2 Sat by Pulse 89 96 95 Oximetry 02/29/20 02/29/20 02/29/20 07:30 07:45 07:51 Temperature Pulse Rate 138 H 138 H 143 H Respiratory 29 H 30 H Rate Blood Pressure 126/75 133/69 133/69 O2 Sat by Pulse 97 93 99 Oximetry 02/29/20 02/29/20 02/29/20 08:00 08:15 08:30 Temperature 102.7 F H Pulse Rate 143 H 144 H 142 H Respiratory 27 H 27 H 27 H Rate Blood Pressure 133/69 123/60 115/58 O2 Sat by Pulse 97 99 100 Oximetry 02/29/20 02/29/20 02/29/20 08:45 09:00 09:15 Temperature Pulse Rate 141 H 139 H 138 H Respiratory 21 23 22 Rate Blood Pressure 114/56 104/53 105/51 O2 Sat by Pulse 100 100 100 Oximetry 02/29/20 02/29/20 02/29/20 09:30 09:45 10:00 Temperature 102.8 F H Pulse Rate 136 H 133 H 131 H Respiratory 19 20 20 Rate Blood Pressure 87/48 94/55 93/52 O2 Sat by Pulse 100 100 100 Oximetry 02/29/20 02/29/20 02/29/20 10:15 10:30 10:45 Temperature Pulse Rate 126 H 123 H 120 H Respiratory 21 19 20 Rate Blood Pressure 88/55 75/51 73/54 O2 Sat by Pulse 99 99 100 Oximetry 02/29/20 02/29/20 02/29/20 10:49 11:00 11:15 Temperature 101.5 F H Pulse Rate 114 H 114 H Respiratory 20 19 Rate Blood Pressure 93/59 81/57 O2 Sat by Pulse 100 100 Oximetry 02/29/20 02/29/20 02/29/20 11:30 11:36 11:45 Temperature Pulse Rate 109 H 110 H 107 H Respiratory 19 20 Rate Blood Pressure 85/54 81/57 90/52 O2 Sat by Pulse 100 100 100 Oximetry 02/29/20 02/29/20 02/29/20 12:00 12:16 12:30 Temperature 101.5 F H Pulse Rate 110 H 107 H 107 H Respiratory 18 18 19 Rate Blood Pressure 97/56 98/57 95/61 O2 Sat by Pulse 100 100 100 Oximetry Constitutional: no acute distress, other (mild respiratory distress, orally intubated to MVS) Eyes: non-icteric ENT: oropharynx moist, other (ETT at 23cm at the lip) Neck: supple, no lymphadenopathy, no JVD Effort: mildly labored Ascultation: Bilateral: diminished breath sounds, rhonchi Percussion: Bilateral: not dull Cardiovascular: regular rate and rhythm, other (S1,S2) Gastrointestinal: normoactive bowel sounds, soft, non-tender, non-distended Integumentary: normal Extremities: no cyanosis, no edema, pink and warm, no ischemia or petechiae Neurologic: non-focal exam (grossly), pupils equal and round, unable to assess (sedated) Psychiatric: other (unable to assess) CBC and BMP: 02/29/20 04:39 02/29/20 04:39 ABG, PT/INR, D-dimer: ABG ABG pH 7.443 (7.320-7.450) 02/29/20 04:34 POC ABG pCO2 48.2 mmHg (32.0-48.0) H 02/29/20 04:34 ABG pCO2 37.2 mm Hg 02/26/20 04:07 POC ABG pO2 54.3 mmHg (83-108) L 02/29/20 04:34 ABG pO2 68.3 mm Hg (80.0-90.0) L 02/26/20 04:07 POC ABG HCO3 32.2 02/29/20 04:34 ABG O2 Saturation 95.0 % (95.0-99.0) 02/26/20 04:07 PT/INR, D-dimer PT 18.8 Sec. (12.2-14.9) H 02/22/20 07:40 INR 1.59 (0.87-1.13) H 02/22/20 07:40 D-Dimer 2743.07 ng/mlDDU (0-234) H 02/26/20 01:59 Abnormal lab findings: Abnormal Labs 02/20/20 02/20/20 02/20/20 19:21 19:21 19:21 WBC 14.7 H Hct MCV 95 H MCH Seg Neuts % (Manual) 86.0 H Lymphocytes % (Manual) 5.0 L Nucleated RBC % 1.0 H Seg Neutrophils # Man 12.6 H Lymphocytes # (Manual) 0.7 L PT INR D-Dimer > 67360 H ABG pH POC ABG pCO2 POC ABG pO2 ABG pO2 ABG HCO3 ABG O2 Saturation ABG Base Excess ABG Hemoglobin ABG Oxyhemoglobin ABG Sodium ABG Potassium ABG Chloride ABG Glucose Oxyhemoglobin Sodium 129 L Potassium Chloride 95.8 L Carbon Dioxide 21 L BUN 21 H Glucose 167 H POC Glucose Lactic Acid Calcium Ferritin Direct Bilirubin AST 93 H ALT 148 H Alkaline Phosphatase 138 H Lactate Dehydrogenase C-Reactive Protein Total Protein Albumin 2.8 L Triglycerides Arterial Blood Glucose Urine WBC (Auto) Coronavirus (PCR) SARS-CoV-2 IgG Ab 02/20/20 02/20/20 02/20/20 19:21 19:21 23:00 WBC Hct MCV MCH Seg Neuts % (Manual) Lymphocytes % (Manual) Nucleated RBC % Seg Neutrophils # Man Lymphocytes # (Manual) PT INR D-Dimer ABG pH POC ABG pCO2 POC ABG pO2 ABG pO2 ABG HCO3 ABG O2 Saturation ABG Base Excess ABG Hemoglobin ABG Oxyhemoglobin ABG Sodium ABG Potassium ABG Chloride ABG Glucose Oxyhemoglobin Sodium Potassium Chloride Carbon Dioxide BUN Glucose 165 H POC Glucose Lactic Acid Calcium Ferritin 1263.0 H Direct Bilirubin AST ALT Alkaline Phosphatase Lactate Dehydrogenase 858 H C-Reactive Protein 32.40 H Total Protein Albumin Triglycerides Arterial Blood Glucose Urine WBC (Auto) 9.0 H Coronavirus (PCR) SARS-CoV-2 IgG Ab 02/20/20 02/21/20 02/21/20 23:37 04:09 08:59 WBC Hct MCV MCH Seg Neuts % (Manual) Lymphocytes % (Manual) Nucleated RBC % Seg Neutrophils # Man Lymphocytes # (Manual) PT INR D-Dimer ABG pH 7.192 L 7.268 L POC ABG pCO2 51.3 H POC ABG pO2 61.1 L ABG pO2 62.0 L ABG HCO3 16.5 L ABG O2 Saturation 87.8 L ABG Base Excess -9.6 L ABG Hemoglobin 13.7 L ABG Oxyhemoglobin ABG Sodium 133.6 L ABG Potassium ABG Chloride ABG Glucose 166 H Oxyhemoglobin 86.7 L Sodium Potassium Chloride Carbon Dioxide BUN Glucose POC Glucose Lactic Acid Calcium Ferritin Direct Bilirubin AST ALT Alkaline Phosphatase Lactate Dehydrogenase C-Reactive Protein Total Protein Albumin Triglycerides Arterial Blood Glucose 166 H Urine WBC (Auto) Coronavirus (PCR) Positive A SARS-CoV-2 IgG Ab 02/21/20 02/22/20 02/22/20 12:54 03:09 07:40 WBC 15.5 H Hct MCV 96 H MCH Seg Neuts % (Manual) 94.0 H Lymphocytes % (Manual) Nucleated RBC % Seg Neutrophils # Man 14.6 H Lymphocytes # (Manual) 0.0 L PT INR D-Dimer ABG pH 7.252 L 7.280 L POC ABG pCO2 POC ABG pO2 81.3 L ABG pO2 97.7 H ABG HCO3 14.9 L ABG O2 Saturation ABG Base Excess -11.2 L ABG Hemoglobin ABG Oxyhemoglobin ABG Sodium ABG Potassium 4.8 H ABG Chloride 113.0 H ABG Glucose 209 H Oxyhemoglobin Sodium Potassium Chloride Carbon Dioxide BUN Glucose POC Glucose Lactic Acid Calcium Ferritin Direct Bilirubin AST ALT Alkaline Phosphatase Lactate Dehydrogenase C-Reactive Protein Total Protein Albumin Triglycerides Arterial Blood Glucose 209 H Urine WBC (Auto) Coronavirus (PCR) SARS-CoV-2 IgG Ab 02/22/20 02/22/20 02/22/20 07:40 07:40 11:23 WBC Hct MCV MCH Seg Neuts % (Manual) Lymphocytes % (Manual) Nucleated RBC % Seg Neutrophils # Man Lymphocytes # (Manual) PT 18.8 H INR 1.59 H D-Dimer ABG pH POC ABG pCO2 POC ABG pO2 ABG pO2 ABG HCO3 ABG O2 Saturation ABG Base Excess ABG Hemoglobin ABG Oxyhemoglobin ABG Sodium ABG Potassium ABG Chloride ABG Glucose Oxyhemoglobin Sodium Potassium 5.2 H D Chloride 111.4 H 113.7 H Carbon Dioxide 18 L BUN 35 H 36 H Glucose 234 H 240 H POC Glucose Lactic Acid Calcium 7.9 L 8.0 L Ferritin Direct Bilirubin 0.3 H AST 127 H ALT 261 H Alkaline Phosphatase 211 H Lactate Dehydrogenase C-Reactive Protein Total Protein Albumin 2.4 L Triglycerides Arterial Blood Glucose Urine WBC (Auto) Coronavirus (PCR) SARS-CoV-2 IgG Ab 02/22/20 02/22/20 02/22/20 12:53 18:25 23:14 WBC Hct MCV MCH Seg Neuts % (Manual) Lymphocytes % (Manual) Nucleated RBC % Seg Neutrophils # Man Lymphocytes # (Manual) PT INR D-Dimer ABG pH 7.311 L POC ABG pCO2 POC ABG pO2 ABG pO2 70.7 L ABG HCO3 ABG O2 Saturation 93.7 L ABG Base Excess -5.3 L ABG Hemoglobin 13.7 L ABG Oxyhemoglobin ABG Sodium ABG Potassium ABG Chloride ABG Glucose Oxyhemoglobin 92.3 L Sodium Potassium Chloride Carbon Dioxide BUN Glucose POC Glucose 220 H 229 H Lactic Acid Calcium Ferritin Direct Bilirubin AST ALT Alkaline Phosphatase Lactate Dehydrogenase C-Reactive Protein Total Protein Albumin Triglycerides Arterial Blood Glucose Urine WBC (Auto) Coronavirus (PCR) SARS-CoV-2 IgG Ab 02/23/20 02/23/20 02/23/20 04:00 05:00 05:29 WBC 15.3 H Hct MCV 97 H MCH 33 H Seg Neuts % (Manual) Lymphocytes % (Manual) Nucleated RBC % Seg Neutrophils # Man Lymphocytes # (Manual) PT INR D-Dimer ABG pH 7.318 L POC ABG pCO2 POC ABG pO2 ABG pO2 ABG HCO3 ABG O2 Saturation ABG Base Excess ABG Hemoglobin ABG Oxyhemoglobin ABG Sodium ABG Potassium 5.1 H ABG Chloride 114.0 H ABG Glucose 306 H Oxyhemoglobin Sodium Potassium 5.4 H Chloride 114.3 H Carbon Dioxide BUN 47 H Glucose 323 H POC Glucose Lactic Acid Calcium 8.1 L Ferritin Direct Bilirubin AST 61 H ALT 197 H Alkaline Phosphatase Lactate Dehydrogenase C-Reactive Protein Total Protein 6.0 L Albumin 2.3 L Triglycerides Arterial Blood Glucose 306 H Urine WBC (Auto) Coronavirus (PCR) SARS-CoV-2 IgG Ab 02/23/20 02/23/20 02/23/20 05:32 11:57 18:09 WBC Hct MCV MCH Seg Neuts % (Manual) Lymphocytes % (Manual) Nucleated RBC % Seg Neutrophils # Man Lymphocytes # (Manual) PT INR D-Dimer ABG pH POC ABG pCO2 POC ABG pO2 ABG pO2 ABG HCO3 ABG O2 Saturation ABG Base Excess ABG Hemoglobin ABG Oxyhemoglobin ABG Sodium ABG Potassium ABG Chloride ABG Glucose Oxyhemoglobin Sodium Potassium Chloride Carbon Dioxide BUN Glucose POC Glucose 264 H 283 H 338 H Lactic Acid Calcium Ferritin Direct Bilirubin AST ALT Alkaline Phosphatase Lactate Dehydrogenase C-Reactive Protein Total Protein Albumin Triglycerides Arterial Blood Glucose Urine WBC (Auto) Coronavirus (PCR) SARS-CoV-2 IgG Ab 02/23/20 02/24/20 02/24/20 23:13 03:50 06:10 WBC Hct MCV MCH Seg Neuts % (Manual) Lymphocytes % (Manual) Nucleated RBC % Seg Neutrophils # Man Lymphocytes # (Manual) PT INR D-Dimer ABG pH POC ABG pCO2 POC ABG pO2 ABG pO2 90.6 H ABG HCO3 ABG O2 Saturation ABG Base Excess ABG Hemoglobin 12.7 L ABG Oxyhemoglobin ABG Sodium ABG Potassium ABG Chloride ABG Glucose Oxyhemoglobin Sodium Potassium Chloride Carbon Dioxide BUN Glucose POC Glucose 300 H 313 H Lactic Acid Calcium Ferritin Direct Bilirubin AST ALT Alkaline Phosphatase Lactate Dehydrogenase C-Reactive Protein Total Protein Albumin Triglycerides Arterial Blood Glucose Urine WBC (Auto) Coronavirus (PCR) SARS-CoV-2 IgG Ab 02/24/20 02/24/20 02/24/20 11:52 13:11 13:11 WBC Hct MCV MCH Seg Neuts % (Manual) Lymphocytes % (Manual) Nucleated RBC % Seg Neutrophils # Man Lymphocytes # (Manual) PT INR D-Dimer ABG pH POC ABG pCO2 POC ABG pO2 ABG pO2 ABG HCO3 ABG O2 Saturation ABG Base Excess ABG Hemoglobin ABG Oxyhemoglobin ABG Sodium ABG Potassium ABG Chloride ABG Glucose Oxyhemoglobin Sodium 147 H Potassium 5.6 H Chloride 113.2 H Carbon Dioxide BUN 50 H Glucose 342 H POC Glucose 290 H Lactic Acid Calcium Ferritin Direct Bilirubin AST 150 H ALT 205 H Alkaline Phosphatase Lactate Dehydrogenase C-Reactive Protein Total Protein Albumin 2.4 L Triglycerides Arterial Blood Glucose Urine WBC (Auto) Coronavirus (PCR) SARS-CoV-2 IgG Ab 02/24/20 02/24/20 02/25/20 13:11 17:46 00:25 WBC Hct MCV MCH Seg Neuts % (Manual) Lymphocytes % (Manual) Nucleated RBC % Seg Neutrophils # Man Lymphocytes # (Manual) PT INR D-Dimer ABG pH POC ABG pCO2 POC ABG pO2 ABG pO2 ABG HCO3 ABG O2 Saturation ABG Base Excess ABG Hemoglobin ABG Oxyhemoglobin ABG Sodium ABG Potassium ABG Chloride ABG Glucose Oxyhemoglobin Sodium Potassium Chloride Carbon Dioxide BUN Glucose POC Glucose 310 H 300 H Lactic Acid 2.40 H* Calcium Ferritin Direct Bilirubin AST ALT Alkaline Phosphatase Lactate Dehydrogenase C-Reactive Protein Total Protein Albumin Triglycerides Arterial Blood Glucose Urine WBC (Auto) Coronavirus (PCR) SARS-CoV-2 IgG Ab 02/25/20 02/25/20 02/25/20 04:00 04:42 04:42 WBC Hct MCV MCH Seg Neuts % (Manual) Lymphocytes % (Manual) Nucleated RBC % Seg Neutrophils # Man Lymphocytes # (Manual) PT INR D-Dimer ABG pH POC ABG pCO2 POC ABG pO2 ABG pO2 77.9 L ABG HCO3 26.7 H ABG O2 Saturation ABG Base Excess ABG Hemoglobin 12.4 L ABG Oxyhemoglobin ABG Sodium ABG Potassium ABG Chloride ABG Glucose Oxyhemoglobin 94.5 L Sodium 149 H Potassium Chloride 113.2 H Carbon Dioxide BUN 45 H Glucose 416 H POC Glucose Lactic Acid 2.20 H* Calcium Ferritin Direct Bilirubin 0.3 H AST 60 H ALT 174 H Alkaline Phosphatase Lactate Dehydrogenase C-Reactive Protein Total Protein 5.7 L Albumin 2.2 L Triglycerides Arterial Blood Glucose Urine WBC (Auto) Coronavirus (PCR) SARS-CoV-2 IgG Ab 02/25/20 02/25/20 02/25/20 05:24 11:32 18:23 WBC Hct MCV MCH Seg Neuts % (Manual) Lymphocytes % (Manual) Nucleated RBC % Seg Neutrophils # Man Lymphocytes # (Manual) PT INR D-Dimer ABG pH POC ABG pCO2 POC ABG pO2 ABG pO2 ABG HCO3 ABG O2 Saturation ABG Base Excess ABG Hemoglobin ABG Oxyhemoglobin ABG Sodium ABG Potassium ABG Chloride ABG Glucose Oxyhemoglobin Sodium Potassium Chloride Carbon Dioxide BUN Glucose POC Glucose 378 H 361 H 383 H Lactic Acid Calcium Ferritin Direct Bilirubin AST ALT Alkaline Phosphatase Lactate Dehydrogenase C-Reactive Protein Total Protein Albumin Triglycerides Arterial Blood Glucose Urine WBC (Auto) Coronavirus (PCR) SARS-CoV-2 IgG Ab 02/25/20 02/26/20 02/26/20 23:11 01:59 01:59 WBC Hct MCV MCH Seg Neuts % (Manual) Lymphocytes % (Manual) Nucleated RBC % Seg Neutrophils # Man Lymphocytes # (Manual) PT INR D-Dimer 2743.07 H ABG pH POC ABG pCO2 POC ABG pO2 ABG pO2 ABG HCO3 ABG O2 Saturation ABG Base Excess ABG Hemoglobin ABG Oxyhemoglobin ABG Sodium ABG Potassium ABG Chloride ABG Glucose Oxyhemoglobin Sodium Potassium Chloride Carbon Dioxide BUN Glucose POC Glucose 356 H Lactic Acid 2.20 H* Calcium Ferritin Direct Bilirubin AST ALT Alkaline Phosphatase Lactate Dehydrogenase C-Reactive Protein Total Protein Albumin Triglycerides Arterial Blood Glucose Urine WBC (Auto) Coronavirus (PCR) SARS-CoV-2 IgG Ab 02/26/20 02/26/20 02/26/20 01:59 01:59 01:59 WBC Hct MCV MCH Seg Neuts % (Manual) Lymphocytes % (Manual) Nucleated RBC % Seg Neutrophils # Man Lymphocytes # (Manual) PT INR D-Dimer ABG pH POC ABG pCO2 POC ABG pO2 ABG pO2 ABG HCO3 ABG O2 Saturation ABG Base Excess ABG Hemoglobin ABG Oxyhemoglobin ABG Sodium ABG Potassium ABG Chloride ABG Glucose Oxyhemoglobin Sodium Potassium Chloride Carbon Dioxide BUN Glucose POC Glucose Lactic Acid Calcium Ferritin 1823.0 H Direct Bilirubin AST ALT Alkaline Phosphatase Lactate Dehydrogenase 589 H C-Reactive Protein 10.40 H Total Protein Albumin Triglycerides Arterial Blood Glucose Urine WBC (Auto) Coronavirus (PCR) SARS-CoV-2 IgG Ab Reactive A 02/26/20 02/26/20 02/26/20 04:07 05:14 12:26 WBC Hct MCV MCH Seg Neuts % (Manual) Lymphocytes % (Manual) Nucleated RBC % Seg Neutrophils # Man Lymphocytes # (Manual) PT INR D-Dimer ABG pH 7.466 H POC ABG pCO2 POC ABG pO2 ABG pO2 68.3 L ABG HCO3 26.3 H ABG O2 Saturation ABG Base Excess ABG Hemoglobin 8.6 L ABG Oxyhemoglobin ABG Sodium ABG Potassium ABG Chloride ABG Glucose Oxyhemoglobin 93.7 L Sodium Potassium Chloride Carbon Dioxide BUN Glucose POC Glucose 321 H 398 H Lactic Acid Calcium Ferritin Direct Bilirubin AST ALT Alkaline Phosphatase Lactate Dehydrogenase C-Reactive Protein Total Protein Albumin Triglycerides Arterial Blood Glucose Urine WBC (Auto) Coronavirus (PCR) SARS-CoV-2 IgG Ab 02/26/20 02/26/20 02/27/20 17:48 23:37 03:51 WBC Hct MCV MCH Seg Neuts % (Manual) Lymphocytes % (Manual) Nucleated RBC % Seg Neutrophils # Man Lymphocytes # (Manual) PT INR D-Dimer ABG pH 7.527 H POC ABG pCO2 POC ABG pO2 67.3 L ABG pO2 ABG HCO3 ABG O2 Saturation ABG Base Excess ABG Hemoglobin ABG Oxyhemoglobin ABG Sodium 152.0 H ABG Potassium ABG Chloride 118.0 H ABG Glucose 263 H Oxyhemoglobin Sodium Potassium Chloride Carbon Dioxide BUN Glucose POC Glucose 335 H 308 H Lactic Acid Calcium Ferritin Direct Bilirubin AST ALT Alkaline Phosphatase Lactate Dehydrogenase C-Reactive Protein Total Protein Albumin Triglycerides Arterial Blood Glucose 263 H Urine WBC (Auto) Coronavirus (PCR) SARS-CoV-2 IgG Ab 02/27/20 02/27/20 02/27/20 05:28 07:17 07:17 WBC 18.5 H Hct MCV 97 H MCH Seg Neuts % (Manual) Lymphocytes % (Manual) Nucleated RBC % Seg Neutrophils # Man Lymphocytes # (Manual) PT INR D-Dimer ABG pH POC ABG pCO2 POC ABG pO2 ABG pO2 ABG HCO3 ABG O2 Saturation ABG Base Excess ABG Hemoglobin ABG Oxyhemoglobin ABG Sodium ABG Potassium ABG Chloride ABG Glucose Oxyhemoglobin Sodium 154 H Potassium Chloride 119.9 H Carbon Dioxide BUN 49 H Glucose 227 H POC Glucose 188 H Lactic Acid Calcium Ferritin Direct Bilirubin AST ALT Alkaline Phosphatase Lactate Dehydrogenase C-Reactive Protein Total Protein Albumin Triglycerides Arterial Blood Glucose Urine WBC (Auto) Coronavirus (PCR) SARS-CoV-2 IgG Ab 02/27/20 02/27/20 02/27/20 11:50 17:44 23:40 WBC Hct MCV MCH Seg Neuts % (Manual) Lymphocytes % (Manual) Nucleated RBC % Seg Neutrophils # Man Lymphocytes # (Manual) PT INR D-Dimer ABG pH POC ABG pCO2 POC ABG pO2 ABG pO2 ABG HCO3 ABG O2 Saturation ABG Base Excess ABG Hemoglobin ABG Oxyhemoglobin ABG Sodium ABG Potassium ABG Chloride ABG Glucose Oxyhemoglobin Sodium Potassium Chloride Carbon Dioxide BUN Glucose POC Glucose 202 H 291 H 247 H Lactic Acid Calcium Ferritin Direct Bilirubin AST ALT Alkaline Phosphatase Lactate Dehydrogenase C-Reactive Protein Total Protein Albumin Triglycerides Arterial Blood Glucose Urine WBC (Auto) Coronavirus (PCR) SARS-CoV-2 IgG Ab 02/28/20 02/28/20 02/28/20 04:33 04:47 05:29 WBC Hct MCV MCH Seg Neuts % (Manual) Lymphocytes % (Manual) Nucleated RBC % Seg Neutrophils # Man Lymphocytes # (Manual) PT INR D-Dimer ABG pH POC ABG pCO2 POC ABG pO2 49.8 L 44.3 L ABG pO2 ABG HCO3 ABG O2 Saturation ABG Base Excess ABG Hemoglobin ABG Oxyhemoglobin 85.8 L 80.2 L ABG Sodium 149.1 H 148.5 H ABG Potassium ABG Chloride 114.0 H 114.0 H ABG Glucose 259 H 258 H Oxyhemoglobin Sodium Potassium Chloride Carbon Dioxide BUN Glucose POC Glucose 200 H Lactic Acid Calcium Ferritin Direct Bilirubin AST ALT Alkaline Phosphatase Lactate Dehydrogenase C-Reactive Protein Total Protein Albumin Triglycerides Arterial Blood Glucose 259 H 258 H Urine WBC (Auto) Coronavirus (PCR) SARS-CoV-2 IgG Ab 02/28/20 02/28/20 02/28/20 10:09 10:09 11:58 WBC Hct MCV MCH Seg Neuts % (Manual) Lymphocytes % (Manual) Nucleated RBC % Seg Neutrophils # Man Lymphocytes # (Manual) PT INR D-Dimer ABG pH POC ABG pCO2 POC ABG pO2 ABG pO2 ABG HCO3 ABG O2 Saturation ABG Base Excess ABG Hemoglobin ABG Oxyhemoglobin ABG Sodium ABG Potassium ABG Chloride ABG Glucose Oxyhemoglobin Sodium 150 H Potassium Chloride 112.9 H Carbon Dioxide 33 H D BUN 50 H Glucose 237 H POC Glucose 203 H Lactic Acid Calcium Ferritin Direct Bilirubin AST ALT Alkaline Phosphatase Lactate Dehydrogenase C-Reactive Protein Total Protein Albumin Triglycerides 202 H Arterial Blood Glucose Urine WBC (Auto) Coronavirus (PCR) SARS-CoV-2 IgG Ab 02/28/20 02/28/20 02/29/20 17:10 23:47 04:34 WBC Hct MCV MCH Seg Neuts % (Manual) Lymphocytes % (Manual) Nucleated RBC % Seg Neutrophils # Man Lymphocytes # (Manual) PT INR D-Dimer ABG pH POC ABG pCO2 48.2 H POC ABG pO2 54.3 L ABG pO2 ABG HCO3 ABG O2 Saturation ABG Base Excess ABG Hemoglobin ABG Oxyhemoglobin ABG Sodium 147.8 H ABG Potassium ABG Chloride 112.0 H ABG Glucose 347 H Oxyhemoglobin Sodium Potassium Chloride Carbon Dioxide BUN Glucose POC Glucose 231 H 279 H Lactic Acid Calcium Ferritin Direct Bilirubin AST ALT Alkaline Phosphatase Lactate Dehydrogenase C-Reactive Protein Total Protein Albumin Triglycerides Arterial Blood Glucose 347 H Urine WBC (Auto) Coronavirus (PCR) SARS-CoV-2 IgG Ab 02/29/20 02/29/20 02/29/20 04:39 04:39 05:34 WBC 12.5 H Hct 35.1 L D MCV 95 H MCH Seg Neuts % (Manual) Lymphocytes % (Manual) Nucleated RBC % Seg Neutrophils # Man Lymphocytes # (Manual) PT INR D-Dimer ABG pH POC ABG pCO2 POC ABG pO2 ABG pO2 ABG HCO3 ABG O2 Saturation ABG Base Excess ABG Hemoglobin ABG Oxyhemoglobin ABG Sodium ABG Potassium ABG Chloride ABG Glucose Oxyhemoglobin Sodium 147 H Potassium Chloride 110.0 H Carbon Dioxide BUN 56 H Glucose 342 H POC Glucose 284 H Lactic Acid Calcium Ferritin Direct Bilirubin AST ALT Alkaline Phosphatase Lactate Dehydrogenase C-Reactive Protein Total Protein Albumin Triglycerides Arterial Blood Glucose Urine WBC (Auto) Coronavirus (PCR) SARS-CoV-2 IgG Ab 02/29/20 11:22 WBC Hct MCV MCH Seg Neuts % (Manual) Lymphocytes % (Manual) Nucleated RBC % Seg Neutrophils # Man Lymphocytes # (Manual) PT INR D-Dimer ABG pH POC ABG pCO2 POC ABG pO2 ABG pO2 ABG HCO3 ABG O2 Saturation ABG Base Excess ABG Hemoglobin ABG Oxyhemoglobin ABG Sodium ABG Potassium ABG Chloride ABG Glucose Oxyhemoglobin Sodium Potassium Chloride Carbon Dioxide BUN Glucose POC Glucose 259 H Lactic Acid Calcium Ferritin Direct Bilirubin AST ALT Alkaline Phosphatase Lactate Dehydrogenase C-Reactive Protein Total Protein Albumin Triglycerides Arterial Blood Glucose Urine WBC (Auto) Coronavirus (PCR) SARS-CoV-2 IgG Ab Chest x-ray: image reviewed (02/27 CXR shows subcutaneous emphysema but no PTX, bilateral alveolar infiltrates. Unable to view films for 03/10) Allied health notes reviewed: RT
[2020-02-29 13:17] LABS: Bacteria,Urine 1+ /HPF (Negative); Bilirubin,Urine NEG (Negative); Blood,Urine MOD (Negative); Color,Urine Amber (Yellow); Mucus,Urine FEW /HPF
[2020-02-29] MEDS: LANSOPRAZOLE 30 MG SOLUTAB FEEDTUBE SCH ×2 (15:59→22:12)
[2020-02-29] MEDS: INSULIN GLARGINE 100 UNITS/ML SUB-Q SCH (22:49)
[2020-03-01] MEDS: fentaNYL DRIP Premix 2,000 MCG/100 ML BAG IV SCH ×3 (07:06→22:17)
[2020-03-01] MEDS: PIPERACIL/TAZOBACTA 4.5/NS 100 4.5 GM/100 ML VIAL IV SCH ×4 (07:06→21:56)
[2020-03-01] MEDS: INSULIN LISPRO 100 UNIT/ML VIAL 3 mL SUB-Q SCH ×4 (07:08→17:04)
--- NOTE | 2020-03-01 08:45 | Progress Note ---
Assessment and Plan Acute hypoxemic respiratory failure due to COVID-19 Severe COVID infection-Critical COVID Severe Sepsis Bilateral pneumonia Elevated Transaminases Lower extremity DVT Hypernatremia Give 1L bolus of LR Get CXR PICC placement, vasopressor support to keep MAP >65 Follow cultures Neosynephrine for hypotension, tachycardia precludes Norepinephrine at this time Wean supplemental oxygen for O2 sats>90% Daily ABG Accuchecks with glycemic control per SSI (While critically ill target blood glucose of 140-180 mg/dL; avoid hypoglycemia)-adjust insulin therapy Resume tube feeding, free water flushes Continue with PPI therapeutic dosing Place intra-arterial line for invasive hemodynamic monitoring - VAP bundle addressed, aspiration precautions HOB >40 - Continue lung protective strategies, permissive hypercapnic acceptable. - continue bronchodilators with pulmonary hygiene per RT -Daily assessment for readiness to wean - sedation prn for target RASS -1 to -2 - Prone positioning as tolerated and indicated - Monitor liver function test , avoid hepatotoxic agents - Avoid nephrotoxins, renally dose all medications, conservative fluid management - Avoid benzodiazepines, reduce the possibility of delirium - prn analgesia per CPOT score - Maintenance of sleep-wake cycle, avoid delirium -Stress ulcer prophylaxis - PT/OT/ROM exercises - continue mobility protocols for pressure ulcer prevention -CXR, ABG as clinically indicated -CBC, BMP as clinically indicated -Supportive transfusions to keep HgB >7g/dL -Monitor hemodynamics closely -Antibiotics per ID ( Zosyn , Linezolid per ID s/p Cefepime for 5 days) -continue other care per attending / other consultants COVID SPECIFIC INTERVENTIONS - s/p Remdesivir -Dexamethasone 6mg -Monitor inflammatory markers per facility protocol - ferritin, Ddimer, CRP, -VTE prophylaxis-therapeutic anticoagulation per system Protocol based on d- dimer and positive lower extremity DVT ( on therapeutic Enoxaparin) -Continue contact and airborne isolation -SARS-CoV-2 IgG positive, patient is not a candidate for Covid convalescent plasma CONDITION: CRITICAL PROGNOSIS: GUARDED CODE STATUS: FULL CODE The high probability of a clinically significant, sudden or life-threatening deterioration of the [respiratory, cardiovascular & neurologic] system(s) re quired my full and direct attention, intervention and personal management. The aggregate critical care time was [33] minutes without overlap. Time includes spent on; [x] Data Review and interpretation [x] Patient assessment and monitoring of vital signs [x] Documentation [x] Medication orders and management Subjective Date of service: 03/01/20 Principal diagnosis: Ac hypoxemic resp failure; Severe COVID infection; Severe Sepsis; PNA; DVT Interval history: Follow up for :Acute hypoxemic respiratory failure due to COVID-19; Severe COVID infection-Critical COVID; Severe Sepsis; Bilateral pneumonia Elevated Transaminases; Lower extremity DVT Seen and examined at bedside; 24hour events reviewed; nursing and respiratory care staff consulted; no adverse overnight events reported to me; resting peacefully in bed; remains on MVS; PEEP +8/FIO2 60% On going fevers, Tmax 102.8. OGT no more blood, ongoing tachycardia, with hypotension On Zosyn Objective Vital Signs - 12hr 02/29/20 02/29/20 02/29/20 20:45 21:00 21:15 Temperature Pulse Rate 113 H 117 H 122 H Pulse Rate [ Right Dorsalis Pedis] Respiratory 20 25 H 29 H Rate Blood Pressure 94/73 97/74 106/70 O2 Sat by Pulse 100 Oximetry 02/29/20 02/29/20 02/29/20 21:30 21:45 21:49 Temperature Pulse Rate 118 H 120 H 118 H Pulse Rate [ Right Dorsalis Pedis] Respiratory 20 20 21 Rate Blood Pressure 99/69 95/71 105/66 O2 Sat by Pulse 100 100 99 Oximetry 02/29/20 02/29/20 02/29/20 22:00 22:15 22:30 Temperature Pulse Rate 116 H 118 H 122 H Pulse Rate [ Right Dorsalis Pedis] Respiratory 19 20 20 Rate Blood Pressure 110/62 101/59 84/63 O2 Sat by Pulse 100 100 100 Oximetry 02/29/20 02/29/20 02/29/20 22:45 23:00 23:15 Temperature Pulse Rate 120 H 119 H 119 H Pulse Rate [ Right Dorsalis Pedis] Respiratory 21 20 22 Rate Blood Pressure 103/62 82/59 81/60 O2 Sat by Pulse 100 99 98 Oximetry 02/29/20 02/29/20 02/29/20 23:30 23:45 23:57 Temperature Pulse Rate 115 H 119 H 118 H Pulse Rate [ Right Dorsalis Pedis] Respiratory 19 18 Rate Blood Pressure 85/57 101/60 O2 Sat by Pulse 99 100 Oximetry 03/01/20 03/01/20 03/01/20 00:00 00:09 00:15 Temperature 98.8 F Pulse Rate 118 H 119 H 118 H Pulse Rate [ Right Dorsalis Pedis] Respiratory 18 21 Rate Blood Pressure 93/60 96/56 96/56 O2 Sat by Pulse 100 100 100 Oximetry 03/01/20 03/01/20 03/01/20 00:30 00:45 01:00 Temperature Pulse Rate 119 H 118 H 118 H Pulse Rate [ Right Dorsalis Pedis] Respiratory 20 18 22 Rate Blood Pressure 80/59 88/56 86/58 O2 Sat by Pulse 98 100 99 Oximetry 03/01/20 03/01/20 03/01/20 01:15 01:30 01:45 Temperature Pulse Rate 120 H 124 H 120 H Pulse Rate [ Right Dorsalis Pedis] Respiratory 19 22 19 Rate Blood Pressure 90/63 90/62 99/54 O2 Sat by Pulse 100 100 100 Oximetry 03/01/20 03/01/20 03/01/20 02:00 02:15 02:30 Temperature Pulse Rate 123 H 121 H 122 H Pulse Rate [ Right Dorsalis Pedis] Respiratory 20 21 20 Rate Blood Pressure 90/59 102/57 93/55 O2 Sat by Pulse 100 100 100 Oximetry 03/01/20 03/01/20 03/01/20 02:45 03:00 03:15 Temperature Pulse Rate 124 H 124 H 123 H Pulse Rate [ Right Dorsalis Pedis] Respiratory 20 19 22 Rate Blood Pressure 84/57 88/58 87/60 O2 Sat by Pulse 100 100 100 Oximetry 03/01/20 03/01/20 03/01/20 03:29 03:30 03:45 Temperature 100.1 F H Pulse Rate 127 H 125 H Pulse Rate [ Right Dorsalis Pedis] Respiratory 23 17 Rate Blood Pressure 99/58 95/59 O2 Sat by Pulse 100 100 Oximetry 03/01/20 03/01/20 03/01/20 04:00 04:11 04:15 Temperature Pulse Rate 127 H 118 H 127 H Pulse Rate [ 118 H Right Dorsalis Pedis] Respiratory 19 20 Rate Blood Pressure 90/57 92/56 O2 Sat by Pulse 100 100 Oximetry 03/01/20 03/01/20 03/01/20 04:30 04:45 04:57 Temperature Pulse Rate 127 H 127 H 130 H Pulse Rate [ Right Dorsalis Pedis] Respiratory 21 21 Rate Blood Pressure 92/56 88/57 88/57 O2 Sat by Pulse 100 100 100 Oximetry 03/01/20 03/01/20 03/01/20 05:00 05:15 05:30 Temperature Pulse Rate 130 H 134 H 129 H Pulse Rate [ Right Dorsalis Pedis] Respiratory 25 H 24 20 Rate Blood Pressure 95/57 90/59 84/53 O2 Sat by Pulse 100 100 100 Oximetry 03/01/20 03/01/20 03/01/20 05:45 06:00 06:15 Temperature Pulse Rate 129 H 132 H 131 H Pulse Rate [ Right Dorsalis Pedis] Respiratory 19 26 H 24 Rate Blood Pressure 92/54 89/55 90/53 O2 Sat by Pulse 100 98 100 Oximetry 03/01/20 03/01/20 06:30 06:45 Temperature Pulse Rate 130 H 140 H Pulse Rate [ Right Dorsalis Pedis] Respiratory 25 H 33 H Rate Blood Pressure 90/58 87/63 O2 Sat by Pulse 100 100 Oximetry Constitutional: no acute distress, other (mild respiratory distress, orally intubated to MVS) Eyes: non-icteric ENT: oropharynx moist, other (ETT at 23cm at the lip) Neck: supple, no lymphadenopathy, no JVD, other (Subcutaneous emphysema) Effort: mildly labored Ascultation: Bilateral: diminished breath sounds, rhonchi Percussion: Bilateral: not dull Cardiovascular: regular rate and rhythm, other (S1,S2) Gastrointestinal: normoactive bowel sounds, soft, non-tender, non-distended Integumentary: normal Extremities: no cyanosis, no edema, pink and warm, no ischemia or petechiae Neurologic: pupils equal and round, unable to assess (sedated) Psychiatric: other (unable to assess) CBC and BMP: 02/29/20 04:39 02/29/20 04:39 ABG, PT/INR, D-dimer: ABG ABG pH 7.443 (7.320-7.450) 02/29/20 04:34 POC ABG pCO2 48.2 mmHg (32.0-48.0) H 02/29/20 04:34 ABG pCO2 37.2 mm Hg 02/26/20 04:07 POC ABG pO2 54.3 mmHg (83-108) L 02/29/20 04:34 ABG pO2 68.3 mm Hg (80.0-90.0) L 02/26/20 04:07 POC ABG HCO3 32.2 02/29/20 04:34 ABG O2 Saturation 95.0 % (95.0-99.0) 02/26/20 04:07 PT/INR, D-dimer PT 18.8 Sec. (12.2-14.9) H 02/22/20 07:40 INR 1.59 (0.87-1.13) H 02/22/20 07:40 D-Dimer 2743.07 ng/mlDDU (0-234) H 02/26/20 01:59 Abnormal lab findings: Abnormal Labs 02/20/20 02/20/20 02/20/20 19:21 19:21 19:21 WBC 14.7 H Hct MCV 95 H MCH Seg Neuts % (Manual) 86.0 H Lymphocytes % (Manual) 5.0 L Nucleated RBC % 1.0 H Seg Neutrophils # Man 12.6 H Lymphocytes # (Manual) 0.7 L PT INR D-Dimer > 98860 H ABG pH POC ABG pCO2 POC ABG pO2 ABG pO2 ABG HCO3 ABG O2 Saturation ABG Base Excess ABG Hemoglobin ABG Oxyhemoglobin ABG Sodium ABG Potassium ABG Chloride ABG Glucose Oxyhemoglobin Sodium 129 L Potassium Chloride 95.8 L Carbon Dioxide 21 L BUN 21 H Glucose 167 H POC Glucose Lactic Acid Calcium Ferritin Direct Bilirubin AST 93 H ALT 148 H Alkaline Phosphatase 138 H Lactate Dehydrogenase C-Reactive Protein Total Protein Albumin 2.8 L Triglycerides Arterial Blood Glucose Urine WBC (Auto) Coronavirus (PCR) SARS-CoV-2 IgG Ab 02/20/20 02/20/20 02/20/20 19:21 19:21 23:00 WBC Hct MCV MCH Seg Neuts % (Manual) Lymphocytes % (Manual) Nucleated RBC % Seg Neutrophils # Man Lymphocytes # (Manual) PT INR D-Dimer ABG pH POC ABG pCO2 POC ABG pO2 ABG pO2 ABG HCO3 ABG O2 Saturation ABG Base Excess ABG Hemoglobin ABG Oxyhemoglobin ABG Sodium ABG Potassium ABG Chloride ABG Glucose Oxyhemoglobin Sodium Potassium Chloride Carbon Dioxide BUN Glucose 165 H POC Glucose Lactic Acid Calcium Ferritin 1263.0 H Direct Bilirubin AST ALT Alkaline Phosphatase Lactate Dehydrogenase 858 H C-Reactive Protein 32.40 H Total Protein Albumin Triglycerides Arterial Blood Glucose Urine WBC (Auto) 9.0 H Coronavirus (PCR) SARS-CoV-2 IgG Ab 02/20/20 02/21/20 02/21/20 23:37 04:09 08:59 WBC Hct MCV MCH Seg Neuts % (Manual) Lymphocytes % (Manual) Nucleated RBC % Seg Neutrophils # Man Lymphocytes # (Manual) PT INR D-Dimer ABG pH 7.192 L 7.268 L POC ABG pCO2 51.3 H POC ABG pO2 61.1 L ABG pO2 62.0 L ABG HCO3 16.5 L ABG O2 Saturation 87.8 L ABG Base Excess -9.6 L ABG Hemoglobin 13.7 L ABG Oxyhemoglobin ABG Sodium 133.6 L ABG Potassium ABG Chloride ABG Glucose 166 H Oxyhemoglobin 86.7 L Sodium Potassium Chloride Carbon Dioxide BUN Glucose POC Glucose Lactic Acid Calcium Ferritin Direct Bilirubin AST ALT Alkaline Phosphatase Lactate Dehydrogenase C-Reactive Protein Total Protein Albumin Triglycerides Arterial Blood Glucose 166 H Urine WBC (Auto) Coronavirus (PCR) Positive A SARS-CoV-2 IgG Ab 02/21/20 02/22/20 02/22/20 12:54 03:09 07:40 WBC 15.5 H Hct MCV 96 H MCH Seg Neuts % (Manual) 94.0 H Lymphocytes % (Manual) Nucleated RBC % Seg Neutrophils # Man 14.6 H Lymphocytes # (Manual) 0.0 L PT INR D-Dimer ABG pH 7.252 L 7.280 L POC ABG pCO2 POC ABG pO2 81.3 L ABG pO2 97.7 H ABG HCO3 14.9 L ABG O2 Saturation ABG Base Excess -11.2 L ABG Hemoglobin ABG Oxyhemoglobin ABG Sodium ABG Potassium 4.8 H ABG Chloride 113.0 H ABG Glucose 209 H Oxyhemoglobin Sodium Potassium Chloride Carbon Dioxide BUN Glucose POC Glucose Lactic Acid Calcium Ferritin Direct Bilirubin AST ALT Alkaline Phosphatase Lactate Dehydrogenase C-Reactive Protein Total Protein Albumin Triglycerides Arterial Blood Glucose 209 H Urine WBC (Auto) Coronavirus (PCR) SARS-CoV-2 IgG Ab 02/22/20 02/22/20 02/22/20 07:40 07:40 11:23 WBC Hct MCV MCH Seg Neuts % (Manual) Lymphocytes % (Manual) Nucleated RBC % Seg Neutrophils # Man Lymphocytes # (Manual) PT 18.8 H INR 1.59 H D-Dimer ABG pH POC ABG pCO2 POC ABG pO2 ABG pO2 ABG HCO3 ABG O2 Saturation ABG Base Excess ABG Hemoglobin ABG Oxyhemoglobin ABG Sodium ABG Potassium ABG Chloride ABG Glucose Oxyhemoglobin Sodium Potassium 5.2 H D Chloride 111.4 H 113.7 H Carbon Dioxide 18 L BUN 35 H 36 H Glucose 234 H 240 H POC Glucose Lactic Acid Calcium 7.9 L 8.0 L Ferritin Direct Bilirubin 0.3 H AST 127 H ALT 261 H Alkaline Phosphatase 211 H Lactate Dehydrogenase C-Reactive Protein Total Protein Albumin 2.4 L Triglycerides Arterial Blood Glucose Urine WBC (Auto) Coronavirus (PCR) SARS-CoV-2 IgG Ab 02/22/20 02/22/20 02/22/20 12:53 18:25 23:14 WBC Hct MCV MCH Seg Neuts % (Manual) Lymphocytes % (Manual) Nucleated RBC % Seg Neutrophils # Man Lymphocytes # (Manual) PT INR D-Dimer ABG pH 7.311 L POC ABG pCO2 POC ABG pO2 ABG pO2 70.7 L ABG HCO3 ABG O2 Saturation 93.7 L ABG Base Excess -5.3 L ABG Hemoglobin 13.7 L ABG Oxyhemoglobin ABG Sodium ABG Potassium ABG Chloride ABG Glucose Oxyhemoglobin 92.3 L Sodium Potassium Chloride Carbon Dioxide BUN Glucose POC Glucose 220 H 229 H Lactic Acid Calcium Ferritin Direct Bilirubin AST ALT Alkaline Phosphatase Lactate Dehydrogenase C-Reactive Protein Total Protein Albumin Triglycerides Arterial Blood Glucose Urine WBC (Auto) Coronavirus (PCR) SARS-CoV-2 IgG Ab 02/23/20 02/23/20 02/23/20 04:00 05:00 05:29 WBC 15.3 H Hct MCV 97 H MCH 33 H Seg Neuts % (Manual) Lymphocytes % (Manual) Nucleated RBC % Seg Neutrophils # Man Lymphocytes # (Manual) PT INR D-Dimer ABG pH 7.318 L POC ABG pCO2 POC ABG pO2 ABG pO2 ABG HCO3 ABG O2 Saturation ABG Base Excess ABG Hemoglobin ABG Oxyhemoglobin ABG Sodium ABG Potassium 5.1 H ABG Chloride 114.0 H ABG Glucose 306 H Oxyhemoglobin Sodium Potassium 5.4 H Chloride 114.3 H Carbon Dioxide BUN 47 H Glucose 323 H POC Glucose Lactic Acid Calcium 8.1 L Ferritin Direct Bilirubin AST 61 H ALT 197 H Alkaline Phosphatase Lactate Dehydrogenase C-Reactive Protein Total Protein 6.0 L Albumin 2.3 L Triglycerides Arterial Blood Glucose 306 H Urine WBC (Auto) Coronavirus (PCR) SARS-CoV-2 IgG Ab 02/23/20 02/23/20 02/23/20 05:32 11:57 18:09 WBC Hct MCV MCH Seg Neuts % (Manual) Lymphocytes % (Manual) Nucleated RBC % Seg Neutrophils # Man Lymphocytes # (Manual) PT INR D-Dimer ABG pH POC ABG pCO2 POC ABG pO2 ABG pO2 ABG HCO3 ABG O2 Saturation ABG Base Excess ABG Hemoglobin ABG Oxyhemoglobin ABG Sodium ABG Potassium ABG Chloride ABG Glucose Oxyhemoglobin Sodium Potassium Chloride Carbon Dioxide BUN Glucose POC Glucose 264 H 283 H 338 H Lactic Acid Calcium Ferritin Direct Bilirubin AST ALT Alkaline Phosphatase Lactate Dehydrogenase C-Reactive Protein Total Protein Albumin Triglycerides Arterial Blood Glucose Urine WBC (Auto) Coronavirus (PCR) SARS-CoV-2 IgG Ab 02/23/20 02/24/20 02/24/20 23:13 03:50 06:10 WBC Hct MCV MCH Seg Neuts % (Manual) Lymphocytes % (Manual) Nucleated RBC % Seg Neutrophils # Man Lymphocytes # (Manual) PT INR D-Dimer ABG pH POC ABG pCO2 POC ABG pO2 ABG pO2 90.6 H ABG HCO3 ABG O2 Saturation ABG Base Excess ABG Hemoglobin 12.7 L ABG Oxyhemoglobin ABG Sodium ABG Potassium ABG Chloride ABG Glucose Oxyhemoglobin Sodium Potassium Chloride Carbon Dioxide BUN Glucose POC Glucose 300 H 313 H Lactic Acid Calcium Ferritin Direct Bilirubin AST ALT Alkaline Phosphatase Lactate Dehydrogenase C-Reactive Protein Total Protein Albumin Triglycerides Arterial Blood Glucose Urine WBC (Auto) Coronavirus (PCR) SARS-CoV-2 IgG Ab 02/24/20 02/24/20 02/24/20 11:52 13:11 13:11 WBC Hct MCV MCH Seg Neuts % (Manual) Lymphocytes % (Manual) Nucleated RBC % Seg Neutrophils # Man Lymphocytes # (Manual) PT INR D-Dimer ABG pH POC ABG pCO2 POC ABG pO2 ABG pO2 ABG HCO3 ABG O2 Saturation ABG Base Excess ABG Hemoglobin ABG Oxyhemoglobin ABG Sodium ABG Potassium ABG Chloride ABG Glucose Oxyhemoglobin Sodium 147 H Potassium 5.6 H Chloride 113.2 H Carbon Dioxide BUN 50 H Glucose 342 H POC Glucose 290 H Lactic Acid Calcium Ferritin Direct Bilirubin AST 150 H ALT 205 H Alkaline Phosphatase Lactate Dehydrogenase C-Reactive Protein Total Protein Albumin 2.4 L Triglycerides Arterial Blood Glucose Urine WBC (Auto) Coronavirus (PCR) SARS-CoV-2 IgG Ab 02/24/20 02/24/20 02/25/20 13:11 17:46 00:25 WBC Hct MCV MCH Seg Neuts % (Manual) Lymphocytes % (Manual) Nucleated RBC % Seg Neutrophils # Man Lymphocytes # (Manual) PT INR D-Dimer ABG pH POC ABG pCO2 POC ABG pO2 ABG pO2 ABG HCO3 ABG O2 Saturation ABG Base Excess ABG Hemoglobin ABG Oxyhemoglobin ABG Sodium ABG Potassium ABG Chloride ABG Glucose Oxyhemoglobin Sodium Potassium Chloride Carbon Dioxide BUN Glucose POC Glucose 310 H 300 H Lactic Acid 2.40 H* Calcium Ferritin Direct Bilirubin AST ALT Alkaline Phosphatase Lactate Dehydrogenase C-Reactive Protein Total Protein Albumin Triglycerides Arterial Blood Glucose Urine WBC (Auto) Coronavirus (PCR) SARS-CoV-2 IgG Ab 02/25/20 02/25/20 02/25/20 04:00 04:42 04:42 WBC Hct MCV MCH Seg Neuts % (Manual) Lymphocytes % (Manual) Nucleated RBC % Seg Neutrophils # Man Lymphocytes # (Manual) PT INR D-Dimer ABG pH POC ABG pCO2 POC ABG pO2 ABG pO2 77.9 L ABG HCO3 26.7 H ABG O2 Saturation ABG Base Excess ABG Hemoglobin 12.4 L ABG Oxyhemoglobin ABG Sodium ABG Potassium ABG Chloride ABG Glucose Oxyhemoglobin 94.5 L Sodium 149 H Potassium Chloride 113.2 H Carbon Dioxide BUN 45 H Glucose 416 H POC Glucose Lactic Acid 2.20 H* Calcium Ferritin Direct Bilirubin 0.3 H AST 60 H ALT 174 H Alkaline Phosphatase Lactate Dehydrogenase C-Reactive Protein Total Protein 5.7 L Albumin 2.2 L Triglycerides Arterial Blood Glucose Urine WBC (Auto) Coronavirus (PCR) SARS-CoV-2 IgG Ab 02/25/20 02/25/20 02/25/20 05:24 11:32 18:23 WBC Hct MCV MCH Seg Neuts % (Manual) Lymphocytes % (Manual) Nucleated RBC % Seg Neutrophils # Man Lymphocytes # (Manual) PT INR D-Dimer ABG pH POC ABG pCO2 POC ABG pO2 ABG pO2 ABG HCO3 ABG O2 Saturation ABG Base Excess ABG Hemoglobin ABG Oxyhemoglobin ABG Sodium ABG Potassium ABG Chloride ABG Glucose Oxyhemoglobin Sodium Potassium Chloride Carbon Dioxide BUN Glucose POC Glucose 378 H 361 H 383 H Lactic Acid Calcium Ferritin Direct Bilirubin AST ALT Alkaline Phosphatase Lactate Dehydrogenase C-Reactive Protein Total Protein Albumin Triglycerides Arterial Blood Glucose Urine WBC (Auto) Coronavirus (PCR) SARS-CoV-2 IgG Ab 02/25/20 02/26/20 02/26/20 23:11 01:59 01:59 WBC Hct MCV MCH Seg Neuts % (Manual) Lymphocytes % (Manual) Nucleated RBC % Seg Neutrophils # Man Lymphocytes # (Manual) PT INR D-Dimer 2743.07 H ABG pH POC ABG pCO2 POC ABG pO2 ABG pO2 ABG HCO3 ABG O2 Saturation ABG Base Excess ABG Hemoglobin ABG Oxyhemoglobin ABG Sodium ABG Potassium ABG Chloride ABG Glucose Oxyhemoglobin Sodium Potassium Chloride Carbon Dioxide BUN Glucose POC Glucose 356 H Lactic Acid 2.20 H* Calcium Ferritin Direct Bilirubin AST ALT Alkaline Phosphatase Lactate Dehydrogenase C-Reactive Protein Total Protein Albumin Triglycerides Arterial Blood Glucose Urine WBC (Auto) Coronavirus (PCR) SARS-CoV-2 IgG Ab 02/26/20 02/26/20 02/26/20 01:59 01:59 01:59 WBC Hct MCV MCH Seg Neuts % (Manual) Lymphocytes % (Manual) Nucleated RBC % Seg Neutrophils # Man Lymphocytes # (Manual) PT INR D-Dimer ABG pH POC ABG pCO2 POC ABG pO2 ABG pO2 ABG HCO3 ABG O2 Saturation ABG Base Excess ABG Hemoglobin ABG Oxyhemoglobin ABG Sodium ABG Potassium ABG Chloride ABG Glucose Oxyhemoglobin Sodium Potassium Chloride Carbon Dioxide BUN Glucose POC Glucose Lactic Acid Calcium Ferritin 1823.0 H Direct Bilirubin AST ALT Alkaline Phosphatase Lactate Dehydrogenase 589 H C-Reactive Protein 10.40 H Total Protein Albumin Triglycerides Arterial Blood Glucose Urine WBC (Auto) Coronavirus (PCR) SARS-CoV-2 IgG Ab Reactive A 02/26/20 02/26/20 02/26/20 04:07 05:14 12:26 WBC Hct MCV MCH Seg Neuts % (Manual) Lymphocytes % (Manual) Nucleated RBC % Seg Neutrophils # Man Lymphocytes # (Manual) PT INR D-Dimer ABG pH 7.466 H POC ABG pCO2 POC ABG pO2 ABG pO2 68.3 L ABG HCO3 26.3 H ABG O2 Saturation ABG Base Excess ABG Hemoglobin 8.6 L ABG Oxyhemoglobin ABG Sodium ABG Potassium ABG Chloride ABG Glucose Oxyhemoglobin 93.7 L Sodium Potassium Chloride Carbon Dioxide BUN Glucose POC Glucose 321 H 398 H Lactic Acid Calcium Ferritin Direct Bilirubin AST ALT Alkaline Phosphatase Lactate Dehydrogenase C-Reactive Protein Total Protein Albumin Triglycerides Arterial Blood Glucose Urine WBC (Auto) Coronavirus (PCR) SARS-CoV-2 IgG Ab 02/26/20 02/26/20 02/27/20 17:48 23:37 03:51 WBC Hct MCV MCH Seg Neuts % (Manual) Lymphocytes % (Manual) Nucleated RBC % Seg Neutrophils # Man Lymphocytes # (Manual) PT INR D-Dimer ABG pH 7.527 H POC ABG pCO2 POC ABG pO2 67.3 L ABG pO2 ABG HCO3 ABG O2 Saturation ABG Base Excess ABG Hemoglobin ABG Oxyhemoglobin ABG Sodium 152.0 H ABG Potassium ABG Chloride 118.0 H ABG Glucose 263 H Oxyhemoglobin Sodium Potassium Chloride Carbon Dioxide BUN Glucose POC Glucose 335 H 308 H Lactic Acid Calcium Ferritin Direct Bilirubin AST ALT Alkaline Phosphatase Lactate Dehydrogenase C-Reactive Protein Total Protein Albumin Triglycerides Arterial Blood Glucose 263 H Urine WBC (Auto) Coronavirus (PCR) SARS-CoV-2 IgG Ab 02/27/20 02/27/20 02/27/20 05:28 07:17 07:17 WBC 18.5 H Hct MCV 97 H MCH Seg Neuts % (Manual) Lymphocytes % (Manual) Nucleated RBC % Seg Neutrophils # Man Lymphocytes # (Manual) PT INR D-Dimer ABG pH POC ABG pCO2 POC ABG pO2 ABG pO2 ABG HCO3 ABG O2 Saturation ABG Base Excess ABG Hemoglobin ABG Oxyhemoglobin ABG Sodium ABG Potassium ABG Chloride ABG Glucose Oxyhemoglobin Sodium 154 H Potassium Chloride 119.9 H Carbon Dioxide BUN 49 H Glucose 227 H POC Glucose 188 H Lactic Acid Calcium Ferritin Direct Bilirubin AST ALT Alkaline Phosphatase Lactate Dehydrogenase C-Reactive Protein Total Protein Albumin Triglycerides Arterial Blood Glucose Urine WBC (Auto) Coronavirus (PCR) SARS-CoV-2 IgG Ab 02/27/20 02/27/20 02/27/20 11:50 17:44 23:40 WBC Hct MCV MCH Seg Neuts % (Manual) Lymphocytes % (Manual) Nucleated RBC % Seg Neutrophils # Man Lymphocytes # (Manual) PT INR D-Dimer ABG pH POC ABG pCO2 POC ABG pO2 ABG pO2 ABG HCO3 ABG O2 Saturation ABG Base Excess ABG Hemoglobin ABG Oxyhemoglobin ABG Sodium ABG Potassium ABG Chloride ABG Glucose Oxyhemoglobin Sodium Potassium Chloride Carbon Dioxide BUN Glucose POC Glucose 202 H 291 H 247 H Lactic Acid Calcium Ferritin Direct Bilirubin AST ALT Alkaline Phosphatase Lactate Dehydrogenase C-Reactive Protein Total Protein Albumin Triglycerides Arterial Blood Glucose Urine WBC (Auto) Coronavirus (PCR) SARS-CoV-2 IgG Ab 02/28/20 02/28/20 02/28/20 04:33 04:47 05:29 WBC Hct MCV MCH Seg Neuts % (Manual) Lymphocytes % (Manual) Nucleated RBC % Seg Neutrophils # Man Lymphocytes # (Manual) PT INR D-Dimer ABG pH POC ABG pCO2 POC ABG pO2 49.8 L 44.3 L ABG pO2 ABG HCO3 ABG O2 Saturation ABG Base Excess ABG Hemoglobin ABG Oxyhemoglobin 85.8 L 80.2 L ABG Sodium 149.1 H 148.5 H ABG Potassium ABG Chloride 114.0 H 114.0 H ABG Glucose 259 H 258 H Oxyhemoglobin Sodium Potassium Chloride Carbon Dioxide BUN Glucose POC Glucose 200 H Lactic Acid Calcium Ferritin Direct Bilirubin AST ALT Alkaline Phosphatase Lactate Dehydrogenase C-Reactive Protein Total Protein Albumin Triglycerides Arterial Blood Glucose 259 H 258 H Urine WBC (Auto) Coronavirus (PCR) SARS-CoV-2 IgG Ab 02/28/20 02/28/20 02/28/20 10:09 10:09 11:58 WBC Hct MCV MCH Seg Neuts % (Manual) Lymphocytes % (Manual) Nucleated RBC % Seg Neutrophils # Man Lymphocytes # (Manual) PT INR D-Dimer ABG pH POC ABG pCO2 POC ABG pO2 ABG pO2 ABG HCO3 ABG O2 Saturation ABG Base Excess ABG Hemoglobin ABG Oxyhemoglobin ABG Sodium ABG Potassium ABG Chloride ABG Glucose Oxyhemoglobin Sodium 150 H Potassium Chloride 112.9 H Carbon Dioxide 33 H D BUN 50 H Glucose 237 H POC Glucose 203 H Lactic Acid Calcium Ferritin Direct Bilirubin AST ALT Alkaline Phosphatase Lactate Dehydrogenase C-Reactive Protein Total Protein Albumin Triglycerides 202 H Arterial Blood Glucose Urine WBC (Auto) Coronavirus (PCR) SARS-CoV-2 IgG Ab 02/28/20 02/28/20 02/29/20 17:10 23:47 04:34 WBC Hct MCV MCH Seg Neuts % (Manual) Lymphocytes % (Manual) Nucleated RBC % Seg Neutrophils # Man Lymphocytes # (Manual) PT INR D-Dimer ABG pH POC ABG pCO2 48.2 H POC ABG pO2 54.3 L ABG pO2 ABG HCO3 ABG O2 Saturation ABG Base Excess ABG Hemoglobin ABG Oxyhemoglobin ABG Sodium 147.8 H ABG Potassium ABG Chloride 112.0 H ABG Glucose 347 H Oxyhemoglobin Sodium Potassium Chloride Carbon Dioxide BUN Glucose POC Glucose 231 H 279 H Lactic Acid Calcium Ferritin Direct Bilirubin AST ALT Alkaline Phosphatase Lactate Dehydrogenase C-Reactive Protein Total Protein Albumin Triglycerides Arterial Blood Glucose 347 H Urine WBC (Auto) Coronavirus (PCR) SARS-CoV-2 IgG Ab 02/29/20 02/29/20 02/29/20 04:39 04:39 05:34 WBC 12.5 H Hct 35.1 L D MCV 95 H MCH Seg Neuts % (Manual) Lymphocytes % (Manual) Nucleated RBC % Seg Neutrophils # Man Lymphocytes # (Manual) PT INR D-Dimer ABG pH POC ABG pCO2 POC ABG pO2 ABG pO2 ABG HCO3 ABG O2 Saturation ABG Base Excess ABG Hemoglobin ABG Oxyhemoglobin ABG Sodium ABG Potassium ABG Chloride ABG Glucose Oxyhemoglobin Sodium 147 H Potassium Chloride 110.0 H Carbon Dioxide BUN 56 H Glucose 342 H POC Glucose 284 H Lactic Acid Calcium Ferritin Direct Bilirubin AST ALT Alkaline Phosphatase Lactate Dehydrogenase C-Reactive Protein Total Protein Albumin Triglycerides Arterial Blood Glucose Urine WBC (Auto) Coronavirus (PCR) SARS-CoV-2 IgG Ab 02/29/20 02/29/20 02/29/20 11:22 17:08 23:39 WBC Hct MCV MCH Seg Neuts % (Manual) Lymphocytes % (Manual) Nucleated RBC % Seg Neutrophils # Man Lymphocytes # (Manual) PT INR D-Dimer ABG pH POC ABG pCO2 POC ABG pO2 ABG pO2 ABG HCO3 ABG O2 Saturation ABG Base Excess ABG Hemoglobin ABG Oxyhemoglobin ABG Sodium ABG Potassium ABG Chloride ABG Glucose Oxyhemoglobin Sodium Potassium Chloride Carbon Dioxide BUN Glucose POC Glucose 259 H 295 H 306 H Lactic Acid Calcium Ferritin Direct Bilirubin AST ALT Alkaline Phosphatase Lactate Dehydrogenase C-Reactive Protein Total Protein Albumin Triglycerides Arterial Blood Glucose Urine WBC (Auto) Coronavirus (PCR) SARS-CoV-2 IgG Ab 03/01/20 05:16 WBC Hct MCV MCH Seg Neuts % (Manual) Lymphocytes % (Manual) Nucleated RBC % Seg Neutrophils # Man Lymphocytes # (Manual) PT INR D-Dimer ABG pH POC ABG pCO2 POC ABG pO2 ABG pO2 ABG HCO3 ABG O2 Saturation ABG Base Excess ABG Hemoglobin ABG Oxyhemoglobin ABG Sodium ABG Potassium ABG Chloride ABG Glucose Oxyhemoglobin Sodium Potassium Chloride Carbon Dioxide BUN Glucose POC Glucose 306 H Lactic Acid Calcium Ferritin Direct Bilirubin AST ALT Alkaline Phosphatase Lactate Dehydrogenase C-Reactive Protein Total Protein Albumin Triglycerides Arterial Blood Glucose Urine WBC (Auto) Coronavirus (PCR) SARS-CoV-2 IgG Ab Allied health notes reviewed: RT
[2020-03-01] MEDS ORDERED: LACTATED RINGERS 1,000 ML IV ONE ×2 (09:00→22:53)
[2020-03-01] MEDS: dexAMETHasone 4 MG/ML VIAL IV SCH (09:00)
[2020-03-01] MEDS: ENOXAPARIN 80 MG/0.8 ML INJ SUB-Q SCH ×2 (09:00→21:57)
[2020-03-01] MEDS: LANSOPRAZOLE 30 MG SOLUTAB FEEDTUBE SCH ×2 (09:01→21:56)
--- NOTE | 2020-03-01 09:40 | XRay Report ---
CHEST 1 VIEW 03/01/2020 8:31 AM INDICATION / CLINICAL INFORMATION: COVID, subcutaneous emphysema. COMPARISON: 02/29/2020 FINDINGS: SUPPORT DEVICES: Unchanged. HEART / MEDIASTINUM: Unchanged LUNGS / PLEURA: Pulmonary opacities persist. No pneumothorax. ADDITIONAL FINDINGS: Subcutaneous air persists. IMPRESSION: 1. No significant change. Signer Name: Sebas Luna MD Signed: 03/01/2020 9:36 AM Workstation Name: [id number]
[2020-03-01] MEDS ORDERED: LINEZOLID 600 MG/300 ML BAG IV SCH (12:00)
[2020-03-01] MEDS ORDERED: PHENYLEPHRINE 100 MG in SODIUM CHLORIDE 0.9% 90 ML IV SCH (12:00)
[2020-03-01] MEDS ORDERED: SODIUM CHLORIDE 0.9% 1000 ML 1,000 ML ONE (12:01)
--- NOTE | 2020-03-01 13:18 | XRay Report ---
CHEST 1 VIEW 03/01/2020 12:06 PM INDICATION / CLINICAL INFORMATION: PICC line placed pt has SC emphysema. COMPARISON: Radiograph from earlier today. FINDINGS: SUPPORT DEVICES: Interval placement of a right upper extremity approach PICC line with tip projecting over the right atrium. Additional support lines and tubes remain in stable position. HEART / MEDIASTINUM: Stable. LUNGS / PLEURA: Persistent bilateral pulmonary opacities are unchanged. No pneumothorax. ADDITIONAL FINDINGS: No significant additional findings. IMPRESSION: 1. PICC in expected position. Signer Name: Ramin Luna MD Signed: 03/01/2020 1:14 PM Workstation Name: [id number]
--- NOTE | 2020-03-01 18:46 | Progress Note ---
Assessment and Plan The high probability of a clinically significant, sudden or life threatening deterioration of the [] system(s) required my full and direct attention, intervention and personal management. The aggregate critical care time was [x32] minutes. This time is in addition to time spent performing reported procedures but includes the following: [x]x Data Review and interpretation [x] Patient assessment and monitoring of vital signs [x] Documentation [x]x Medication orders and management - Patient Problems (1) Elevated transaminase level Current Visit: Yes Status: Acute Plan to address problem: Secondary to COVID-19. Follow. Overall prognosis poor. (2) COVID-19 Current Visit: Yes Status: Acute Plan to address problem: Patient with severe sepsis secondary to COVID-19 status post dexamethasone, remdesivir, currently intubated unable to wean hypoxemia is progressing. Overall prognosis remains extremely poor. (3) Respiratory failure Current Visit: Yes Status: Acute Qualifiers: Chronicity: acute Respiratory failure complication: hypoxia Qualified Code(s): J96.01 - Acute respiratory failure with hypoxia Plan to address problem: Secondary to COVID-19 pneumonia unable to wean at this time. Continue present management supportive care intubation wean per tolerated as per pulmonology. (4) Septic shock Current Visit: Yes Status: Acute Plan to address problem: Patient septic shock requiring pressor support, cannot protect airway secondary to hypoxemia patient on vent pressor support alternative means of feeding overall prognosis poor. (5) DVT (deep venous thrombosis) Current Visit: Yes Status: Acute Plan to address problem: Anticoagulation therapy. Subjective Date of service: 03/01/20 Principal diagnosis: Ac hypoxemic resp failure; Severe COVID infection; Severe Sepsis; PNA; DVT Interval history: 59-year-old male with known history of hypertension presenting to the emergency room via EMS today complaining of cough, shortness of breath and difficulty breathing. Symptoms have been ongoing for about a week. He was diagnosed with COVID-19 about 4 days ago. He has been having a fever, chills generalized fatigue and dry cough over the past few days. Symptoms seems to be getting worse. He gets more short of breath on minimal exertion. Patient is initial oxygen saturation on room air was about 50% when seen by EMS and he was placed on nonrebreather with improvement of oxygen saturation to about 88%. Patient was subsequently placed on BiPAP upon arrival in the emergency room. Work-up in the emergency room today reveals bilateral pneumonia. During the course of his stay in the emergency room patient's condition continued to deteriorate and was subsequently intubated in the ER. Patient admitted with pneumonia possibly secondary to COVID-19 and will be admitted into the intensive care unit. 02/22: Remains on full ventilatory support, Start Insulin secondary to elevated Blood glucose, Check Hgb A1c. Wean pressors as tolerated. Will attempt to reach family. Rule out PE when stable although note patient is already on full dose Lovenox due to noted lower ext DVT. Continue dexamethasone and Remdesivir, Prone if possible. Good urine output noted, Monitor LFTs 02/23: Repeat chest x-ray. Unsure why patient is still running fevers this could be secondary to viral pneumonia versus superimposed bacterial pneumonia. Will check cultures check lactic acid antibiotics per ID. Wean from vent as tolerated. Prone if possible. Monitor electrolytes and H&H. 02/24: Patient clinically improving although reamins on full ventilatory support. No new fever today. Continue to wean from vent as tolerated 02/25 patient is intubated, has been fever free for 24 hours. Pulmonary and ID notes reviewed. Lab results reviewed. 02/26 remains inubated on Fio2 40%. ABG results reviewed. lab and inflammatory markers reviewed. 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 I will also call the daughter and explained his current clinical course. Lantus has been added will adjust for tighter control. Patient continues to require restraints. Remains on FiO2 of 60% with saturation of 96. Prognosis remains guarded remains sedated. We will continue to monitor inflammatory markers at this time. Nurse to document on skin exam. Patients Daughter updated. [place] [facility]. 02/28: Patient seen and examined, remains critically ill and on the ventilator. Continue management, prone if possible, worsening Hypoxia unfortunately. 03/01 patient remains intubated on the ventilator. Unable to wean. Objective - Constitutional Vitals: Vital Signs - 12hr 03/01/20 03/01/20 03/01/20 07:01 07:15 07:30 Temperature Pulse Rate 151 H 140 H 135 H Respiratory 22 31 H 24 Rate Blood Pressure 97/40 87/48 85/52 O2 Sat by Pulse 93 99 Oximetry 03/01/20 03/01/20 03/01/20 07:45 08:00 08:15 Temperature 102.8 F H Pulse Rate 136 H 136 H 133 H Respiratory 24 21 22 Rate Blood Pressure 82/50 84/48 83/49 O2 Sat by Pulse 99 99 100 Oximetry 03/01/20 03/01/20 03/01/20 08:30 08:45 09:00 Temperature Pulse Rate 133 H 132 H 128 H Respiratory 25 H 21 25 H Rate Blood Pressure 82/50 81/51 89/55 O2 Sat by Pulse 99 99 Oximetry 03/01/20 03/01/20 03/01/20 09:15 09:30 09:45 Temperature Pulse Rate 123 H 120 H 121 H Respiratory 24 22 21 Rate Blood Pressure 89/58 87/56 89/55 O2 Sat by Pulse 100 99 99 Oximetry 03/01/20 03/01/20 03/01/20 09:58 10:00 10:15 Temperature Pulse Rate 117 H 117 H 121 H Respiratory 19 17 Rate Blood Pressure 83/53 83/53 74/53 O2 Sat by Pulse 99 98 100 Oximetry 03/01/20 03/01/20 03/01/20 10:30 10:45 11:00 Temperature Pulse Rate 123 H 119 H 116 H Respiratory 18 16 22 Rate Blood Pressure 92/54 81/53 91/55 O2 Sat by Pulse 99 97 98 Oximetry 03/01/20 03/01/20 03/01/20 11:15 11:30 11:45 Temperature Pulse Rate 118 H 121 H 118 H Respiratory 19 21 17 Rate Blood Pressure 90/60 93/65 89/62 O2 Sat by Pulse 99 100 100 Oximetry 03/01/20 03/01/20 03/01/20 12:00 12:15 12:30 Temperature 99.4 F Pulse Rate 117 H 126 H 123 H Respiratory 19 26 H 19 Rate Blood Pressure 93/58 96/65 94/57 O2 Sat by Pulse 100 99 97 Oximetry 03/01/20 03/01/20 03/01/20 12:38 12:45 13:01 Temperature Pulse Rate 116 H 118 H 116 H Respiratory 21 19 Rate Blood Pressure 91/55 78/59 82/60 O2 Sat by Pulse 100 100 100 Oximetry 03/01/20 03/01/20 03/01/20 13:15 13:31 13:45 Temperature Pulse Rate 113 H 113 H 115 H Respiratory 19 21 22 Rate Blood Pressure 82/60 82/60 82/60 O2 Sat by Pulse 99 99 98 Oximetry 03/01/20 03/01/20 03/01/20 14:01 14:15 14:31 Temperature Pulse Rate 116 H 119 H 109 H Respiratory 19 20 20 Rate Blood Pressure 82/60 101/62 120/69 O2 Sat by Pulse 99 99 99 Oximetry 03/01/20 03/01/20 03/01/20 14:45 15:00 15:15 Temperature Pulse Rate 111 H 111 H 114 H Respiratory 24 21 23 Rate Blood Pressure 101/64 123/65 120/64 O2 Sat by Pulse 99 99 97 Oximetry 03/01/20 03/01/20 03/01/20 15:30 15:45 16:00 Temperature 99.4 F Pulse Rate 114 H 121 H 118 H Respiratory 22 23 22 Rate Blood Pressure 121/67 119/68 112/68 O2 Sat by Pulse 98 99 100 Oximetry 03/01/20 03/01/20 03/01/20 16:15 16:30 16:45 Temperature Pulse Rate 121 H 119 H 114 H Respiratory 23 25 H 21 Rate Blood Pressure 114/61 106/64 115/67 O2 Sat by Pulse 100 99 100 Oximetry 03/01/20 03/01/20 03/01/20 16:50 17:01 17:15 Temperature Pulse Rate 114 H 110 H 110 H Respiratory 20 21 Rate Blood Pressure 133/64 131/60 129/72 O2 Sat by Pulse 100 100 100 Oximetry 03/01/20 03/01/20 17:31 17:45 Temperature Pulse Rate 111 H 123 H Respiratory 21 24 Rate Blood Pressure 122/71 133/64 O2 Sat by Pulse 100 100 Oximetry General appearance: Present: other (Intubated sedated hypoxemic unable to wean.) - Neck Neck: supple, normal ROM - Respiratory Respiratory: bilateral: diminished, rhonchi - Cardiovascular Rhythm: other (Tachycardic) Extremity abnormal: edema - Gastrointestinal General gastrointestinal: Present: soft, non-tender, non-distended, normal bowel sounds, other (Alternative means of feeding.) - Labs CBC & Chem 7: 02/29/20 04:39 02/29/20 04:39 Labs: Abnormal lab results 02/29/20 03/01/20 03/01/20 Range/Units 23:39 05:16 11:55 POC Glucose 306 H 306 H 317 H (70-105) mg/dL 03/01/20 Range/Units 16:54 POC Glucose 440 H (70-105) mg/dL - Imaging and cardiology Chest x-ray: report reviewed, image reviewed
[2020-03-01] MEDS: INSULIN GLARGINE 100 UNITS/ML SUB-Q SCH (21:56)
[2020-03-01] MEDS: ACETAMINOPHEN 325 MG TAB PO PRN (21:58)
[2020-03-01] MEDS ORDERED: SODIUM CHLORIDE 0.9% 1000 ML 1,000 ML IV ONE (22:44)
[2020-03-01] MEDS ORDERED: LACTATED RINGERS 1,000 ML ONE (22:58)
[2020-03-01] MEDS ORDERED: SODIUM BICARB 8.4% 50 MEQ/50 ML SYRINGE IV ONE (23:17)
[2020-03-01] MEDS ORDERED: SODIUM BICARB 8.4% 50 MEQ/50 ML SYRINGE IV STA (23:18)
[2020-03-01] MEDS ORDERED: VASOPRESSIN 20 UNIT in SODIUM CHLORIDE 0.9% 100 ML IV SCH (23:45)
[2020-03-01] MEDS ORDERED: SODIUM BICARBONATE 150 MEQ in DEXTROSE 5% IN WATER 1,000 ML IV SCH (23:45)
[2020-03-02 01:07] VITALS: BP 190/89
[2020-03-02] MEDS: INSULIN LISPRO 100 UNIT/ML VIAL 3 mL SUB-Q SCH (03:02)
--- NOTE | 2020-03-02 06:08 | Event Note ---
Date: 03/02/20 [facility] called on patient who has been on admission for respiratory failure with COVID-19 pneumonia, septic shock. Resuscitative measures were commenced according to ACLS protocol. However all measures taken proved futile. Upon exam, pupils were fixed and dilated No response to verbal commands or deep sternal rub. Chest: No breath sounds Cardiovascular exam: No heart sounds and no peripheral pulses Abdomen: Soft Extremities: Cold and clammy Central nervous system: No reflexes Patient pronounced on 03/02/2020 at 00:26 AM Family members including and daughter were immediately notified.
--- NOTE | 2020-03-03 08:05 | Death Summary ---
Summary - Providers Consults: 02/20/20 22:41 Consult to Physician [CONS] Routine Comment: Consulting Provider: EDI RAE Physician Instructions: Reason For Exam: COVID. 02/21/20 00:16 Consult to Physician [CONS] Routine Comment: Spoke with Dr. Marte @ 0038 Consulting Provider: PATRICK MCKINNEY Physician Instructions: Reason For Exam: Pneumonia r/o covid 19 02/22/20 15:00 Consult to Dietitian/Nutrition [CONS] Routine Physician Instructions: Reason For Exam: Reason for Consult: Write/Manage Tube Feeding 03/01/20 08:35 Consult to PICC Line RN [CONS] Urgent Reason For Exam: Septic shock Type Line:: PICC Attending: CARMELLA WISE - summary Date of admission: 02/20/20 21:32 Date of : 03/02/20 - Final diagnosis (1) Elevated transaminase level Note: Final diagnosis: (2) COVID-19 Note: Final diagnosis: (3) Respiratory failure Qualifiers: Chronicity: acute Respiratory failure complication: hypoxia Qualified Code(s): J96.01 - Acute respiratory failure with hypoxia Note: Final diagnosis: (4) Septic shock Note: Final diagnosis: (5) DVT (deep venous thrombosis) Note: Final diagnosis:
== END 2020-03-02 04:35 | DRG 870 ==
LOC: ED 18:53 → 3A 21:32 → CC1 22:41
PROVIDERS: ADMIT Internal Medicine Geriatric Medicine; ATTEND Internal Medicine
PROC: 06HM33Z Insertion of Infusion Device into Right Femoral Vein, Percutaneous Approach (ICD-10-PCS; 2020-02-20)
PROC: B54BZZA Ultrasonography of Right Lower Extremity Veins, Guidance (ICD-10-PCS; 2020-02-20)
PROC: 5A09357 Assistance with Respiratory Ventilation, Less than 24 Consecutive Hours, Continuous Positive Airway Pressure (ICD-10-PCS; 2020-02-20)
PROC: 4A033R1 Measurement of Arterial Saturation, Peripheral, Percutaneous Approach (ICD-10-PCS; 2020-02-21)
PROC: XW033E5 Introduction of Remdesivir Anti-infective into Peripheral Vein, Percutaneous Approach, New Technology Group 5 (ICD-10-PCS; 2020-02-21)
PROC: 5A1955Z Respiratory Ventilation, Greater than 96 Consecutive Hours (ICD-10-PCS; principal; 2020-02-25)
PROC: 0BH17EZ Insertion of Endotracheal Airway into Trachea, Via Natural or Artificial Opening (ICD-10-PCS; 2020-02-25)
PROC: 02HV33Z Insertion of Infusion Device into Superior Vena Cava, Percutaneous Approach (ICD-10-PCS; 2020-03-01)
PROC: B548ZZA Ultrasonography of Superior Vena Cava, Guidance (ICD-10-PCS; 2020-03-01)
DX: A41.89 Other specified sepsis (principal); J96.01 Acute respiratory failure with hypoxia; J12.89 Other viral pneumonia; U07.1 COVID-19; R65.21 Severe sepsis with septic shock; E87.1 Hypo-osmolality and hyponatremia; N17.9 Acute kidney failure, unspecified; I10 Essential (primary) hypertension; R73.9 Hyperglycemia, unspecified; E87.5 Hyperkalemia; T38.0X5A Adverse effect of glucocorticoids and synthetic analogues, initial encounter; Y92.89 Other specified places as the place of occurrence of the external cause
CPT/HCPCS: 36415; 36600; 36620; 71045; 74018; 80048; 80053; 80076; 81001; 82140; 82728; 82803; 82805; 82947; 82962; 83615; 84145; 84478; 85007; 85025; 85027; 85379; 85610; 86140; 87040; 87070; 87086; 87116; 87205; 93005; 93970; 94002; 94003; 96365; 96367; 96375; G0378; J0456; J0692; J0696; J1100; J1650; J1815; J1940; J2020; J2370; J2543; J2704; J3010; J3370; J7030; J7040; J7050; J7120; U0003